=== PATIENT | male | born 1940 | race Caucasian/White ===

== ENCOUNTER 2019-05-23 10:34 | Outpatient (CLI) | payer OTHER, SELFPAY ==
--- NOTE | ~2019-05-23 | XR_ITS ---
XR chest 2V DATE: 05/23/2019 11:08 INDICATION: Emphysema. Shortness of breath. TECHNIQUE: PA and lateral views COMPARISON: 04/24/2019 portable upright AP, lateral chest and right lateral decubitus views FINDINGS: Status post sternotomy and cardiac valve replacement. Normal heart size. Aortic calcificati on and mild unfolding. Bilateral hyperinflation consistent with COPD. Stable patchy bilateral right mid and lower lung and l eft lower lung infiltrate and/or atelectasis. Calcified right pleural plaques and lateral pleural thickening, left greater than right, are again no linsey. Bilateral rotator cuff atrophy. There are osteoarthritic changes at the glenohumeral joints. IMPRESSION: Little interval change since 04/24/2019 Reviewed, dictated and finalized at location B. 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
== END 2019-05-23 10:35 | disposition home or self-care (01) ==
LOC: ANHIMG 10:41
PROVIDERS: PCP Family Medicine Adolescent Medicine; Visit Provider Specialist
DX: J43.8 Other emphysema (principal)
CPT/HCPCS: 71046

== ENCOUNTER 2019-06-30 09:57 | Outpatient (CLI) | payer OTHER, SELFPAY ==
--- NOTE | ~2019-06-30 | CT_ITS ---
EXAMINATION: CT chest wo con DATE: 06/30/2019 10:32 INDICATION: Lung nodule TECHNIQUE: Computed tomography (CT) of the chest was performed without intravenous contrast. The dose -length product (DLP) was 113.32 mGy-cm. Automated exposure control and iterative reconstruction tech CONWEAVERque were employed. COMPARISON: 01/13/2018 FINDINGS: There is moderate emphysema. Again noted are multiple calcified pleural plaques. There is s table left-sided pleural thickening with rounded atelectasis and bandlike atelectasis of the lingula and left lower lobe, respectively. A few scattered stable pulmonary nodules are seen, consistent with old granulomatous disease. The heart size is normal. There are no pathologically enlarged thoracic l ymph nodes. Calcified coronary artery atherosclerosis is noted. There are changes of aortic valve boy abigail. Cholelithiasis is noted. There is mild thoracic spondylosis. IMPRESSION: 1. Stable chronic findings consistent with prior asbestos exposure. Reviewed, dictated and finalized at location B.
== END 2019-06-30 09:58 | disposition home or self-care (01) ==
LOC: ANHIMG 09:59
PROVIDERS: PCP Family Medicine Adolescent Medicine; Visit Provider Nurse Practitioner Family
DX: R91.1 Solitary pulmonary nodule (principal)
CPT/HCPCS: 71250

== ENCOUNTER 2021-01-23 16:16 | Emergency (ER) | payer OTHER, SELFPAY ==
[2021-01-23 16:28] VITALS: BP 113/68; PULSE 64; RESP 18; TEMP 36.8; O2SAT 18; O2SAT 99
[2021-01-23] MEDS: SILVER NITRATE (*SP) STICK 3 EACH TOPICAL (17:00)
--- NOTE | 2021-01-23 17:13 | ED.GENADULT ---
HPI - General Adult General Chief complaint: Wound/Laceration Stated complaint: Facial Bleeding Source: patient and family () Mode of arrival: ambulatory Limitations: no limitations History of Present Illness HPI narrative: 80 y/o male. PMHx Dementia, COPD, HTN, HLD, AFib on oral Xarelto regimen. Presents to [facility] today with his . CC is bleeding wound to his face. Patient tells me that he had a mole on his right cheek that he had accidentally scratched when itching his face, and the area has since been bleeding without clotting. He did attempt holding pressure at home, however this did not further control the bleeding. Incident had occurred approximately 1/2 hour MEDICAL SOCIOLOGIST. He is concerned because he is on a blood thinner regimen for his cardiac arrhythmia. No facial injury or trauma has been relayed. No dizziness, dyspnea, hematochezia, or additional bleeding sources. Related Data Home Medications Medication Instructions Recorded Confirmed atorvastatin 10 mg PO DAILY 04/20/19 01/23/21 donepezil 10 mg PO HS 04/20/19 01/23/21 prednisone 10 mg tablet 10 mg PO DAILY 06/09/19 01/23/21 ipratropium bromide 0.02 % 2.5 ml INHALATION Q6H PRN 02/06/20 01/23/21 solution for inhalation memantine 10 mg tablet 10 mg PO QPM 02/06/20 01/23/21 lisinopril 10 mg tablet 15 mg PO DAILY tablet 10/15/20 01/23/21 nifedipine 60 mg tablet,extended 60 mg PO DAILY 10/15/20 01/23/21 release omeprazole 10 mg capsule,delayed 10 mg PO DAILY 10/15/20 01/23/21 release oxygen-air delivery systems [PV 01/23/21 01/23/21 Classic Oxygen Concentrator] Allergies Allergy/AdvReac Type Severity Reaction Status Date / Time No Known Allergies Allergy Verified 01/23/21 16:39 Review of Systems Review of Systems: CONSTITUTIONAL: Denies fever, chills, sweats. EYES: Denies visual changes, redness, discharge. ENT: Denies rhinorrhea, congestion, sore throat, otalgia. CARDIOVASCULAR: Denies chest pain, palpitations, edema. RESPIRATORY: Denies dyspnea, wheezing, cough GASTROINTESTINAL: Denies abdominal pain, nausea, vomiting, diarrhea. GENITOURINARY: Denies dysuria, hematuria, abnormal discharge SKIN: Denies rash or itching. Bleeding wound, uncontrolled, left cheek. MUSCULOSKELETAL: Denies acute back pain, joint pain, or myalgia. NEUROLOGIC: Denies numbness, or focal weakness. PSYCHIATRIC: Denies anxiety or depression. All systems reviewed & are unremarkable except as noted in HPI and below PMFSH Past Medical History Medical History COPD (chronic obstructive pulmonary disease) Hypertension Lung nodule Tobacco abuse Quit 2004. 49 pack years 1ppd. Surgical History Surgical History History of aortic valve replacement Status post aortic valve replacement Family History Family History Father Family history of cardiovascular disease Mother Family history of cardiovascular disease Sibling Malignant neoplasm of prostate Other Alzheimer disease Social History Social History Smoking status: Former smoker Smoking end date: 04/05/02 Alcohol intake: never Substance use: never Spiritual care concerns: No Agree to blood products: Yes Exam Narrative: GENERAL: This is a well-nourished, well-developed adult, in no apparent distress. HEAD: normocephalic, atraumatic. EYES: PERRL. CARDIOVASCULAR: Irregularly regular, normal rate. RESPIRATORY: LS diminished throughout. No wheezes, rales, or rhonchi. No acute respiratory distress. Chronic O2 at 2 Liters via NC w/end stage Copd. GASTROINTESTINAL: Abdomen soft, non-tender, nondistended. SKIN: With a small < 1 cm skin tag to left lower cheek. Area is actively bleeding, scant amount. No fluctuance or deep tissue disrupt
--- NOTE | 2021-01-23 17:32 | PC.NURSE ---
1628-- error corrected in the vital signs of the pulse ox, which we were unable to correct in the discharged status, so the correct is 98% on 2L per NC of pts home oxygen.
== END 2021-01-23 17:15 | disposition home or self-care (01) ==
PROVIDERS: Emergency Provider Nurse Practitioner Adult Health; PCP Family Medicine Adolescent Medicine
DX: L91.8 Other hypertrophic disorders of the skin (principal); J44.9 Chronic obstructive pulmonary disease, unspecified; I10 Essential (primary) hypertension; Z95.2 Presence of prosthetic heart valve; Z87.891 Personal history of nicotine dependence; Z79.01 Long term (current) use of anticoagulants
CPT/HCPCS: 99212; G0463

== ENCOUNTER 2021-01-24 04:54 | Emergency (ER) | payer OTHER, SELFPAY ==
[2021-01-24 05:00] VITALS: BP 193/84; PULSE 68; RESP 16; TEMP 36.5; O2SAT 100
[2021-01-24 05:15] VITALS: BP 180/107
--- NOTE | 2021-01-24 05:20 | ED.WOUNDLAC ---
HPI - Wound/Laceration General Chief Complaint: Wound/Laceration Stated Complaint: bleeding exterior lip since 0200 today Time Seen by Provider: 01/24/21 05:14 Source: patient Mode of arrival: ambulatory Limitations: no limitations History of Present Illness HPI narrative: Patient is an 80-year-old male complaining of accidentally scratching a mole on his cheek and now it's bleeding, states that he is on a blood thinner, Xarelto. Patient states that his blood pressure is elevated because he has not taken his morning blood pressure medications yet. Patient has no other complaints. Related Data Home Medications Medication Instructions Recorded Confirmed atorvastatin 10 mg PO DAILY 04/20/19 01/23/21 donepezil 10 mg PO HS 04/20/19 01/23/21 prednisone 10 mg tablet 10 mg PO DAILY 06/09/19 01/23/21 ipratropium bromide 0.02 % 2.5 ml INHALATION Q6H PRN 02/06/20 01/23/21 solution for inhalation memantine 10 mg tablet 10 mg PO QPM 02/06/20 01/23/21 lisinopril 10 mg tablet 15 mg PO DAILY tablet 10/15/20 01/23/21 nifedipine 60 mg tablet,extended 60 mg PO DAILY 10/15/20 01/23/21 release omeprazole 10 mg capsule,delayed 10 mg PO DAILY 10/15/20 01/23/21 release oxygen-air delivery systems [PV 01/23/21 01/23/21 Classic Oxygen Concentrator] Allergies Allergy/AdvReac Type Severity Reaction Status Date / Time No Known Allergies Allergy Verified 01/24/21 05:11 Review of Systems Review of Systems: All systems reviewed & are unremarkable except as noted in HPI and below Constitutional: Constitutional: Reports as per HPI [facility] Past Medical History Medical History COPD (chronic obstructive pulmonary disease) Hypertension Lung nodule Tobacco abuse Quit 2004. 49 pack years 1ppd. Surgical History Surgical History History of aortic valve replacement Status post aortic valve replacement Family History Family History Father Family history of cardiovascular disease Mother Family history of cardiovascular disease Sibling Malignant neoplasm of prostate Other Alzheimer disease Social History Social History Smoking status: Former smoker Smoking end date: 04/05/02 Alcohol intake: never Substance use: never Spiritual care concerns: No Agree to blood products: Yes Exam Const: General: healthy appearing, no acute distress and alert Orientation/consciousness: patient oriented x3 HENMT: Other: Mild active bleed right cheek Resp: Effort & Inspection: normal respiratory effort Skin: General skin exam: normal color Extrem: General: normal to inspection Psych: Mental Status: mental status grossly normal Course Vital Signs Vital signs: Vital Signs Temperature 36.5 C 01/24/21 05:00 Pulse Rate 68 01/24/21 05:00 Respiratory Rate 16 01/24/21 05:00 Blood Pressure 193/84 H 01/24/21 05:00 Pulse Oximetry 100 01/24/21 05:00 Temperature 36.5 C 01/24/21 05:00 Pulse Rate 68 01/24/21 05:00 Respiratory Rate 16 01/24/21 05:00 Blood Pressure 180/107 H 01/24/21 05:15 Pulse Oximetry 100 01/24/21 05:00 MDM - Wound/Laceration MDM Narrative Medical decision making narrative: Procedure: Bleeding stopped using silver nitrate applied to the area that was bleeding Discharge Plan Discharge Clinical Impression: Bleeding from wound Patient Disposition: Home, Self-Care Condition: Improved Instructions: Acute Wounds (ED) Prescriptions: No Action (DME) PV Classic Oxygen Concentrator Device MISCELLANEOUS RF: 0 prednisone 10 mg tablet 10 mg PO DAILY RF: 0 memantine 10 mg tablet 10 mg PO QPM RF: 0 ipratropium bromide 0.02 % solution 2.5 ml inhalation Q6H PRN (Reason: Shortness Of Breath) RF: 0
--- NOTE | 2021-01-24 05:25 | PC.NURSE ---
EDP at bedside
[2021-01-24 05:41] VITALS: BP 186/75; PULSE 63; RESP 15; O2SAT 97
[2021-01-24 05:51] VITALS: BP 155/72; PULSE 69; RESP 18; O2SAT 96
== END 2021-01-24 05:51 | disposition home or self-care (01) ==
LOC: ANHED 05:24
PROVIDERS: Emergency Provider Emergency Medicine; PCP Family Medicine Adolescent Medicine
DX: D22.39 Melanocytic nevi of other parts of face (principal); J44.9 Chronic obstructive pulmonary disease, unspecified; I10 Essential (primary) hypertension; Z95.2 Presence of prosthetic heart valve; Z87.891 Personal history of nicotine dependence; Z79.01 Long term (current) use of anticoagulants
CPT/HCPCS: 12011; 99282

== ENCOUNTER 2022-04-14 11:06 | Outpatient (CLI) | payer OTHER, SELFPAY ==
--- NOTE | ~2022-04-14 | XR_ITS ---
EXAMINATION: XR chest 2V DATE: 04/14/2022 12:17 INDICATION: Shortness of breath TECHNIQUE: PA and lateral views of the chest are obtained. COMPARISON: 05/23/2019 FINDINGS: There are chronic peripheral airspace opacities of the lung bases. No acute airspace opacit ies are identified. No pneumothorax is identified. Chronic pleural thickening is noted. There are chr onic calcified pleural plaques. Changes of cardiac valve replacement are noted. IMPRESSION: 1. Chronic findings of asbestos exposure without acute cardiopulmonary abnormality. Reviewed, dictated and finalized at location L. OPERATOR IMPRESSION: 1. Chronic findings of asbestos exposure without acute cardiopulmonary abnormal ity.
== END 2022-04-14 11:07 | disposition home or self-care (01) ==
PROVIDERS: PCP Family Medicine Adolescent Medicine; Visit Provider Internal Medicine Critical Care Medicine
DX: R09.89 Other specified symptoms and signs involving the circulatory and respiratory systems (principal)
CPT/HCPCS: 71046

== ENCOUNTER 2022-10-10 17:15 | Inpatient (IN) | payer OTHER, SELFPAY ==
[2022-10-10] VITALS (28 sets, daily range): BP systolic 141–180; BP diastolic 68–100; PULSE 68–133; RESP 16–31; TEMP 36.4–36.6; O2SAT 97–100
--- NOTE | ~2022-10-10 | XR_ITS ---
EXAMINATION: XR barium swallow modified DATE: 10/18/2022 12:33 INDICATION: Follow-up of abnormal modified barium swallow. Aspiration. TECHNIQUE: The patient was given barium-containing material of multiple consistencies to swallow by lenard dupree speech pathologist while I performed fluoroscopy. Dose-area product was 0.922 Gy-cm2. 1.6 minutes fluoroscopy time FINDINGS: Oral Stage: Reduced lingual movement Pharyngeal Phase: Reduced laryngeal elevation, reduced laryngeal adduction, reduced pharyngeal squee ze Vallecular and piriform sinus and pharyngeal wall residue Laryngeal penetration Cervical/Esophageal Stage: Within functional limits IMPRESSION: Modified esophagram findings as above. Please refer to the speech [facility] Reviewed, dictated and finalized at Location A. Reviewed, dictated and finalized at location A. IMPRESSION: Modified esophagram findings as above. Please refer to the speech t herapy report for specific recommendations.
--- NOTE | ~2022-10-10 | XR_ITS ---
EXAMINATION: XR chest 1V portable DATE: 10/12/2022 14:18 INDICATION: Aspiration pneumonia. TECHNIQUE: A single frontal view of the chest was obtained. COMPARISON: Chest single view 10/10/2022, chest CT 06/30/2019, chest 2 views 05/23/2019 FINDINGS: There are peripheral airspace opacities in the mid and lower lung zones. There are small pl eural effusions versus pleural thickening. No pneumothorax. The heart size is normal. There are dolan es of aortic valve replacement. IMPRESSION: 1. Stable peripheral airspace opacities in mid and lower lung zones, consistent with chronic lung dis ease. 2. Stable small pleural effusions versus pleural thickening. Reviewed, dictated and finalized at location E. IMPRESSION: 1. Stable peripheral airspace opacities in mid and lower lung zones, consistent with chronic lung disease. 2. Stable small pleural effusions versus pleural thickening.
--- NOTE | ~2022-10-10 | CT_ITS ---
EXAMINATION: CT brain wo con DATE: 10/17/2022 14:54 INDICATION: Transient ischemic attack. Dementia. TECHNIQUE: Computed tomography (CT) of the head was performed without intravenous contrast. The mA wa s adjusted according to patient size. Iterative reconstruction technique was employed. The dose-lengt h product was 605.33 mGy-cm. COMPARISON: Head CT 11/14/2015 FINDINGS: There is an old infarct in left temporal lobe. There are old infarcts in the bilateral thal ami and basal ganglia. There are scattered areas of low attenuation in the cerebral white matter. The re are old infarcts in the cerebellum bilaterally. There is no intracranial hemorrhage, acute infarct ion, or abnormal intracranial mass lesion. The ventricles are normal in size. There is mild mucosal t hickening in the ethmoid sinuses. The orbits are normal. There are bilateral otomastoid effusions. IMPRESSION: 1. Old infarcts involving the cerebellum, left temporal lobe, and bilateral thalami and basal ganglia . 2. Extensive nonspecific cerebral white matter disease, which likely represents chronic small vessel ischemic disease. 3. Bilateral otomastoid effusions. Reviewed, dictated and finalized at location E. IMPRESSION: 1. Old infarcts involving the cerebellum, left temporal lobe, and bilateral bambi lami and basal ganglia. 2. Extensive nonspecific cerebral white matter disease, which likely represents chronic small vessel ischemic disease. 3. Bilateral otomastoid effusions.
--- NOTE | ~2022-10-10 | XR_ITS ---
EXAMINATION: XR chest 1V portable Exam Date/Time: 10/10/2022 17:55 CDT HISTORY: sob Comparison: 04/14/2022. RESULT: Lines, tubes, and devices: Intact sternotomy wires. Abandoned epicardial pacing wires. Lungs and pleura: Patchy areas of subsegmental airspace disease most prominent in the right mid late ral and left lower lateral lung. Indistinct vessels. Moderate diffuse reticular opacities. Mild left and trace right costophrenic angle blunting. Calcified pleural plaques, as can be seen with asbestos related pleural disease. Cardiomediastinal silhouette: Stable. Other: No acute osseous or upper abdominal finding. IMPRESSION: Mild-moderate edema with small left and trace right pleural effusions. Scattered, patchy areas of aleksander eolar edema/atelectasis, infection is not excluded. Reviewed, dictated and finalized at location K. IMPRESSION: Mild-moderate edema with small left and trace right pleural effusions. Scattere d, patchy areas of alveolar edema/atelectasis, infection is not excluded.
--- NOTE | ~2022-10-10 | XR_ITS ---
MODIFIED ESOPHAGRAM HISTORY: Suspected aspiration TECHNIQUE: Modified barium esophagram was performed on 10/14/2022. I administered fluoroscopy and perf ormed the exam with speech pathologist. Patient was seated for lateral fluoroscopic imaging for malini stion of thin liquids, pudding, solids and quantified amounts, followed by thin liquids in uncontroll ed amounts. This was recorded on tape. A single fluoroscopic spot image was also recorded. The DAP fo r this procedure was 3.28 Gycm2. The amount of fluoroscopy time used during this procedure was 5.0 mi nutes. FINDINGS: Oral stage: Adequate function. Pharyngeal stage: Reduced laryngeal elevation and adduction. Reduced tongue base retraction and phary ngeal squeeze. There is a large amount of vallecular residue with mild/moderate amount of residue in the piriform sinus and along the pharyngeal wall. There is laryngeal penetration with silent aspirati on with all consistencies with ineffectual cough clearance. Cervical/esophageal stage: Adequate function. IMPRESSION: Significant pharyngeal dysphagia with recurrent laryngeal penetration and silent aspirati on with all consistencies. Please correlate with speech pathologist findings and specific feeding re commendations. Reviewed, dictated and finalized at location A. IMPRESSION: Significant pharyngeal dysphagia with recurrent laryngeal penetrati on and silent aspiration with all consistencies. Please correlate with speech pathologist findings and specific feeding recommendations.
--- NOTE | 2022-10-10 17:17 | ECG_ITS ---
Measurements Intervals [place] Rate: 130 P: PA: 324 QRS: 62 QRSD: 81 T: 266 QT: 277 QTc: 408 Interpretive Statements ATRIAL FIBRILLATION WITH RAPID VENTRICULAR RESPONSE VENTRICULAR PREMATURE COMPLEX DELAYED PRECORDIAL R/S TRANSITION ST-T WAVE ABNORMALITY IN INFERIOR LEADS- CONSIDER ISCHEMIA BASELINE ARTIFACT- II, III, AVF, V5-V6 ABNORMAL ECG COMPARED TO ECG 04/24/2019 07:38:58 HEART RATE HAS INCREASED ST-T WAVE ABNORMALITY NOW PRESENT Electronically Signed On 10-11-2022 7:24:03 CDT by Jose Hyanes D.O.
--- NOTE | 2022-10-10 17:23 | ED.SOB ---
HPI - SOB/Dyspnea General Chief Complaint: Shortness of Breath/Dyspnea Stated Complaint: DYSPNEA Time Seen by Provider: 10/10/22 17:20 Source: patient Limitations: no limitations History of Present Illness HPI Narrative: 81 years old white female came from home by ambulance with shortness of breath that started sometime today. He denies any fever, chills, nausea, vomiting, chest pain. Patient reports some coughing lately. Patient normally on 2 L of oxygen, currently on 4 L with oxygenation at 98%. MD elicited complaint: shortness of breath and cough Pertinent past history: COPD Onset (ago): hour(s) Timing: constant Severity: moderate Known history of: COPD Associated symptoms: denies other symptoms Related Data Home Medications Medication Instructions Recorded Confirmed ipratropium bromide 0.02 % 2.5 ml inhalation Q6H PRN 02/06/20 10/10/22 solution for inhalation Shortness Of Breath cholecalciferol (vitamin D3) 50 2,000 unit PO DAILY 06/11/21 10/10/22 mcg (2,000 unit) chewable tablet omeprazole 20 mg capsule,delayed 20 mg PO DAILY 01/23/22 10/10/22 release metoprolol succinate 50 mg 50 mg PO DAILY 09/29/22 10/10/22 tablet,extended release 24 hr memantine 10 mg tablet 10 mg PO BID 10/10/22 10/10/22 multivit with minerals-iron 18 1 tablet PO DAILY 10/10/22 10/10/22 mg-folic ac 400 mcg-vit K 25 mcg tablet (Adults Multivitamin) triamcinolone acetonide 0.1 % 1 applic topical DAILY 10/12/22 10/12/22 topical cream Allergies Allergy/AdvReac Type Severity Reaction Status Date / Time No Known Allergies Allergy Verified 09/22/22 08:37 Review of Systems Review of Systems: All systems reviewed & are unremarkable except as noted in HPI and below PMFSH Past Medical History Medical History Abdominal aortic aneurysm, without rupture Chronic respiratory failure with hypoxia Chronic home O2 Chronic venous insufficiency of lower extremity Dementia Diastolic heart failure Grade 2 diastolic heart failure known echocardiogram 2015 with indeterminate diastolic function noted on echocardiogram 2019 Essential hypertension Gastro-esophageal reflux disease without esophagitis History of prostate cancer 2004 Hyperlipidemia Kidney stones Lung nodule Panlobular emphysema Paroxysmal atrial fibrillation Presbycusis of both ears Pulmonary hypertension due to lung diseases and hypoxia Severe with last echo 2019 Severe aortic stenosis by prior echocardiogram 2016 Stenosis of right carotid artery Tobacco abuse Quit 2005. 49 pack years 1ppd. Vasomotor rhinitis Surgical History Surgical History History of aortic valve replacement with tissue graft (~2015) Due to severely stenosed bicuspid aortic valve with a Magna tissue valve replacement History of colonoscopy with polypectomy History of radical prostatectomy (~2004) With adjunctive radiation therapy History of right inguinal hernia repair (~2005) History of tonsillectomy and adenoidectomy Family History Family History Father Acute myocardial infarction Heart disease Mother Acute myocardial infarction Heart disease Sibling Malignant neoplasm of prostate Alzheimer's dementia Heart disease Son Type 1 diabetes Other Alzheimer disease Social History Social History Social History: Code status: DNR/DNI Surrogate decision maker: Smoking packs per day: 1 Smoking cigarettes per day: 20.0 Years smoked: 46 Smoking pack-years: 46.00 Smoking status: Former smoker Tobacco type: cigarettes Smoking end date: 04/05/02 Alcohol intake: never Substance use: never Substance use type: does not use Lack of Transportation: No Lack of Food: Never True Current Housing: I Have Housing Conc
[2022-10-10 17:41] LABS: Hematocrit 37.8 % (42.0-52.0); Hemoglobin 10.8 g/dL (14.0-18.0); Mean Corpuscular HGB Conc 28.6 g/dl (32-36); Mean Corpuscular Hemoglobin 24.9 pg (26-34); Mean Corpuscular Volume 87.1 fl (80-100); Mean Platelet Volume 10.1 fl (7.4-10.4); Platelet Count Result 219 k/mm3 (150-375); Red Blood Count 4.34 M/mm3 (4.6-6.20); Red Cell Distribution Width 14.3 % (11.5-14.5); White Blood Count 10.4 K/mm3 (4.5-10.0)
[2022-10-10] MEDS: methylPREDNISolone SOD SUCC 125 MG VIAL IV PUSH (17:47)
[2022-10-10] MEDS: dilTIAZem HCl INJ 25 MG/5 ML VIAL 10 MG IV PUSH (17:47)
[2022-10-10] MEDS: dilTIAZem 100 MG/100 ML 100 MG/100 ML BAG IV CONT (17:47)
[2022-10-10] MEDS: IPRATROPIUM BR 0.02% INH SOLN 0.5 MG/2.5 ML VIAL INHALATION ×2 (17:49→20:37)
[2022-10-10] MEDS: ALBUTEROL SULFATE NEB 2.5 MG/3 ML INH INHALATION ×2 (17:49→20:38)
[2022-10-10 17:52] LABS: INR 1.6; Prothrombin Time 19.7 Seconds (11.1-14.7)
[2022-10-10 17:53] LABS: Partial Thromboplastin Time 34.4 SECONDS (22.3-36.8)
[2022-10-10 17:54] LABS: Alanine Aminotransferase 18 U/L (6-50); Albumin Level 4.3 g/dL (3.5-5.1); Alkaline Phosphatase 86 U/L (38-126); Anion Gap 8 mmol/L (8-16); Aspartate Amino Transferase 22 U/L (17-59); Bilirubin,Total 0.7 mg/dL (0.2-1.3); Blood Urea Nitrogen 16 mg/dL (9-20); Calcium 9.4 mg/dL (8.4-10.2); Carbon Dioxide 30 mmol/L (22-30); Chloride 108 mmol/L (98-107); Estimated Glomerular Filt Rate > 60; Glucose 161 mg/dL (65-110); Magnesium 2.1 mg/dL (1.6-2.3); Potassium 3.4 mmol/L (3.4-5.0); Sodium 146 mmol/L (137-145)
[2022-10-10 18:04] LABS: Band Neutrophils Percent 1 % (0-6); Lymphocytes Absolute Manual 0.83 K/mm3 (1.1-4.5); Monocytes Absolute Manual 0.83 K/mm3 (0.1-0.90); Monocytes Percent Manual 8 % (3-9); Neutrophils Absolute Manual 8.73 K/mm3 (1.3-6.7); Neutrophils Percent Manual 83 % (46-73); Total Cells Counted 100
[2022-10-10 18:05] LABS: Hypochromasia 1+ (NORMAL); NT Pro B Type Natriuretic Pept 6310 pg/mL (19.9-100); Platelet Estimate Adequate (Adequate); Schistocytes None Seen (NORMAL); Troponin I 0.023 ng/mL (0.000-0.034)
[2022-10-10 18:06] LABS: Alveolar/Arterial O2 Gradient 31.4 mmHg; Fractional Inspired Oxygen 36 %; HCO3 ABG 26.8 mEq/l (22.0-26.0); Oxygen Content ABG 16.3 %vol (16.0-22.0); Oxygen Saturation ABG 99.1 % (95.0-100.0); Oxyhemoglobin 97.2 % THb (90.0-100.0); PCO2 ABG 47.9 mmHg (35.0-45.0); PO2 ABG 169.7 mmHg (80.0-100.0); PO2 FiO2 Ratio Arterial Blood 4.71 %; Total Hemoglobin 11.7 g/dL (12.0-18.0); pH ABG 7.366 (7.350-7.450)
[2022-10-10 18:07] LABS: Device NASAL CANNULA; Site Drawn LEFT BRACHIAL
--- NOTE | 2022-10-10 18:11 | ECG_ITS ---
Measurements Intervals [place] Rate: 96 P: [place]: 0 QRS: 61 QRSD: 87 T: -70 QT: 357 QTc: 453 Interpretive Statements ATRIAL FIBRILLATION BORDERLINE ST-T WAVE ABNORMALITY- INF/LAT LEADS BASELINE ARTIFACT- I, II, III, AVR, AVL, AVF ABNORMAL ECG COMPARED TO ECG 10/10/2022 17:19:14 HEART RATE HAS DECREASED Electronically Signed On 10-11-2022 7:26:11 CDT by Jose Haynes D.O.
[2022-10-10] MEDS: FUROSEMIDE INJ 40 MG/4 ML VIAL 60 MG IV PUSH (19:01)
[2022-10-10] MEDS: NITROGLYCERIN OINTMENT 1 INCH DOSE TRANSDERM (19:01)
--- NOTE | 2022-10-10 20:00 | ADMGEN ---
This patient, Ryan Dos Santos, was admitted to IMU Room 214-01. Patient/family oriented to hospital policies and general routines including ID bracelet, bed and alarms, visiting hours, pain management, procedures, bathroom and other care routines, personal items, smoking policy, room service/diet, and visiting hours. Information on how to activate the Rapid Response Team has been discussed. Patient/Family are encouraged to report perceived risks to care and to ask questions if they do not understand what they are told or what they should do.
--- NOTE | 2022-10-10 20:11 | PM.IMHP ---
H&P: HPI History of Present Illness Date/Time: 10/10/22 20:11 [facility] Past Medical History Medical History History of prostate cancer 2005 Lung nodule Tobacco abuse Quit 2005. 49 pack years 1ppd. Surgical History Surgical History History of aortic valve replacement 2016 History of inguinal hernia repair 2006 Right History of radical prostatectomy 2005 Family History Family History Father Acute myocardial infarction Heart disease Mother Acute myocardial infarction Heart disease Sibling Malignant neoplasm of prostate Alzheimer's dementia Heart disease Other Alzheimer disease Social History Social History (Updated 09/22/22 @ 08:44 by Sarah Fox [facility]) Smoking status: Former smoker Smoking end date: 04/05/02 Alcohol intake: never Substance use: never Substance use type: does not use Lack of Transportation: No Lack of Food: Never True Current Housing: I Have Housing Concerned About Future Housing: No Difficulty Paying Gas/Electric Bills: No Difficulty Paying for Meds: No Currently Unemployed: Decline to Answer Education: High School Diploma/GED Difficulty w/ Childcare or Family Care: No Living arrangements: with family Occupation/Education: retired Gender identity (if verbalized by the patient): Male Sexual Orientation (if Verbalized by the Patient): Straight or Heterosexual Spiritual care concerns: No Agree to blood products: Yes Meds Home Medications and Allergies Home Medications Medication Instructions Recorded Confirmed Type rivaroxaban 20 mg tablet (Xarelto) 20 mg PO DAILY@1700 #30 tabs 04/24/19 08/10/22 Rx ipratropium bromide 0.02 % 2.5 ml inhalation Q6H PRN 02/06/20 08/10/22 History solution for inhalation Shortness Of Breath albuterol sulfate 90 mcg/actuation 1 inh inhalation Q4-6H PRN 04/01/20 08/10/22 Rx aerosol inhaler shortness of breath or wheezing #8.5 grams cholecalciferol (vitamin D3) 50 2,000 unit PO DAILY 06/11/21 08/10/22 History mcg (2,000 unit) chewable tablet omeprazole 20 mg capsule,delayed 20 mg PO DAILY 01/23/22 08/10/22 History release donepezil 10 mg tablet 10 mg PO HS #90 tabs 03/06/22 08/10/22 Rx methscopolamine 2.5 mg tablet 2.5 mg PO TID #90 tabs 05/31/22 08/10/22 Rx memantine 10 mg tablet See Rx Instructions .Route 07/19/22 08/10/22 Rx .COMPLEX #180 tabs atorvastatin 10 mg tablet 10 mg PO DAILY #90 tabs 08/03/22 08/10/22 Rx budesonide-formoterol HFA 160 2 puff inhalation Q12H #10.2 grams 08/10/22 08/10/22 Rx mcg-4.5 mcg/actuation aerosol inhaler metoprolol succinate 50 mg 50 mg PO DAILY 09/29/22 History tablet,extended release 24 hr Allergies Allergy/AdvReac Type Severity Reaction Status Date / Time No Known Allergies Allergy Verified 09/22/22 08:37 Vital Signs Vital Signs - 24 hr 10/10/22 17:12 10/10/22 17:21 10/10/22 17:47 Pulse Rate 68 122 H Respiratory Rate Blood Pressure Pulse Oximetry 98 98 Oxygen Delivery Nasal Cannula Nasal Cannula Oxygen Flow Rate 4 4 10/10/22 18:05 10/10/22 18:00 10/10/22 18:16 Pulse Rate 77 83 85 Respiratory Rate 27 H 28 H 24 H Blood Pressure 141/100 H Pulse Oximetry 99 Oxygen Delivery Oxygen Flow Rate 10/10/22 17:47 10/10/22 17:50 10/10/22 18:00 Pulse Rate 103 H 105 H 79 Respiratory Rate 25 H 31 H 27 H Blood Pressure 180/100 H Pulse Oximetry 100 100 97 Oxygen Delivery Oxygen Flow Rate 10/10/22 18:02 10/10/22 18:15 10/10/22 18:16 Pulse Rate 88 87 85 Respiratory Rate 24 H 28 H 24 H Blood Pressure 141/100 H 166/78 H Pulse Oximetry 98 100 100 Oxygen Delivery Oxygen Flow Rate 10/10/22 18:30 10/10/22 18:31 10/10/22 18:45 Pulse Rate 101 H 102 H 108 H Respiratory Rate 27 H 24 H 27 H Blood Pres
[2022-10-10] MEDS: FUROSEMIDE INJ 40 MG/4 ML VIAL 20 MG IV PUSH (20:42)
--- NOTE | 2022-10-10 21:05 | PM.IMHP ---
H&P: HPI History of Present Illness Date/Time: 10/10/22 21:05 Chief Complaint: Shortness of breath Narrative: 81-year-old male with a past medical history of severe pulmonary hypertension due to COPD/emphysema, chronic hypoxic respiratory failure, diastolic congestive heart failure, paroxysmal atrial fibrillation and essential hypertension who presented to the ER from home via EMS due to shortness of breath. The patient is chronically on 2 L nasal cannula at home when EMS arrived at the patient's home he was satting in the upper 80s on 2 L. He was increased to 4 L nasal cannula brought to the ER. In the field he was noted to be in atrial fibrillation with rapid ventricular response. In the ER he received a dose of IV Cardizem input placed on a Cardizem drip. He also received 60 mg of IV Lasix. He has chronic hypoxic respiratory failure but does not usually have significant CO2 retention. ABG was performed which demonstrated mild hypercapnia and his PO2 was elevated to 160 on 4 L nasal cannula. He received nebulizer treatment and steroids in the ER as well. The patient evidently does have some chronic cough. The patient states that he cannot really tell me what his symptoms have been that I will need to ask his . Patient's had already left for home at the time of my evaluation. On exam the patient does have some bilateral lower extremity swelling. He denies any chest pain. He is chronically short of breath. He does not know if he was more short of breath per and is coming to the hospital. He does not think he has been having any fevers. He has had great urine output since admission to the hospital and receiving Lasix. He has a pure wick in place and has already produced over 800 mL and urine output. The patient believes that he got his morning medications prior to coming to the ER. He really does not recall specifically why he came to the ER. Review of Systems Review of Systems: ROS unobtainable: Yes unobtainable due to medical condition (Dementia) [facility] Past Medical History Medical History (Updated 10/10/22 @ 21:23 by Daphnie eTe, ) Abdominal aortic aneurysm, without rupture Chronic respiratory failure with hypoxia Chronic home O2 Chronic venous insufficiency of lower extremity Dementia Diastolic heart failure Grade 2 diastolic heart failure known echocardiogram 2015 with indeterminate diastolic function noted on echocardiogram 2019 Essential hypertension Gastro-esophageal reflux disease without esophagitis History of prostate cancer 2005 Hyperlipidemia Kidney stones Lung nodule Panlobular emphysema Paroxysmal atrial fibrillation Presbycusis of both ears Pulmonary hypertension due to lung diseases and hypoxia Severe with last echo 2019 Severe aortic stenosis by prior echocardiogram 2015 Stenosis of right carotid artery Tobacco abuse Quit 2004. 49 pack years 1ppd. Vasomotor rhinitis Surgical History Surgical History (Updated 10/10/22 @ 21:22 by Daphnie Tee DO) History of aortic valve replacement with tissue graft (~2015) Due to severely stenosed bicuspid aortic valve with a Magna tissue valve replacement History of colonoscopy with polypectomy History of radical prostatectomy (~2004) With adjunctive radiation therapy History of right inguinal hernia repair (~2005) History of tonsillectomy and adenoidectomy Family History Family History (Updated 10/10/22 @ 21:17 by Daphnie Tee DO) Father Acute myocardial infarction Heart disease Mother Acute myocardial infarction Heart disease Sibling Malignant neoplasm of prostate Alzheimer's dementia Heart disease Son Type 1 diabetes Other Alzheimer disease Social History Social History (Updated 10/10/22 @ 23:30 by Daphnie Tee DO) Social History: Code status: DNR/DNI Surrogate decision maker: Smoking packs per day: 1 Smoking cigarettes per day: 20.0 Years smoked: 46
[2022-10-10] MEDS: MEMANTINE 10 MG TABLET PO (21:47)
[2022-10-10] MEDS: DONEPEZIL HCL 10 MG TABLET PO (21:47)
[2022-10-10] MEDS: RIVAROXABAN 20 MG TABLET PO (21:47)
[2022-10-10 22:28] LABS: Troponin I 0.024 ng/mL (0.000-0.034)
[2022-10-10] MEDS: METOPROLOL TARTRATE 50 MG TAB PO (22:36)
[2022-10-11] VITALS (29 sets, daily range): BP systolic 119–152; BP diastolic 52–98; PULSE 80–133; RESP 17–28; TEMP 36.4–37.2; O2SAT 92–98
[2022-10-11 01:40] LABS: Troponin I 0.027 ng/mL (0.000-0.034)
[2022-10-11] MEDS: IPRATROPIUM BR 0.02% INH SOLN 0.5 MG/2.5 ML VIAL INHALATION ×4 (02:22→20:43)
[2022-10-11] MEDS: ALBUTEROL SULFATE NEB 2.5 MG/3 ML INH 5 MG INHALATION ×4 (02:23→20:44)
[2022-10-11] MEDS: dilTIAZem 100 MG/100 ML 100 MG/100 ML BAG 10 MG IV CONT ×2 (04:14→14:14)
[2022-10-11 05:09] LABS: Hemoglobin 11.4 g/dL (14.0-18.0); Mean Corpuscular HGB Conc 28.5 g/dl (32-36); Mean Corpuscular Volume 87.7 fl (80-100); Mean Platelet Volume 10.8 fl (7.4-10.4); Platelet Count Result 221 k/mm3 (150-375); Red Blood Count 4.56 M/mm3 (4.6-6.20); Red Cell Distribution Width 14.2 % (11.5-14.5); White Blood Count 8.4 K/mm3 (4.5-10.0)
[2022-10-11 05:26] LABS: Anion Gap 15 mmol/L (8-16); Blood Urea Nitrogen 21 mg/dL (9-20); Calcium 9.7 mg/dL (8.4-10.2); Carbon Dioxide 29 mmol/L (22-30); Chloride 101 mmol/L (98-107); Estimated CRCL calculation 40 ml/min; Estimated Glomerular Filt Rate > 60; Glucose 214 mg/dL (65-110); Potassium 3.2 mmol/L (3.4-5.0); Sodium 145 mmol/L (137-145)
[2022-10-11] MEDS: FLUTICASONE/SALMETEROL 115-21 MCG INHALER 1 PUFF 2 PUFF INHALATION ×2 (07:38→20:44)
--- NOTE | 2022-10-11 08:21 | PM.IMPN ---
Progress Note: A&P Assessment and Plan (1) Persistent atrial fibrillation with RVR: Code(s): I48.19 - Other persistent atrial fibrillation Status: Acute (2) Acute exacerbation of congestive heart failure: Qualifiers: Heart failure type: unspecified Qualified Code(s): I50.9 - Heart failure, unspecified Code(s): I50.9 - Heart failure, unspecified Status: Acute Assessment and Plan: Combined diastolic and right-sided heart failure with a component high output out failure due to AFib (3) Acute on chronic respiratory failure with hypoxia and hypercapnia: Code(s): J96.21 - Acute and chronic respiratory failure with hypoxia; J96.22 - Acute and chronic respiratory failure with hypercapnia Status: Acute (4) Unspecified dementia, unspecified severity, without behavioral disturbance, psychotic disturbance, mood disturbance, and anxiety: Code(s): F03.90 - Unspecified dementia, unspecified severity, without behavioral disturbance, psychotic disturbance, mood disturbance, and anxiety Status: Acute (5) Atherosclerotic heart disease of [place] coronary artery without angina pectoris: Code(s): I25.10 - Atherosclerotic heart disease of [place] coronary artery without angina pectoris Status: Acute (6) Chronic diastolic (congestive) heart failure: Code(s): I50.32 - Chronic diastolic (congestive) heart failure Status: Acute Plan Acute on chronic headaches heart failure History of diastolic dysfunction Continue Lasix 20 mg b.i.d. IV push Fluid restriction Follow-up echocardiogram Consult squirrel worker for evaluation Acute on chronic respiratory failure Likely secondary to CHF Patient also has history of COPD Start O2 therapy to keep pulse ox above 94 Continue bronchodilators nebulizer scheduled and p.r.n. AFib RVR Continue metoprolol 50 mg daily p.o. Rivaroxaban 20 mg daily p.o. Rate is now controlled Consult squirrel worker for optimizing medications Follow-up TSH Dementia Confused, possible close to baseline Continue home medication for dementia Subjective Date/time seen: 10/11/22 08:21 Interval history: I saw exam is patient today. Patient is alert, but is not oriented x3, denies chest pain shortness of breath, but he has some cough Exam Narrative: GENERAL: Pleasant, in no acute distress. Well-nourished. - EYES: EOMI. Anicteric. - HENT: Moist mucous membranes. - LUNGS: Some crackles bilateral base,, no wheezing, rhonchi, or rales. - CARDIOVASCULAR: Regular rate and rhythm. No murmur. No JVD. - ABDOMEN: Soft, non-tender and non-distended. No palpable masses. - EXTREMITIES: No edema. Peripheral pulses 2+. Non-tender. - NEUROLOGIC: No focal neurological deficits. CN II-XII grossly intact. Has general weakness - PSYCHIATRIC: Awake, Alert and oriented x 3. Appropriate mood and affect. - SKIN: No rashes or lesions. Warm. - LYMPH: No cervical lymphadenopathy. Objective Data Vital Signs Vital Signs: Vital Signs - 24 hr 10/10/22 17:12 10/10/22 17:21 10/10/22 17:47 Temperature Pulse Rate 68 122 H Respiratory Rate Blood Pressure Pulse Oximetry 98 98 Oxygen Delivery Nasal Cannula Nasal Cannula Oxygen Flow Rate 4 4 Fraction of Inspired Oxygen 10/10/22 18:05 10/10/22 18:00 10/10/22 18:16 Temperature Pulse Rate 77 83 85 Respiratory Rate 27 H 28 H 24 H Blood Pressure 141/100 H Pulse Oximetry 99 Oxygen Delivery Oxygen Flow Rate Fraction of Inspired Oxygen 10/10/22 17:47 10/10/22 17:50 10/10/22 18:00 Temperature Pulse Rate 103 H 105 H 79 Respiratory Rate 25 H 31 H 27 H Blood Pressure 180/100 H Pulse Oximetry 100 100 97 Oxygen Delivery Oxygen Flow Rate Fraction of Inspired Oxygen 10/10/22 18:02 10/10/22 18:15 10/10/22 18:16 Temperature Pulse Rate 88 87 85 Respiratory Rate 24 H 28 H 24 H Blood Pressure 141/100 H 166/78 H Pulse Oximetry 98 100 1
[2022-10-11] MEDS: MEMANTINE 10 MG TABLET PO ×2 (08:33→17:09)
[2022-10-11] MEDS: PANTOPRAZOLE 40 MG TABLET PO (08:33)
[2022-10-11] MEDS: METOPROLOL SUCCINATE EXT REL 50 MG TABCR PO (08:33)
[2022-10-11] MEDS: FUROSEMIDE INJ 40 MG/4 ML VIAL 20 MG IV PUSH ×2 (08:34→20:56)
[2022-10-11] MEDS: CHOLECALCIFEROL 1,000 UNITS TABLET 2000 UNITS PO (08:34)
[2022-10-11] MEDS: ATORVASTATIN 10 MG TABLET PO (08:35)
[2022-10-11 11:41] LABS: Glucose Point of Care 269 mg/dl (65-105)
[2022-10-11] MEDS: POTASSIUM CHLORIDE 20 MEQ ER TABLET 40 MEQ PO (12:06)
[2022-10-11] MEDS: INSULIN ASPART (*BKC) 100 UNITS/ML SUB-Q (12:06)
[2022-10-11 14:17] LABS: Free T4 Free Thyroxine Reflex 1.15 ng/dL (0.78-2.19)
[2022-10-11 16:10] LABS: Total Triiodothyronine (T3) 0.91 NG/ML (0.97-1.69)
[2022-10-11 16:58] LABS: Glucose Point of Care 133 mg/dl (65-105)
[2022-10-11] MEDS: RIVAROXABAN 20 MG TABLET PO (17:09)
[2022-10-11 19:50] LABS: Glucose Point of Care 168 mg/dl (65-105)
[2022-10-11] MEDS: DONEPEZIL HCL 10 MG TABLET PO (20:56)
[2022-10-12] VITALS (24 sets, daily range): BP systolic 113–143; BP diastolic 48–76; PULSE 74–112; RESP 16–20; TEMP 35.7–36.6; O2SAT 90–99
[2022-10-12] MEDS: dilTIAZem 100 MG/100 ML 100 MG/100 ML BAG 10 MG IV CONT ×3 (00:47→21:38)
[2022-10-12] MEDS: HALOPERIDOL LACTATE 5 MG/ML VIAL 2.5 MG IM (01:11)
[2022-10-12] MEDS: IPRATROPIUM BR 0.02% INH SOLN 0.5 MG/2.5 ML VIAL INHALATION ×3 (08:00→21:08)
[2022-10-12] MEDS: ALBUTEROL SULFATE NEB 2.5 MG/3 ML INH 5 MG INHALATION ×3 (08:00→21:08)
[2022-10-12] MEDS: FLUTICASONE/SALMETEROL 115-21 MCG INHALER 1 PUFF 2 PUFF INHALATION ×2 (08:00→21:08)
[2022-10-12 08:05] LABS: Glucose Point of Care 133 mg/dl (65-105)
--- NOTE | 2022-10-12 08:25 | PM.IMPN ---
Progress Note: A&P Assessment and Plan (1) Persistent atrial fibrillation with RVR: Code(s): I48.19 - Other persistent atrial fibrillation Status: Acute (2) Acute exacerbation of congestive heart failure: Qualifiers: Heart failure type: unspecified Qualified Code(s): I50.9 - Heart failure, unspecified Code(s): I50.9 - Heart failure, unspecified Status: Acute Assessment and Plan: Combined diastolic and right-sided heart failure with a component high output out failure due to AFib (3) Acute on chronic respiratory failure with hypoxia and hypercapnia: Code(s): J96.21 - Acute and chronic respiratory failure with hypoxia; J96.22 - Acute and chronic respiratory failure with hypercapnia Status: Acute (4) Unspecified dementia, unspecified severity, without behavioral disturbance, psychotic disturbance, mood disturbance, and anxiety: Code(s): F03.90 - Unspecified dementia, unspecified severity, without behavioral disturbance, psychotic disturbance, mood disturbance, and anxiety Status: Acute (5) Atherosclerotic heart disease of [place] coronary artery without angina pectoris: Code(s): I25.10 - Atherosclerotic heart disease of [place] coronary artery without angina pectoris Status: Acute (6) Chronic diastolic (congestive) heart failure: Code(s): I50.32 - Chronic diastolic (congestive) heart failure Status: Acute Plan Acute on chronic headaches heart failure History of diastolic dysfunction Continue Lasix 20 mg b.i.d. IV push Fluid restriction Follow-up echocardiogram Consult senior property accountant for evaluation Acute on chronic respiratory failure Likely secondary to CHF Patient also has history of COPD Start O2 therapy to keep pulse ox above 94 Continue bronchodilators nebulizer scheduled and p.r.n. Aspiration pneumonia Patient has leukocytosis, early x-rays showed bilateral patchy infiltrate Possible early stage aspirin treat pneumonia Will start Unasyn IV Repeat chest x-ray and request speech therapy evaluation Aspiration precaution AFib RVR Continue metoprolol 50 mg daily p.o. Rivaroxaban 20 mg daily p.o. Rate is now controlled Consult senior property accountant for optimizing medications Follow-up TSH Dementia Confused, possible close to baseline Continue home medication for dementia General weakness, Consult PT OT for evaluation Subjective Date/time seen: 10/12/22 08:25 Interval history: I saw exam is patient today. Patient is alert, but is not oriented x3, denies chest pain shortness of breath, but he has some cough Exam Narrative: GENERAL: Pleasant, in no acute distress. Well-nourished. - EYES: EOMI. Anicteric. - HENT: Moist mucous membranes. - LUNGS: Some crackles bilateral base,, no wheezing, rhonchi, or rales. - CARDIOVASCULAR: Regular rate and rhythm. No murmur. No JVD. - ABDOMEN: Soft, non-tender and non-distended. No palpable masses. - EXTREMITIES: No edema. Peripheral pulses 2+. Non-tender. - NEUROLOGIC: No focal neurological deficits. CN II-XII grossly intact. Has general weakness - PSYCHIATRIC: Awake, Alert and oriented x 3. Appropriate mood and affect. - SKIN: No rashes or lesions. Warm. - LYMPH: No cervical lymphadenopathy. Objective Data Vital Signs Vital Signs: Vital Signs - 24 hr 10/11/22 08:30 10/11/22 08:33 10/11/22 10:00 Temperature Pulse Rate 101 H 101 H 88 Respiratory Rate Blood Pressure Pulse Oximetry Oxygen Delivery 10/11/22 12:00 10/11/22 12:00 10/11/22 13:39 Temperature 98.2 F Pulse Rate 88 93 89 Respiratory Rate 19 20 Blood Pressure 129/52 L Pulse Oximetry 92 Oxygen Delivery 10/11/22 13:50 10/11/22 13:43 10/11/22 14:14 Temperature 97.5 F L Pulse Rate 84 87 95 Respiratory Rate 20 28 H Blood Pressure 152/64 H Pulse Oximetry 92 Oxygen Delivery 10/11/22 14:14 10/11/22 14:00 10/11/22 16:00 Temperature 98.0 F Pulse Ra
--- NOTE | 2022-10-12 08:32 | ECHO_ITS ---
Patient Info Name: Ryan Dos Santos Age: 81 years : 1940 Gender: Male Ht: 63 in Wt: 112 lbs BSA: 1.50 m2 HR: 91 bpm BP: 132 / 58 mmHg Heart Rhythm: Sinus Rhythm Technical Quality: Fair Exam Date: 10/12/2022 4:00 PM Exam Location: [facility] Patient Status: Inpatient Admit Date: 10/10/2022 Staff Ordering Physician: Leah Wiggins MD Oil Operator: Candelaria Nye RDCS Attending Provider: Carmelo Fried MD Exam Type: CA echo doppler color flow Study Info Indications - dizziness Complete two-dimensional, color flow and Doppler transthoracic echocardiogram is performed. Summary 1. Complete two-dimensional, color flow and Doppler transthoracic echocardiogram is performed. 2. Normal left ventricular size and thickness with hyperdynamic systolic function. Ejection fraction is greater than 70% visually. Diastolic dysfunction is present. 3. Left atrial chamber dimension is moderately enlarged. 4. There is mild aortic valve calcification, with moderate aortic valve stenosis with a peak velocity of 253 cm/s, mean gradient of 13 mmHg, and aortic valve area of 1.1 cm2. 5. Aortic root calcification. 6. No pulmonary hypertension, estimated pulmonary arterial systolic pressure is 22 mmHg. 7. Atrial fibrillation. 8. Somewhat technically difficult study. Left Ventricle Left ventricular chamber dimension is normal. Left ventricular systolic function is hyperdynamic, estimated at >70%. There is no increased left ventricular wall thickness. Left ventricular septal wall motion is normal. The left ventricular diastolic function is abnormal. Right Ventricle Right ventricular chamber dimension is normal. Right ventricular systolic function is normal. Left Atria Left atrial chamber dimension is moderately enlarged. Right Atria Right atrial chamber dimension is normal. Aortic Valve The aortic valve is not well visualized. There is no aortic valve sclerosis. There is mild aortic valve calcification, with moderate aortic valve stenosis with a peak velocity of 253 cm/s, mean gradient of 13 mmHg, and aortic valve area of 1.1 cm2. There is no aortic valve regurgitation. There is mild aortic valve calcification. Pulmonic Valve The pulmonic valve is normal. There is no pulmonic valve stenosis. There is no pulmonic regurgitation. Mitral Valve The mitral valve has normal leaflets. There is no mitral valve stenosis. There is trace mitral valve regurgitation. Tricuspid Valve The tricuspid valve leaflets are normal. There is no significant tricuspid valve stenosis. There is trace tricuspid valve regurgitation. No pulmonary hypertension, estimated pulmonary arterial systolic pressure is 22 mmHg. Pericardium/Pleural The pericardium appears normal. There is no pericardial effusion. Inferior Vena Cava Normal inferior vena cava with >50% collapse upon inspiration consistent with Empty right atrial pressure, 10 mmHg. Aorta The aortic root size at the sinus of Valsalva is normal. The prox ascending aorta size is normal. There is mild aortic atherosclerosis. Left Ventricular Outflow Tract Name Value Normal LVOT 2D LVOT Diameter 2.0 cm LVOT Doppler LVOT Peak Gradient 3 mmHg
[2022-10-12 09:19] LABS: Hematocrit 32.7 % (42.0-52.0); Hemoglobin 9.6 g/dL (14.0-18.0); Mean Corpuscular HGB Conc 29.4 g/dl (32-36); Mean Corpuscular Hemoglobin 25.6 pg (26-34); Mean Corpuscular Volume 87.2 fl (80-100); Platelet Count Result 232 k/mm3 (150-375); Red Blood Count 3.75 M/mm3 (4.6-6.20); Red Cell Distribution Width 14.8 % (11.5-14.5); White Blood Count 12.1 K/mm3 (4.5-10.0)
[2022-10-12 09:26] LABS: Anion Gap 5 mmol/L (8-16); Blood Urea Nitrogen 31 mg/dL (9-20); Calcium 9.2 mg/dL (8.4-10.2); Carbon Dioxide 31 mmol/L (22-30); Chloride 106 mmol/L (98-107); Estimated CRCL calculation 33 ml/min; Estimated Glomerular Filt Rate > 60; Glucose 142 mg/dL (65-110); Potassium 3.4 mmol/L (3.4-5.0); Sodium 142 mmol/L (137-145)
[2022-10-12] MEDS: FUROSEMIDE INJ 40 MG/4 ML VIAL 20 MG IV PUSH ×2 (10:10→21:03)
[2022-10-12] MEDS: METOPROLOL SUCCINATE EXT REL 50 MG TABCR PO (10:11)
[2022-10-12] MEDS: ATORVASTATIN 10 MG TABLET PO (10:11)
[2022-10-12] MEDS: CHOLECALCIFEROL 1,000 UNITS TABLET 2000 UNITS PO (10:11)
[2022-10-12] MEDS: PANTOPRAZOLE 40 MG TABLET PO (10:11)
[2022-10-12] MEDS: MEMANTINE 10 MG TABLET PO ×2 (10:12→17:05)
[2022-10-12 11:55] LABS: Glucose Point of Care 220 mg/dl (65-105)
[2022-10-12] MEDS: INSULIN ASPART (*BKC) 100 UNITS/ML SUB-Q (12:40)
[2022-10-12] MEDS: AMPICILLIN SULB 1.5 GM/NS 50ML 1.5 GM/50 ML VIAL IVPB ×2 (15:06→18:22)
[2022-10-12] MEDS: TRIAMCINOLONE ACET 0.1% CREAM 15 GM TUBE 1 APPLIC TOPICAL (15:11)
[2022-10-12 16:41] LABS: Glucose Point of Care 144 mg/dl (65-105)
[2022-10-12] MEDS: RIVAROXABAN 20 MG TABLET PO (17:05)
[2022-10-12 20:32] LABS: Glucose Point of Care 128 mg/dl (65-105)
[2022-10-12] MEDS: DONEPEZIL HCL 10 MG TABLET PO (21:03)
[2022-10-13] VITALS (28 sets, daily range): BP systolic 119–142; BP diastolic 48–67; PULSE 70–115; RESP 12–24; TEMP 36.4–36.7; O2SAT 93–100
[2022-10-13] MEDS: AMPICILLIN SULB 1.5 GM/NS 50ML 1.5 GM/50 ML VIAL IVPB ×5 (00:37→23:27)
[2022-10-13 05:02] LABS: Basophils Percent Auto 0.2 % (0.2-1.2); Eosinophils Percent Auto 0.1 % (0-4.4); Hematocrit 32.5 % (42.0-52.0); Hemoglobin 9.4 g/dL (14.0-18.0); Immature Granulocyte Absolute 0.07 K/mm3 (0.00-0.031); Immature Granulocyte Percent A 0.7 % (0-0.5); Lymphocytes Absolute Auto 0.62 K/mm3 (0.9-3.2); Lymphocytes Percent Auto 6.4 % (18.3-44.2); Mean Corpuscular HGB Conc 28.9 g/dl (32-36); Mean Corpuscular Hemoglobin 25.2 pg (26-34); Mean Corpuscular Volume 87.1 fl (80-100); Mean Platelet Volume 10.6 fl (7.4-10.4); Monocytes Absolute Auto 0.9 K/mm3 (0.1-0.6); Monocytes Percent Auto 8.8 % (2.6-8.5); Neutrophils Absolute Auto 8.1 K/mm3 (1.3-6.7); Neutrophils Percent Auto 83.8 % (45.5-73.1); Platelet Count Result 200 k/mm3 (150-375); Red Blood Count 3.73 M/mm3 (4.6-6.20); White Blood Count 9.7 K/mm3 (4.5-10.0)
[2022-10-13 05:16] LABS: Anion Gap 2 mmol/L (8-16); Blood Urea Nitrogen 35 mg/dL (9-20); Calcium 9.1 mg/dL (8.4-10.2); Carbon Dioxide 39 mmol/L (22-30); Chloride 103 mmol/L (98-107); Estimated CRCL calculation 31 ml/min; Estimated Glomerular Filt Rate 58; Glucose 119 mg/dL (65-110); Potassium 3.4 mmol/L (3.4-5.0); Sodium 144 mmol/L (137-145)
[2022-10-13] MEDS: dilTIAZem 100 MG/100 ML 100 MG/100 ML BAG 10 MG IV CONT (07:14)
[2022-10-13] MEDS: IPRATROPIUM BR 0.02% INH SOLN 0.5 MG/2.5 ML VIAL INHALATION ×3 (07:39→20:42)
[2022-10-13] MEDS: ALBUTEROL SULFATE NEB 2.5 MG/3 ML INH 5 MG INHALATION ×3 (07:39→20:42)
[2022-10-13 08:05] LABS: Glucose Point of Care 126 mg/dl (65-105)
[2022-10-13] MEDS: FLUTICASONE/SALMETEROL 115-21 MCG INHALER 1 PUFF 2 PUFF INHALATION ×2 (08:06→20:48)
--- NOTE | 2022-10-13 09:34 | PCSTNOTE ---
Please refer to the Bedside Swallow Evaluation in the EMR. Please note, silent aspiration cannot be ruled out at bedside. Please order Modified Barium Swallow study.
[2022-10-13] MEDS: MEMANTINE 10 MG TABLET PO ×2 (09:35→17:31)
[2022-10-13] MEDS: CHOLECALCIFEROL 1,000 UNITS TABLET 2000 UNITS PO (09:35)
[2022-10-13] MEDS: TRIAMCINOLONE ACET 0.1% CREAM 15 GM TUBE 1 APPLIC TOPICAL ×2 (09:36→20:18)
[2022-10-13] MEDS: METOPROLOL SUCCINATE EXT REL 50 MG TABCR PO (09:36)
[2022-10-13] MEDS: PANTOPRAZOLE 40 MG TABLET PO (09:36)
[2022-10-13] MEDS: FUROSEMIDE INJ 40 MG/4 ML VIAL 20 MG IV PUSH (09:37)
[2022-10-13] MEDS: ATORVASTATIN 10 MG TABLET PO (09:37)
[2022-10-13 11:24] LABS: Glucose Point of Care 218 mg/dl (65-105)
[2022-10-13] MEDS: INSULIN ASPART (*BKC) 100 UNITS/ML SUB-Q (11:45)
--- NOTE | 2022-10-13 13:07 | PCPTNOTE ---
On 10/13/22, the student, DEBBIE Coronado, provided care and completed [facility] documentation on this patient. I have reviewed the student's documentation and agree with the findings.
--- NOTE | 2022-10-13 14:21 | PM.CNCAR ---
Assessment and Plan Assessment and plan (1) Persistent atrial fibrillation with RVR: Code(s): I48.19 - Other persistent atrial fibrillation Status: Acute Assessment and Plan: Has been rate controlled now. Continue home Metoprolol dose, will wean off the Diltiazem drip. Increase Metoprolol dose as needed for additional rate control while weaning off the Diltiazem drip. Continue Xarelto for anticoagulation. (2) Acute exacerbation of congestive heart failure: Qualifiers: Heart failure type: unspecified Qualified Code(s): I50.9 - Heart failure, unspecified Code(s): I50.9 - Heart failure, unspecified Status: Acute Assessment and Plan: Echo this admission with preserved LVEF. Repeat CXR 10/12 with improvement compared to admission CXR. Back on home oxygen requirements. Will stop IV Lasix and switch to PO Lasix. History of Present Illness History of Present Illness Consult date/time: 10/13/22 14:21 Requesting physician: Leah Wiggins MD Consult reason: atrial fibrillation and congestive heart failure Reason For Visit: Afib with RVR/CHF/COPD Exacerbation Narrative: We are consulted for atrial fibrillation with RVR. This is an 81 year old male who follows with Dr. Reyes in the clinic. He has a history of bicuspid aortic valve s/p aortic valve replacement, atrial fibrillation, significant COPD with chronic hypoxic respiratory failure who was admitted on 10/10/2022 for shortness of breath and increasing oxygen requirements. Patient found to be satting in the upper 80s on his chronic 2 liters of oxygen. In the field, he was noted to be in atrial fibrillation with RVR. In the ER, he received an IV dose of Cardizem and placed on Cardizem drip. Patient remains on Cardizem drip at this time.He was noted to have some bilateral lower extremity swelling on presentation. CXR with pulmonary edema, small pleural effusions. He was started on IV Lasix 20mg BID. Patient denies any chest pain. Has been coughing. Reports his shortness of breath is not quite back to baseline. Repeat CXR 10/12 with chronic lung findings. Review of Systems Review of Systems: All systems reviewed & are unremarkable except as noted in HPI and below (HPI) PMFSH Past Medical History Medical History Abdominal aortic aneurysm, without rupture Chronic respiratory failure with hypoxia Chronic home O2 Chronic venous insufficiency of lower extremity Dementia Diastolic heart failure Grade 2 diastolic heart failure known echocardiogram 2015 with indeterminate diastolic function noted on echocardiogram 2019 Essential hypertension Gastro-esophageal reflux disease without esophagitis History of prostate cancer 2004 Hyperlipidemia Kidney stones Lung nodule Panlobular emphysema Paroxysmal atrial fibrillation Presbycusis of both ears Pulmonary hypertension due to lung diseases and hypoxia Severe with last echo 2019 Severe aortic stenosis by prior echocardiogram 2015 Stenosis of right carotid artery Tobacco abuse Quit 2004. 49 pack years 1ppd. Vasomotor rhinitis Surgical History Surgical History History of aortic valve replacement with tissue graft (~2015) Due to severely stenosed bicuspid aortic valve with a Magna tissue valve replacement History of colonoscopy with polypectomy History of radical prostatectomy (~2004) With adjunctive radiation therapy History of right inguinal hernia repair (~2005) History of tonsillectomy and adenoidectomy Family History Family History Father Acute myocardial infarction Heart disease Mother Acute myocardial infarction Heart disease Sibling Malignant neoplasm of prostate Alzheimer's dementia Heart disease Son Type 1 diabetes Other Alzheimer disease Social History Social History (Reviewed 10/13/22 @
--- NOTE | 2022-10-13 14:29 | PM.IMPN ---
Progress Note: A&P Assessment and Plan (1) Persistent atrial fibrillation with RVR: Code(s): I48.19 - Other persistent atrial fibrillation Status: Acute (2) Acute exacerbation of congestive heart failure: Qualifiers: Heart failure type: unspecified Qualified Code(s): I50.9 - Heart failure, unspecified Code(s): I50.9 - Heart failure, unspecified Status: Acute Assessment and Plan: Combined diastolic and right-sided heart failure with a component high output out failure due to AFib (3) Acute on chronic respiratory failure with hypoxia and hypercapnia: Code(s): J96.21 - Acute and chronic respiratory failure with hypoxia; J96.22 - Acute and chronic respiratory failure with hypercapnia Status: Acute (4) Unspecified dementia, unspecified severity, without behavioral disturbance, psychotic disturbance, mood disturbance, and anxiety: Code(s): F03.90 - Unspecified dementia, unspecified severity, without behavioral disturbance, psychotic disturbance, mood disturbance, and anxiety Status: Acute (5) Atherosclerotic heart disease of [place] coronary artery without angina pectoris: Code(s): I25.10 - Atherosclerotic heart disease of [place] coronary artery without angina pectoris Status: Acute (6) Chronic diastolic (congestive) heart failure: Code(s): I50.32 - Chronic diastolic (congestive) heart failure Status: Acute Plan Acute on chronic headaches heart failure History of diastolic dysfunction pt was on iv lasix transition to oral lasix Follow-up echocardiogram Acute on chronic respiratory failure Likely secondary to CHF Patient also has history of COPD Start O2 therapy to keep pulse ox above 94 Continue bronchodilators nebulizer scheduled and p.r.n. Aspiration pneumonia Patient has leukocytosis, early x-rays showed bilateral patchy infiltrate Possible early stage aspirin treat pneumonia Will start Unasyn IV and NS Repeat chest x-ray and request speech therapy evaluation Aspiration precaution AFib RVR Continue metoprolol 50 mg daily p.o. Rivaroxaban 20 mg daily p.o. Dementia Confused, possible close to baseline Continue home medication for dementia General weakness, Consult PT OT for evaluation Subjective Date/time seen: 10/13/22 14:29 Interval history: Pt admitted for af, chf excerbation pt has history of dementia Pt seen by cardiology ok to transition to oral lasix today AF improving pt on oral medications Hopeful dc in 1-2 days time Pt had swallow study today recommended mildly thicked liquids and mbs ordered for AM Review of Systems Review of Systems: mild sob no specific complaints Exam Narrative: GENERAL: Pleasant, in no acute distress. Well-nourished. - EYES: EOMI. Anicteric. - HENT: Moist mucous membranes. - LUNGS: Some crackles bilateral base,, no wheezing, rhonchi, or rales. - CARDIOVASCULAR: Regular rate and rhythm. No murmur. No JVD. - ABDOMEN: Soft, non-tender and non-distended. No palpable masses. - EXTREMITIES: No edema. Peripheral pulses 2+. Non-tender. - NEUROLOGIC: No focal neurological deficits. CN II-XII grossly intact. Has general weakness - PSYCHIATRIC: Awake, Alert and oriented x 3. Appropriate mood and affect. - SKIN: No rashes or lesions. Warm. - LYMPH: No cervical lymphadenopathy. Objective Data Vital Signs Vital Signs: Vital Signs - 24 hr 10/12/22 16:00 10/12/22 16:00 10/12/22 16:54 Temperature 35.7 C L Pulse Rate 94 79 Respiratory Rate 20 Blood Pressure 113/48 L Pulse Oximetry 96 99 Oxygen Delivery Nasal Cannula Oxygen Flow Rate 2 Fraction of Inspired Oxygen 10/12/22 18:00 10/12/22 20:00 10/12/22 21:09 Temperature 36.4 C Pulse Rate 77 90 83 Respiratory Rate 18 18 Blood Pressure 133/63 Pulse Oximetry 94 Oxygen Delivery Oxygen Flow Rate Fraction of Inspired Oxygen 10/12/22 21:22 10/12/22 21:23 10/12/22 21:
[2022-10-13 16:27] LABS: Glucose Point of Care 111 mg/dl (65-105)
[2022-10-13] MEDS: dilTIAZem 100 MG/100 ML 100 MG/100 ML BAG IV CONT (17:30)
[2022-10-13] MEDS: RIVAROXABAN 20 MG TABLET PO (17:31)
[2022-10-13 20:04] LABS: Glucose Point of Care 120 mg/dl (65-105)
[2022-10-13] MEDS: DONEPEZIL HCL 10 MG TABLET PO (20:18)
[2022-10-14] VITALS (24 sets, daily range): BP systolic 127–150; BP diastolic 59–75; PULSE 64–127; RESP 16–20; TEMP 36.4–36.9; O2SAT 86–100; BMI 20.2
[2022-10-14] MEDS: ALBUTEROL SULFATE NEB 2.5 MG/3 ML INH 5 MG INHALATION ×4 (03:14→20:00)
[2022-10-14] MEDS: IPRATROPIUM BR 0.02% INH SOLN 0.5 MG/2.5 ML VIAL INHALATION ×4 (03:14→20:00)
[2022-10-14] MEDS: AMPICILLIN SULB 1.5 GM/NS 50ML 1.5 GM/50 ML VIAL IVPB ×3 (06:00→18:05)
[2022-10-14 08:09] LABS: Glucose Point of Care 116 mg/dl (65-105)
[2022-10-14] MEDS: FLUTICASONE/SALMETEROL 115-21 MCG INHALER 1 PUFF 2 PUFF INHALATION ×2 (09:00→20:00)
[2022-10-14] MEDS: METOPROLOL SUCCINATE EXT REL 50 MG TABCR PO (09:30)
[2022-10-14] MEDS: FUROSEMIDE 20 MG TABLET PO (09:30)
[2022-10-14] MEDS: CHOLECALCIFEROL 1,000 UNITS TABLET 2000 UNITS PO (09:30)
[2022-10-14] MEDS: ATORVASTATIN 10 MG TABLET PO (09:31)
[2022-10-14] MEDS: MEMANTINE 10 MG TABLET PO ×2 (09:31→22:12)
[2022-10-14] MEDS: TRIAMCINOLONE ACET 0.1% CREAM 15 GM TUBE 1 APPLIC TOPICAL ×2 (09:31→22:13)
[2022-10-14] MEDS: PANTOPRAZOLE 40 MG TABLET PO (09:31)
[2022-10-14 12:09] LABS: Glucose Point of Care 164 mg/dl (65-105)
--- NOTE | 2022-10-14 12:17 | PM.PNCARD ---
Progress Note: A&P Assessment and Plan (1) Persistent atrial fibrillation with RVR: Code(s): I48.19 - Other persistent atrial fibrillation Status: Acute Assessment and Plan: Rate controlled for the most part, has occasional RVR into the 120s with activity. Will stop Diltiazem drip, increase Metoprolol to 75mg QD. Will continue to uptitrate beta lacey as needed for rate control as tolerated by hemodynamics. Continue Xarelto for anticoagulation. (2) Acute exacerbation of congestive heart failure: Qualifiers: Heart failure type: unspecified Qualified Code(s): I50.9 - Heart failure, unspecified Code(s): I50.9 - Heart failure, unspecified Status: Acute Assessment and Plan: Echo this admission with preserved LVEF. Repeat CXR 10/12 with improvement compared to admission CXR. Back on home oxygen requirements. Stopped IV Lasix and switched to PO Lasix. Subjective Date/time seen: 10/14/22 12:17 Interval history: Reason for visit: Congestive heart failure, atrial fibrillation HPI: We are consulted for atrial fibrillation with RVR. This is an 81 year old male who follows with Dr. Reyes in the clinic. He has a history of bicuspid aortic valve s/p aortic valve replacement, atrial fibrillation, significant COPD with chronic hypoxic respiratory failure who was admitted on 10/10/2022 for shortness of breath and increasing oxygen requirements. Patient found to be satting in the upper 80s on his chronic 2 liters of oxygen. In the field, he was noted to be in atrial fibrillation with RVR. In the ER, he received an IV dose of Cardizem and placed on Cardizem drip. Patient remains on Cardizem drip at this time.He was noted to have some bilateral lower extremity swelling on presentation. CXR with pulmonary edema, small pleural effusions. He was started on IV Lasix 20mg BID. Patient denies any chest pain. Has been coughing. Reports his shortness of breath is not quite back to baseline. Repeat CXR 10/12 with chronic lung findings. Date of service 10/14: Feeling okay. Working with physical therapy this morning. Remains on Dilt drip at 5. HR overall for the most part rate controlled, occasional RVR with activity. Review of Systems Review of Systems: All systems reviewed & are unremarkable except as noted in HPI and below (HPI) Exam Const: General: no acute distress Other: Elderly gentleman. Eyes: General: appearance normal, both eyes and all related structures Sclera: sclerae normal Resp: Effort & Inspection: normal respiratory effort Auscultation: diminished lung sounds Other: On supplemental oxygen via nasal cannula. Cardio: Rhythm: abnormal rhythm irregularly irregular Skin: General skin exam: normal color Neuro: Speech: normal speech Psych: Mental Status: mental status grossly normal Affect: normal affect Objective Data Vital Signs Vital Signs: Vital Signs - 24 hr 10/13/22 13:16 10/13/22 13:45 10/13/22 14:00 Temperature Pulse Rate 86 89 94 Respiratory Rate 18 18 Blood Pressure Pulse Oximetry Oxygen Delivery Oxygen Flow Rate Fraction of Inspired Oxygen 10/13/22 14:27 10/13/22 14:00 10/13/22 15:31 Temperature Pulse Rate 98 87 Respiratory Rate Blood Pressure Pulse Oximetry 93 Oxygen Delivery Nasal Cannula Oxygen Flow Rate 1 Fraction of Inspired Oxygen 24 10/13/22 16:00 10/13/22 16:00 10/13/22 17:30 Temperature 36.7 C Pulse Rate 93 94 90 Respiratory Rate 12 Blood Pressure 129/50 L Pulse Oximetry 99 Oxygen Delivery Oxygen Flow Rate Fraction of Inspired Oxygen 10/13/22 17:30 10/13/22 16:00 10/13/22 18:00 Temperature Pulse Rate 90 97 83 Respiratory Rate Blood Pressure Pulse Oximetry Oxygen Delivery Oxygen Flow Rate Fraction of Inspired Oxygen 10/13/22 16:00 10/13/22 20:00 10/13/22 20:46 Temperature 36.4 C Pulse Rate 86 86 Respiratory Rate 20 18 Blood Pr
[2022-10-14] MEDS: METOPROLOL SUCCINATE EXT REL 25 MG TABCR PO (12:33)
--- NOTE | 2022-10-14 13:28 | PCSTNOTE ---
Please refer to the Modified Barium Swallow Evaluation in the EMR. Non-oral feedings are recommended. Contact Speech Therapy to discuss how to continue.
--- NOTE | 2022-10-14 13:47 | PM.IMPN ---
Progress Note: A&P Assessment and Plan (1) Persistent atrial fibrillation with RVR: Code(s): I48.19 - Other persistent atrial fibrillation Status: Acute (2) Acute exacerbation of congestive heart failure: Qualifiers: Heart failure type: unspecified Qualified Code(s): I50.9 - Heart failure, unspecified Code(s): I50.9 - Heart failure, unspecified Status: Acute Assessment and Plan: Combined diastolic and right-sided heart failure with a component high output out failure due to AFib (3) Acute on chronic respiratory failure with hypoxia and hypercapnia: Code(s): J96.21 - Acute and chronic respiratory failure with hypoxia; J96.22 - Acute and chronic respiratory failure with hypercapnia Status: Acute (4) Unspecified dementia, unspecified severity, without behavioral disturbance, psychotic disturbance, mood disturbance, and anxiety: Code(s): F03.90 - Unspecified dementia, unspecified severity, without behavioral disturbance, psychotic disturbance, mood disturbance, and anxiety Status: Acute (5) Atherosclerotic heart disease of [place] coronary artery without angina pectoris: Code(s): I25.10 - Atherosclerotic heart disease of [place] coronary artery without angina pectoris Status: Acute (6) Chronic diastolic (congestive) heart failure: Code(s): I50.32 - Chronic diastolic (congestive) heart failure Status: Acute Plan Acute on chronic headaches heart failure History of diastolic dysfunction pt was on iv lasix transition to oral lasix pt seen by cardiology sp echo Acute on chronic respiratory failure Likely secondary to CHF Patient also has history of COPD Start O2 therapy to keep pulse ox above 94 Continue bronchodilators nebulizer scheduled and p.r.n. Aspiration pneumonia Patient has leukocytosis, early x-rays showed bilateral patchy infiltrate Possible early stage aspirin treat pneumonia Will start Unasyn IV and NS pt failed mbs Aspiration precaution AFib RVR pt now on oral medications Continue metoprolol 50 mg daily p.o. Rivaroxaban 20 mg daily p.o. Dementia Confused, possible close to baseline Continue home medication for dementia General weakness, Consult PT OT for evaluation Subjective Date/time seen: 10/14/22 13:47 Interval history: Pt admitted for af, chf excerbation pt has history of dementia Pt seen by cardiology ok to transition to oral lasix today AF improving pt on oral medications weaned off the drip Hopeful dc in 1-2 days time Pt had swallow study today recommended mildly thicked liquids pt failed his modified barium swallow trace to mild aspiration on all constituencies Review of Systems Review of Systems: mild sob ongoing dysphagia Exam Narrative: GENERAL: Pleasant, in no acute distress. Well-nourished. - EYES: EOMI. Anicteric. - HENT: Moist mucous membranes. - LUNGS: Some crackles bilateral base,, no wheezing, rhonchi, or rales. - CARDIOVASCULAR: Regular rate and rhythm. No murmur. No JVD. - ABDOMEN: Soft, non-tender and non-distended. No palpable masses. - EXTREMITIES: No edema. Peripheral pulses 2+. Non-tender. - NEUROLOGIC: No focal neurological deficits. CN II-XII grossly intact. Has general weakness - PSYCHIATRIC: Awake, Alert and oriented x 3. Appropriate mood and affect. - SKIN: No rashes or lesions. Warm. - LYMPH: No cervical lymphadenopathy. Objective Data Vital Signs Vital Signs: Vital Signs - 24 hr 10/13/22 14:00 10/13/22 14:27 10/13/22 14:00 Temperature Pulse Rate 94 98 87 Respiratory Rate Blood Pressure Pulse Oximetry Oxygen Delivery Oxygen Flow Rate Fraction of Inspired Oxygen 10/13/22 15:31 10/13/22 16:00 10/13/22 16:00 Temperature 36.7 C Pulse Rate 93 94 Respiratory Rate 12 Blood Pressure 129/50 L Pulse Oximetry 93 99 Oxygen Delivery Nasal Cannula Oxygen Flow Rate 1 Fraction of Inspired Oxygen 24
--- NOTE | 2022-10-14 14:17 | PCDIET ---
*TUBE FEEDING RECOMMENDATIONS IF NEEDED: Jevity 1.5 @ 55 ml/h. Flush 150 ml water q 4 hours. Start at 30 ml/h and advance by 10 ml q 4 hours. Provides 1815 kcal, 77 g protein, 96654 ml free water (~100% EER).
--- NOTE | 2022-10-14 16:18 | PCSTNOTE ---
Therapist spoke with and patient concerning results and recommendations following Modified Barium Swallow. voiced understanding.
--- NOTE | 2022-10-14 16:23 | PC.NURSE ---
This patient, Ryan Dos Santos, was transferred to [ [id number]] on 10/14/22 at 1623. Personal belongings sent with patient. Report given to [MICHAEL Mott @ [phone] ]. Appropriate documentation sent with patient.
[2022-10-14 18:30] LABS: Glucose Point of Care 104 mg/dl (65-105)
[2022-10-14] MEDS: RIVAROXABAN 20 MG TABLET PO (22:12)
[2022-10-14 22:13] LABS: Glucose Point of Care 111 mg/dl (65-105)
[2022-10-14] MEDS: DONEPEZIL HCL 10 MG TABLET PO (22:13)
[2022-10-15] VITALS (19 sets, daily range): BP systolic 143–153; BP diastolic 79–94; PULSE 63–145; RESP 17–20; TEMP 36.7–36.9; O2SAT 97–100
[2022-10-15] MEDS: AMPICILLIN SULB 1.5 GM/NS 50ML 1.5 GM/50 ML VIAL IVPB ×5 (00:48→23:47)
[2022-10-15 00:58] LABS: Glucose Point of Care 97 mg/dl (65-105)
[2022-10-15 01:27] LABS: Glucose Point of Care 103 mg/dl (65-105)
[2022-10-15 05:41] LABS: Hematocrit 31.6 % (42.0-52.0); Mean Corpuscular HGB Conc 28.5 g/dl (32-36); Mean Corpuscular Hemoglobin 24.8 pg (26-34); Mean Corpuscular Volume 87.1 fl (80-100); Mean Platelet Volume 11.3 fl (7.4-10.4); Platelet Count Result 216 k/mm3 (150-375); Red Blood Count 3.63 M/mm3 (4.6-6.20); Red Cell Distribution Width 14.6 % (11.5-14.5); White Blood Count 5.7 K/mm3 (4.5-10.0)
[2022-10-15 05:44] LABS: Glucose Point of Care 92 mg/dl (65-105)
[2022-10-15 05:56] LABS: Blood Urea Nitrogen 20 mg/dL (9-20); Calcium 8.9 mg/dL (8.4-10.2); Carbon Dioxide > 40 mmol/L (22-30); Chloride 101 mmol/L (98-107); Estimated CRCL calculation 46 ml/min; Estimated Glomerular Filt Rate > 60; Glucose 93 mg/dL (65-110); Potassium 3.3 mmol/L (3.4-5.0); Sodium 139 mmol/L (137-145)
[2022-10-15] MEDS: FLUTICASONE/SALMETEROL 115-21 MCG INHALER 1 PUFF 2 PUFF INHALATION ×2 (07:49→20:16)
[2022-10-15] MEDS: ALBUTEROL SULFATE NEB 2.5 MG/3 ML INH 5 MG INHALATION ×3 (07:49→20:16)
[2022-10-15] MEDS: IPRATROPIUM BR 0.02% INH SOLN 0.5 MG/2.5 ML VIAL INHALATION ×3 (07:49→20:15)
[2022-10-15] MEDS: METOPROLOL SUCCINATE EXT REL 25 MG TABCR 75 MG PO (08:15)
[2022-10-15] MEDS: TRIAMCINOLONE ACET 0.1% CREAM 15 GM TUBE 1 APPLIC TOPICAL ×2 (08:15→21:23)
[2022-10-15] MEDS: PANTOPRAZOLE 40 MG TABLET PO (08:16)
[2022-10-15] MEDS: CHOLECALCIFEROL 1,000 UNITS TABLET 2000 UNITS PO (08:16)
[2022-10-15] MEDS: FUROSEMIDE 20 MG TABLET PO (08:17)
[2022-10-15] MEDS: ATORVASTATIN 10 MG TABLET PO (08:17)
[2022-10-15] MEDS: MEMANTINE 10 MG TABLET PO ×2 (08:17→16:49)
--- NOTE | 2022-10-15 10:27 | PM.IMPN ---
Progress Note: A&P Assessment and Plan (1) Persistent atrial fibrillation with RVR: Code(s): I48.19 - Other persistent atrial fibrillation Status: Acute (2) Acute exacerbation of congestive heart failure: Qualifiers: Heart failure type: unspecified Qualified Code(s): I50.9 - Heart failure, unspecified Code(s): I50.9 - Heart failure, unspecified Status: Acute Assessment and Plan: Combined diastolic and right-sided heart failure with a component high output out failure due to AFib (3) Acute on chronic respiratory failure with hypoxia and hypercapnia: Code(s): J96.21 - Acute and chronic respiratory failure with hypoxia; J96.22 - Acute and chronic respiratory failure with hypercapnia Status: Acute (4) Unspecified dementia, unspecified severity, without behavioral disturbance, psychotic disturbance, mood disturbance, and anxiety: Code(s): F03.90 - Unspecified dementia, unspecified severity, without behavioral disturbance, psychotic disturbance, mood disturbance, and anxiety Status: Acute (5) Atherosclerotic heart disease of [place] coronary artery without angina pectoris: Code(s): I25.10 - Atherosclerotic heart disease of [place] coronary artery without angina pectoris Status: Acute (6) Chronic diastolic (congestive) heart failure: Code(s): I50.32 - Chronic diastolic (congestive) heart failure Status: Acute Plan Acute on chronic heart failure History of diastolic dysfunction on oral lasix pt seen by cardiology sp echo Discontinue IV fluids Acute on chronic respiratory failure Likely secondary to CHF Patient also has history of COPD Continue bronchodilators nebulizer scheduled and p.r.n. Aspiration pneumonia Patient has leukocytosis, early x-rays showed bilateral patchy infiltrate Continue unasyn IV and NS pt failed mbs. Had a goals of care discussion with the patient including the option for a PEG tube Aspiration precaution AFib RVR pt now on oral medications Continue metoprolol 50 mg daily p.o. Rivaroxaban 20 mg daily p.o. Dementia Continue home medication for dementia General weakness, Consult PT OT for evaluation Subjective Date/time seen: 10/15/22 10:27 Interval history: Denies any acute events Review of Systems Review of Systems: All systems reviewed & are unremarkable except as noted in HPI and below Exam Narrative: GENERAL: Pleasant, in no acute distress. Well-nourished. - EYES: EOMI. Anicteric. - HENT: Moist mucous membranes. - LUNGS: Some crackles bilateral base,, no wheezing, rhonchi, or rales. - CARDIOVASCULAR: Regular rate and rhythm. No murmur. No JVD. - ABDOMEN: Soft, non-tender and non-distended. No palpable masses. - EXTREMITIES: No edema. Peripheral pulses 2+. Non-tender. - NEUROLOGIC: No focal neurological deficits. CN II-XII grossly intact. Has general weakness - PSYCHIATRIC: Awake, Alert and oriented x 3. Appropriate mood and affect. - SKIN: No rashes or lesions. Warm. - LYMPH: No cervical lymphadenopathy. Objective Data Vital Signs Vital Signs: Vital Signs - 24 hr 10/14/22 12:33 10/14/22 12:00 10/14/22 13:24 Temperature Pulse Rate 101 H 99 106 H Respiratory Rate 20 Blood Pressure Pulse Oximetry Oxygen Delivery Oxygen Flow Rate 10/14/22 13:46 10/14/22 15:49 10/14/22 16:00 Temperature 98.4 F Pulse Rate 98 127 H 115 H Respiratory Rate 20 20 Blood Pressure 132/75 Pulse Oximetry 98 Oxygen Delivery Oxygen Flow Rate 10/14/22 16:41 10/14/22 20:01 10/14/22 20:01 Temperature 98 F Pulse Rate 117 H 101 H Respiratory Rate 16 20 Blood Pressure 127/74 Pulse Oximetry 99 86 L Oxygen Delivery Room Air Oxygen Flow Rate 10/14/22 20:22 10/14/22 20:11 10/14/22 21:08 Temperature 97.9 F Pulse Rate 96 64 Respiratory Rate 20 17 Blood Pressure 150/65 H Pulse Oximetry 93 99 Oxygen Delivery Nasal Cannula Oxyg
[2022-10-15 12:28] LABS: Glucose Point of Care 89 mg/dl (65-105)
--- NOTE | 2022-10-15 12:59 | PM.PNCARD ---
Progress Note: A&P Assessment and Plan (1) Persistent atrial fibrillation with RVR: Code(s): I48.19 - Other persistent atrial fibrillation Status: Acute Assessment and Plan: Rate controlled for the most part, has occasional RVR into the 120s with activity. Diltiazem drip stopped, increased Metoprolol dose. Will continue to uptitrate beta lacey as needed for rate control as tolerated by hemodynamics. Continue Xarelto for anticoagulation. Will increase Metoprolol dose to 100mg QD for additional rate control (was on 50mg QD at home). (2) Acute exacerbation of congestive heart failure: Qualifiers: Heart failure type: unspecified Qualified Code(s): I50.9 - Heart failure, unspecified Code(s): I50.9 - Heart failure, unspecified Status: Acute Assessment and Plan: Echo this admission with preserved LVEF. Repeat CXR 10/12 with improvement compared to admission CXR. Back on home oxygen requirements. Stopped IV Lasix and switched to PO Lasix. Continue with PO Lasix. Subjective Date/time seen: 10/15/22 12:59 Interval history: Reason for visit: Congestive heart failure, atrial fibrillation HPI: We are consulted for atrial fibrillation with RVR. This is an 81 year old male who follows with Dr. Reyes in the clinic. He has a history of bicuspid aortic valve s/p aortic valve replacement, atrial fibrillation, significant COPD with chronic hypoxic respiratory failure who was admitted on 10/10/2022 for shortness of breath and increasing oxygen requirements. Patient found to be satting in the upper 80s on his chronic 2 liters of oxygen. In the field, he was noted to be in atrial fibrillation with RVR. In the ER, he received an IV dose of Cardizem and placed on Cardizem drip. Patient remains on Cardizem drip at this time.He was noted to have some bilateral lower extremity swelling on presentation. CXR with pulmonary edema, small pleural effusions. He was started on IV Lasix 20mg BID. Patient denies any chest pain. Has been coughing. Reports his shortness of breath is not quite back to baseline. Repeat CXR 10/12 with chronic lung findings. Date of service 10/14: Feeling okay. Working with physical therapy this morning. Remains on Dilt drip at 5. HR overall for the most part rate controlled, occasional RVR with activity. Date of service 10/15: Intermittent RVR, asymptomatic. Feeling okay otherwise. Review of Systems Review of Systems: 8 point ROS obtained. Negative, unless stated in HPI. Exam Const: General: no acute distress Other: Elderly gentleman. Eyes: General: appearance normal, both eyes and all related structures Sclera: sclerae normal Resp: Effort & Inspection: normal respiratory effort Auscultation: diminished lung sounds Other: On supplemental oxygen via nasal cannula. Cardio: Rhythm: abnormal rhythm irregularly irregular Skin: General skin exam: normal color Neuro: Speech: normal speech Psych: Mental Status: mental status grossly normal Affect: normal affect Objective Data Vital Signs Vital Signs: Vital Signs - 24 hr 10/14/22 13:24 10/14/22 13:46 10/14/22 15:49 Temperature 36.9 C Pulse Rate 106 H 98 127 H Respiratory Rate 20 20 20 Blood Pressure 132/75 Pulse Oximetry 98 Oxygen Delivery Oxygen Flow Rate 10/14/22 16:00 10/14/22 16:41 10/14/22 20:01 Temperature 36.6 C Pulse Rate 115 H 117 H 101 H Respiratory Rate 16 20 Blood Pressure 127/74 Pulse Oximetry 99 Oxygen Delivery Oxygen Flow Rate 10/14/22 20:01 10/14/22 20:22 10/14/22 20:11 Temperature Pulse Rate 96 Respiratory Rate 20 Blood Pressure Pulse Oximetry 86 L 93 Oxygen Delivery Room Air Nasal Cannula Oxygen Flow Rate 1 10/14/22 21:08 10/15/22 05:32 10/14/22 22:03 Temperature 36.6 C 36.7 C Pulse Rate 64 63 116 H Respiratory Rate 17 17 Blood Pressure 150/65 H 153/82 H Pulse Oximetry 99 100 Oxygen Delivery Oxygen Flow Rate
[2022-10-15] MEDS: METOPROLOL SUCCINATE EXT REL 25 MG TABCR PO (15:30)
[2022-10-15] MEDS: RIVAROXABAN 20 MG TABLET PO (16:49)
[2022-10-15 17:56] LABS: Glucose Point of Care 79 mg/dl (65-105)
[2022-10-15 19:50] LABS: Glucose Point of Care 73 mg/dl (65-105)
[2022-10-15] MEDS: DONEPEZIL HCL 10 MG TABLET PO (21:23)
[2022-10-15] MEDS: DEXTROSE 50% 25 GM/50 ML SYRINGE IV PUSH (23:53)
[2022-10-15 23:54] LABS: Glucose Point of Care 62 mg/dl (65-105)
[2022-10-16] VITALS (19 sets, daily range): BP systolic 141–171; BP diastolic 64–82; PULSE 74–128; RESP 12–20; TEMP 36.4–36.7; O2SAT 98–100
[2022-10-16 00:20] LABS: Glucose Point of Care 153 mg/dl (65-105)
[2022-10-16 00:47] LABS: Glucose Point of Care 126 mg/dl (65-105)
[2022-10-16] MEDS: AMPICILLIN SULB 1.5 GM/NS 50ML 1.5 GM/50 ML VIAL IVPB ×3 (05:35→17:51)
[2022-10-16 05:53] LABS: Glucose Point of Care 74 mg/dl (65-105)
[2022-10-16] MEDS: ALBUTEROL SULFATE NEB 2.5 MG/3 ML INH 5 MG INHALATION ×3 (07:56→20:19)
[2022-10-16] MEDS: FLUTICASONE/SALMETEROL 115-21 MCG INHALER 1 PUFF 2 PUFF INHALATION ×2 (07:57→20:19)
[2022-10-16] MEDS: IPRATROPIUM BR 0.02% INH SOLN 0.5 MG/2.5 ML VIAL INHALATION ×3 (07:57→20:19)
[2022-10-16 08:08] LABS: Glucose Point of Care 60 mg/dl (65-105)
[2022-10-16] MEDS: DEXTROSE 50% 25 GM/50 ML SYRINGE IV PUSH (08:17)
[2022-10-16] MEDS: FUROSEMIDE 20 MG TABLET PO (08:22)
[2022-10-16] MEDS: CHOLECALCIFEROL 1,000 UNITS TABLET 2000 UNITS PO (08:22)
[2022-10-16] MEDS: ATORVASTATIN 10 MG TABLET PO (08:22)
[2022-10-16] MEDS: MEMANTINE 10 MG TABLET PO ×2 (08:22→17:52)
[2022-10-16] MEDS: METOPROLOL SUCCINATE EXT REL 100 MG TABCR PO (08:23)
[2022-10-16] MEDS: PANTOPRAZOLE 40 MG TABLET PO (08:24)
[2022-10-16 08:40] LABS: Glucose Point of Care 159 mg/dl (65-105)
--- NOTE | 2022-10-16 10:12 | PM.IMPN ---
Progress Note: A&P Assessment and Plan (1) Persistent atrial fibrillation with RVR: Code(s): I48.19 - Other persistent atrial fibrillation Status: Acute (2) Acute exacerbation of congestive heart failure: Qualifiers: Heart failure type: unspecified Qualified Code(s): I50.9 - Heart failure, unspecified Code(s): I50.9 - Heart failure, unspecified Status: Acute Assessment and Plan: Combined diastolic and right-sided heart failure with a component high output out failure due to AFib (3) Acute on chronic respiratory failure with hypoxia and hypercapnia: Code(s): J96.21 - Acute and chronic respiratory failure with hypoxia; J96.22 - Acute and chronic respiratory failure with hypercapnia Status: Acute (4) Unspecified dementia, unspecified severity, without behavioral disturbance, psychotic disturbance, mood disturbance, and anxiety: Code(s): F03.90 - Unspecified dementia, unspecified severity, without behavioral disturbance, psychotic disturbance, mood disturbance, and anxiety Status: Acute (5) Atherosclerotic heart disease of [place] coronary artery without angina pectoris: Code(s): I25.10 - Atherosclerotic heart disease of [place] coronary artery without angina pectoris Status: Acute (6) Chronic diastolic (congestive) heart failure: Code(s): I50.32 - Chronic diastolic (congestive) heart failure Status: Acute Plan Acute on chronic heart failure History of diastolic dysfunction on oral lasix pt seen by cardiology sp echo Discontinue IV fluids Acute on chronic respiratory failure Likely secondary to CHF Patient also has history of COPD Continue bronchodilators nebulizer scheduled and p.r.n. Aspiration pneumonia Continue unasyn IV and NS pt failed mbs. Had a goals of care discussion with the patient including the option for a PEG tube Patient does not want a PEG tube. Will have a repeat swallow eval today. If he fails that he would opt for hospice Aspiration precaution AFib RVR pt now on oral medications Continue metoprolol 50 mg daily p.o. Rivaroxaban 20 mg daily p.o. Dementia Continue home medication for dementia General weakness, Consult PT OT for evaluation Subjective Date/time seen: 10/16/22 10:12 Interval history: Patient states he is doing okay. Feels weak Review of Systems Review of Systems: 8 point ROS obtained. Negative, unless stated in HPI. Exam Narrative: GENERAL: Pleasant, in no acute distress. Well-nourished. - EYES: EOMI. Anicteric. - HENT: Moist mucous membranes. - LUNGS: Some crackles bilateral base,, no wheezing, rhonchi, or rales. - CARDIOVASCULAR: Regular rate and rhythm. No murmur. No JVD. - ABDOMEN: Soft, non-tender and non-distended. No palpable masses. - EXTREMITIES: No edema. Peripheral pulses 2+. Non-tender. - NEUROLOGIC: No focal neurological deficits. CN II-XII grossly intact. Has general weakness - PSYCHIATRIC: Awake, Alert and oriented x 3. Appropriate mood and affect. - SKIN: No rashes or lesions. Warm. - LYMPH: No cervical lymphadenopathy. Objective Data Vital Signs Vital Signs: Vital Signs - 24 hr 10/15/22 12:04 10/15/22 13:16 10/15/22 13:36 Temperature Pulse Rate 128 H 106 H 104 H Respiratory Rate 20 20 Blood Pressure Pulse Oximetry Oxygen Delivery Oxygen Flow Rate 10/15/22 15:30 10/15/22 15:33 10/15/22 16:00 Temperature 98.5 F Pulse Rate 82 82 145 H Respiratory Rate 18 Blood Pressure 143/94 H Pulse Oximetry 99 Oxygen Delivery Oxygen Flow Rate 10/15/22 20:16 10/15/22 20:19 10/15/22 20:26 Temperature Pulse Rate 115 H 115 H 107 H Respiratory Rate 20 20 Blood Pressure Pulse Oximetry 98 Oxygen Delivery Nasal Cannula Oxygen Flow Rate 1 10/15/22 20:48 10/15/22 20:00 10/15/22 20:00 Temperature 98.3 F Pulse Rate 94 103 H Respiratory Rate 17 Blood Pressure 151/79 H Pulse Oxim
--- NOTE | 2022-10-16 10:56 | PCNFU ---
Nutrition Follow-Up Complete: Inadequate energy intake related to NPO, dysphagia as evidenced by modified barium swallow test results. Goal: Meet estimated protein energy needs - Not meeting goal Pt current nutrition is NPO except ice chips. Nutrition recommendation: If needed, Jevity 1.5 @ goal rate 55 ml/h, start at 30 ml/h and advance 10 ml q 4 hours. Flush 150 ml q 4 hours. Total 1815 kcal, 77 g protein, 1819 ml free water. Last recorded weight is 52.1 kg. Bowel Motility: Last BM 10/14/22 Labs Reviewed: Hgb 9.0, Hct 31.6, K+ 3.3, Glu 62,159 Meds Noted: Aricept, Lasix, protonix Skin: Maceration to coccyx Additional Notes: Pt failed MBSS and made NPO on 10/14/22, Making today NPO DAY 3. No fluids running. Having some hypoglycemia. Pt is refusing a PEG feeding tube. He has a repeat MBSS today. Tube feeding recommendations above if needed. Or possible transition to hospice if pt is not able to swallow safely. Monitor plan of care; weights, labs, tolerance. Follow up in 3 days
--- NOTE | 2022-10-16 10:59 | PCSTNOTE ---
The patient treatment was not able to be completed on 10/16 at 10:30 am due to being with another caregiver. Will plan to continue treatment per plan of care today, if possible, or tomorrow.
--- NOTE | 2022-10-16 11:45 | PM.PNCARD ---
Progress Note: A&P Assessment and Plan (1) Persistent atrial fibrillation with RVR: Code(s): I48.19 - Other persistent atrial fibrillation Status: Acute Plan Will observe the patient's telemetry on the current dosage of metoprolol. If he continues persistent rapid response I will consider titrating and some oral diltiazem as well but for today I will make no adjustments. Patient states that he is being sent for a swallowing study later this afternoon. Adolfo Reyes MD [facility] Subjective Date/time seen: Date of service:10/16/22 11:45 Interval history: Reason for visit: Congestive heart failure, atrial fibrillation HPI: We are consulted for atrial fibrillation with RVR. This is an 81 year old male who follows with Dr. Reyes in the clinic. He has a history of bicuspid aortic valve s/p aortic valve replacement, atrial fibrillation, significant COPD with chronic hypoxic respiratory failure who was admitted on 10/10/2022 for shortness of breath and increasing oxygen requirements. Patient found to be satting in the upper 80s on his chronic 2 liters of oxygen. In the field, he was noted to be in atrial fibrillation with RVR. In the ER, he received an IV dose of Cardizem and placed on Cardizem drip. Patient remains on Cardizem drip at this time.He was noted to have some bilateral lower extremity swelling on presentation. CXR with pulmonary edema, small pleural effusions. He was started on IV Lasix 20mg BID. Patient denies any chest pain. Has been coughing. Reports his shortness of breath is not quite back to baseline. Repeat CXR 10/12 with chronic lung findings. Date of service 10/14: Feeling okay. Working with physical therapy this morning. Remains on Dilt drip at 5. HR overall for the most part rate controlled, occasional RVR with activity. Date of service 10/15: Intermittent RVR, asymptomatic. Feeling okay otherwise. Date of service 10/16/2022: Atrial fibrillation heart rate generally between 100-120. Patient asymptomatic of his arrhythmia does not describe any palpitations or symptoms related to the RVR. Metoprolol as mentioned previously has been increased the last couple of days now at 100 mg daily. Exam Const: General: comfortable and no acute distress Other: Elderly gentleman. HENMT: Mouth: Yes moist mucous membranes Eyes: General: appearance normal, both eyes and all related structures Sclera: sclerae normal Resp: Effort & Inspection: normal respiratory effort Auscultation: diminished lung sounds Other: On supplemental oxygen via nasal cannula. Cardio: Rhythm: abnormal rhythm irregularly irregular Skin: General skin exam: normal color Neuro: Speech: normal speech Psych: Mental Status: mental status grossly normal Affect: normal affect Objective Data Vital Signs Vital Signs: Vital Signs - 24 hr 10/15/22 12:04 10/15/22 13:16 10/15/22 13:36 Temperature Pulse Rate 128 H 106 H 104 H Respiratory Rate 20 20 Blood Pressure Pulse Oximetry Oxygen Delivery Oxygen Flow Rate 10/15/22 15:30 10/15/22 15:33 10/15/22 16:00 Temperature 36.9 C Pulse Rate 82 82 145 H Respiratory Rate 18 Blood Pressure 143/94 H Pulse Oximetry 99 Oxygen Delivery Oxygen Flow Rate 10/15/22 20:16 10/15/22 20:19 10/15/22 20:26 Temperature Pulse Rate 115 H 115 H 107 H Respiratory Rate 20 20 Blood Pressure Pulse Oximetry 98 Oxygen Delivery Nasal Cannula Oxygen Flow Rate 1 10/15/22 20:48 10/15/22 20:00 10/15/22 20:00 Temperature 36.8 C Pulse Rate 94 103 H Respiratory Rate 17 Blood Pressure 151/79 H Pulse Oximetry 100 100 Oxygen Delivery Nasal Cannula Oxygen Flow Rate 1 10/16/22 00:00 10/16/22 04:00 10/16/22 05:28 Temperature 36.7 C Pulse Rate 117 H 112 H 99 Respiratory Rate 17 Blood Pressure 156/82 H Pulse Oximetry 100 Oxygen Delivery Oxygen Flow Rate 10/16/22 07:55 10/16/22 08:06 10/16/22 08:06
[2022-10-16] MEDS: TRIAMCINOLONE ACET 0.1% CREAM 15 GM TUBE 1 APPLIC TOPICAL ×2 (12:23→21:56)
[2022-10-16 12:31] LABS: Glucose Point of Care 80 mg/dl (65-105)
[2022-10-16] MEDS: DEXTROSE 5%/0.9% SOD CHL 1,000 ML 50 ML IV CONT (14:53)
[2022-10-16] MEDS: RIVAROXABAN 20 MG TABLET PO (17:52)
[2022-10-16 18:29] LABS: Glucose Point of Care 88 mg/dl (65-105)
[2022-10-16] MEDS: DONEPEZIL HCL 10 MG TABLET PO (21:55)
[2022-10-17] VITALS (17 sets, daily range): BP systolic 120–176; BP diastolic 70–78; PULSE 92–121; RESP 16–20; TEMP 36.5–36.6; O2SAT 99–100
[2022-10-17] MEDS: AMPICILLIN SULB 1.5 GM/NS 50ML 1.5 GM/50 ML VIAL IVPB ×5 (00:43→23:42)
[2022-10-17 00:53] LABS: Glucose Point of Care 94 mg/dl (65-105)
[2022-10-17 06:29] LABS: Glucose Point of Care 113 mg/dl (65-105)
[2022-10-17] MEDS: IPRATROPIUM BR 0.02% INH SOLN 0.5 MG/2.5 ML VIAL INHALATION ×3 (08:16→20:13)
[2022-10-17] MEDS: ALBUTEROL SULFATE NEB 2.5 MG/3 ML INH 5 MG INHALATION ×3 (08:16→20:22)
[2022-10-17] MEDS: FLUTICASONE/SALMETEROL 115-21 MCG INHALER 1 PUFF 2 PUFF INHALATION ×2 (08:17→20:13)
[2022-10-17] MEDS: ATORVASTATIN 10 MG TABLET PO (09:43)
[2022-10-17] MEDS: CHOLECALCIFEROL 1,000 UNITS TABLET 2000 UNITS PO (09:43)
--- NOTE | 2022-10-17 09:43 | PM.IMPN ---
Progress Note: A&P Assessment and Plan (1) Persistent atrial fibrillation with RVR: Code(s): I48.19 - Other persistent atrial fibrillation Status: Acute Assessment and Plan: Rate control not yet adequate (2) Acute exacerbation of congestive heart failure: Qualifiers: Heart failure type: unspecified Qualified Code(s): I50.9 - Heart failure, unspecified Code(s): I50.9 - Heart failure, unspecified Status: Acute Assessment and Plan: Combined diastolic and right-sided heart failure with a component high output out failure due to AFib Continue to monitor fluid balance Continue to titrate metoprolol and consider adding diltiazem for rate control Consider metoprolol tartrate due to inability to swallow whole tablets (3) Acute on chronic respiratory failure with hypoxia and hypercapnia: Code(s): J96.21 - Acute and chronic respiratory failure with hypoxia; J96.22 - Acute and chronic respiratory failure with hypercapnia Status: Acute Assessment and Plan: Likely due to congestive heart failure and silent aspiration Continue oxygen (4) Aspiration into lower respiratory tract: Qualifiers: Encounter type: sequela Qualified Code(s): T17.800S - Unspecified foreign body in other parts of respiratory tract causing asphyxiation, sequela Code(s): T17.800A - Unspecified foreign body in other parts of respiratory tract causing asphyxiation, initial encounter Status: Acute Assessment and Plan: CT scans of chest dating back to 2019 show signs consistent with aspiration Suspect related to his dementia (5) Unspecified dementia, unspecified severity, without behavioral disturbance, psychotic disturbance, mood disturbance, and anxiety: Code(s): F03.90 - Unspecified dementia, unspecified severity, without behavioral disturbance, psychotic disturbance, mood disturbance, and anxiety Status: Acute Assessment and Plan: Progression of dementia is not consistent with Alzheimer dementia 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 ordered 10/17/2022 (6) Atherosclerotic heart disease of [place] coronary artery without angina pectoris: Code(s): I25.10 - Atherosclerotic heart disease of [place] coronary artery without angina pectoris Status: Acute (7) Chronic diastolic (congestive) heart failure: Code(s): I50.32 - Chronic diastolic (congestive) heart failure Status: Acute Assessment and Plan: Currently asymptomatic (8) History of aortic valve replacement: Code(s): Z95.2 - Presence of prosthetic heart valve Status: Acute (9) Chronic respiratory failure with hypoxia: Code(s): J96.11 - Chronic respiratory failure with hypoxia Status: Acute (10) Pure hypercholesterolemia, unspecified: Code(s): E78.00 - Pure hypercholesterolemia, unspecified Status: Acute (11) Occlusion and stenosis of right carotid artery: Code(s): I65.21 - Occlusion and stenosis of right carotid artery Status: Acute Assessment and Plan: Per chart Subjective Date/time seen: 10/17/22 09:43 Interval history: 81-year-old gentleman with history of dementia TIA atrial fibrillation coronary artery disease and congestive heart failure is able to walk with walker and is continent and able to speak, yet he is having aspiration issues with silent aspiration on MBS. He is having difficulty swallowing p.o. meds. He is oriented to person only and has no hallucinations or behaviors. Review of Systems Review of Systems: Denies pain shortness a breath or bleeding but because of memory issues history is unreliable ROS unobtainable: Yes unobtainable due to medical condition Exam Narrative: HEENT: sclerae nonicteric, pharyngeal mucosa pink and intact NECK: No JVD CHEST: Bilateral lower lobe crackles. Normal effort. HEART: NL S1/S2, irregular, no murmur ABDOMEN: B
[2022-10-17] MEDS: METOPROLOL SUCCINATE EXT REL 100 MG TABCR PO (09:44)
[2022-10-17] MEDS: FUROSEMIDE 20 MG TABLET PO (09:44)
[2022-10-17] MEDS: PANTOPRAZOLE 40 MG TABLET PO (09:44)
[2022-10-17] MEDS: MEMANTINE 10 MG TABLET PO ×2 (09:44→17:47)
--- NOTE | 2022-10-17 10:39 | PM.PNCARD ---
Progress Note: A&P Assessment and Plan (1) Persistent atrial fibrillation with RVR: Code(s): I48.19 - Other persistent atrial fibrillation Status: Acute Plan 81-year-old man with: Chronic atrial fibrillation attempting rate control and anticoagulation. Has difficulty taking PO long-acting metoprolol. Patient has swallowing difficulty and suspected of having difficulty with chronic aspiration episodes. Will substitute this with short-acting metoprolol tartrate q.6 which can be crushed it more easily and applesauce etc. hopefully heart rate will improve with this. Long-term prognosis is very limited in this situation Adolfo Reyes MD [facility] Subjective Date/time seen: Date of service: 10/17/22 10:39 Interval history: 81-year-old man with chronic atrial fibrillation being managed with rate control and anticoagulation. Exam Const: General: comfortable and no acute distress Other: Elderly gentleman. HENMT: Mouth: Yes moist mucous membranes Eyes: General: appearance normal, both eyes and all related structures Sclera: sclerae normal Resp: Effort & Inspection: normal respiratory effort Auscultation: diminished lung sounds Other: On supplemental oxygen via nasal cannula. Cardio: Rhythm: abnormal rhythm irregularly irregular Skin: General skin exam: normal color Neuro: Speech: normal speech Psych: Mental Status: mental status grossly normal Affect: normal affect Objective Data Vital Signs Vital Signs: Vital Signs - 24 hr 10/16/22 13:35 10/16/22 13:46 10/16/22 13:45 Temperature 36.4 C Pulse Rate 111 H 110 H 83 Respiratory Rate 20 20 20 Blood Pressure 156/70 H Pulse Oximetry 100 Oxygen Delivery Oxygen Flow Rate 10/16/22 12:00 10/16/22 16:00 10/16/22 19:35 Temperature 36.6 C Pulse Rate 110 H 126 H 89 Respiratory Rate 12 Blood Pressure 171/72 H Pulse Oximetry 100 Oxygen Delivery Oxygen Flow Rate 10/16/22 20:20 10/16/22 20:22 10/16/22 20:28 Temperature Pulse Rate 74 74 83 Respiratory Rate 20 20 Blood Pressure Pulse Oximetry 98 Oxygen Delivery Nasal Cannula Oxygen Flow Rate 1 10/16/22 21:12 10/16/22 20:00 10/16/22 20:00 Temperature Pulse Rate 91 91 Respiratory Rate 18 Blood Pressure 141/64 H Pulse Oximetry 98 Oxygen Delivery Nasal Cannula Oxygen Flow Rate 1 10/17/22 00:00 10/17/22 04:02 10/17/22 04:00 Temperature 36.5 C Pulse Rate 105 H 96 92 Respiratory Rate 16 Blood Pressure 176/78 H Pulse Oximetry 100 Oxygen Delivery Oxygen Flow Rate 10/17/22 08:18 10/17/22 08:21 10/17/22 08:32 Temperature Pulse Rate 98 98 104 H Respiratory Rate 20 20 20 Blood Pressure Pulse Oximetry 99 Oxygen Delivery Nasal Cannula Oxygen Flow Rate 1 10/17/22 09:44 10/17/22 09:40 Temperature Pulse Rate 120 H Respiratory Rate Blood Pressure Pulse Oximetry 99 Oxygen Delivery Nasal Cannula Oxygen Flow Rate 1 Intake/Output Intake/Output: Intake & Output 10/14/22 10/15/22 10/16/22 10/17/22 23:59 23:59 23:59 23:59 Intake Total 390 200 350 50 Output Total 100 250 Balance 290 200 100 50 Meds/Results Medications: Active Medications Generic Name Dose Route Start Last Admin Trade Name Freq PRN Reason Stop Dose Admin Albuterol 5 mg 10/11/22 02:00 10/17/22 08:16 Albuterol Sulfate Neb 2.5 Mg/3 Ml Inh INHALATION 5 mg Q6HRT SILVIA Administration Atorvastatin Calcium 10 mg 10/11/22 09:00 10/17/22 09:43 Atorvastatin 10 Mg Tablet PO 10 mg DAILY SILVIA Administration Dextrose 12.5 gm 10/11/22 10:13 10/16/22 08:17 Dextrose 50% 25 Gm/50 Ml Syringe IV PUSH 12.5 gm PRN PRN Administration Hypoglycemia Protocol Donepezil HCl 10 mg 10/10/22 21:00 10/16/22 21:55 Donepezil Hcl 10 Mg Tablet PO 10 mg HS SILVIA Administration Furosemide 20 mg 10/14/22 09:00 10/17/22 09:44 Furosemide 20 Mg Tablet PO 20 mg D
[2022-10-17] MEDS: TRIAMCINOLONE ACET 0.1% CREAM 15 GM TUBE 1 APPLIC TOPICAL ×2 (11:42→20:27)
[2022-10-17 12:07] LABS: Glucose Point of Care 130 mg/dl (65-105)
--- NOTE | 2022-10-17 13:42 | PCSTNOTE ---
Bedside swallowing evaluation. Patient sitting up in chair at bedside, spouse present. Cursory oral peripheral examination WFL. Trials of thin liquids, moderately thickened liquids, and pureed in uncontrolled amounts were presented. Patient demonstrated coughing after swallowing and wet gurgly vocal quality. Based on these results, another modified barium swallow study is recommended to determine whether patient continues to aspirate on all consistencies and to determine recommendations. NPO is recommended at this time. Thank you for the referral of this patient.
[2022-10-17 17:20] LABS: Glucose Point of Care 98 mg/dl (65-105)
[2022-10-17] MEDS: RIVAROXABAN 20 MG TABLET PO (17:47)
[2022-10-17] MEDS: DEXTROSE 5%/0.9% SOD CHL 1,000 ML 50 ML IV CONT (20:25)
[2022-10-17] MEDS: DONEPEZIL HCL 10 MG TABLET PO (20:26)
[2022-10-17 23:55] LABS: Glucose Point of Care 114 mg/dl (65-105)
[2022-10-18] VITALS (19 sets, daily range): BP systolic 129–157; BP diastolic 76–91; PULSE 4–119; RESP 15–18; TEMP 36.2–36.4; O2SAT 99–100
[2022-10-18] MEDS: ALBUTEROL SULFATE NEB 2.5 MG/3 ML INH 5 MG INHALATION ×4 (01:49→20:26)
[2022-10-18] MEDS: IPRATROPIUM BR 0.02% INH SOLN 0.5 MG/2.5 ML VIAL INHALATION ×4 (01:49→20:26)
[2022-10-18] MEDS: AMPICILLIN SULB 1.5 GM/NS 50ML 1.5 GM/50 ML VIAL IVPB ×2 (05:51→13:14)
[2022-10-18] MEDS: METOPROLOL TARTRATE 25 MG TABLET PO ×3 (05:52→17:20)
[2022-10-18 06:32] LABS: Glucose Point of Care 98 mg/dl (65-105)
[2022-10-18] MEDS: FLUTICASONE/SALMETEROL 115-21 MCG INHALER 1 PUFF 2 PUFF INHALATION ×2 (06:59→20:27)
[2022-10-18 08:05] LABS: Hematocrit 32.5 % (42.0-52.0); Hemoglobin 9.2 g/dL (14.0-18.0); Mean Corpuscular HGB Conc 28.3 g/dl (32-36); Mean Corpuscular Hemoglobin 25.3 pg (26-34); Mean Corpuscular Volume 89.5 fl (80-100); Platelet Count Result 223 k/mm3 (150-375); Red Blood Count 3.63 M/mm3 (4.6-6.20); White Blood Count 4.9 K/mm3 (4.5-10.0)
[2022-10-18 08:20] LABS: Blood Urea Nitrogen 14 mg/dL (9-20); Calcium 8.6 mg/dL (8.4-10.2); Carbon Dioxide > 40 mmol/L (22-30); Chloride 104 mmol/L (98-107); Estimated CRCL calculation 44 ml/min; Estimated Glomerular Filt Rate > 60; Glucose 105 mg/dL (65-110); Potassium 3.3 mmol/L (3.4-5.0); Sodium 147 mmol/L (137-145)
[2022-10-18] MEDS: CHOLECALCIFEROL 1,000 UNITS TABLET 2000 UNITS PO (09:34)
[2022-10-18] MEDS: ATORVASTATIN 10 MG TABLET PO (09:34)
[2022-10-18] MEDS: FUROSEMIDE 20 MG TABLET PO (09:35)
[2022-10-18] MEDS: PANTOPRAZOLE 40 MG TABLET PO (09:35)
[2022-10-18] MEDS: MEMANTINE 10 MG TABLET PO ×2 (09:35→17:20)
--- NOTE | 2022-10-18 12:21 | P.PNIM_ITS ---
Progress Note: A&P Assessment and Plan (1) Persistent atrial fibrillation with RVR: Code(s): I48.19 - Other persistent atrial fibrillation Status: Acute Assessment and Plan: * Rate control not yet adequate * 10/18/22 Switched to crush PO metoprolol tartrate (2) Acute exacerbation of congestive heart failure: Qualifiers: Heart failure type: unspecified Qualified Code(s): I50.9 - Heart failure, unspecified Code(s): I50.9 - Heart failure, unspecified Status: Acute Assessment and Plan: * Combined diastolic and right-sided heart failure with a component high output out failure due to AFib * Continue to monitor fluid balance * Continue to titrate metoprolol and consider adding diltiazem for rate control (3) Acute on chronic respiratory failure with hypoxia and hypercapnia: Code(s): J96.21 - Acute and chronic respiratory failure with hypoxia; J96.22 - Acute and chronic respiratory failure with hypercapnia Status: Acute Assessment and Plan: * Likely due to congestive heart failure and silent aspiration * Continue oxygen (4) Aspiration into lower respiratory tract: Qualifiers: Encounter type: sequela Qualified Code(s): T17.800S - Unspecified foreign body in other parts of respiratory tract causing asphyxiation, sequela Code(s): T17.800A - Unspecified foreign body in other parts of respiratory tract causing asphyxiation, initial encounter Status: Acute Assessment and Plan: * CT scans of chest dating back to 2019 show signs consistent with aspiration * Suspect related to his dementia * MBS 10/18/2022 with laryngeal penetration but no aspiration with residue and need for f/u swallow, swallowing precautions, recommended minced and moist, mildly thickened liquids * 10/18/2022 Stop Unasyn at day 7 (5) Unspecified dementia, unspecified severity, without behavioral disturbance, psychotic disturbance, mood disturbance, and anxiety: Code(s): F03.90 - Unspecified dementia, unspecified severity, without behavioral disturbance, psychotic disturbance, mood disturbance, and anxiety Status: Acute Assessment and Plan: * Progression of dementia is not consistent with Alzheimer dementia * 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 * CT Brain 10/17/2022 showed multiple infarcts (6) Atherosclerotic heart disease of [place] coronary artery without angina pectoris: Code(s): I25.10 - Atherosclerotic heart disease of [place] coronary artery without angina pectoris Status: Acute Assessment and Plan: * Continue current regimen (7) Chronic diastolic (congestive) heart failure: Code(s): I50.32 - Chronic diastolic (congestive) heart failure Status: Acute Assessment and Plan: * Currently asymptomatic * 10/18/2022 furosemide held due to metabolic alkalosis (8) History of aortic valve replacement: Code(s): Z95.2 - Presence of prosthetic heart valve Status: Acute Assessment and Plan: * Clinically stable (9) Chronic respiratory failure with hypoxia: Code(s): J96.11 - Chronic respiratory failure with hypoxia Status: Acute Assessment and Plan: * Continue oxygen (10) Pure hypercholesterolemia, unspecified: Code(s): E78.00 - Pure hypercholesterolemia, unspecified Status: Acute Assessment and Plan: * Continue statin (11) Occlusion and stenosis of right carotid artery: Code(s): I65.21 - Occlusion and stenosis of right carotid artery Status: Acute Assessment and Plan: * Per chart
--- NOTE | 2022-10-18 12:21 | PM.IMPN ---
Progress Note: A&P Assessment and Plan (1) Persistent atrial fibrillation with RVR: Code(s): I48.19 - Other persistent atrial fibrillation Status: Acute Assessment and Plan: Rate control not yet adequate 10/18/22 Switched to crush PO metoprolol tartrate (2) Acute exacerbation of congestive heart failure: Qualifiers: Heart failure type: unspecified Qualified Code(s): I50.9 - Heart failure, unspecified Code(s): I50.9 - Heart failure, unspecified Status: Acute Assessment and Plan: Combined diastolic and right-sided heart failure with a component high output out failure due to AFib Continue to monitor fluid balance Continue to titrate metoprolol and consider adding diltiazem for rate control (3) Acute on chronic respiratory failure with hypoxia and hypercapnia: Code(s): J96.21 - Acute and chronic respiratory failure with hypoxia; J96.22 - Acute and chronic respiratory failure with hypercapnia Status: Acute Assessment and Plan: Likely due to congestive heart failure and silent aspiration Continue oxygen (4) Aspiration into lower respiratory tract: Qualifiers: Encounter type: sequela Qualified Code(s): T17.800S - Unspecified foreign body in other parts of respiratory tract causing asphyxiation, sequela Code(s): T17.800A - Unspecified foreign body in other parts of respiratory tract causing asphyxiation, initial encounter Status: Acute Assessment and Plan: CT scans of chest dating back to 2019 show signs consistent with aspiration Suspect related to his dementia MBS 10/18/2022 with laryngeal penetration but no aspiration with residue and need for f/u swallow, swallowing precautions, recommended minced and moist, mildly thickened liquids 10/18/2022 Stop Unasyn at day 7 (5) Unspecified dementia, unspecified severity, without behavioral disturbance, psychotic disturbance, mood disturbance, and anxiety: Code(s): F03.90 - Unspecified dementia, unspecified severity, without behavioral disturbance, psychotic disturbance, mood disturbance, and anxiety Status: Acute Assessment and Plan: Progression of dementia is not consistent with Alzheimer dementia 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 10/17/2022 showed multiple infarcts (6) Atherosclerotic heart disease of [place] coronary artery without angina pectoris: Code(s): I25.10 - Atherosclerotic heart disease of [place] coronary artery without angina pectoris Status: Acute Assessment and Plan: Continue current regimen (7) Chronic diastolic (congestive) heart failure: Code(s): I50.32 - Chronic diastolic (congestive) heart failure Status: Acute Assessment and Plan: Currently asymptomatic 10/18/2022 furosemide held due to metabolic alkalosis (8) History of aortic valve replacement: Code(s): Z95.2 - Presence of prosthetic heart valve Status: Acute Assessment and Plan: Clinically stable (9) Chronic respiratory failure with hypoxia: Code(s): J96.11 - Chronic respiratory failure with hypoxia Status: Acute Assessment and Plan: Continue oxygen (10) Pure hypercholesterolemia, unspecified: Code(s): E78.00 - Pure hypercholesterolemia, unspecified Status: Acute Assessment and Plan: Continue statin (11) Occlusion and stenosis of right carotid artery: Code(s): I65.21 - Occlusion and stenosis of right carotid artery Status: Acute Assessment and Plan: Per chart Subjective Date/time seen: 10/18/22 12:21 Interval history: 81-year-old gentleman with history of dementia TIA atrial fibrillation coronary artery disease and congestive heart failure is able to walk with walker and is continent and able to speak, yet he is having aspiration issues with silent aspiration on MBS. He is having difficulty swallowing p.o. meds. He is oriented to
[2022-10-18 12:48] LABS: Glucose Point of Care 81 mg/dl (65-105)
[2022-10-18] MEDS: TRIAMCINOLONE ACET 0.1% CREAM 15 GM TUBE 1 APPLIC TOPICAL ×2 (13:13→20:01)
--- NOTE | 2022-10-18 13:32 | PC.NURSE ---
Spoke to pharmacist Latrell regarding order of KCl and the patient requiring mildly thickened liquids. Clarifying if ok for powder to be mixed with thickening agent. OK per pharmacist for medication to be mixed with thickening agent.
--- NOTE | 2022-10-18 13:58 | PCSTNOTE ---
Modified barium swallow study completed. Patient was given trials of thin liquid in 3ml amount by spoon, thin liquid in uncontrolled amount by cup, mildly and moderately thickened liquids in uncontrolled amounts by cup, and pureed consistency in 3 ml amounts by spoon. Pentration was observed to vocal folds without entering the airway with all consistencies. Compensatory strategies trialed included cough, clear throat, and multiple swallows. These were mildly successful in reducing residue. Recommendations: minced moist diet, mildly thickened liquids. Swallowing precaution recommendations placed in chart and discussed with and nurse. Thank you for the referral of this patient.
[2022-10-18] MEDS: POTASSIUM CHLORIDE 20 MEQ PACKET (FOR LIQUID) 40 MEQ PO (14:35)
[2022-10-18 17:09] LABS: Glucose Point of Care 91 mg/dl (65-105)
[2022-10-18] MEDS: RIVAROXABAN 20 MG TABLET PO (17:20)
[2022-10-18] MEDS: DEXTROSE 5%/0.9% SOD CHL 1,000 ML 50 ML IV CONT (20:00)
[2022-10-18] MEDS: DONEPEZIL HCL 10 MG TABLET PO (20:01)
[2022-10-19] VITALS (11 sets, daily range): BP systolic 124; BP diastolic 71; PULSE 80–105; RESP 16–18; TEMP 35.8; O2SAT 96–100
[2022-10-19] MEDS: METOPROLOL TARTRATE 25 MG TABLET PO ×3 (00:53→12:55)
[2022-10-19 00:59] LABS: Glucose Point of Care 143 mg/dl (65-105)
[2022-10-19] MEDS: IPRATROPIUM BR 0.02% INH SOLN 0.5 MG/2.5 ML VIAL INHALATION ×3 (02:56→13:45)
[2022-10-19] MEDS: ALBUTEROL SULFATE NEB 2.5 MG/3 ML INH 5 MG INHALATION ×3 (02:57→13:45)
[2022-10-19 06:03] LABS: Blood Urea Nitrogen 12 mg/dL (9-20); Calcium 8.4 mg/dL (8.4-10.2); Carbon Dioxide > 40 mmol/L (22-30); Chloride 103 mmol/L (98-107); Estimated CRCL calculation 45 ml/min; Estimated Glomerular Filt Rate > 60; Glucose 96 mg/dL (65-110); Potassium 3.2 mmol/L (3.4-5.0); Sodium 143 mmol/L (137-145)
[2022-10-19 06:09] LABS: Glucose Point of Care 92 mg/dl (65-105)
[2022-10-19] MEDS: FLUTICASONE/SALMETEROL 115-21 MCG INHALER 1 PUFF 2 PUFF INHALATION (08:21)
[2022-10-19 08:39] LABS: Glucose Point of Care 94 mg/dl (65-105)
[2022-10-19] MEDS: MEMANTINE 10 MG TABLET PO (09:10)
[2022-10-19] MEDS: CHOLECALCIFEROL 1,000 UNITS TABLET 2000 UNITS PO (09:10)
[2022-10-19] MEDS: ATORVASTATIN 10 MG TABLET PO (09:10)
[2022-10-19] MEDS: TRIAMCINOLONE ACET 0.1% CREAM 15 GM TUBE 1 APPLIC TOPICAL (09:11)
[2022-10-19] MEDS: PANTOPRAZOLE 40 MG TABLET PO (09:11)
--- NOTE | 2022-10-19 09:38 | PM.PNCARD ---
Progress Note: A&P Assessment and Plan (1) Persistent atrial fibrillation with RVR: Code(s): I48.19 - Other persistent atrial fibrillation Status: Acute Assessment and Plan: Continue short-acting metoprolol. Review of telemetry shows heart rate is generally controlled. Continue Xarelto for anticoagulation. (2) Hypokalemia: Code(s): E87.6 - Hypokalemia Status: Acute Assessment and Plan: Will replace with potassium 40 mEq p.o. x1 (3) Aortic stenosis: Onset Date: 10/2022 Code(s): I35.0 - Nonrheumatic aortic (valve) stenosis Status: Acute Assessment and Plan: Moderate (4) Chronic diastolic (congestive) heart failure: Code(s): I50.32 - Chronic diastolic (congestive) heart failure Status: Acute Assessment and Plan: Will DC IV fluids. Continue other regimen including the Toprol and diuretics Subjective Date/time seen: 10/19/22 09:38 Interval history: 81-year-old man with chronic atrial fibrillation being managed with rate control and anticoagulation. Date of service 10/19/2022: Is okay. No chest pain or shortness of breath Review of Systems Review of Systems: All systems reviewed & are unremarkable except as noted in HPI and below Constitutional: Constitutional: Denies body ache(s) Eyes: Eyes: Denies blurry vision ENT: Reports Normal hearing present Cardiovascular: Cardiovascular: Denies chest pain Respiratory: Respiratory: Denies chest congestion Gastrointestinal: Gastrointestinal: Denies abdominal pain Genitourinary: Genitourinary: Denies hematuria Musculoskeletal: Musculoskeletal: Denies back pain Integumentary/Breasts: Skin/Breast: Denies skin pain Neurologic: Denies Abnormal speech present Psychiatric: Psychiatric: Denies anxiety Endocrine: Endocrine: Denies change in body appearance Hematologic/Lymphatic: Hematologic/Lymphatic: Denies easy bleeding Allergic/Immunologic: Allergic/Immunologic: Denies GI upset with certain foods Exam Narrative: Appears stated age Const: General: comfortable and no acute distress Other: Elderly gentleman. HENMT: Mouth: Yes moist mucous membranes Eyes: General: appearance normal, both eyes and all related structures Sclera: sclerae normal Neck: Neck: supple Resp: Effort & Inspection: normal respiratory effort Auscultation: crackles Other: On supplemental oxygen via nasal cannula. Cardio: Rate: regular rate Rhythm: abnormal rhythm irregularly irregular GI: Inspection: non-distended Skin: General skin exam: normal color Neuro: Speech: normal speech Extrem: General: normal to inspection Psych: Mental Status: mental status grossly normal Affect: normal affect Objective Data Vital Signs Vital Signs: Vital Signs - 24 hr 10/18/22 12:00 10/18/22 13:13 10/18/22 13:00 Temperature Pulse Rate 95 119 H 84 Respiratory Rate 18 Blood Pressure Pulse Oximetry Oxygen Delivery Oxygen Flow Rate Fraction of Inspired Oxygen 10/18/22 13:10 10/18/22 16:00 10/18/22 16:00 Temperature 36.4 C Pulse Rate 85 100 119 H Respiratory Rate 18 15 Blood Pressure 130/76 Pulse Oximetry 100 Oxygen Delivery Oxygen Flow Rate Fraction of Inspired Oxygen 10/18/22 17:20 10/18/22 19:53 10/18/22 20:29 Temperature 36.2 C L Pulse Rate 113 H 82 82 Respiratory Rate 18 18 Blood Pressure 129/80 Pulse Oximetry 100 Oxygen Delivery Oxygen Flow Rate Fraction of Inspired Oxygen 10/18/22 20:42 10/18/22 20:00 10/18/22 20:00 Temperature Pulse Rate 84 108 H 84 Respiratory Rate 18 18 Blood Pressure Pulse Oximetry 100 Oxygen Delivery Nasal Cannula Oxygen Flow Rate 2 Fraction of Inspired Oxygen 24 10/19/22 00:00 10/19/22 00:00 10/19/22 02:57 Temperature 35.8 C L Pulse Rate 82 105 H 82 Respiratory Rate 18 18 Blood Pressure 124/71 Pulse Oximetry 100 Oxygen Delivery O
[2022-10-19] MEDS: POTASSIUM CHLORIDE 20 MEQ PACKET (FOR LIQUID) 40 MEQ PO (10:15)
--- NOTE | 2022-10-19 11:11 | PM.DS ---
DS: Admitting Diagnosis Discharge Date 10/19/2022 Admitting Diagnosis Hypoxia Congestive heart failure exacerbation DS: Discharge Diagnosis Discharge Diagnosis (1) Aspiration into lower respiratory tract: Qualifiers: Encounter type: sequela Qualified Code(s): T17.800S - Unspecified foreign body in other parts of respiratory tract causing asphyxiation, sequela Code(s): T17.800A - Unspecified foreign body in other parts of respiratory tract causing asphyxiation, initial encounter Status: Acute (2) CHF (congestive heart failure): Qualifiers: Heart failure chronicity: acute on chronic Heart failure type: unspecified Qualified Code(s): I50.9 - Heart failure, unspecified Code(s): I50.9 - Heart failure, unspecified Status: Acute DS: Summary Hospital Course Hospital Course: 81-year-old male with a past medical history of 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 The patient is chronically on 2 L nasal cannula at home when EMS arrived at the patient's home he was satting in the upper 80s on 2 L.? He was increased to 4 L nasal cannula brought to the ER.? In the field he was noted to be in atrial fibrillation with rapid ventricular response.? In the ER he received a dose of IV Cardizem input placed on a Cardizem drip.? He also received 60 mg of IV Lasix.? He has chronic hypoxic respiratory failure but does not usually have significant CO2 retention.? ABG was performed which demonstrated mild hypercapnia and his PO2 was elevated to 160 on 4 L nasal cannula.? He received nebulizer treatment and steroids in the ER as well.? Head CT was negative for any acute findings. Cardiology was consulted for AFib with RVR and CHF exacerbation. Patient was continued on low-dose Lasix IV which was then changed to p.o.. Metoprolol XL was changed to short-acting metoprolol per Cardiology. Echo was obtained: ? 1. Complete two-dimensional, color flow and Doppler transthoracic echocardiogram is performed. ? 2. Normal left ventricular size and thickness with hyperdynamic systolic function.? Ejection fraction is greater than 70% visually.? Diastolic dysfunction is present. ? 3. Left atrial chamber dimension is moderately enlarged. ? 4. There is mild aortic valve calcification, with moderate aortic valve stenosis with a peak velocity of 253 cm/s, mean gradient of 13 mmHg, and aortic valve area of 1.1 cm2. ? 5. Aortic root calcification. ? 6. No pulmonary hypertension, estimated pulmonary arterial systolic pressure is 22 mmHg. ? 7. Atrial fibrillation. ? 8. Somewhat technically difficult study. Due to patient's ongoing hypoxia chest x-ray was obtained which showed possible aspiration pneumonia. Speech evaluation was obtained and speech therapist recommended patient remain as NPO because there was concern for aspiration. Later on patient had another speech evaluation at which point his swallowing had improved and he was put on thickened liquid diets. At this time the patient is back to his baseline and is being discharged home with home health Time Spent with Patient Time attestation: Total time spent providing and/or coordinating discharge services: DS: Data Data Completed and Pending Labs on day of discharge: Labs from last 24 hours 10/19/22 10/19/22 10/19/22 08:37 06:06 04:56 Sodium 143 Potassium 3.2 L Chloride 103 Carbon Dioxide > 40 H Anion Gap BUN 12 Creatinine 0.80 Estim Creat Clear Calc 45 Estimated GFR > 60 Glucose 96 POC Capillary Glucose 94 92 Calcium 8.4 10/19/22 10/18/22 10/18/22 00:56 17:05 12:45 Sodium Potassium Chloride Carbon Dioxide Anion Gap BUN Creatinine Estim Creat Clear Calc Estimated GFR Glucose POC
[2022-10-19 11:57] LABS: Glucose Point of Care 99 mg/dl (65-105)
== END 2022-10-19 15:15 | disposition home health service (06) | DRG 291 ==
LOC: ANHED 18:15 → ANHIMU 19:35 → ANH2MED 10-14 16:29
PROVIDERS: Family Medicine; Hospitalist; Internal Medicine; Admitting Provider Family Medicine; Emergency Provider Emergency Medicine; PCP Family Medicine Adolescent Medicine; Visit Provider Hospitalist
DX: I11.0 Hypertensive heart disease with heart failure (principal); I50.33 Acute on chronic diastolic (congestive) heart failure; J96.21 Acute and chronic respiratory failure with hypoxia; J96.22 Acute and chronic respiratory failure with hypercapnia; J69.0 Pneumonitis due to inhalation of food and vomit; I48.0 Paroxysmal atrial fibrillation; I50.813 Acute on chronic right heart failure; J43.1 Panlobular emphysema; E78.5 Hyperlipidemia, unspecified; F03.90 Unspecified dementia, unspecified severity, without behavioral disturbance, psychotic disturbance, mood disturbance, and anxiety; I27.20 Pulmonary hypertension, unspecified; I25.10 Atherosclerotic heart disease of native coronary artery without angina pectoris; I65.21 Occlusion and stenosis of right carotid artery; K21.9 Gastro-esophageal reflux disease without esophagitis; Z86.73 Personal history of transient ischemic attack (TIA), and cerebral infarction without residual deficits; Z95.4 Presence of other heart-valve replacement; Z66 Do not resuscitate; Z85.46 Personal history of malignant neoplasm of prostate; Z87.891 Personal history of nicotine dependence; Z99.81 Dependence on supplemental oxygen; Z79.01 Long term (current) use of anticoagulants
CPT/HCPCS: 36415; 36600; 70450; 71045; 80048; 80053; 82805; 82948; 83735; 83880; 84439; 84443; 84480; 84484; 85025; 85027; 85610; 85730; 87040; 92526; 92610; 92611; 93005; 93306; 94640; 96365; 96375; 97110; 97116; 97161; 97165; 97530; 97535; 99285; A9270; J0295; J1630; J1815; J1940; J2930; J7042

== ENCOUNTER 2024-03-21 13:49 | Inpatient (IN) | payer OTHER, SELFPAY ==
[2024-03-21] VITALS (14 sets, daily range): BP systolic 121–164; BP diastolic 56–104; PULSE 88–136; RESP 17–27; TEMP 36.2–36.6; O2SAT 91–100; BMI 23.1
--- NOTE | ~2024-03-21 | CT_ITS ---
EXAMINATION:CT diagnostic chest w con DATE: 03/21/2024 19:14 INDICATION: Aspiration pneumonia. Hypoxia. TECHNIQUE: Computed tomography (CT) of the chest was performed with 75 mL Omnipaque 350 intravenous c ontrast. Automated exposure control and iterative reconstruction technique were employed. The dose-le ngth product (DLP) was 252.50 mGy-cm. COMPARISON: Chest CT 06/30/2019 FINDINGS: There is moderate emphysema. There is chronic pleural thickening bilaterally with calcified pleural plaques on the right. There are peripheral airspace and interstitial opacities in the lungs with a lower lung predominance. There are patchy airspace and groundglass opacities in right upper lo be and right lower lobe, consistent with pneumonia. No pleural effusion. There is left atrial enlarge ment of the heart. There are coronary artery calcifications. There are changes of aortic valve replac ement. There is ectasia of ascending aorta measuring 4.1 cm. There are cysts in the liver measuring u p to 2.0 cm. There is a 13 mm hyperenhancing mass in the liver. There are gallstones in the gallbladd er. Gallbladder distention may secondary to fasting. There is severe cervical spondylosis and mild th oracic spondylosis. Thoracic kyphosis is noted. IMPRESSION: 1. Pneumonia in right upper lobe and right lower lobe. 2. Moderate emphysema. Chronic lung disease. 3. 13 mm hyperenhancing liver mass. In the absence of known malignancy or chronic liver disease, this finding is likely a hemangioma or focal nodular hyperplasia. Reviewed, dictated and finalized at location A. TER CUTTER IMPRESSION: 1. Pneumonia in right upper lobe and right lower lobe. 2. Moderate emphysema. Chronic lung disease. 3. 13 mm hyperenhancing liver mass. In the absence of known malignancy or chron ic liver disease, this finding is likely a hemangioma or focal nodular hyperpla saran.
--- NOTE | ~2024-03-21 | MR_ITS ---
EXAMINATION: MR abdomen wo/w con DATE: 03/23/2024 09:02 INDICATION: Liver mass TECHNIQUE: Magnetic resonance imaging (MRI) of the abdomen was performed without and with 11 mL Multi alberto intravenous contrast. Sequences included coronal T2-weighted SS-FSE, coronal and axial FS 2D-F IESTA, axial STIR FSE, axial T2-weighted SS-FSE, axial T2-weighted FS SS-FSE, axial diffusion-weighte d SE, axial dual-echo T1-weighted FSPGR, and axial and coronal T1-weighted LAVA. Postcontrast axial T 1-weighted LAVA images were obtained in a time course. Postcontrast coronal T1-weighted LAVA images w ere obtained. COMPARISON: Chest CT dated 03/21/2024 FINDINGS: Small right and tiny left posterior layering pleural effusions. Mild reticular pattern in the depende nt lungs which could represent atelectasis, mild pulmonary edema or pneumonia. Heart size is normal. No pericardial effusion. Median sternotomy wires and aortic valve repair. Mild bilateral gynecomastia . T1 hyperintense, T2 hypointense nonenhancing tumefactive sludge at the neck of the otherwise normal g allbladder. There are multiple T2 hyperintense nonenhancing cysts scattered throughout the liver the largest and likely septated cyst with lobular margins measuring 2.2 cm maximal diameter in the left h epatic lobe. There is a 5 mm T2 hyperintense but enhancing hemangioma with enhancement which persists through 10 minutes of imaging in segment 6 of the liver. There 3 small subcapsular regions of arteri al enhancement which are located along the right vince hepatis, the left upper abdomen is corresponds the lesion identified on prior CT and along the anterior margin of segment 2 of the liver with enhan cement utilizing to the surrounding liver on the more delayed images without evident washout without correlate on the remaining sequences which would be most consistent with transient hepatic intensity difference. Pancreas and bilateral adrenal glands are normal. There bilateral T2 hyperintense nonenha ncing renal cysts the largest measuring 1.2 cm at the upper and lower poles of the left kidney. There is a 2.4 cm well-defined T2 hyperintense splenic mass with somewhat heterogeneous enhancement on the earliest arterial phase which becomes homogeneous and hyperenhancing relative to the surrounding spl een persisting through 10 minutes of imaging consistent with a hemangioma. Visualized portions of bow els are unremarkable. No pathologically enlarged abdominal lymphadenopathy. Atherosclerotic calcifica tion along the normal caliber abdominal aorta. There is at least moderate moderate 50-70% stenosis at the right common iliac artery. Mild lumbar dextrocurvature with moderate spondylosis. Bone marrow si gnal is normal throughout. IMPRESSION: 1. 3 small subcapsular regions of early arterial phase enhancement in the left hepatic lobe, one of w hich correlates with the lesion of concern on prior CT. These equilibrate to the surrounding liver on the more delayed postcontrast imaging and without correlate on the remaining sequences which remains most consistent with transient hepatic intensity difference. 2. Solitary 2.4 cm progressively enhancing splenic mass most consistent with a hemangioma. 3. 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 4. Small right and tiny left pleural effusions with associated bibasilar atelectasis, mild pulmonary edema or pneumonia. Reviewed, dictated and finalized at location A. R GIFTS OFFICER IMPRESSION: 1. 3 small subcapsular regions of early arterial phase enhancement in the left hepatic lobe, one of which correlates with the lesion of concern on prior CT. T hese equilibrate to the surrounding liver on the more delayed postcontrast imag ing and without correlate on the remaining sequences which remains most consist ent with transient hepatic intensity difference. 2. Solitary 2.4 cm progressively enhancing splenic mass most consistent with a hemangioma. 3. 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 4. Small right and tiny left pleural effusions with associated bibasilar atelec tasis, mild pulmonary edema or pneumonia.
--- NOTE | ~2024-03-21 | XR_ITS ---
MODIFIED ESOPHAGRAM HISTORY: Aspiration pneumonia TECHNIQUE: Modified barium esophagram was performed on 03/23/2024. I administered fluoroscopy and per formed the exam with speech pathologist. Patient was seated for lateral fluoroscopic imaging for ing estion of thin liquids, pudding, solids and quantified amounts, followed by thin liquids in uncontrol led amounts. This was recorded on tape. A single fluoroscopic spot image was also recorded. The DAP f or this procedure was 3.123 Gycm2. The amount of fluoroscopy time used during this procedure was 3.8 minutes. FINDINGS: Oral stage: Adequate function. Pharyngeal stage: There is significant vallecular residue and mild piriform sinus residue. There is a lso some pooling of contrast within a right pharyngeal pouch. There is laryngeal penetration and aspi ration.. Cervical/esophageal stage: Adequate function. IMPRESSION: Pharyngeal dysphagia with laryngeal penetration and aspiration. Please correlate with sp eech pathologist findings and specific feeding recommendations. Reviewed, dictated and finalized at location A. ET ORGANIZER IMPRESSION: Pharyngeal dysphagia with laryngeal penetration and aspiration. Pl ease correlate with speech pathologist findings and specific feeding recommenda tions.
--- NOTE | 2024-03-21 16:09 | ED_ITS ---
HPI - General Adult General Chief complaint: Nausea/Vomiting/Diarrhea Stated complaint: vomiting Time Seen by Provider: 03/21/24 15:41 History of Present Illness HPI narrative: 83-year-old male presents emergency department for evaluation after having a coughing spell. Patient does have a history of aspiration pneumonia. states she heard the patient coughing went to go check on him he was be red, did have emesis and was bringing up a lot of phlegm with the cough pain. Patient is intermittently on 2 L of oxygen at home. Up on initial evaluation patient was on 2 L and saturating 100%. Patient was removed off oxygen and was still saturating had 98%. Patient denies any shortness of breath at rest. Patient's ambulation status is that he will normally walk no more than 15-20 feet a few times a day. Related Data Home Medications ?Medication ?Instructions ?Recorded ?Confirmed ?Last Taken ?Type omeprazole 20 mg capsule,delayed 20 mg PO DAILY 01/23/22 03/21/24 10/10/22 History release metoprolol succinate 50 mg 50 mg PO DAILY 03/15/24 03/21/24 Unknown History tablet,extended release 24 hr Allergies Allergy/AdvReac Type Severity Reaction Status Date / Time No Known Allergies Allergy Verified 03/15/24 10:58 Review of Systems 2 Review of Systems: All systems reviewed & are unremarkable except as noted in HPI and below [facility] Past Medical History Medical History (Updated 03/22/24 @ 15:02 by Alhaji Link MD) Paroxysmal atrial fibrillation Presbycusis of both ears Kidney stones Hyperlipidemia Stenosis of right carotid artery Essential hypertension Chronic venous insufficiency of lower extremity Dementia Severe aortic stenosis by prior echocardiogram 2015 Diastolic heart failure Grade 2 diastolic heart failure known echocardiogram 2015 with indeterminate diastolic function noted on echocardiogram 2019 Vasomotor rhinitis Chronic respiratory failure with hypoxia Chronic home O2 Abdominal aortic aneurysm, without rupture Pulmonary hypertension due to lung diseases and hypoxia Severe with last echo 2019 Gastro-esophageal reflux disease without esophagitis History of prostate cancer 2005 Panlobular emphysema Lung nodule Tobacco abuse Quit 2004. 49 pack years 1ppd. Surgical History Surgical History History of colonoscopy with polypectomy History of tonsillectomy and adenoidectomy History of right inguinal hernia repair (~2005) History of aortic valve replacement with tissue graft (~2015) Due to severely stenosed bicuspid aortic valve with a Magna tissue valve replacement History of radical prostatectomy (~2004) With adjunctive radiation therapy Family History Family History Father Acute myocardial infarction Heart disease Mother Acute myocardial infarction Heart disease Sibling Malignant neoplasm of prostate Alzheimer's dementia Heart disease Son Type 1 diabetes Other Alzheimer disease Social History Social History Social History: Code status: DNR/DNI Surrogate decision maker: Smoking packs per day: 1 Smoking cigarettes per day: 20.0 Years smoked: 46 Smoking pack-years: 46.00 Smoking status: Former smoker Alcohol intake: never Substance use: never Substance use type: does not use Lack of Transportation: No Lack of Food: Never True Current Housing: I Have Housing Concerned About Future Housing: No Difficulty Paying Gas/Electric Bills: No Difficulty Paying for Meds: No Currently Unemployed: No Education: Trade/Vocational Certificate Difficulty w/ Childcare or Family Care: No Living arrangements: with family Additional living arrangements comments: He lives with his and his son lives in the basement and is separate living quarters. 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 Gender identity (if verbalized by the patient): Male Sexual Orientation (if Verbalized by the Patient): Straight or Heterosexual Spiritual care concerns: No Agree to blood products: Yes Exam 2 Narrative: APPEARANCE: Frail-appearing HEAD: normocephalic, atraumatic. EYES: PERRLA/EOMI, conjunctivae clear. NOSE: Normal no drainage EARS:TMS clear with good light reflex. THROAT: Pharynx clear, no exudate. NECK: Supple. No adenopathy, no masses. RESPIRATORY: Airway patent, respirations nonlabored. Clear to auscultation bilaterally, no rales, rhonchi, wheezing. CARDIOVASCULAR: Regular rate and rhythm without murmurs rubs or gallops. ABDOMINAL: Soft, nontender, nondistended, normal bowel sounds MUSCULOSKELETAL: Moves all extremities. Strength/ROM intact, No edema, No calf tenderness. NEURO: Alert. Cranial nerves II through XII intact. Good gait. Good coordination SKIN: Warm, dry. Normal Color Course Vital Signs Vital signs: Vital Signs Temperature 97.8 F 03/21/24 14:02 Pulse Rate 89 03/21/24 14:02 Respiratory Rate 20 03/21/24 14:02 Blood Pressure 150/63 H 03/21/24 14:02 Pulse Oximetry 97 03/21/24 14:02 Oxygen Delivery Nasal Cannula 03/21/24 14:02 Oxygen Flow Rate 2 03/21/24 14:02 Temperature 98.4 F 03/22/24 14:39 Pulse Rate 97 03/22/24 14:39 Respiratory Rate 17 03/22/24 14:39 Blood Pressure 122/64 03/22/24 14:39 Pulse Oximetry 96 03/22/24 14:39 Oxygen Delivery Nasal Cannula 03/22/24 10:15 Oxygen Flow Rate 1 03/22/24 10:15 Medical Decision Making MDM Narrative Medical decision making narrative: 83-year-old male present to the emergency department for evaluation for increased cough and congestion. Patient is afebrile with no leukocytosis and hemoglobin of 12.6. Patient has no acute abnormalities on his CMP patient was negative for influenza RSV and for COVID. At time of sign-out CT chest is pending. Differential Diagnosis Differential Diagnosis: Pneumonia, aspiration pneumonia, influenza, RSV, COVID Vital Signs Vital Signs: Vital Signs Temperature 97.8 F 03/21/24 14:02 Pulse Rate 89 03/21/24 14:02 Respiratory Rate 20 03/21/24 14:02 Blood Pressure 150/63 H 03/21/24 14:02 Pulse Oximetry 97 03/21/24 14:02 Oxygen Delivery Nasal Cannula 03/21/24 14:02 Oxygen Flow Rate 2 03/21/24 14:02 Temperature 98.4 F 03/22/24 14:39 Pulse Rate 97 03/22/24 14:39 Respiratory Rate 17 03/22/24 14:39 Blood Pressure 122/64 03/22/24 14:39 Pulse Oximetry 96 03/22/24 14:39 Oxygen Delivery Nasal Cannula 03/22/24 10:15 Oxygen Flow Rate 1 03/22/24 10:15 Lab Data 03/21/24 16:12 03/21/24 16:12 Labs: Lab Results 03/21/24 03/21/24 Range/Units 15:43 16:12 WBC 8.1 (4.5-10.0) K/mm3 RBC 4.71 (4.6-6.20) M/mm3 Hgb 12.6 L D (14.0-18.0) g/dL Hct 41.4 L (42.0-52.0) % MCV 87.9 (80-100) fl MCH 26.8 (26-34) pg MCHC 30.4 L (32-36) g/dl RDW 14.5 (11.5-14.5) % Plt Count 204 (150-375) k/mm3 MPV 10.4 (7.4-10.4) fl Immature Gran % (Auto) 0.1 (0-0.5) % Neut % (Auto) 75.0 H (45.5-73.1) % Lymph % (Auto) 15.1 L (18.3-44.2) % [place] % (Auto) 7.9 (2.6-8.5) % Eos % (Auto) 1.5 (0-4.4) % Baso % (Auto) 0.4 (0.2-1.2) % Lymph # (Auto) 1.22 (0.9-3.2) K/mm3 [place] # (Auto) 0.6 (0.1-0.6) K/mm3 Eos # (Auto) 0.1 (0-0.3) K/mm3 Baso # (Auto) 0.0 (0.0-0.1) K/mm3 Abs Immat Gran (auto) 0.01 (0.00-0.031) K/mm3 Absolute Neuts (auto) 6.1 (1.3-6.7) K/mm3 Absolute Nucleated RBC 0.000 (0.0-0.012) K/mm3 Nucleated RBC % 0.0 (0.0-0.2) % PT 15.5 H (11.1-14.7) Seconds INR 1.2 APTT 28.5 (22.3-36.8) Seconds Sodium 143 (137-145) mmol/L Potassium 4.3 (3.4-5.0) mmol/L Chloride 108 H (98-107) mmol/L Carbon Dioxide 30 (22-30) mmol/L Anion Gap 5 (4-12) mmol/L BUN 25 H D (9-20) mg/dL Creatinine 1.00 (0.7-1.3) mg/dL Estim Creat Clear Calc Not Reportable Estimated GFR > 60 (59 - ) Glucose 100 (65-110) mg/dL Calcium 9.8 (8.4-10.2) mg/dL Total Bilirubin 0.7 (0.2-1.3) mg/dL AST 24 (17-59) U/L ALT 16 (6-50) U/L Alkaline Phosphatase 84 (38-126) U/L Total Protein 8.0 (6.3-8.2) g/dL Albumin 4.4 (3.5-5.1) g/dL Urine Color Yellow (Yellow) Urine Appearance Clear (Clear) Urine pH 5.5 (5.0-9.0) Ur Specific [place] 1.037 H (1.001-1.035) Urine Protein 1+ H (Negative) mg/dL Urine Glucose (UA) Negative (Negative) mg/dL Urine Ketones Negative (Negative) mg/dL Ur Blood (Man) Negative (Negative) Urine Nitrate Negative (Negative) Urine Bilirubin Negative (Negative) Urine Urobilinogen 1.0 (<2.0) mg/dL Add Ur Microanalysis Reviewed Leukocyte Esterase Rfl Negative (Negative) FORTUNATO/UL Urine RBC 0-2 (0-2) /hpf Urine WBC 6-10 H (0-3) /hpf Ur Squamous Epith Cells None seen (Few) /hpf Urine Bacteria 1+ H /hpf Urine Casts 3-5 Influenza A (RT-PCR) Negative (Negative) Influenza B (RT-PCR) Negative (Negative) RSV (RT-PCR) Negative (Negative) SARS-CoV-2 RNA (RT-PCR) Negative (Negative) Discharge Plan Discharge Clinical Impression: Aspiration pneumonia Qualifiers: Aspiration pneumonia type: due to vomit Laterality: right Lung location: u nspecified part of lung Qualified Code(s): J69.0 - Pneumonitis due to inhalation of food and vomit Patient Disposition: Still a Patient Condition: Stable Time of Disposition: 20:02
[2024-03-21 16:19] LABS: Basophils Percent Auto 0.4 % (0.2-1.2); Eosinophils Absolute Auto 0.1 K/mm3 (0-0.3); Eosinophils Percent Auto 1.5 % (0-4.4); Hematocrit 41.4 % (42.0-52.0); Hemoglobin 12.6 g/dL (14.0-18.0); Immature Granulocyte Absolute 0.01 K/mm3 (0.00-0.031); Immature Granulocyte Percent A 0.1 % (0-0.5); Lymphocytes Absolute Auto 1.22 K/mm3 (0.9-3.2); Lymphocytes Percent Auto 15.1 % (18.3-44.2); Mean Corpuscular HGB Conc 30.4 g/dl (32-36); Mean Corpuscular Hemoglobin 26.8 pg (26-34); Mean Corpuscular Volume 87.9 fl (80-100); Mean Platelet Volume 10.4 fl (7.4-10.4); Monocytes Absolute Auto 0.6 K/mm3 (0.1-0.6); Monocytes Percent Auto 7.9 % (2.6-8.5); Neutrophils Absolute Auto 6.1 K/mm3 (1.3-6.7); Platelet Count Result 204 k/mm3 (150-375); Red Blood Count 4.71 M/mm3 (4.6-6.20); Red Cell Distribution Width 14.5 % (11.5-14.5); White Blood Count 8.1 K/mm3 (4.5-10.0)
[2024-03-21 16:31] LABS: INR 1.2; Partial Thromboplastin Time 28.5 Seconds (22.3-36.8); Prothrombin Time 15.5 Seconds (11.1-14.7)
[2024-03-21 16:40] LABS: Alanine Aminotransferase 16 U/L (6-50); Albumin Level 4.4 g/dL (3.5-5.1); Alkaline Phosphatase 84 U/L (38-126); Anion Gap 5 mmol/L (4-12); Aspartate Amino Transferase 24 U/L (17-59); Bilirubin,Total 0.7 mg/dL (0.2-1.3); Blood Urea Nitrogen 25 mg/dL (9-20); Calcium 9.8 mg/dL (8.4-10.2); Carbon Dioxide 30 mmol/L (22-30); Chloride 108 mmol/L (98-107); Estimated Glomerular Filt Rate > 60; Glucose 100 mg/dL (65-110); Potassium 4.3 mmol/L (3.4-5.0); Sodium 143 mmol/L (137-145)
[2024-03-21 17:19] LABS: Influenza A QL RT-PCR Negative (Negative); Influenza B QL RT-PCR Negative (Negative); RSV RNA, RT-PCR Negative (Negative); SARS-CoV-2 RNA PCR Negative (Negative)
--- NOTE | 2024-03-21 20:10 | PM.IMHP ---
H&P: HPI History of Present Illness Date/Time: 03/21/24 20:10 Chief Complaint: Increased work of breathing after vomiting Narrative: 83-year-old male with past medical history of paroxysmal atrial fibrillation, diastolic heart failure, severe pulmonary hypertension, COPD, supplemental oxygen use with exertion and dementia who presented to the ER after developing increased work of breathing following an episode of vomiting. The patient does not know why he is in the ER. He has irritable and unhappy with care. He states that he does not know why he is even here being tortured. He was noted to be coughing at the time of my evaluation. When I asked him how was his breathing he denied any difficulty with shortness of breath or breathing. He stated to the nurses that he had already been here for 2 days. He then told me that he had been here for 2 hours after being transferred from another hospital. He was only alert oriented x1 to 2 with his baseline orientation reported being oriented x2 at baseline. He denied having had an episode of vomiting earlier in the day but EMS reported the patient had 1 episode of vomiting prior to eating lunch. He denies any abdominal pain and does not have any abdominal distension. Is satting 91% on 2 L nasal cannula in the ER. He usually only wears oxygen with activity. He was afebrile on presentation to the ER and has a normal white count. Review of Systems Review of Systems: Review of systems limited due to patient's history of dementia. [facility] Past Medical History Medical History Presbycusis of both ears Kidney stones Hyperlipidemia Stenosis of right carotid artery Essential hypertension Chronic venous insufficiency of lower extremity Dementia Severe aortic stenosis by prior echocardiogram 2016 Diastolic heart failure Grade 2 diastolic heart failure known echocardiogram 2015 with indeterminate diastolic function noted on echocardiogram 2019 Vasomotor rhinitis Chronic respiratory failure with hypoxia Chronic home O2 Abdominal aortic aneurysm, without rupture Pulmonary hypertension due to lung diseases and hypoxia Severe with last echo 2019 Gastro-esophageal reflux disease without esophagitis Paroxysmal atrial fibrillation History of prostate cancer 2005 Panlobular emphysema Lung nodule Tobacco abuse Quit 2004. 49 pack years 1ppd. Surgical History Surgical History History of colonoscopy with polypectomy History of tonsillectomy and adenoidectomy History of right inguinal hernia repair (~2005) History of aortic valve replacement with tissue graft (~2015) Due to severely stenosed bicuspid aortic valve with a Magna tissue valve replacement History of radical prostatectomy (~2004) With adjunctive radiation therapy Family History Family History Father Acute myocardial infarction Heart disease Mother Acute myocardial infarction Heart disease Sibling Malignant neoplasm of prostate Alzheimer's dementia Heart disease Son Type 1 diabetes Other Alzheimer disease Social History Social History Social History: Code status: DNR/DNI Surrogate decision maker: Smoking packs per day: 1 Smoking cigarettes per day: 20.0 Years smoked: 46 Smoking pack-years: 46.00 Smoking status: Former smoker Alcohol intake: never Substance use: never Substance use type: does not use Lack of Transportation: No Lack of Food: Never True Current Housing: I Have Housing Concerned About Future Housing: No Difficulty Paying Gas/Electric Bills: No Difficulty Paying for Meds: No Currently Unemployed: No Education: Trade/Vocational Certificate Difficulty w/ Childcare or Family Care: No Living arrangements: with family Additional living arrangements comments: He lives with his and his son lives in the basement and is separate living quarters. 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 Gender identity (if verbalized by the patient): Male Sexual Orientation (if Verbalized by the Patient): Straight or Heterosexual Spiritual care concerns: No Agree to blood products: Yes Meds Home Medications and Allergies Home Medications ?Medication ?Instructions ?Recorded ?Confirmed ?Type rivaroxaban 20 mg tablet (Xarelto) 20 mg PO DAILY@1700 #30 tabs 04/24/19 03/21/24 Rx omeprazole 20 mg capsule,delayed 20 mg PO DAILY 01/23/22 03/21/24 History release budesonide-formoterol HFA 160 2 puff inhalation Q12H #10.2 grams 08/10/22 03/21/24 Rx mcg-4.5 mcg/actuation aerosol inhaler furosemide 20 mg tablet 20 mg PO DAILY 30 days #30 tabs 10/19/22 03/21/24 Rx albuterol sulfate 90 mcg/actuation 1 inh inhalation Q4-6H PRN 02/01/23 03/21/24 Rx aerosol inhaler shortness of breath or wheezing #8.5 grams donepezil 10 mg tablet 10 mg PO HS #90 tabs 09/10/23 03/21/24 Rx atorvastatin 10 mg tablet See Rx Instructions .Route 09/15/23 03/21/24 Rx .COMPLEX #90 tabs methscopolamine 2.5 mg tablet See Rx Instructions .Route 11/14/23 03/21/24 Rx .COMPLEX #270 tabs memantine 10 mg tablet See Rx Instructions .Route 02/10/24 03/21/24 Rx .COMPLEX #180 tabs metoprolol succinate 50 mg 50 mg PO DAILY 03/15/24 03/21/24 History tablet,extended release 24 hr Allergies Allergy/AdvReac Type Severity Reaction Status Date / Time No Known Allergies Allergy Verified 03/15/24 10:58 Vital Signs Vital Signs - 24 hr 03/21/24 14:02 03/21/24 15:51 03/21/24 16:32 Temperature 97.8 F 97.8 F 97.9 F Pulse Rate 89 97 96 Respiratory Rate 20 22 H 22 H Blood Pressure 150/63 H 159/82 H 156/76 H Pulse Oximetry 97 100 98 Oxygen Delivery Nasal Cannula Oxygen Flow Rate 2 03/21/24 17:01 03/21/24 17:31 03/21/24 18:01 Temperature 97.8 F 97.7 F Pulse Rate 95 103 H 94 Respiratory Rate 22 H 20 18 Blood Pressure 121/56 L 145/87 H 125/71 Pulse Oximetry 100 99 100 Oxygen Delivery Oxygen Flow Rate Exam Narrative: Weight 57.5 kg BMI 23.2 Const: Other: Elderly, thin body habitus, debilitated, sitting in bed with head of bed at 60? HENMT: Other: Head is normocephalic atraumatic, mucous membranes are tacky, no oral pharyngeal erythema, drooling from the right side of the mouth, dentures in place Eyes: Other: Pupils are equal and reactive, no scleral icterus, no conjunctival pallor, dirty eyeglasses in place Neck: Other: No obvious lymphadenopathy, loss of cervical lordosis Resp: Other: Coarse breath sounds bilaterally right greater than left, intermittent nonproductive cough, no accessory muscle use Cardio: Other: Irregularly irregular, 2+ bilateral radial pulses, pedal pulses not obtained as patient was uncooperative with removing of his shoes GI: Other: Firm, nontender, nondistended, positive bowel sounds Skin: Other: No pallor, non jaundice, no petechiae to exposed areas of skin, age-related skin lesions noted to extremities, scattered scabs to lower extremities right alegre greater than left Neuro: Other: Patient is alert oriented to self and seems to be aware that he is in the hospital is having confusion as to whether this is the only hospital he has been in today, he has drooling from the right side of his mouth that he reports has been ongoing for about 4 years, extraocular movements appear to be grossly intact, he is moving all extremities equally but is not the most cooperative with exam Extrem: Other: No clubbing, cyanosis or edema Psych: Other: Irritable, uncooperative, confused H&P: Results Labs Labs: Laboratory Tests 03/21/24 16:12 03/21/24 16:12 03/21/24 16:12 WBC 8.1 RBC 4.71 Hgb 12.6 L D Hct 41.4 L MCV 87.9 MCH 26.8 MCHC 30.4 L RDW 14.5 Plt Count 204 MPV 10.4 Immature Gran % (Auto) 0.1 Neut % (Auto) 75.0 H Lymph % (Auto) 15.1 L [place] % (Auto) 7.9 Eos % (Auto) 1.5 Baso % (Auto) 0.4 Lymph # (Auto) 1.22 [place] # (Auto) 0.6 Eos # (Auto) 0.1 Baso # (Auto) 0.0 Abs Immat Gran (auto) 0.01 Absolute Neuts (auto) 6.1 Absolute Nucleated RBC 0.000 Nucleated RBC % 0.0 PT 15.5 H INR 1.2 APTT 28.5 Sodium 143 Potassium 4.3 Chloride 108 H Carbon Dioxide 30 Anion Gap 5 BUN 25 H D Creatinine 1.00 Estim Creat Clear Calc Not Reportable Estimated GFR > 60 Glucose 100 Calcium 9.8 Total Bilirubin 0.7 AST 24 ALT 16 Alkaline Phosphatase 84 Total Protein 8.0 Albumin 4.4 Influenza A (RT-PCR) Negative Influenza B (RT-PCR) Negative RSV (RT-PCR) Negative SARS-CoV-2 RNA (RT-PCR) Negative Impressions Chest CT 03/21/24 19:16 IMPRESSION: 1. Pneumonia in right upper lobe and right lower lobe. 2. Moderate emphysema. Chronic lung disease. 3. 13 mm hyperenhancing liver mass. In the absence of known malignancy or chronic liver disease, this finding is likely a hemangioma or focal nodular hyperplasia. Assessment and Plan Assessment and plan (1) Aspiration pneumonia: Qualifiers: Aspiration pneumonia type: due to vomit Laterality: right Lung location: unspecified part of lung Qualified Code(s): J69.0 - Pneumonitis due to inhalation of food and vomit Code(s): J69.0 - Pneumonitis due to inhalation of food and vomit Status: Acute (2) Chronic respiratory failure with hypoxia: Code(s): J96.11 - Chronic respiratory failure with hypoxia Status: Acute Plan Patient has right upper and lower lobe pneumonia with history of swallowing dysfunction and emesis concerning for aspiration pneumonitis. The patient does not have any leukocytosis fever or criteria for SIRS. Patient has been placed on antibiotic coverage with Unasyn. Will check MRSA PCR. If PCR positive will add vancomycin. Blood cultures have been ordered from the ER. Will request speech therapy evaluation due to suspected aspiration and history of chronic swallowing dysfunction. Patient has chronic hypoxic respiratory failure and is on his home oxygen but he increased work of breathing noted. Again likely due to aspiration pneumonitis with possible underlying pneumonia. Will place patient on scheduled nebulizer treatments given his history of COPD/emphysema. Will wean oxygen as tolerated. Will monitor fluid status closely given the patient's history of diastolic dysfunction and severe pulmonary hypertension. Currently at this time patient appears euvolemic or possibly mildly hypovolemic. Will hold home Lasix and monitor I&O's closely. Will repeat CBC and electrolyte panel with a.m. labs. Will continue home dementia medications. Will continue home beta-lacey and Xarelto. Patient has been admitted as observation status. Quality VTE Prophylaxis VTE prophylaxis: pharmacologic ordered (Continue home Xarelto.) Hospitalist [facility] Advance Care Plan I have confirmed that the patient's Advanced Care Plan is present, code status is documented, or surrogate decision maker is listed in patient medical record.: Yes Medication Reconciliation I have utilized all available resources to obtain, update and review the patients current medications (includes all prescriptions, OTC, herbals, cannabis, and nutritional supplements).: Yes
[2024-03-21] MEDS: AMPICILLIN SULB 3 GM/NS 100 ML 3 GM/100 ML VIAL IVPB (21:40)
[2024-03-21 22:00] LABS: Add Urine Microscopic? YES; Appearance Urine Clear (Clear); Bacteria Urine 1+ /hpf; Bilirubin Urine Negative (Negative); Blood Urine Negative (Negative); Color Urine Yellow (Yellow); Glucose Urine UA Negative (Negative); Ketones Urine Negative (Negative); Leukocyte Esterase Ur Negative LEU/UL (Negative); Need Manual Microscopic Reviewed; Nitrate Urine Negative (Negative); Protein Urine 1+ mg/dL (Negative); RBC Urine 0-2 /hpf (0-2); Specific Grav Ur 1.037 (1.001-1.035); Squamous Epithelial Cell Urine None Seen /hpf (Few); pH Urine 5.5 (5.0-9.0)
[2024-03-21 22:51] LABS: MRSA (PCR) NOT DETECTED (NOT DETECTE)
--- NOTE | 2024-03-21 23:14 | ADMGEN ---
This patient, Ryan Dos Santos, was admitted to 3 [facility] Surg Room 315-02. Patient/family oriented to hospital policies and general routines including ID bracelet, bed and alarms, visiting hours, pain management, procedures, bathroom and other care routines, personal items, smoking policy, room service/diet, and visiting hours. Information on how to activate the Rapid Response Team has been discussed. Patient/Family are encouraged to report perceived risks to care and to ask questions if they do not understand what they are told or what they should do.
[2024-03-22] VITALS (16 sets, daily range): BP systolic 114–166; BP diastolic 59–69; PULSE 82–102; RESP 13–20; TEMP 36.2–36.9; O2SAT 94–100
[2024-03-22] MEDS: IPRATROPIUM 0.5 MG/ALBUTEROL SULFATE 2.5 MG AMPUL.NEB 3 ML INHALATION ×4 (02:15→21:34)
[2024-03-22] MEDS: AMPICILLIN SULB 3 GM/NS 100 ML 3 GM/100 ML VIAL IVPB ×3 (07:32→18:23)
[2024-03-22] MEDS: FLUTICASONE/SALMETEROL 115-21 MCG INHALER 1 PUFF 2 PUFF INHALATION ×2 (07:38→21:34)
[2024-03-22] MEDS: METOPROLOL SUCCINATE EXT REL 50 MG TABCR PO (09:35)
[2024-03-22] MEDS: MEMANTINE 10 MG TABLET BY MOUTH ×2 (09:35→20:21)
[2024-03-22] MEDS: DOXYCYCLINE HYCLATE 100 MG TABLET PO ×2 (09:35→20:21)
[2024-03-22] MEDS: PANTOPRAZOLE 40 MG TABLET PO (09:35)
--- NOTE | 2024-03-22 11:20 | PCSTNOTE ---
Please refer to the Bedside Swallow Evaluation in the EMR. Please note, silent aspiration cannot be ruled out at bedside.
--- NOTE | 2024-03-22 14:56 | P.PNIM_ITS ---
Progress Note: A&P Assessment and Plan (1) Aspiration pneumonia: Qualifiers: Aspiration pneumonia type: due to vomit Laterality: right Lung location: unspecified part of lung Qualified Code(s): J69.0 - Pneumonitis due to inhalation of food and vomit Code(s): J69.0 - Pneumonitis due to inhalation of food and vomit Status: Acute (2) Chronic respiratory failure with hypoxia: Code(s): J96.11 - Chronic respiratory failure with hypoxia Status: Acute (3) Chronic diastolic (congestive) heart failure: Code(s): I50.32 - Chronic diastolic (congestive) heart failure Status: Acute (4) Dementia: Code(s): F03.90 - Unspecified dementia, unspecified severity, without behavioral disturbance, psychotic disturbance, mood disturbance, and anxiety Status: Acute (5) Liver mass: Code(s): R16.0 - Hepatomegaly, not elsewhere classified Status: Acute (6) Paroxysmal atrial fibrillation: Code(s): I48.0 - Paroxysmal atrial fibrillation Status: Acute Plan Patient presents with increasing breathing. Was having episodes of nausea and vomiting earlier in the day S PO2 was 91% on 2 L. He normally wears oxygen only with activity. Patient was afebrile. Was 97% on 2 L in ED. COVID, influenza and RSV PCR were negative. UA showed 6-10 white cells and 1+ bacteria that prompted urine culture. MRSA nasal swab was negative. CT of the chest showed right upper lobe and right lower lobe hernia with moderate emphysema chronic lung disease. He did have a 1.3 cm hyperenhancing liver mass. Patient was started on Unasyn. Speech therapy evaluated the patient felt patient could proceed with regular diet per bedside swallow evaluation. Urine culture pen jj. Blood cultures are no growth to date. Assuming care. Will proceed with modified barium swallow to ensure patient able to swallow safely. Will add doxycycline since azithromycin does have some interactions to cover for atypicals. Will check MRI of the liver to further evaluate liver mass. Check alpha fetoprotein. Start PT OT. Wean oxygen as tolerated. DVT prophylaxis -Xarelto Code status -DNR Subjective Date/time seen: 03/22/24 14:56 Interval history: 83yo male with dementia, COPD, dCHF and chronic resp failure here for increased work of breathing. Assuming care. Chart reviewed. Patient is alert but confused and unable to provide hx. Review of Systems Review of Systems: ROS unobtainable: Yes unobtainable due to medical condition Exam Narrative: AF 98.4 122/64 97 17 96% 1L Gen - NARD Chest -distant, clear breath sounds. Few scattered expiratory rhonchi. CV -irregularly irregular. Abd -soft. Nontender. Nondistended. Positive bowel sounds Ext - No pedal edema Neuro -alert but confused Psych - Nml mood and affect Skin - Warm and dry Objective Data Vital Signs Vital Signs: Vital Signs - 24 hr 03/21/24 15:51 03/21/24 16:32 03/21/24 17:01 Temperature 97.8 F 97.9 F 97.8 F Pulse Rate 97 96 95 Respiratory Rate 22 H 22 H 22 H Blood Pressure 159/82 H 156/76 H 121/56 L Pulse Oximetry 100 98 100 Oxygen Delivery Oxygen Flow Rate 03/21/24 17:31 03/21/24 18:01 03/21/24 18:31 Temperature 97.7 F Pulse Rate 103 H 94 91 Respiratory Rate 20 18 20 Blood Pressure 145/87 H 125/71 130/66 Pulse Oximetry 99 100 100 Oxygen Delivery Oxygen Flow Rate 03/21/24 21:15 03/21/24 21:31 03/21/24 21:45 Temperature Pulse Rate 136 H 110 H 124 H Respiratory Rate 25 H 27 H 23 H Blood Pressure 164/85 H 158/82 H Pulse Oximetry 97 100 Oxygen Delivery Oxygen Flow Rate 03/21/24 22:00 03/21/24 22:01 03/21/24 22:28 Temperature 97.2 F L Pulse Rate 117 H 103 H 88 Respiratory Rate 22 H 22 H 17 Blood Pressure 150/73 H 160/104 H Pulse Oximetry 100 100 91 Oxygen Delivery Oxygen Flow Rate 03/21/24 23:55 03/22/24 02:16 03/22/24 02:21 Temperature Pulse Rate 89 Respiratory Rate 20 Blood Pressure Pulse Oximetry 94 96 Oxygen Delivery Nasal Cannula Nasal Cannula Oxygen Flow Rate 2 2 03/22/24 02:24 03/22/24 05:38 03/22/24 07:38 Temperature 97.1 F L Pulse Rate 90 98 82 Respiratory Rate 20 13 18 Blood Pressure 166/59 H Pulse Oximetry 95 100 Oxygen Delivery Nasal Cannula Oxygen Flow Rate 2 03/22/24 07:38 03/22/24 09:35 03/22/24 10:00 Temperature Pulse Rate 82 96 Respiratory Rate 18 Blood Pressure Pulse Oximetry 97 Oxygen Delivery Nasal Cannula Oxygen Flow Rate 2 03/22/24 10:11 03/22/24 10:15 03/22/24 14:17 Temperature Pulse Rate 102 H Respiratory Rate 18 Blood Pressure Pulse Oximetry 96 96 Oxygen Delivery Nasal Cannula Nasal Cannula Oxygen Flow Rate 1.5 1 03/22/24 14:22 03/22/24 14:39 Temperature 98.4 F Pulse Rate 98 97 Respiratory Rate 18 17 Blood Pressure 122/64 Pulse Oximetry 96 Oxygen Delivery Oxygen Flow Rate Intake/Output Intake/Output: Intake & Output 03/19/24 03/20/24 03/21/24 03/22/24 23:59 23:59 23:59 23:59 Intake Total 100 640 Output Total 300 Balance 100 340 Meds/Results Medications: Active Medications Generic Name Dose Route Start Last Admin Trade Name Freq PRN Reason Stop Dose Admin Acetaminophen 650 mg 03/21/24 20:04 Acetaminophen 325 Mg Tablet PO Q4H PRN Mild Pain (1-3) or Fever Albuterol/Ipratropium 3 ml 03/22/24 02:00 03/22/24 14:15 Ipratropium 0.5 Mg/Albuterol Sulfate 2.5 Mg Ampul.Neb 3 Ml INHALATION 3 ml Q6HRT SILVIA Administration Atorvastatin Calcium 10 mg 03/21/24 23:05 03/22/24 00:00 Atorvastatin 10 Mg Tablet BY MOUTH Not Given HS SILVIA Donepezil HCl 10 mg 03/22/24 21:00 Donepezil Hcl 10 Mg Tablet PO HS SILVIA Doxycycline Hyclate 100 mg 03/22/24 09:00 03/22/24 09:35 Doxycycline Hyclate 100 Mg Tablet PO 03/26/24 21:01 100 mg Q12HR SILVIA Administration Ampicillin Sodium/Sulbactam Sodium 3 gm in 100 mls @ 200 mls/hr 03/22/24 06:00 03/22/24 13:40 Unasyn 3 Gm/Ns 100 Ml IVPB Infused Q6HR SILVIA Infusion Memantine 10 mg 03/21/24 23:05 03/22/24 09:35 Memantine 10 Mg Tablet BY MOUTH 10 mg Q12HR SILVIA Administration Metoprolol Succinate 50 mg 03/22/24 09:00 03/22/24 09:35 Metoprolol Succinate Ext Rel 50 Mg Tabcr PO 50 mg DAILY SILVIA Administration Miscellaneous Information 0 each 03/21/24 00:01 Methscopolamine 2.5mg Tablets Nonform Can Pt Bring From Home? XX 04/20/24 00:00 CLARIFY SILVIA Non-Formulary Medication 2.5 mg 03/21/24 23:15 Methscopolamine PO 04/20/24 23:14 TID SILVIA Pantoprazole Sodium 40 mg 03/22/24 09:00 03/22/24 09:35 Pantoprazole 40 Mg Tablet PO 40 mg QAM SILVIA Administration Rivaroxaban 20 mg 03/22/24 17:00 Rivaroxaban 20 Mg Tablet PO DAILY@1700 SILVIA Fluticasone/Salmeterol 2 puff 03/22/24 08:00 03/22/24 07:38 Fluticasone/Salmeterol 115-21 Mcg Inhaler 1 Puff INHALATION 2 puff Q12HRT SILVIA Administration Radiology Results: ITS Impressions Chest CT 03/21/24 19:16 IMPRESSION: 1. Pneumonia in right upper lobe and right lower lobe. 2. Moderate emphysema. Chronic lung disease. 3. 13 mm hyperenhancing liver mass. In the absence of known malignancy or chronic liver disease, this finding is likely a hemangioma or focal nodular hyperplasia. Labs Labs: Laboratory Results - last 24 hr 03/21/24 03/21/24 03/21/24 15:43 16:12 21:16 WBC 8.1 RBC 4.71 Hgb 12.6 L D Hct 41.4 L MCV 87.9 MCH 26.8 MCHC 30.4 L RDW 14.5 Plt Count 204 MPV 10.4 Immature Gran % (Auto) 0.1 Neut % (Auto) 75.0 H Lymph % (Auto) 15.1 L [place] % (Auto) 7.9 Eos % (Auto) 1.5 Baso % (Auto) 0.4 Lymph # (Auto) 1.22 [place] # (Auto) 0.6 Eos # (Auto) 0.1 Baso # (Auto) 0.0 Abs Immat Gran (auto) 0.01 Absolute Neuts (auto) 6.1 Absolute Nucleated RBC 0.000 Nucleated RBC % 0.0 PT 15.5 H INR 1.2 APTT 28.5 Sodium 143 Potassium 4.3 Chloride 108 H Carbon Dioxide 30 Anion Gap 5 BUN 25 H D Creatinine 1.00 Estim Creat Clear Calc Not Reportable Estimated GFR > 60 Glucose 100 Calcium 9.8 Total Bilirubin 0.7 AST 24 ALT 16 Alkaline Phosphatase 84 Total Protein 8.0 Albumin 4.4 Urine Color Yellow Urine Appearance Clear Urine pH 5.5 Ur Specific [place] 1.037 H Urine Protein 1+ H Urine Glucose (UA) Negative Urine Ketones Negative Ur Blood (Man) Negative Urine Nitrate Negative Urine Bilirubin Negative Urine Urobilinogen 1.0 Add Ur Microanalysis Reviewed Leukocyte Esterase Rfl Negative Urine RBC 0-2 Urine WBC 6-10 H Ur Squamous Epith Cells None seen Urine Bacteria 1+ H Urine Casts 3-5 Nasal MRSA (PCR) Not detected Influenza A (RT-PCR) Negative Influenza B (RT-PCR) Negative RSV (RT-PCR) Negative SARS-CoV-2 RNA (RT-PCR) Negative
[2024-03-22] MEDS: RIVAROXABAN 20 MG TABLET PO (18:25)
[2024-03-22] MEDS: ATORVASTATIN 10 MG TABLET BY MOUTH (20:21)
[2024-03-22] MEDS: DONEPEZIL HCL 10 MG TABLET PO (20:21)
[2024-03-23] VITALS (13 sets, daily range): BP systolic 121–148; BP diastolic 65–82; PULSE 82–102; RESP 12–18; TEMP 36.2–36.4; O2SAT 91–100
[2024-03-23] MEDS: IPRATROPIUM 0.5 MG/ALBUTEROL SULFATE 2.5 MG AMPUL.NEB 3 ML INHALATION ×4 (03:21→21:37)
[2024-03-23] MEDS: AMPICILLIN SULB 3 GM/NS 100 ML 3 GM/100 ML VIAL IVPB ×3 (06:18→11:54)
[2024-03-23 07:18] LABS: Basophils Percent Auto 0.4 % (0.2-1.2); Eosinophils Absolute Auto 0.1 K/mm3 (0-0.3); Eosinophils Percent Auto 1.1 % (0-4.4); Hematocrit 32.7 % (42.0-52.0); Hemoglobin 9.8 g/dL (14.0-18.0); Immature Granulocyte Absolute 0.03 K/mm3 (0.00-0.031); Immature Granulocyte Percent A 0.4 % (0-0.5); Lymphocytes Absolute Auto 0.78 K/mm3 (0.9-3.2); Lymphocytes Percent Auto 10.7 % (18.3-44.2); Mean Corpuscular Hemoglobin 26.6 pg (26-34); Mean Corpuscular Volume 88.6 fl (80-100); Mean Platelet Volume 10.9 fl (7.4-10.4); Monocytes Absolute Auto 0.7 K/mm3 (0.1-0.6); Monocytes Percent Auto 10.1 % (2.6-8.5); Neutrophils Absolute Auto 5.6 K/mm3 (1.3-6.7); Neutrophils Percent Auto 77.3 % (45.5-73.1); Platelet Count Result 171 k/mm3 (150-375); Red Blood Count 3.69 M/mm3 (4.6-6.20); Red Cell Distribution Width 14.6 % (11.5-14.5); White Blood Count 7.3 K/mm3 (4.5-10.0)
[2024-03-23 07:23] LABS: Anion Gap 4 mmol/L (4-12); Blood Urea Nitrogen 19 mg/dL (9-20); Carbon Dioxide 27 mmol/L (22-30); Chloride 109 mmol/L (98-107); Estimated CRCL calculation 34 ml/min; Estimated Glomerular Filt Rate > 60; Glucose 113 mg/dL (65-110); Magnesium 2.2 mg/dL (1.6-2.3); Potassium 3.3 mmol/L (3.4-5.0); Sodium 140 mmol/L (137-145)
[2024-03-23] MEDS: FLUTICASONE/SALMETEROL 115-21 MCG INHALER 1 PUFF 2 PUFF INHALATION ×2 (07:44→21:37)
[2024-03-23] MEDS: VANCOMYCIN 1,500 MG/NS 500 ML 1,500 MG/500 ML BAG 125 MG IVPB (09:30)
[2024-03-23] MEDS: DOXYCYCLINE HYCLATE 100 MG TABLET PO ×2 (09:30→20:45)
[2024-03-23] MEDS: MEMANTINE 10 MG TABLET BY MOUTH ×2 (09:30→20:45)
[2024-03-23] MEDS: PANTOPRAZOLE 40 MG TABLET PO (09:30)
[2024-03-23] MEDS: METOPROLOL SUCCINATE EXT REL 50 MG TABCR PO (09:30)
--- NOTE | 2024-03-23 16:05 | P.PNIM_ITS ---
Progress Note: A&P Assessment and Plan (1) Aspiration pneumonia: Qualifiers: Aspiration pneumonia type: due to vomit Laterality: right Lung location: unspecified part of lung Qualified Code(s): J69.0 - Pneumonitis due to inhalation of food and vomit Code(s): J69.0 - Pneumonitis due to inhalation of food and vomit Status: Acute Assessment and Plan: Patient presented with increasing breathing with episodes of nausea and vomiting. He was hypoxic. He normally wears oxygen only with activity. Patient was afebrile. He has a hx of aspiration PNA. COVID, influenza and RSV PCR were negative. MRSA nasal swab was negative. UA showed 6-10 white cells and 1+ bacteria that prompted urine culture. UCx was negative CT of the chest showed right upper lobe and right lower lobe PNA with moderate emphysema and chronic lung disease. Patient was started on Unasyn. Speech therapy performed a bedside evaluation and felt patient did well but MBS showed he needed Level 6 soft and bite sized with Level 2 thick liquids. Diet changed Wean O2 as tolerated. Continue abx but change to Augmentin. (2) Bacteremia: Code(s): R78.81 - Bacteremia Status: Acute Assessment and Plan: BCx growing gram positive cocci in clusters in aerobic bottle only. Second set negative to date Possible either from the PNA or contaminant. Repeat BCx. Follow up on ID and sensitivities Add Vancomycin (3) Anemia: Code(s): D64.9 - Anemia, unspecified Status: Acute Assessment and Plan: Hgb 12.6 on admission but dropped to 9.8 today. No evidence of acute blood loss. He is on Xarelto and PPI. Check iron studies, follow and transfuse as needed (4) Chronic respiratory failure with hypoxia: Code(s): J96.11 - Chronic respiratory failure with hypoxia Status: Acute Assessment and Plan: Patient normally wears oxygen only with activity. Wean O2 as toelrated (5) Liver mass: Code(s): R16.0 - Hepatomegaly, not elsewhere classified Status: Acute Assessment and Plan: CT also showed a 1.3 cm hyperenhancing liver mass. AFP level ordered. MRI Abd ordered and is pending. (6) Chronic diastolic (congestive) heart failure: Code(s): I50.32 - Chronic diastolic (congestive) heart failure Status: Acute Assessment and Plan: Patient with chronic diastolic CHF. Last Echo listed October 2022 showing EF 70%, diastolic dysfunction. Patient not clinically fluid overload. Follow (7) Dementia: Code(s): F03.90 - Unspecified dementia, unspecified severity, without behavioral disturbance, psychotic disturbance, mood disturbance, and anxiety Status: Acute Assessment and Plan: Stable Continue Aricept and Namenda (8) Paroxysmal atrial fibrillation: Code(s): I48.0 - Paroxysmal atrial fibrillation Status: Acute Assessment and Plan: Heart rate controlled. Continue Toprol. Continue Xarelto Plan DVT prophylaxis -Xarelto Code status -DNR Subjective Date/time seen: 03/23/24 16:05 Interval history: 83yo male with dementia, COPD, dCHF and chronic resp failure here for increased work of breathing. Patient is alert but confused and unable to provide hx. Family in the room and they were updated. All questions answered. Review of Systems Review of Systems: ROS unobtainable: Yes unobtainable due to medical condition Exam Narrative: AF 97.3 131/70 98 18 99% 2L Gen - NARD sitting up in a chair Chest - distant BS, nml RR CV - irregularly irregular. Abd -soft. Nontender. Nondistended. Positive bowel sounds Ext - No pedal edema Neuro -alert but confused Psych - Nml mood and affect Skin - Warm and dry Objective Data Vital Signs Vital Signs: Vital Signs - 24 hr 03/22/24 21:15 03/22/24 21:34 03/22/24 21:42 Temperature 98.3 F Pulse Rate 86 101 H Respiratory Rate 20 20 Blood Pressure 114/69 Pulse Oximetry 94 94 Oxygen Delivery Room Air Oxygen Flow Rate Fraction of Inspired Oxygen 03/22/24 21:45 03/23/24 03:23 03/23/24 03:30 Temperature Pulse Rate 102 H 98 98 Respiratory Rate 20 18 18 Blood Pressure Pulse Oximetry Oxygen Delivery Oxygen Flow Rate Fraction of Inspired Oxygen 03/23/24 06:00 03/23/24 07:42 03/23/24 07:42 Temperature 97.5 F L Pulse Rate 95 102 H Respiratory Rate 18 18 Blood Pressure 121/65 Pulse Oximetry 94 91 Oxygen Delivery Room Air Oxygen Flow Rate Fraction of Inspired Oxygen 03/23/24 07:57 03/23/24 08:00 03/23/24 10:35 Temperature Pulse Rate 99 Respiratory Rate 18 Blood Pressure Pulse Oximetry 91 Oxygen Delivery Nasal Cannula Nasal Cannula Oxygen Flow Rate 1 1 Fraction of Inspired Oxygen 03/23/24 13:07 03/23/24 13:20 03/23/24 13:52 Temperature Pulse Rate 98 96 Respiratory Rate 18 18 Blood Pressure Pulse Oximetry Oxygen Delivery Nasal Cannula Oxygen Flow Rate 2 Fraction of Inspired Oxygen 03/23/24 14:00 Temperature 97.3 F L Pulse Rate 98 Respiratory Rate 18 Blood Pressure 131/70 Pulse Oximetry 99 Oxygen Delivery Oxygen Flow Rate Fraction of Inspired Oxygen Intake/Output Intake/Output: Intake & Output 03/20/24 03/21/24 03/22/24 03/23/24 23:59 23:59 23:59 23:59 Intake Total 100 980 912.1 Output Total 300 300 Balance 100 680 612.1 Meds/Results Medications: Active Medications Generic Name Dose Route Start Last Admin Trade Name Freq PRN Reason Stop Dose Admin Acetaminophen 650 mg 03/21/24 20:04 Acetaminophen 325 Mg Tablet PO Q4H PRN Mild Pain (1-3) or Fever Albuterol/Ipratropium 3 ml 03/22/24 02:00 03/23/24 13:07 Ipratropium 0.5 Mg/Albuterol Sulfate 2.5 Mg Ampul.Neb 3 Ml INHALATION 3 ml Q6HRT SILVIA Administration Atorvastatin Calcium 10 mg 03/21/24 23:05 03/22/24 20:21 Atorvastatin 10 Mg Tablet BY MOUTH 10 mg HS SILVIA Administration Donepezil HCl 10 mg 03/22/24 21:00 03/22/24 20:21 Donepezil Hcl 10 Mg Tablet PO 10 mg HS SILVIA Administration Doxycycline Hyclate 100 mg 03/22/24 09:00 03/23/24 09:30 Doxycycline Hyclate 100 Mg Tablet PO 03/26/24 21:01 100 mg Q12HR SILVIA Administration Ampicillin Sodium/Sulbactam Sodium 3 gm in 100 mls @ 200 mls/hr 03/22/24 06:00 03/23/24 12:24 Unasyn 3 Gm/Ns 100 Ml IVPB Infused Q6HR SILVIA Infusion Vancomycin HCl 1,250 mg in 250 mls @ 166.667 mls/hr 03/24/24 20:00 Vancomycin 1,250 Mg/Ns 250 Ml IVPB Q36H SILVIA Memantine 10 mg 03/21/24 23:05 03/23/24 09:30 Memantine 10 Mg Tablet BY MOUTH 10 mg Q12HR SILVIA Administration Metoprolol Succinate 50 mg 03/22/24 09:00 03/23/24 09:30 Metoprolol Succinate Ext Rel 50 Mg Tabcr PO 50 mg DAILY SILVIA Administration Pantoprazole Sodium 40 mg 03/22/24 09:00 03/23/24 09:30 Pantoprazole 40 Mg Tablet PO 40 mg QAM SILVIA Administration Rivaroxaban 20 mg 03/22/24 17:00 03/22/24 18:25 Rivaroxaban 20 Mg Tablet PO 20 mg DAILY@1700 SILVIA Administration Fluticasone/Salmeterol 2 puff 03/22/24 08:00 03/23/24 07:44 Fluticasone/Salmeterol 115-21 Mcg Inhaler 1 Puff INHALATION 2 puff Q12HRT SILVIA Administration Radiology Results: ITS Impressions Chest CT 03/21/24 19:16 IMPRESSION: 1. Pneumonia in right upper lobe and right lower lobe. 2. Moderate emphysema. Chronic lung disease. 3. 13 mm hyperenhancing liver mass. In the absence of known malignancy or chronic liver disease, this finding is likely a hemangioma or focal nodular hyperplasia. Modified Barium Swallow 03/23/24 10:28 IMPRESSION: Pharyngeal dysphagia with laryngeal penetration and aspiration. Please correlate with speech pathologist findings and specific feeding recommendations. Labs Labs: Laboratory Results - last 24 hr 03/23/24 06:56 WBC 7.3 RBC 3.69 L Hgb 9.8 L Hct 32.7 L MCV 88.6 MCH 26.6 MCHC 30.0 L RDW 14.6 H Plt Count 171 MPV 10.9 H Immature Gran % (Auto) 0.4 Neut % (Auto) 77.3 H Lymph % (Auto) 10.7 L [place] % (Auto) 10.1 H Eos % (Auto) 1.1 Baso % (Auto) 0.4 Lymph # (Auto) 0.78 L [place] # (Auto) 0.7 H Eos # (Auto) 0.1 Baso # (Auto) 0.0 Abs Immat Gran (auto) 0.03 Absolute Neuts (auto) 5.6 Absolute Nucleated RBC 0.000 Nucleated RBC % 0.0 Sodium 140 Potassium 3.3 L Chloride 109 H Carbon Dioxide 27 Anion Gap 4 BUN 19 Creatinine 1.10 Estim Creat Clear Calc 34 Estimated GFR > 60 Glucose 113 H Calcium 9.0 Magnesium 2.2
[2024-03-23] MEDS: RIVAROXABAN 20 MG TABLET PO (17:46)
[2024-03-23] MEDS: POTASSIUM CHLORIDE 20 MEQ PACKET (FOR LIQUID) PO (17:46)
[2024-03-23 18:34] LABS: Hematocrit 32.5 % (42.0-52.0); Hemoglobin 9.8 g/dL (14.0-18.0)
[2024-03-23 18:53] LABS: Iron 26 ug/dL (49-181)
[2024-03-23 19:02] LABS: Percent Iron Saturation 8 % (20-50)
[2024-03-23 19:50] LABS: Folic Acid 12.2 ng/mL (2.76->20)
[2024-03-23] MEDS: DONEPEZIL HCL 10 MG TABLET PO (20:45)
[2024-03-23] MEDS: AMOXICILLIN/CLAVULANATE K 875-125 MG TAB 1 TABLET PO (20:45)
[2024-03-23] MEDS: ATORVASTATIN 10 MG TABLET BY MOUTH (20:45)
[2024-03-24] VITALS (17 sets, daily range): BP systolic 119–140; BP diastolic 51–86; PULSE 90–121; RESP 12–20; TEMP 36.3–36.5; O2SAT 87–100
[2024-03-24 06:07] LABS: MRSA (PCR) NOT DETECTED (NOT DETECTE)
[2024-03-24 07:34] LABS: Basophils Percent Auto 0.5 % (0.2-1.2); Eosinophils Absolute Auto 0.1 K/mm3 (0-0.3); Eosinophils Percent Auto 0.7 % (0-4.4); Immature Granulocyte Absolute 0.02 K/mm3 (0.00-0.031); Immature Granulocyte Percent A 0.3 % (0-0.5); Lymphocytes Absolute Auto 0.57 K/mm3 (0.9-3.2); Lymphocytes Percent Auto 7.4 % (18.3-44.2); Mean Corpuscular HGB Conc 29.4 g/dl (32-36); Mean Corpuscular Hemoglobin 26.2 pg (26-34); Mean Platelet Volume 11.1 fl (7.4-10.4); Monocytes Absolute Auto 0.7 K/mm3 (0.1-0.6); Monocytes Percent Auto 9.2 % (2.6-8.5); Neutrophils Absolute Auto 6.3 K/mm3 (1.3-6.7); Neutrophils Percent Auto 81.9 % (45.5-73.1); Platelet Count Result 172 k/mm3 (150-375); Red Blood Count 3.82 M/mm3 (4.6-6.20); White Blood Count 7.7 K/mm3 (4.5-10.0)
[2024-03-24] MEDS: IPRATROPIUM 0.5 MG/ALBUTEROL SULFATE 2.5 MG AMPUL.NEB 3 ML INHALATION ×3 (07:38→21:19)
[2024-03-24] MEDS: FLUTICASONE/SALMETEROL 115-21 MCG INHALER 1 PUFF 2 PUFF INHALATION ×2 (07:41→21:19)
[2024-03-24 07:44] LABS: Albumin Level 3.4 g/dL (3.5-5.1); Anion Gap 0 mmol/L (4-12); Blood Urea Nitrogen 15 mg/dL (9-20); Calcium 9.1 mg/dL (8.4-10.2); Carbon Dioxide 31 mmol/L (22-30); Chloride 107 mmol/L (98-107); Estimated CRCL calculation 38 ml/min; Estimated Glomerular Filt Rate > 60; Glucose 111 mg/dL (65-110); Magnesium 2.2 mg/dL (1.6-2.3); Phosphorus 3.2 mg/dL (2.5-4.5); Potassium 4.4 mmol/L (3.4-5.0); Sodium 138 mmol/L (137-145)
[2024-03-24 08:27] LABS: Anisocytosis 1+; Hypochromasia 1+; Ovalocytes 1+; Platelet Estimate Adequate (Adequate); Schistocytes None Seen
[2024-03-24 08:37] LABS: Glucose Point of Care 121 mg/dl (65-105)
[2024-03-24] MEDS: MEMANTINE 10 MG TABLET BY MOUTH ×2 (09:24→20:12)
[2024-03-24] MEDS: AMOXICILLIN/CLAVULANATE K 875-125 MG TAB 1 TABLET PO ×2 (09:24→20:12)
[2024-03-24] MEDS: PANTOPRAZOLE 40 MG TABLET PO (09:24)
[2024-03-24] MEDS: DOXYCYCLINE HYCLATE 100 MG TABLET PO ×2 (09:25→20:12)
[2024-03-24] MEDS: METOPROLOL SUCCINATE EXT REL 50 MG TABCR PO (09:26)
--- NOTE | 2024-03-24 11:57 | P.PNIM_ITS ---
Progress Note: A&P Assessment and Plan (1) Aspiration pneumonia: Qualifiers: Aspiration pneumonia type: due to vomit Laterality: right Lung location: unspecified part of lung Qualified Code(s): J69.0 - Pneumonitis due to inhalation of food and vomit Code(s): J69.0 - Pneumonitis due to inhalation of food and vomit Status: Acute Assessment and Plan: Patient presented with increasing breathing with episodes of nausea and vomiting. He was hypoxic. He normally wears oxygen only with activity. Patient was afebrile. He has a hx of aspiration PNA. COVID, influenza and RSV PCR were negative. MRSA nasal swab was negative. UA showed 6-10 white cells and 1+ bacteria that prompted urine culture. UCx was negative CT of the chest showed right upper lobe and right lower lobe PNA with moderate emphysema and chronic lung disease. Patient was started on Unasyn. Speech therapy performed a bedside evaluation and felt patient did well but MBS showed he needed Level 6 soft and bite sized with Level 2 thick liquids. Diet changed Wean O2 as tolerated. Continue Augmentin. (2) Bacteremia: Code(s): R78.81 - Bacteremia Status: Acute Assessment and Plan: BCx growing Staph Epi in aerobic bottle only. Second set negative to date. Probably contaminant. Repeat BCx NGTD. Follow up on sensitivities and repeat BCx Continue Vancomycin. Plan to stop Vanco if other BCx remain negative after 48 hours. (3) Anemia: Code(s): D64.9 - Anemia, unspecified Status: Acute Assessment and Plan: Hgb 12.6 on admission but dropped to 9.8 today. No evidence of acute blood loss. He is on Xarelto and PPI. Studies consistent with iron deficiency. Hgb low but stable in the 9-10 range. Add iron. (4) Chronic respiratory failure with hypoxia: Code(s): J96.11 - Chronic respiratory failure with hypoxia Status: Acute Assessment and Plan: Patient normally wears oxygen only with activity. Wean O2 as toelrated Home O2 evaluation (5) Liver mass: Code(s): R16.0 - Hepatomegaly, not elsewhere classified Status: Acute Assessment and Plan: CT also showed a 1.3 cm hyperenhancing liver mass. AFP level ordered. MRI Abd showing this is more likely transient hepatic intensity difference. (6) Chronic diastolic (congestive) heart failure: Code(s): I50.32 - Chronic diastolic (congestive) heart failure Status: Acute Assessment and Plan: Patient with chronic diastolic CHF. Last Echo listed October 2022 showing EF 70%, diastolic dysfunction. Patient not clinically fluid overload. Follow (7) Dementia: Code(s): F03.90 - Unspecified dementia, unspecified severity, without behavioral disturbance, psychotic disturbance, mood disturbance, and anxiety Status: Acute Assessment and Plan: Stable Continue Aricept and Namenda (8) Paroxysmal atrial fibrillation: Code(s): I48.0 - Paroxysmal atrial fibrillation Status: Acute Assessment and Plan: Heart rate controlled. Continue Toprol. Continue Xarelto Plan DVT prophylaxis -Xarelto Code status -DNR Subjective Date/time seen: 03/24/24 11:57 Interval history: 83yo male with dementia, COPD, dCHF and chronic resp failure here for increased work of breathing. No problems ovneright. No CP or SOB Exam Narrative: AF 97.3 140/86 100 16 94% 2L Gen - NARD sitting up in a chair Chest - few basilar rhonchi o/w distant BS, nml RR CV - irregularly irregular. Abd -soft. Nontender. Nondistended. Positive bowel sounds Ext - No pedal edema Neuro -alert but confused Psych - Nml mood and affect Skin - Warm and dry Objective Data Vital Signs Vital Signs: Vital Signs - 24 hr 03/23/24 13:07 03/23/24 13:20 03/23/24 13:52 Temperature Pulse Rate 98 96 Respiratory Rate 18 18 Blood Pressure Pulse Oximetry Oxygen Delivery Nasal Cannula Oxygen Flow Rate 2 03/23/24 14:00 03/23/24 20:34 03/23/24 21:38 Temperature 97.3 F L 97.1 F L Pulse Rate 98 82 92 Respiratory Rate 18 12 18 Blood Pressure 131/70 148/82 H Pulse Oximetry 99 100 Oxygen Delivery Oxygen Flow Rate 03/23/24 21:42 03/23/24 21:49 03/24/24 05:03 Temperature 97.3 F L Pulse Rate 92 95 121 H Respiratory Rate 18 12 Blood Pressure 140/86 Pulse Oximetry 98 100 Oxygen Delivery Nasal Cannula Oxygen Flow Rate 1 03/24/24 07:38 03/24/24 07:50 03/24/24 09:26 Temperature Pulse Rate 96 104 H 100 Respiratory Rate 18 18 Blood Pressure Pulse Oximetry Oxygen Delivery Oxygen Flow Rate 03/24/24 09:30 03/24/24 11:03 Temperature Pulse Rate Respiratory Rate Blood Pressure Pulse Oximetry 97 94 Oxygen Delivery Nasal Cannula Nasal Cannula Oxygen Flow Rate 1 2 Intake/Output Intake/Output: Intake & Output 03/21/24 03/22/24 03/23/24 03/24/24 23:59 23:59 23:59 23:59 Intake Total 100 980 912.1 50 Output Total 300 300 Balance 100 680 612.1 50 Meds/Results Medications: Active Medications Generic Name Dose Route Start Last Admin Trade Name Freq PRN Reason Stop Dose Admin Acetaminophen 650 mg 03/21/24 20:04 Acetaminophen 325 Mg Tablet PO Q4H PRN Mild Pain (1-3) or Fever Albuterol/Ipratropium 3 ml 03/22/24 02:00 03/24/24 07:38 Ipratropium 0.5 Mg/Albuterol Sulfate 2.5 Mg Ampul.Neb 3 Ml INHALATION 3 ml Q6HRT SILVIA Administration Amoxicillin/Clavulanate Potassium 1 tablet 03/23/24 21:00 03/24/24 09:24 Amoxicillin/Clavulanate K 875-125 Mg Tab PO 03/28/24 09:01 1 tablet Q12HR SILVAI Administration Atorvastatin Calcium 10 mg 03/21/24 23:05 03/23/24 20:45 Atorvastatin 10 Mg Tablet BY MOUTH 10 mg HS SILVIA Administration Donepezil HCl 10 mg 03/22/24 21:00 03/23/24 20:45 Donepezil Hcl 10 Mg Tablet PO 10 mg HS SILVIA Administration Doxycycline Hyclate 100 mg 03/22/24 09:00 03/24/24 09:25 Doxycycline Hyclate 100 Mg Tablet PO 03/26/24 21:01 100 mg Q12HR SILVIA Administration Vancomycin HCl 1,250 mg in 250 mls @ 166.667 mls/hr 03/24/24 20:00 Vancomycin 1,250 Mg/Ns 250 Ml IVPB Q36H SILVIA Memantine 10 mg 03/21/24 23:05 03/24/24 09:24 Memantine 10 Mg Tablet BY MOUTH 10 mg Q12HR SILVIA Administration Metoprolol Succinate 50 mg 03/22/24 09:00 03/24/24 09:26 Metoprolol Succinate Ext Rel 50 Mg Tabcr PO 50 mg DAILY SILVIA Administration Pantoprazole Sodium 40 mg 03/22/24 09:00 03/24/24 09:24 Pantoprazole 40 Mg Tablet PO 40 mg QAM SILVIA Administration Rivaroxaban 20 mg 03/22/24 17:00 03/23/24 17:46 Rivaroxaban 20 Mg Tablet PO 20 mg DAILY@1700 SILVIA Administration Fluticasone/Salmeterol 2 puff 03/22/24 08:00 03/24/24 07:41 Fluticasone/Salmeterol 115-21 Mcg Inhaler 1 Puff INHALATION 2 puff Q12HRT SILVIA Administration Radiology Results: ITS Impressions Chest CT 03/21/24 19:16 IMPRESSION: 1. Pneumonia in right upper lobe and right lower lobe. 2. Moderate emphysema. Chronic lung disease. 3. 13 mm hyperenhancing liver mass. In the absence of known malignancy or chronic liver disease, this finding is likely a hemangioma or focal nodular hyperplasia. Abdomen MRI 03/23/24 09:21 IMPRESSION: 1. 3 small subcapsular regions of early arterial phase enhancement in the left hepatic lobe, one of which correlates with the lesion of concern on prior CT. These equilibrate to the surrounding liver on the more delayed postcontrast imaging and without correlate on the remaining sequences which remains most consistent with transient hepatic intensity difference. 2. Solitary 2.4 cm progressively enhancing splenic mass most consistent with a hemangioma. 3. 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 4. Small right and tiny left pleural effusions with associated bibasilar atelectasis, mild pulmonary edema or pneumonia. Modified Barium Swallow 03/23/24 10:28 IMPRESSION: Pharyngeal dysphagia with laryngeal penetration and aspiration. Please correlate with speech pathologist findings and specific feeding re commendations. Labs Labs: Laboratory Results - last 24 hr 03/23/24 03/24/24 03/24/24 18:29 04:44 06:40 WBC 7.7 RBC 3.82 L Hgb 9.8 L 10.0 L Hct 32.5 L 34.0 L MCV 89.0 MCH 26.2 MCHC 29.4 L RDW 15.0 H Plt Count 172 MPV 11.1 H Immature Gran % (Auto) 0.3 Neut % (Auto) 81.9 H Lymph % (Auto) 7.4 L [place] % (Auto) 9.2 H Eos % (Auto) 0.7 Baso % (Auto) 0.5 Lymph # (Auto) 0.57 L [place] # (Auto) 0.7 H Eos # (Auto) 0.1 Baso # (Auto) 0.0 Abs Immat Gran (auto) 0.02 Absolute Neuts (auto) 6.3 Absolute Nucleated RBC 0.000 Nucleated RBC % 0.0 Platelet Estimate Adequate Hypochromasia 1+ Anisocytosis 1+ Ovalocytes 1+ Schistocytes None seen Sodium 138 Potassium 4.4 Chloride 107 Carbon Dioxide 31 H Anion Gap 0 L BUN 15 Creatinine 1.00 Estim Creat Clear Calc 38 Estimated GFR > 60 Glucose 111 H POC Capillary Glucose Calcium 9.1 Phosphorus 3.2 Magnesium 2.2 Iron 26 L TIBC 316 % Saturation 8 L Ferritin 22.00 Albumin 3.4 L Vitamin B12 334.0 Folate 12.2 TSH (Reflex) 2.290 Nasal MRSA (PCR) Not detected 03/24/24 08:17 WBC RBC Hgb Hct MCV MCH MCHC RDW Plt Count MPV Immature Gran % (Auto) Neut % (Auto) Lymph % (Auto) [place] % (Auto) Eos % (Auto) Baso % (Auto) Lymph # (Auto) [place] # (Auto) Eos # (Auto) Baso # (Auto) Abs Immat Gran (auto) Absolute Neuts (auto) Absolute Nucleated RBC Nucleated RBC % Platelet Estimate Hypochromasia Anisocytosis Ovalocytes Schistocytes Sodium Potassium Chloride Carbon Dioxide Anion Gap BUN Creatinine Estim Creat Clear Calc Estimated GFR Glucose POC Capillary Glucose 121 H Calcium Phosphorus Magnesium Iron TIBC % Saturation Ferritin Albumin Vitamin B12 Folate TSH (Reflex) Nasal MRSA (PCR)
[2024-03-24 12:14] LABS: Glucose Point of Care 117 mg/dl (65-105)
[2024-03-24] MEDS: IRON SUCROSE COMPLEX 100 MG in SODIUM CHLORIDE 0.9% IV 50 ML 220 MG IVPB (13:01)
--- NOTE | 2024-03-24 14:07 | HOMEO2EVAL ---
Evaluation was performed at [facility] Home Oxygen Evaluation RC: Home Oxygen (O2) Evaluation Start: 03/24/24 12:27 Freq: ONCE Status: Active Protocol: RPE Activity Type Activity Date Activity User E-sign Co-sign Detail Recorded Client Recorded Date Recorded By Document 03/24/24 13:25 TULIO [email or web address] 03/24/24 14:07 TULIO Document 03/24/24 13:30 TULIO [email or web address] 03/24/24 14:07 TULIO Document 03/24/24 13:35 TULIO [email or web address] 03/24/24 14:07 TULIO Document 03/24/24 13:40 TULIO [email or web address] 03/24/24 14:07 TULIO Document 03/24/24 13:45 TULIO [email or web address] 03/24/24 14:07 TULIO 03/24/24 03/24/24 03/24/24 13:25 13:30 13:35 Home O2 Evaluation [Oxygen] -Test Phase Resting Exercise Exercise -Oxygen Delivery Room Air Room Air Nasal Cannula -Oxygen Flow Rate (L/min) 1 [Pulse Oximetry] -Pulse Oximetry (90-100 %) 96 87 L 88 L [Pulse Rate] -Pulse Rate (60-100 beats/min) 98 108 H 110 H [Evaluation] -Activity Tolerance [Charges] -Evaluation Charges O2 Evaluation by Pulmonary 03/24/24 03/24/24 13:40 13:45 Home O2 Evaluation [Oxygen] -Test Phase Exercise Resting -Oxygen Delivery Nasal Cannula Room Air -Oxygen Flow Rate (L/min) 2 [Pulse Oximetry] -Pulse Oximetry (90-100 %) 91 96 [Pulse Rate] -Pulse Rate (60-100 beats/min) 112 H 95 [Evaluation] -Activity Tolerance Poor [Charges] -Evaluation Charges
--- NOTE | 2024-03-24 14:08 | PCRCNOTE ---
HOME OXYGEN EVAL COMPLETE, NO CHANGES FROM CURRENT HOME SETTINGS. 2L WITH ACTIVITY
[2024-03-24] MEDS: RIVAROXABAN 20 MG TABLET PO (17:41)
[2024-03-24] MEDS: VANCOMYCIN 1,250 MG/NS 250 ML 1,250 MG/250 ML BAG 166.67 MG IVPB (20:11)
[2024-03-24] MEDS: ATORVASTATIN 10 MG TABLET BY MOUTH (20:12)
[2024-03-24] MEDS: DONEPEZIL HCL 10 MG TABLET PO (20:13)
[2024-03-25] VITALS (11 sets, daily range): BP systolic 127–135; BP diastolic 60–78; PULSE 75–109; RESP 18–24; TEMP 36.4; O2SAT 85–98
[2024-03-25] MEDS: IPRATROPIUM 0.5 MG/ALBUTEROL SULFATE 2.5 MG AMPUL.NEB 3 ML INHALATION ×3 (01:10→14:04)
[2024-03-25 07:14] LABS: Estimated CRCL calculation 38 ml/min; Estimated Glomerular Filt Rate > 60
[2024-03-25] MEDS: FLUTICASONE/SALMETEROL 115-21 MCG INHALER 1 PUFF 2 PUFF INHALATION (07:52)
[2024-03-25] MEDS: PANTOPRAZOLE 40 MG TABLET PO (09:33)
[2024-03-25] MEDS: MEMANTINE 10 MG TABLET BY MOUTH (09:33)
[2024-03-25] MEDS: AMOXICILLIN/CLAVULANATE K 875-125 MG TAB 1 TABLET PO (09:33)
[2024-03-25] MEDS: FERROUS SULFATE 325 MG TABLET DR PO (09:33)
[2024-03-25] MEDS: DOXYCYCLINE HYCLATE 100 MG TABLET PO (09:34)
[2024-03-25] MEDS: METOPROLOL SUCCINATE EXT REL 50 MG TABCR PO (09:34)
[2024-03-25] MEDS: IRON SUCROSE COMPLEX 100 MG in SODIUM CHLORIDE 0.9% IV 50 ML 220 MG IVPB (11:39)
--- NOTE | 2024-03-25 13:05 | P.DS_ITS ---
DS: Admitting Diagnosis Discharge Date 03/25/24 Admitting Diagnosis Shortness of breath DS: Discharge Diagnosis Discharge Diagnosis (1) Aspiration pneumonia: Qualifiers: Aspiration pneumonia type: due to vomit Laterality: right Lung location: unspecified part of lung Qualified Code(s): J69.0 - Pneumonitis due to inhalation of food and vomit Code(s): J69.0 - Pneumonitis due to inhalation of food and vomit Status: Acute (2) Bacteremia: Code(s): R78.81 - Bacteremia Status: Acute (3) Anemia: Code(s): D64.9 - Anemia, unspecified Status: Acute (4) Chronic respiratory failure with hypoxia: Code(s): J96.11 - Chronic respiratory failure with hypoxia Status: Acute (5) Liver mass: Code(s): R16.0 - Hepatomegaly, not elsewhere classified Status: Acute (6) Paroxysmal atrial fibrillation: Code(s): I48.0 - Paroxysmal atrial fibrillation Status: Acute (7) Dementia: Code(s): F03.90 - Unspecified dementia, unspecified severity, without behavioral disturbance, psychotic disturbance, mood disturbance, and anxiety Status: Acute (8) Chronic diastolic (congestive) heart failure: Code(s): I50.32 - Chronic diastolic (congestive) heart failure Status: Acute DS: Summary Hospital Course Reason for hospitalization: 83yo male with dementia, COPD, dCHF and chronic resp failure here for increased work of breathing. Please see H&P for detials. Hospital Course: The following issues were addressed: (1) Aspiration pneumonia: Patient presented with increasing breathing with episodes of nausea and vomiting. He was hypoxic. He normally wears oxygen only with activity. Patient was afebrile. He has a hx of aspiration PNA. COVID, influenza and RSV PCR were negative. MRSA nasal swab was negative. UA showed 6-10 white cells and 1+ bacteria that prompted urine culture but UCx was negative. CT of the chest showed right upper lobe and right lower lobe PNA with moderate emphysema and chronic lung disease. Patient was started on Unasyn. Speech therapy performed a bedside evaluation and felt patient did well but MBS showed he needed Level 6 soft and bite sized with Level 2 thick liquids. Diet was changed. Changed to Augmentin. Home O2 evaluation showed that he was back to his baseline with only requiring oxygen with activity. (2) Bacteremia: BCx collected on admission and was growing Staph Epi in aerobic bottle only. Second set negative to date. [place] to be a contaminant. Repeat BCx NGTD. He was started on Vancomycin when culture initially turned positive but this was stopped after bacteria was identified and other cultures remained negative. (3) Anemia: Hgb 12.6 on admission but dropped to 9.8. No evidence of acute blood loss. He is on Xarelto and PPI. Studies consistent with iron deficiency. Hgb low but stable in the 9-10 range. Iron added. (4) Chronic respiratory failure with hypoxia: Patient normally wears oxygen only with activity. Oxygen weaned down and Home O2 evaluation showing that he is back to baseline oxygen requirement. (5) Liver mass: CT also showed a 1.3 cm hyperenhancing liver mass. AFP level ordered. MRI Abd showing this is more likely transient hepatic intensity difference. (6) Chronic diastolic (congestive) heart failure: Patient with chronic diastolic CHF. Last Echo listed October 2022 showing EF 70%, diastolic dysfunction. Patient not clinically fluid overload. (7) Dementia: Mood stable. We continued Aricept and Namenda (8) Paroxysmal atrial fibrillation: Heart rate remained reasonably well controlled. We continued Toprol and Xarelto He worked with therapy and was up walking with walker up to 40 feet. He overall did well and was able to be discharged home on 03/25/24. Status at Discharge Cognitive/behavioral status at discharge: stable Time Spent with Patient Time attestation: Total time spent providing and/or coordinating discharge services: 35 minutes Time spent: Greater than 30 minutes Exam Narrative: AF 97.5 135/78 104 24 90% Gen - NARD sitting up in a chair Chest - distant BS. nml RR CV - irregularly irregular. Abd -soft. Nontender. Nondistended. Positive bowel sounds Ext - No pedal edema Neuro -alert but confused Psych - Nml mood and affect Skin - Warm and dry DS: Data Data Completed and Pending Labs on day of discharge: Labs from last 24 hours 03/25/24 06:35 Creatinine 1.00 Estim Creat Clear Calc 38 Estimated GFR > 60 Preliminary micro results at discharge 03/23/24 07:35 Blood Culture - Preliminary Blood 03/23/24 07:37 Blood Culture - Preliminary Blood 03/21/24 21:16 Blood Culture - Preliminary Blood Discharge Plan Discharge Attending physician on discharge: Alhaji Link Discharging Clinician: Alhaji Link Anticipated Discharge Date/Time: 03/25/24 13:17 Patient Disposition: Home, Self-Care Activity: as tolerated Diet: heart healthy and other - see discharge instructions Discharge Instructions: Per Care Coordination: [facility] ([phone]) has been arranged for physical and occupational therapy. They will call you regarding first visit likely 03/27 or 03/28). DIET Soft and bite sized Level 6 diet Mildly thickened, Level 2 liquids. Please complete your antibiotic course even if you are starting to feel well. Walk with walker Take precautions to avoid falls. Rise slowly from a lying or sitting position. Pause before standing or walking. Continue to use oxygen with activity as previously prescribed. Contact your doctor or call 911 and come to the Emergency Room if you have fevers, shortness of breath or other worrisome symptoms. Avoid NSAIDs (ibuprofen, naproxen, Aleve). Tylenol is safe to take. Follow-up with your primary care provider in 1-2 weeks. Please call for appointment. Thank you for using [facility] for your health care needs. Patient Instructions: Antibiotic Form, Rivaroxaban (By mouth), Pain Management (DC) Patient Language: Zambian Stand Alone Forms: General Discharge Information Follow-up/Referrals: John Tafoya MD [Primary Care Provider] - Discharge Medications: New amoxicillin-pot clavulanate 875-125 mg tablet 1 tablet PO Q12H Qty: 6 0RF doxycycline hyclate 100 mg Tablet 100 mg PO Q12HR Qty: 3 0RF ferrous sulfate 325 mg (65 mg iron) Tablet,Delayed Release (Dr/Ec) 325 mg PO DAILY Qty: 30 0RF Continued omeprazole 20 mg capsule,delayed release(DR/EC) 20 mg PO DAILY metoprolol succinate 50 mg tablet extended release 24 hr 50 mg PO DAILY budesonide-formoterol 160-4.5 mcg/actuation HFA aerosol inhaler 2 puff inhalation Q12H Qty: 10.2 5RF Xarelto 20 mg Tablet 20 mg PO DAILY@1700 Qty: 30 3RF furosemide 20 mg Tablet 20 mg PO DAILY 30 Days Qty: 30 0RF albuterol sulfate 90 mcg/actuation HFA aerosol inhaler 1 inh inhalation Q4-6H PRN (Reason: shortness of breath or wheezing) Qty: 8.5 5RF donepezil 10 mg tablet 10 mg PO HS Qty: 90 2RF atorvastatin 10 mg tablet See Rx Instructions .ROUTE .COMPLEX Qty: 90 1RF Dose Instruction: TAKE 1 TABLET BY MOUTH EVERY DAY Rx Instructions: TAKE 1 TABLET BY MOUTH EVERY DAY memantine 10 mg tablet See Rx Instructions .ROUTE .COMPLEX Qty: 180 2RF Dose Instruction: TAKE 1 TABLET BY MOUTH TWICE A DAY Rx Instructions: TAKE 1 TABLET BY MOUTH TWICE A DAY Discontinued methscopolamine 2.5 mg tablet See Rx Instructions .ROUTE .COMPLEX Qty: 270 1RF Dose Instruction: TAKE 1 TABLET BY MOUTH THREE TIMES A DAY Rx Instructions: TAKE 1 TABLET BY MOUTH THREE TIMES A DAY Date of admission: 03/23/24 16:09 Primary Care Provider: John Tafoya Admitting Provider: Daphnie Tee Attending physician on admission: Daphnie Tee Condition: Stable Hospitalist MIPS Heart Failure (Exclusion) Patient has history of Heart Transplant or Left Ventricular Assistive Device?: No IF YES, STOP HERE Heart Failure (Qualifier) Patient has current or prior documentation of LVEF less than or equal to 40%, or mod/servere depressed LVSF?: No IF NO, STOP HERE
--- NOTE | 2024-03-25 15:48 | PC.NURSE ---
Patient discharge instructions given, covered information on diet and swallowing precautions, informed patient and family of diet of thickened liquids and soft and bite sized, verbalized understanding. Patient able to ambulate with assitance of walker. Voids on own, no further questions at this time.
[2024-03-28 08:19] LABS: Methylmalonic Acid 195 nmol/L (85-423)
== END 2024-03-25 15:55 | disposition home health service (06) | DRG 178 ==
LOC: ANHED 20:03 → ANH3MEDSUR 21:20
PROVIDERS: Emergency Medicine; Admitting Provider Internal Medicine; Emergency Provider Emergency Medicine; PCP Family Medicine Adolescent Medicine; Visit Provider Internal Medicine
DX: J69.0 Pneumonitis due to inhalation of food and vomit (principal); I50.32 Chronic diastolic (congestive) heart failure; J96.11 Chronic respiratory failure with hypoxia; I11.0 Hypertensive heart disease with heart failure; I48.0 Paroxysmal atrial fibrillation; I65.21 Occlusion and stenosis of right carotid artery; I35.0 Nonrheumatic aortic (valve) stenosis; I27.20 Pulmonary hypertension, unspecified; I87.2 Venous insufficiency (chronic) (peripheral); I71.40 Abdominal aortic aneurysm, without rupture, unspecified; J43.1 Panlobular emphysema; D50.9 Iron deficiency anemia, unspecified; E78.5 Hyperlipidemia, unspecified; K21.9 Gastro-esophageal reflux disease without esophagitis; R16.0 Hepatomegaly, not elsewhere classified; F03.90 Unspecified dementia, unspecified severity, without behavioral disturbance, psychotic disturbance, mood disturbance, and anxiety; Z20.822 Contact with and (suspected) exposure to COVID-19; Z99.81 Dependence on supplemental oxygen; Z85.46 Personal history of malignant neoplasm of prostate; Z86.0101 Personal history of adenomatous and serrated colon polyps; Z95.4 Presence of other heart-valve replacement; Z87.891 Personal history of nicotine dependence; Z79.01 Long term (current) use of anticoagulants
CPT/HCPCS: 36415; 71260; 74183; 80048; 80053; 80069; 81001; 82105; 82565; 82607; 82728; 82746; 82948; 83540; 83550; 83735; 83921; 84443; 85014; 85018; 85025; 85610; 85730; 87040; 87086; 87181; 87637; 87641; 92610; 92611; 94618; 94640; 96366; 96374; 96375; 97110; 97161; 97165; 97530; 99285; A9270; A9577; G0378; J0295; J1756; J3370; Q9967

== ENCOUNTER 2024-03-28 04:56 | Observation (INO) | payer OTHER, SELFPAY ==
[2024-03-28] VITALS (9 sets, daily range): BP systolic 110–154; BP diastolic 52–75; PULSE 120–159; RESP 20–36; TEMP 36.2–36.3; O2SAT 94–100
--- NOTE | ~2024-03-28 | XR_ITS ---
EXAMINATION: XR chest 1V portable DATE: 03/28/2024 05:28 INDICATION: Shortness of breath. TECHNIQUE: A single frontal view of the chest was obtained. COMPARISON: Chest CT 03/21/2024, chest single view 10/12/2022 FINDINGS: There are lucencies in the lungs, consistent with emphysema. There are small pleural effusi ons. There are peripheral airspace opacities in the mid and lower lung zones. No pneumothorax. The he art size is normal. There are changes of aortic valve replacement. IMPRESSION: 1. Peripheral airspace opacities in the mid and lower lung zones, likely rounded atelectasis without or with superimposed pneumonia. 2. Small pleural effusions. 3. Emphysema. 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 Peripheral airspace opacities in the mid and lower lung zones, likely rounde d atelectasis without or with superimposed pneumonia. 2. Small pleural effusions. 3. Emphysema.
--- NOTE | 2024-03-28 05:04 | ECG_ITS ---
Test Date: 2024-03-28 05:51:12 Measurements Intervals [place] Rate: 142 P: 0 [place]: 0 QRS: 46 QRSD: 88 T: -32 QT: 279 QTc: 429 Interpretive Statements ATRIAL FIBRILLATION WITH RAPID VENTRICULAR RESPONSE NONSPECIFIC ST & T-WAVE ABNORMALITY No previous ECG available for comparison Electronically Signed On 03-28-2024 14:52:30 [employer] by Louis Nolan M.D.
[2024-03-28] MEDS: methylPREDNISolone SOD SUCC 125 MG VIAL IV PUSH (05:09)
[2024-03-28] MEDS: IPRATROPIUM BR 0.02% INH SOLN 0.5 MG/2.5 ML VIAL 2 MG INHALATION (05:20)
[2024-03-28] MEDS: ALBUTEROL SULFATE NEB 2.5 MG/3 ML INH 10 MG INHALATION (05:20)
--- NOTE | 2024-03-28 05:38 | ED.GENADULT ---
HPI - General Adult General Chief complaint: Shortness of Breath/Dyspnea Stated complaint: SOB since yesterday Time Seen by Provider: 03/28/24 05:00 History of Present Illness HPI narrative: Patient is an 83-year-old male who presents emergency department this evening complaining of increased work of breathing and shortness of breath. EMS was called and upon their arrival did notice that the patient was working hard to breathe with respiratory rate in the high 20s. Patient was satting 90-91% on his 4 L home nasal cannula which he wears all the time. Patient was discharged from our facility 3 days ago for pneumonia and COPD exacerbation. EMS did administer a DuoNeb breathing treatment which patient states that he did help slightly with his symptoms. No additional symptoms or concerns at this time. Related Data Home Medications ?Medication ?Instructions ?Recorded ?Confirmed ?Last Taken ?Type omeprazole 20 mg capsule,delayed 20 mg PO DAILY 01/23/22 03/21/24 10/10/22 History release metoprolol succinate 50 mg 50 mg PO DAILY 03/15/24 03/21/24 Unknown History tablet,extended release 24 hr Allergies Allergy/AdvReac Type Severity Reaction Status Date / Time No Known Allergies Allergy Verified 03/15/24 10:58 Review of Systems Review of Systems: All systems are reviewed and are negative unless stated otherwise in the HPI. [facility] Past Medical History Medical History Paroxysmal atrial fibrillation Presbycusis of both ears Kidney stones Hyperlipidemia Stenosis of right carotid artery Essential hypertension Chronic venous insufficiency of lower extremity Dementia Severe aortic stenosis by prior echocardiogram 2015 Diastolic heart failure Grade 2 diastolic heart failure known echocardiogram 2015 with indeterminate diastolic function noted on echocardiogram 2019 Vasomotor rhinitis Chronic respiratory failure with hypoxia Chronic home O2 Abdominal aortic aneurysm, without rupture Pulmonary hypertension due to lung diseases and hypoxia Severe with last echo 2019 Gastro-esophageal reflux disease without esophagitis History of prostate cancer 2005 Panlobular emphysema Lung nodule Tobacco abuse Quit 2004. 49 pack years 1ppd. Surgical History Surgical History History of colonoscopy with polypectomy History of tonsillectomy and adenoidectomy History of right inguinal hernia repair (~2005) History of aortic valve replacement with tissue graft (~2015) Due to severely stenosed bicuspid aortic valve with a Magna tissue valve replacement History of radical prostatectomy (~2004) With adjunctive radiation therapy Family History Family History Father Acute myocardial infarction Heart disease Mother Acute myocardial infarction Heart disease Sibling Malignant neoplasm of prostate Alzheimer's dementia Heart disease Son Type 1 diabetes Other Alzheimer disease Social History Social History Social History: Code status: DNR/DNI Surrogate decision maker: Smoking packs per day: 1 Smoking cigarettes per day: 20.0 Years smoked: 46 Smoking pack-years: 46.00 Smoking status: Former smoker Alcohol intake: never Substance use: never Substance use type: does not use Lack of Transportation: No Lack of Food: Never True Current Housing: I Have Housing Concerned About Future Housing: No Difficulty Paying Gas/Electric Bills: No Difficulty Paying for Meds: No Currently Unemployed: No Education: Trade/Vocational Certificate Difficulty w/ Childcare or Family Care: No Living arrangements: with family Additional living arrangements comments: He lives with his and his son lives in the basement and is separate living quarters. 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 Gender identity (if verbalized by the patient): Male Sexual Orientation (if Verbalized by the Patient): Straight or Heterosexual Spiritual care concerns: No Agree to blood products: Yes Exam Narrative: General: Alert, awake, afebrile, in moderate respiratory distress. HEENT: PERRL, no rhinorrhea, no post nasal drip, oropharynx clear. Neck: Trachea midline, no JVD, no lymphadenopathy. Cardiovascular: Tachycardic with an irregular rhythm, no murmurs, rubs or gallops, no peripheral edema. Respiratory: Diffuse bilateral inspiratory and expiratory wheezing with decreased air movement, tachypnea, moderate respiratory distress. Abdomen: Soft, nontender, nondistended, no rebound, no guarding, no peritoneal signs. Musculoskeletal: No joint swelling or deformity, normal muscle tone. Skin: No rashes or petechia, no signs of infection. Psychiatric: Alert and oriented, normal behavior and judgment for situation. Neurological: Alert and oriented to person, place, and time. Follows all commands. No focal deficits, speech is clear and fluent. Course Vital Signs Vital signs: Vital Signs Temperature 97.3 F L 03/28/24 05:04 Pulse Rate 135 H 03/28/24 05:04 Respiratory Rate 30 H 03/28/24 05:04 Blood Pressure 154/63 H 03/28/24 05:04 Pulse Oximetry 100 03/28/24 05:04 Oxygen Delivery Room Air 03/28/24 05:04 Temperature 97.3 F L 03/28/24 05:04 Pulse Rate 129 H 03/28/24 05:21 Respiratory Rate 32 H 03/28/24 05:21 Blood Pressure 154/63 H 03/28/24 05:04 Pulse Oximetry 100 03/28/24 05:04 Oxygen Delivery Room Air 03/28/24 05:04 Medical Decision Making MDM Narrative Medical decision making narrative: The patient was evaluated by myself in the emergency department. History is obtained from patient who is an independent historian along with EMS report and physical exam was performed. External medical records were reviewed at this time. IV was established and pertinent tests were ordered. Patient was administered 1 L IV fluid bolus, an hour long DuoNeb breathing treatment and 125 mg IV Solu-Medrol. EKG was obtained which revealed AFib with RVR rate of 142 beats per minute. No ST changes, T wave inversions or evidence of acute ischemia. EKG was independently interpreted by me and is currently pending official cardiology read. At this time patient was started on IV Cardizem 20 mg IV bolus and drip for his AFib with RVR. Laboratory results obtained revealing no acute process. Viral swabs negative for COVID/influenza/RSV. Imaging studies obtained included CXR which was independently interpreted by me revealin. Peripheral airspace opacities in the mid and lower lung zones, likely rounded atelectasis without or with superimposed pneumonia. 2. Small pleural effusions. 3. Emphysema. At this time patient was started on broad-spectrum antibiotics due to concern for sepsis secondary source infection with vancomycin, cefepime and azithromycin. Blood cultures obtained prior to antibiotic administration. Differential diagnosis considerations include COPD exacerbation, pneumonia, AFib with RVR, dehydration, electrolyte derangements. Comorbidities impacting this visit include history of COPD exacerbation and atrial fibrillation with RVR. Per chart review, patient does appear to be anticoagulated on Xarelto. I have evaluated and discussed social determinants of health with the patient that could potentially impact subsequent diagnosis and treatment plans. On repeat assessment of the patient, reevaluation revealed that the patient is doing well and is in no acute distress. Patient symptoms have improved since he arrived to our emergency department. Repeat vital signs were all reviewed and noted to be stable. Differential diagnosis and treatment plan were discussed with the patient at bedside. Patient agrees with discussion and after shared medical decision making agrees with admission. All questions were answered to the patient's satisfaction. Case was discussed with on-call hospitalist Dr. King at 0620 and she accepted admission. Patient was admitted in stable condition. Critical care time of 47 minutes, exclusive of separately performed procedures, necessary for treating or preventing eminent or life-threatening deterioration of patient's condition of atrial fibrillation with RVR requiring IV Cardizem drip, focused on patient care provided personally by me and time spent during initial evaluation, physical examination, ordering and performing treatments and interventions, ordering and reviewing laboratory studies, ordering and reviewing radiographic studies, re-evaluation of the patient's condition, evaluation of the patient's response to treatment, and discussion of patient case with multiple consultants. Vital Signs Vital Signs: Vital Signs Temperature 97.3 F L 03/28/24 05:04 Pulse Rate 135 H 03/28/24 05:04 Respiratory Rate 30 H 03/28/24 05:04 Blood Pressure 154/63 H 03/28/24 05:04 Pulse Oximetry 100 03/28/24 05:04 Oxygen Delivery Room Air 03/28/24 05:04 Temperature 97.3 F L 03/28/24 05:04 Pulse Rate 129 H 03/28/24 05:21 Respiratory Rate 32 H 03/28/24 05:21 Blood Pressure 154/63 H 03/28/24 05:04 Pulse Oximetry 100 03/28/24 05:04 Oxygen Delivery Room Air 03/28/24 05:04 Lab Data 03/28/24 05:32 03/28/24 05:32 Labs: Lab Results 03/28/24 Range/Units 05:32 WBC 8.6 (4.5-10.0) K/mm3 RBC 3.48 L (4.6-6.20) M/mm3 Hgb 9.2 L (14.0-18.0) g/dL Hct 31.8 L (42.0-52.0) % MCV 91.4 (80-100) fl MCH 26.4 (26-34) pg MCHC 28.9 L (32-36) g/dl RDW 14.7 H (11.5-14.5) % Plt Count 244 (150-375) k/mm3 MPV 10.9 H (7.4-10.4) fl Immature Gran % (Auto) 0.5 (0-0.5) % Neut % (Auto) 78.2 H (45.5-73.1) % Lymph % (Auto) 10.9 L (18.3-44.2) % [place] % (Auto) 9.9 H (2.6-8.5) % Eos % (Auto) 0.2 (0-4.4) % Baso % (Auto) 0.3 (0.2-1.2) % Lymph # (Auto) 0.94 (0.9-3.2) K/mm3 [place] # (Auto) 0.9 H (0.1-0.6) K/mm3 Eos # (Auto) 0.0 (0-0.3) K/mm3 Baso # (Auto) 0.0 (0.0-0.1) K/mm3 Abs Immat Gran (auto) 0.04 H (0.00-0.031) K/mm3 Absolute Neuts (auto) 6.7 (1.3-6.7) K/mm3 Absolute Nucleated RBC 0.000 (0.0-0.012) K/mm3 Nucleated RBC % 0.0 (0.0-0.2) % Platelet Estimate Adequate (Adequate) Hypochromasia 1+ Anisocytosis 1+ Schistocytes None seen Sodium 142 (137-145) mmol/L Potassium 3.8 (3.4-5.0) mmol/L Chloride 112 H (98-107) mmol/L Carbon Dioxide 26 (22-30) mmol/L Anion Gap 4 (4-12) mmol/L BUN 20 (9-20) mg/dL Creatinine 0.90 (0.7-1.3) mg/dL Estim Creat Clear Calc Not Reportable Estimated GFR > 60 (59 - ) Glucose 117 H (65-110) mg/dL Lactic Acid 1.0 (0.7-2.0) mmol/L Calcium 8.6 (8.4-10.2) mg/dL Magnesium 2.1 (1.6-2.3) mg/dL Total Bilirubin 0.6 (0.2-1.3) mg/dL AST 21 (17-59) U/L ALT 14 (6-50) U/L Alkaline Phosphatase 63 (38-126) U/L Total Protein 6.0 L (6.3-8.2) g/dL Albumin 3.3 L (3.5-5.1) g/dL Influenza A (RT-PCR) Negative (Negative) Influenza B (RT-PCR) Negative (Negative) RSV (RT-PCR) Negative (Negative) SARS-CoV-2 RNA (RT-PCR) Negative (Negative) Critical Care Time Critical Care Time Total Critical Care Time: 47 (Please refer to [facility] for attestation.) Discharge Plan Discharge Clinical Impression: Acute exacerbation of chronic obstructive pulmonary disease, Bilateral pneumonia, Atrial fibrillation with RVR Patient Disposition: Still a Patient Condition: Stable Patient Language: [place] Citizen Prescriptions: No Action omeprazole 20 mg capsule,delayed release(DR/EC) 20 mg PO DAILY metoprolol succinate 50 mg tablet extended release 24 hr 50 mg PO DAILY budesonide-formoterol 160-4.5 mcg/actuation HFA aerosol inhaler 2 puff inhalation Q12H Qty: 10.2 5RF Xarelto 20 mg Tablet 20 mg PO DAILY@1700 Qty: 30 3RF furosemide 20 mg Tablet 20 mg PO DAILY 30 Days Qty: 30 0RF ferrous sulfate 325 mg (65 mg iron) Tablet,Delayed Release (Dr/Ec) 325 mg PO DAILY Qty: 30 0RF doxycycline hyclate 100 mg Tablet 100 mg PO Q12HR Qty: 3 0RF amoxicillin-pot clavulanate 875-125 mg tablet 1 tablet PO Q12H Qty: 6 0RF albuterol sulfate 90 mcg/actuation HFA aerosol inhaler 1 inh inhalation Q4-6H PRN (Reason: shortness of breath or wheezing) Qty: 8.5 5RF donepezil 10 mg tablet 10 mg PO HS Qty: 90 2RF memantine 10 mg tablet See Rx Instructions .ROUTE .COMPLEX Qty: 180 2RF Dose Instruction: TAKE 1 TABLET BY MOUTH TWICE A DAY Rx Instructions: TAKE 1 TABLET BY MOUTH TWICE A DAY atorvastatin 10 mg tablet See Rx Instructions .ROUTE .COMPLEX Qty: 90 1RF Dose Instruction: TAKE 1 TABLET BY MOUTH EVERY DAY Rx Instructions: TAKE 1 TABLET BY MOUTH EVERY DAY Follow-up/Referrals: John Tafoya MD [Primary Care Provider] - Time of Disposition: 06:38
[2024-03-28] MEDS: SODIUM CHLORIDE 0.9% IV 1,000 ML 999 ML IV CONT (05:49)
[2024-03-28 05:51] LABS: Magnesium 2.1 mg/dL (1.6-2.3)
[2024-03-28 05:52] LABS: Basophils Percent Auto 0.3 % (0.2-1.2); Eosinophils Percent Auto 0.2 % (0-4.4); Hematocrit 31.8 % (42.0-52.0); Hemoglobin 9.2 g/dL (14.0-18.0); Immature Granulocyte Absolute 0.04 K/mm3 (0.00-0.031); Immature Granulocyte Percent A 0.5 % (0-0.5); Lymphocytes Absolute Auto 0.94 K/mm3 (0.9-3.2); Lymphocytes Percent Auto 10.9 % (18.3-44.2); Mean Corpuscular HGB Conc 28.9 g/dl (32-36); Mean Corpuscular Hemoglobin 26.4 pg (26-34); Mean Corpuscular Volume 91.4 fl (80-100); Mean Platelet Volume 10.9 fl (7.4-10.4); Monocytes Absolute Auto 0.9 K/mm3 (0.1-0.6); Monocytes Percent Auto 9.9 % (2.6-8.5); Neutrophils Absolute Auto 6.7 K/mm3 (1.3-6.7); Neutrophils Percent Auto 78.2 % (45.5-73.1); Platelet Count Result 244 k/mm3 (150-375); Red Blood Count 3.48 M/mm3 (4.6-6.20); Red Cell Distribution Width 14.7 % (11.5-14.5); White Blood Count 8.6 K/mm3 (4.5-10.0)
[2024-03-28 05:53] LABS: Alanine Aminotransferase 14 U/L (6-50); Albumin Level 3.3 g/dL (3.5-5.1); Alkaline Phosphatase 63 U/L (38-126); Anion Gap 4 mmol/L (4-12); Aspartate Amino Transferase 21 U/L (17-59); Bilirubin,Total 0.6 mg/dL (0.2-1.3); Blood Urea Nitrogen 20 mg/dL (9-20); Calcium 8.6 mg/dL (8.4-10.2); Carbon Dioxide 26 mmol/L (22-30); Chloride 112 mmol/L (98-107); Estimated Glomerular Filt Rate > 60; Glucose 117 mg/dL (65-110); Potassium 3.8 mmol/L (3.4-5.0); Sodium 142 mmol/L (137-145)
[2024-03-28 06:18] LABS: Influenza A QL RT-PCR Negative (Negative); Influenza B QL RT-PCR Negative (Negative); RSV RNA, RT-PCR Negative (Negative); SARS-CoV-2 RNA PCR Negative (Negative)
[2024-03-28 06:21] LABS: Anisocytosis 1+; Hypochromasia 1+; Platelet Estimate Adequate (Adequate); Schistocytes None Seen
[2024-03-28] MEDS: dilTIAZem HCl INJ 25 MG/5 ML VIAL 20 MG IV PUSH (07:00)
[2024-03-28] MEDS: dilTIAZem 100 MG/100 ML 100 MG/100 ML BAG IV CONT (07:00)
[2024-03-28] MEDS: [UNRECOGNIZED DRUG - OTHER] 1 EACH XX (07:00)
[2024-03-28] MEDS: CEFEPIME 2 GM/NS 50 ML 2 GM/50 ML BAG IVPB (07:00)
--- NOTE | 2024-03-28 08:11 | PCRCNOTE ---
RN asked RT to assess patient for work of breathing. This RT assessed patient and his O2 sat is 94% on 3L. Breathsounds on the right are diminished rhonchi while breathsounds on the left are diminished with expiratory wheezes. Patient's respirations are currently 32 with accessory muscle use and abdominal breathing. Pt states he does feel short of breath while just laying there. Patient received a 10mg Albuterol neb with 2mg of Atrovent in ED at 0520. Due to the dosing the treatment should have lasted over an hour. RT will suggest possible bipap for patient's work of breathing.
--- NOTE | 2024-03-28 08:17 | PCRCNOTE ---
RT spoke to RN and she stated she spoke to family and the patient has expressed wanting to be a DNR and possible comfort care/hospice. Will not be placing bipap @ this time.
--- NOTE | 2024-03-28 08:43 | PC.NURSE ---
Arrived to the floor via stretcher from the emergency department. Oriented to self only. Respiratory rate 30, oxygen saturations 34% on 3L/NC. Patient is using accessory muscles while breathing and audible wheezing noted. Patient poor historian. This RN called family and spoke to spouse (Leopold) for admission information. States that patient has history of dementia and has been declining . States that he was just in the hospital on Wednesday . When asked about code status, states he doesn't want anything done . For clarification, this RN stated So he wants to be a DNR/DNI, meaning no chest compressions on intubation ? Spouse states Yes This RN further asked based on his decline have you ever considered hospice? Spouse stated Yes, about a year and a half ago we talked about it because he didn't want a feeding tube and had been aspirating . But he showed some improvement, so we waited although I do think it is time now . He has been declining . This RN asked what hospice facility they had spoke with and if they would want the same facility? Spouse said We spoke to Janis and that would be fine . This RN explained that I would call the doctor and care coordination to let them know your wishes. Please keep your phone near by as there will be people calling you. Verbalizes understanding. After the phone call, this RN called hospitalist Rose and reported patient and family wishes including DNR/DNI status and desire for hospice. This RN also called care coordination to update.
--- NOTE | 2024-03-28 10:56 | PC.NURSE ---
Patient pulled IV out and registered nurse cardiac telemetry off. Called provider to make aware. Awaiting care coordination guidance for hospice at this time. Okayed by provider to keep IV out at this time as patient is expected to go on hospice today. Made career representative aware of situation.
--- NOTE | 2024-03-28 13:04 | PM.IMHP ---
H&P: HPI History of Present Illness Date/Time: 03/28/24 13:04 Chief Complaint: shortness of breath /dyspnea Narrative: This is an 83-year-old male with a significant past medical history of Paroxysmal atrial fibrillation hyperlipidemia, chronic venous insufficiency bilateral lower extremity, dementia, aortic stenosis status post TAVR, congestive heart failure, chronic respiratory failure with hypoxia, pulmonary hypertension, GERD, prostate cancer, tobacco abuse. presented to the hospital with increasing shortness of breath. Patient was recently discharged from our facility 3 days ago with pneumonia and COPD exacerbation. EMS was called as patient started having difficulty breathing with respiratory rate in the high 26. He was found to be satting 99 91% on 4 L nasal cannula when EMS arrived. EMS gave a DuoNeb in route to the hospital which slightly improved his symptoms. Workup in the hospital included chest x-ray which shown airspace opacities in the mid and lower lung zones, small pleural effusion, emphysema. Initial labs showed a normal white blood count of 8.6, hemoglobin 9.2, otherwise unremarkable. Respiratory panel was negative. Blood cultures were obtained and are pending. Patient was given be lysed breathing treatments, Solu-Medrol, 1 L of normal saline, started on cefepime and azithromycin, given 20 mg IV push Cardizem and started on a Cardizem infusion while in the ED. I was called by nursing staff this morning stating that the patient took out his IV and took himself off the monitor stated he did not want to continue with treatment at this time. Family and patient would prefer discuss hospice instead. Spoke with as patient is confused in the room. She states that she just wants to make him comfortable however she can not take him home as she is unable to care for him there. She would rather keep uncomfortable with hospice at a facility if this can be arranged. He is currently a DNR DNI. He appears to be in acute respiratory distress with use of accessory muscles to breathe. Heart rate on the monitor showing AFib with RVR. This is reasonable considering patient has dementia of severe aortic stenosis, congestive heart, acute on chronic respiratory failure. I spoke with Case coordination to set up hospice either at a facility or inpatient as I feel he can use still qualify for inpatient. comfort orders placed. Review of Systems Review of Systems: ROS unobtainable: Yes unobtainable due to mental status PMFSH Past Medical History Medical History Paroxysmal atrial fibrillation Presbycusis of both ears Kidney stones Hyperlipidemia Stenosis of right carotid artery Essential hypertension Chronic venous insufficiency of lower extremity Dementia Severe aortic stenosis by prior echocardiogram 2015 Diastolic heart failure Grade 2 diastolic heart failure known echocardiogram 2015 with indeterminate diastolic function noted on echocardiogram 2019 Vasomotor rhinitis Chronic respiratory failure with hypoxia Chronic home O2 Abdominal aortic aneurysm, without rupture Pulmonary hypertension due to lung diseases and hypoxia Severe with last echo 2019 Gastro-esophageal reflux disease without esophagitis History of prostate cancer 2004 Panlobular emphysema Lung nodule Tobacco abuse Quit 2004. 49 pack years 1ppd. Surgical History Surgical History History of colonoscopy with polypectomy History of tonsillectomy and adenoidectomy History of right inguinal hernia repair (~2005) History of aortic valve replacement with tissue graft (~2015) Due to severely stenosed bicuspid aortic valve with a Magna tissue valve replacement History of radical prostatectomy (~2004) With adjunctive radiation therapy Family History Family History Father Acute myocardial infarction Heart disease Mother Acute myocardial infarction Heart disease Sibling Malignant neoplasm of prostate Alzheimer's dementia Heart disease Son Type 1 diabetes Other Alzheimer disease Social History Social History Social History: Code status: DNR/DNI Surrogate decision maker: Smoking packs per day: 1 Smoking cigarettes per day: 20.0 Years smoked: 46 Smoking pack-years: 46.00 Smoking status: Former smoker Alcohol intake: never Substance use: never Substance use type: does not use Lack of Transportation: No Lack of Food: Never True Current Housing: I Have Housing Concerned About Future Housing: No Difficulty Paying Gas/Electric Bills: No Difficulty Paying for Meds: No Currently Unemployed: No Education: Trade/Vocational Certificate Difficulty w/ Childcare or Family Care: No Living arrangements: with family Additional living arrangements comments: He lives with his and his son lives in the basement and is separate living quarters. 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 Gender identity (if verbalized by the patient): Male Sexual Orientation (if Verbalized by the Patient): Straight or Heterosexual Spiritual care concerns: No Agree to blood products: Yes Meds Home Medications and Allergies Home Medications ?Medication ?Instructions ?Recorded ?Confirmed ?Type rivaroxaban 20 mg tablet (Xarelto) 20 mg PO DAILY@1700 #30 tabs 04/24/19 03/28/24 Rx omeprazole 20 mg capsule,delayed 20 mg PO DAILY 01/23/22 03/28/24 History release budesonide-formoterol HFA 160 2 puff inhalation Q12H #10.2 grams 08/10/22 03/28/24 Rx mcg-4.5 mcg/actuation aerosol inhaler furosemide 20 mg tablet 20 mg PO DAILY 30 days #30 tabs 10/19/22 03/28/24 Rx albuterol sulfate 90 mcg/actuation 1 inh inhalation Q4-6H PRN 02/01/23 03/28/24 Rx aerosol inhaler shortness of breath or wheezing #8.5 grams donepezil 10 mg tablet 10 mg PO HS #90 tabs 09/10/23 03/28/24 Rx memantine 10 mg tablet See Rx Instructions .Route 02/10/24 03/28/24 Rx .COMPLEX #180 tabs metoprolol succinate 50 mg 50 mg PO DAILY 03/15/24 03/28/24 History tablet,extended release 24 hr amoxicillin 875 mg-potassium 1 tablet PO Q12H #6 tabs 03/25/24 03/28/24 Rx clavulanate 125 mg tablet atorvastatin 10 mg tablet See Rx Instructions .Route 03/25/24 03/28/24 Rx .COMPLEX #90 tabs doxycycline hyclate 100 mg tablet 100 mg PO Q12HR #3 tabs 03/25/24 03/28/24 Rx ferrous sulfate 325 mg (65 mg 325 mg PO DAILY #30 tabs 03/25/24 03/28/24 Rx iron) tablet,delayed release Allergies Allergy/AdvReac Type Severity Reaction Status Date / Time No Known Allergies Allergy Verified 03/15/24 10:58 Vital Signs Vital Signs - 24 hr 03/28/24 05:04 03/28/24 05:21 03/28/24 07:00 Temperature 97.3 F L Pulse Rate 135 H 129 H 159 H Respiratory Rate 30 H 32 H Blood Pressure 154/63 H 151/75 H Pulse Oximetry 100 Oxygen Delivery Room Air Oxygen Flow Rate Fraction of Inspired Oxygen 03/28/24 07:15 03/28/24 07:18 03/28/24 07:18 Temperature Pulse Rate 135 H 134 H 136 H Respiratory Rate 36 H 33 H Blood Pressure 119/52 L Pulse Oximetry 99 Oxygen Delivery Oxygen Flow Rate Fraction of Inspired Oxygen 03/28/24 07:22 03/28/24 07:24 03/28/24 08:10 Temperature 97.2 F L Pulse Rate 138 H 120 H Respiratory Rate 20 Blood Pressure 110/68 Pulse Oximetry 99 95 Oxygen Delivery Nasal Cannula Oxygen Flow Rate 3 Fraction of Inspired Oxygen 03/28/24 08:11 Temperature Pulse Rate 134 H Respiratory Rate 32 H Blood Pressure Pulse Oximetry 94 Oxygen Delivery Nasal Cannula Oxygen Flow Rate 3 Fraction of Inspired Oxygen 32 Exam Narrative: General: In acute respiratory distress, malnourished Head: atraumatic, no encephalopathy Eyes: PERRLA, sclera clear ENT: moist mucous membranes, nasal passages clear Neck: supple, no JVD, no adenopathy, trachea midline Cardiac: Normal S1 and S2. Irregular rate and rhythm, Atrial fibrillation RVR on monitor. No murmur, gallops or friction rubs, peripheral pulses intact. Respiratory: Lungs coarse throughout with audible wheezing, no other adventitious lung sounds, currently on 3 L nasal cannula, acute respiratory distress with use of accessory muscles. Congested cough, non-productive Gastrointestinal: soft, non-distended, non-tender, normoactive bowel sounds. : voiding without difficulty. Extremities: moves all extremities well, no edema Skin: clean, dry, intact. No wounds or lesions. Neuro: Alert and confused, cranial nerves intact, no neuro deficits. Psych: normal mood, normal affect, interactive H&P: Results Labs Labs: Short CBC 03/28/24 Range/Units 05:32 WBC 8.6 (4.5-10.0) K/mm3 Hgb 9.2 L (14.0-18.0) g/dL Hct 31.8 L (42.0-52.0) % Plt Count 244 (150-375) k/mm3 [facility] 03/28/24 05:32 Sodium 142 Potassium 3.8 Chloride 112 H Carbon Dioxide 26 BUN 20 Creatinine 0.90 Glucose 117 H Calcium 8.6 Liver Function 03/28/24 Range/Units 05:32 Total Bilirubin 0.6 (0.2-1.3) mg/dL AST 21 (17-59) U/L ALT 14 (6-50) U/L Alkaline Phosphatase 63 (38-126) U/L Albumin 3.3 L (3.5-5.1) g/dL
--- NOTE | 2024-03-28 14:49 | HP_ITS ---
This Short Stay Summary was moved to the correct visit on 03/31/2024. The original report was signed by Rose Barraza on 03/28/24 0617. Same Day Admit/Disch: HPI History of Present Illness Chief complaint: Respiratory Failure Narrative: This is an 83-year-old male with a significant past medical history of Paroxysmal atrial fibrillation hyperlipidemia, chronic venous insufficiency bilateral lower extremity, dementia, aortic stenosis status post TAVR, congestive heart failure, chronic respiratory failure with hypoxia, pulmonary hypertension, GERD, prostate cancer, tobacco abuse. presented to the hospital with increasing shortness of breath. Patient was recently discharged from our facility 3 days ago with pneumonia and COPD exacerbation. EMS was called as patient started having difficulty breathing with respiratory rate in the high 26. He was found to be satting 99 91% on 4 L nasal cannula when EMS arrived. EMS gave a DuoNeb in route to the hospital which slightly improved his symptoms. Workup in the hospital included chest x-ray which shown airspace opacities in the mid and lower lung zones, small pleural effusion, emphysema. Initial labs showed a normal white blood count of 8.6, hemoglobin 9.2, otherwise unremarkable. Respiratory panel was negative. Blood cultures were obtained and are pending. Patient was given be lysed breathing treatments, Solu-Medrol, 1 L of normal saline, started on cefepime and azithromycin, given 20 mg IV push Cardizem and started on a Cardizem infusion while in the ED. I was called by nursing staff this morning stating that the patient took out his IV and took himself off the monitor stated he did not want to continue with treatment at this time. Family and patient would prefer discuss hospice instead. Spoke with as patient is confused in the room. She states that she just wants to make him comfortable however she can not take him home as she is unable to care for him there. She would rather keep uncomfortable with hospice at a facility if this can be arranged. He is currently a DNR DNI. He appears to be in acute respiratory distress with use of accessory muscles to breathe. Heart rate on the monitor showing AFib with RVR. This is reasonable considering patient has dementia of severe aortic stenosis, congestive heart, acute on chronic respiratory failure. I spoke with Case coordination to set up hospice either at a facility or inpatient as I feel he can use still qualify for inpatient. comfort orders placed. 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 49 pack years 1ppd. Surgical History Surgical History History of colonoscopy with polypectomy History of tonsillectomy and adenoidectomy History of right inguinal hernia repair (~2005) History of aortic valve replacement with tissue graft (~2015) Due to severely stenosed bicuspid aortic valve with a Magna tissue valve replacementHistory of radical prostatectomy (~2004) With adjunctive radiation therapy Family History Family History Father Acute myocardial infarction Heart diseaseMother Acute myocardial infarction Heart diseaseSibling Malignant neoplasm of prostate Alzheimer's dementia Heart diseaseSon Type 1 diabetesOther Alzheimer disease Social History Social History Social History: Code status: DNR/DNI Surrogate decision maker: Smoking packs per day: 1 Smoking cigarettes per day: 20.0 Years smoked: 46 Smoking pack-years: 46.00 Smoking status: Former smoker Alcohol intake: never Substance use: never Substance use type: does not use Lack of Transportation: No Lack of Food: Never True Current Housing: I Have Housing Concerned About Future Housing: No Difficulty Paying Gas/Electric Bills: No Difficulty Paying for Meds: No Currently Unemployed: No Education: Trade/Vocational Certificate Difficulty w/ Childcare or Family Care: No Living arrangements: with family Additional living arrangements comments: He lives with his and his son lives in the basement and is separate living quarters. 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 Gender identity (if verbalized by the patient): Male Sexual Orientation (if Verbalized by the Patient): Straight or Heterosexual Spiritual care concerns: No Agree to blood products: Yes Same Day Admit/Disch: Med Pre-admit Medications Home Medications ?Medication ?Instructions ?Recorded ?Confirmed ?Type rivaroxaban 20 mg tablet (Xarelto) 20 mg PO DAILY@1700 #30 tabs 04/24/19 03/28/24 Rx omeprazole 20 mg capsule,delayed 20 mg PO DAILY 01/23/22 03/28/24 History release budesonide-formoterol HFA 160 2 puff inhalation Q12H #10.2 grams 08/10/22 03/28/24 Rx mcg-4.5 mcg/actuation aerosol inhaler furosemide 20 mg tablet 20 mg PO DAILY 30 days #30 tabs 10/19/22 03/28/24 Rx albuterol sulfate 90 mcg/actuation 1 inh inhalation Q4-6H PRN 02/01/23 03/28/24 Rx aerosol inhaler shortness of breath or wheezing #8.5 grams donepezil 10 mg tablet 10 mg PO HS #90 tabs 09/10/23 03/28/24 Rx memantine 10 mg tablet See Rx Instructions .Route 02/10/24 03/28/24 Rx .COMPLEX #180 tabs metoprolol succinate 50 mg 50 mg PO DAILY 03/15/24 03/28/24 History tablet,extended release 24 hr amoxicillin 875 mg-potassium 1 tablet PO Q12H #6 tabs 03/25/24 03/28/24 Rx clavulanate 125 mg tablet atorvastatin 10 mg tablet See Rx Instructions .Route 03/25/24 03/28/24 Rx .COMPLEX #90 tabs doxycycline hyclate 100 mg tablet 100 mg PO Q12HR #3 tabs 03/25/24 03/28/24 Rx ferrous sulfate 325 mg (65 mg 325 mg PO DAILY #30 tabs 03/25/24 03/28/24 Rx iron) tablet,delayed release Review of Systems Review of Systems All systems reviewed & are unremarkable except as noted in HPI and below Constitutional Constitutional: Reports as per HPI and Reports no additional constitutional complaints Eyes Eyes: Reports as per HPI and Reports no additional eye complaints ENT Reports system reviewed and no additional complaints, except as documented and Reports as per HPI Cardiovascular Cardiovascular: Reports as per HPI and Reports no additional cardiovascular complaints Respiratory Respiratory: Reports as per HPI and Reports no additional respiratory complaints Gastrointestinal Gastrointestinal: Reports as per HPI and Reports no additional gastrointestinal complaints Genitourinary Genitourinary: Reports no additional male genitourinary complaints and Reports as per HPI Musculoskeletal Musculoskeletal: Reports no additional musculoskeletal complaints and Reports as per HPI Integumentary/Breasts Skin/Breast: Reports system reviewed and no additional complaints, except as docu and Reports as per HPI Neurologic Reports system reviewed and no additional complaints, except as documented and Reports as per HPI Psychiatric Psychiatric: Reports no additional psychiatric complaints and Reports as per HPI Endocrine Endocrine: Reports no additional endocrine complaints and Reports as per HPI Hematologic/Lymphatic Hematologic/Lymphatic: Reports no additional hematologic/lymphatic complaints and Reports as per HPI Allergic/Immunologic Allergic/Immunologic: Reports no additional allergic/immunologic complaints and Reports as per HPI Exam Narrative: General: In acute respiratory distress, malnourished Head: atraumatic, no encephalopathy Eyes: PERRLA, sclera clear ENT: moist mucous membranes, nasal passages clear Neck: supple, no JVD, no adenopathy, trachea midline Cardiac: Normal S1 and S2. Irregular rate and rhythm, Atrial fibrillation RVR on monitor. No murmur, gallops or friction rubs, peripheral pulses intact. Respiratory: Lungs coarse throughout with audible wheezing, no other adventitious lung sounds, currently on 3 L nasal cannula, acute respiratory distress with use of accessory muscles. Congested cough, non-productive Gastrointestinal: soft, non-distended, non-tender, normoactive bowel sounds. : voiding without difficulty. Extremities: moves all extremities well, no edema Skin: clean, dry, intact. No wounds or lesions. Neuro: Alert and confused, cranial nerves intact, no neuro deficits. Psych: normal mood, normal affect, interactive DS: Data Data Completed and Pending Completed studies during hospitalization: Chest x-ray Labs on day of discharge: Blood cultures Procedures/Treatments: None Imaging Radiologist's impression: EXAMINATION: XR chest 1V portable DATE: 03/28/2024 05:28 INDICATION: Shortness of breath. TECHNIQUE: A single frontal view of the chest was obtained. COMPARISON: Chest CT 03/21/2024, chest single view 10/12/2022 FINDINGS: There are lucencies in the lungs, consistent with emphysema. There are small pleural effusions. There are peripheral airspace opacities in the mid and lower lung zones. No pneumothorax. The heart size is normal. There are changes of aortic valve replacement. IMPRESSION: 1. Peripheral airspace opacities in the mid and lower lung zones, likely rounded atelectasis without or with superimposed pneumonia. 2. Small pleural effusions. 3. Emphysema. 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 presented to the hospital with increasing shortness of breath. Patient was recently discharged from our facility 3 days ago with pneumonia and COPD exacerbation. EMS was called as patient started having difficulty breathing with respiratory rate in the high 26. He was found to be satting 99 91% on 4 L nasal cannula when EMS arrived. EMS gave a DuoNeb in route to the hospital which slightly improved his symptoms. Workup in the hospital included chest x-ray which shown airspace opacities in the mid and lower lung zones, small pleural effusion, emphysema. Initial labs showed a normal white blood count of 8.6, hemoglobin 9.2, otherwise unremarkable. Respiratory panel was negative. Blood cultures were obtained and are pending. Patient was given be lysed breathing treatments, Solu-Medrol, 1 L of normal saline, started on cefepime and azithromycin, given 20 mg IV push Cardizem and started on a Cardizem infusion while in the ED. I was called by nursing staff this morning stating that the patient took out his IV and took himself off the monitor stated he did not want to continue with treatment at this time. Family and patient would prefer discuss hospice instead. Spoke with as patient is confused in the room. She states that she just wants to make him comfortable however she can not take him home as she is unable to care for him there. She would rather keep uncomfortable with hospice at a facility if this can be arranged. He is currently a DNR DNI. He appears to be in acute respiratory distress with use of accessory muscles to breathe. Heart rate on the monitor showing AFib with RVR. This is reasonable considering patient has dementia of severe aortic stenosis, congestive heart, acute on chronic respiratory failure. I spoke with Case coordination to set up hospice either at a facility or inpatient as I feel he can use still qualify for inpatient. comfort orders placed. Patient discharged to [facility]. Final diagnosis: Acute respiratory failure with hypoxia, pneumonia Status at Discharge Cognitive/behavioral status at discharge: Alert and confused Functional status at discharge: bed bound Overall status at discharge: patient is not back to baseline Time Spent with Patient Time attestation: Total time spent providing and/or coordinating discharge services: Time spent: Greater than 30 minutes DS: Admitting Diagnosis Discharge Date 03/28/24 Admitting Diagnosis Acute respiratory failure with hypoxia Pneumonia DS: Discharge Diagnosis Discharge Diagnosis Plan Inpatient hospice with [facility]. Discharge Plan Discharge Attending physician on discharge: Tessie Wyatt Discharging Clinician: Rose Barraza Anticipated Discharge Date/Time: 03/28/24 14:49 Patient Disposition: Hospice - Medical Facility Activity: as tolerated Diet: as tolerated and regular Discharge Instructions: Discharged to inpatient hospice with [facility] Patient Language: Prydeinig Stand Alone Forms: General Discharge Information Discharge Medications: Discontinued omeprazole 20 mg capsule,delayed release(DR/EC) 20 mg PO DAILY metoprolol succinate 50 mg tablet extended release 24 hr 50 mg PO DAILY budesonide-formoterol 160-4.5 mcg/actuation HFA aerosol inhaler 2 puff inhalation Q12H Qty: 10.2 5RF Xarelto 20 mg Tablet 20 mg PO DAILY@1700 Qty: 30 3RF furosemide 20 mg Tablet 20 mg PO DAILY 30 Days Qty: 30 0RF ferrous sulfate 325 mg (65 mg iron) Tablet,Delayed Release (Dr/Ec) 325 mg PO DAILY Qty: 30 0RF doxycycline hyclate 100 mg Tablet 100 mg PO Q12HR Qty: 3 0RF amoxicillin-pot clavulanate 875-125 mg tablet 1 tablet PO Q12H Qty: 6 0RF albuterol sulfate 90 mcg/actuation HFA aerosol inhaler 1 inh inhalation Q4-6H PRN (Reason: shortness of breath or wheezing) Qty: 8.5 5RF donepezil 10 mg tablet 10 mg PO HS Qty: 90 2RF memantine 10 mg tablet See Rx Instructions .ROUTE .COMPLEX Qty: 180 2RF Dose Instruction: TAKE 1 TABLET BY MOUTH TWICE A DAY Rx Instructions: TAKE 1 TABLET BY MOUTH TWICE A DAY atorvastatin 10 mg tablet See Rx Instructions .ROUTE .COMPLEX Qty: 90 1RF Dose Instruction: TAKE 1 TABLET BY MOUTH EVERY DAY Rx Instructions: TAKE 1 TABLET BY MOUTH EVERY DAY Date of admission: 03/28/24 14:31 Primary Care Provider: John Tafoya Admitting Provider: Tom Brown Attending physician on admission: Tom Brown Condition: Terminal Hospitalist MIPS Advance Care Plan I have confirmed that the patient's Advanced Care Plan is present, code status is documented, or surrogate decision maker is listed in patient medical record.: Yes Medication Reconciliation I have utilized all available resources to obtain, update and review the patients current medications (includes all prescriptions, OTC, herbals, cannabis, and nutritional supplements).: Yes Heart Failure (Exclusion) Patient has history of Heart Transplant or Left Ventricular Assistive Device?: No IF YES, STOP HERE Heart Failure (Qualifier) Patient has current or prior documentation of LVEF less than or equal to 40%, or mod/servere depressed LVSF?: No IF NO, STOP HERE This report may have been done utilizing a voice recognition system. Attempts have been made to correct errors. However, there may be uncorrected grammatical, spelling, and recognition errors present. Report Initialized date/time: Rose Barraza APRN 03/28/24 / 1449 Electronically signed by: Rose Barraza APRN 03/28/24 4231 [facility]
--- OUTSIDE RECORDS SUMMARY | 2024-04-04 03:27 | XMS_ITS | Clinical Summary ---
Author Organization [facility] [address] Address [address] [place] [address] Care Team Providers Care Woods Boss Name Role Phone John Tafoya MD Primary Care Prov ider Allergies No known active allergies Medications multivitamin tablet tablet take 1 by Oral route once 0 0 3 Active Additional Information Patient not taking.Reported on 09/28/2023 atorvastatin (LIPITOR) 10 mg tablet take 1 tablet by oral route every day 0 0 3 Active albuterol HFA (PROAIR HFA) 90 mcg/actuation inhaler inhale 2 puff by inhalation route every 4 - 6 hours as needed 0 Inhaler 0 6 Active omeprazole (PriLOSEC) 20 mg capsule 1 capsule (20 mg total) daily 6 Active predniSONE (DELTASONE) 10 mg tablet Take 1 tablet (10 mg) by mouth daily Prn with breathing Active donepezil (ARICEPT) 10 mg tablet Take 1 tablet (10 mg total) by mouth daily 0 Active oxygenIndicatio ns:Dyspnea Administer 2 L/min into each nostril as needed Active ipratropium (ATROVENT) 0.02 % nebulizer solution Take 2.5 mL (0.5 mg total) by nebulization 4 (four) times a day Active Symbicort 80-4.5 mcg/actuation inhaler USE 2 PUFFS EVERY 12HOURS RINSE AND SPIT AFTER EACH USE. USE WITH SPACER. 0 Active Lisa Nathan [facility] spacer as directed 0 Active memantine (NAMENDA) 10 mg tablet Take 1 tablet (10 mg total) by mouth 2 (two) times a day 0 Active cholecalciferol (VITAMIN D-3) 2000 unit capsule 1 capsule (2,000 Units total) Active methscopolamine (PAMINE) 2.5 mg tablet Take 1 tablet (2.5 mg total) by mouth 3 (three) times a day 2 Active metoprolol XL (TOPROL-XL) 50 mg extended release tablet Take 1 tablet (50 mg total) by mouth daily 90 tablet 3 4 04/19/19 25 Active Xarelto 20 mg tablet TAKE 1 TABLET BY MOUTH EVERY DAY AT 5PM 90 tablet 1 4 Active furosemide (LASIX) 20 mg tabletIndicatio ns:Chronic diastolic congestive heart failure (CMS/HCC) (HCC) TAKE 1 TABLET BY MOUTH EVERY DAY 90 tablet 2 4 Active Active Problems Problem Noted Date Diagnosed Date Paroxysmal atrial fibrillation (CMS/HCC) 021 Other emphysema 05/23/2019 Presence of prosthetic heart valve 11/05/2016 Aortic valve stenosis 10/30/2015 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/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 Overview (07/09/2016): Congenital stenosis of aortic valve Resolved Problems Problem Noted Date Diagnosed Date Resolved Date Chronic coronary artery disease 10/29/2015 03/03/2022 Medical History Medical History Date Comments Chronic obstructive pulmonary disease (HCC) COPD Family History Medical History Relation Name Comments Heart attack Father 2 Myocardial Infa rction; Heart attack Mother 2 Myocardial Infa rction; Relation Name Status Comments Father 1 Alive Father 2 Mother 1 Alive Mother 2 Social History Tobacco Use Types Packs/Day Years Used Date Smoking Tobacco: Former Smokeless Tobacco: Never Tobacco Cessation:Counseling Given: Not Answered Alcohol Use Standard Drinks/Week Comments Yes 0 (1 standard drink = 0.6 oz pur e alcohol) Sex and Gender Information Value Date Recorded Sex Assigned at Not on file 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 Gender Identity Not on file Sexual Orientation Not on file Obstetrics History Last Filed Vital Signs Vital Sign Reading Time Taken Comments Blood Pressure 106/60 09/28/2023 11:02 AM CDT Pulse 90 09/28/2023 11:02 AM CDT Temperature - - Respiratory Rate 12 11/05/2016 9:40 AM CDT Oxygen Saturation 92% 09/28/2023 11:02 AM CDT Inhaled Oxygen Concentration - - Weight 57.9 kg (127 lb 9.6 oz) 09/28/2023 11:02 AM CDT Height 157.5 cm (5' 2 ) 09/28/2023 11:02 AM CDT Body Mass Index 23.34 09/28/2023 11:02 AM CDT Plan of Treatment Health Maintenance Due Date Last Done Comments Depression Screening 1940 Fall Risk Assessment 1940 Pneumococcal vaccine 65+ (1 of 2 - PCV) 12/11/1945 DTaP/Tdap/Td Vaccine (1 - Tdap) 12/11/1950 Hepatitis B Screening 12/11/1957 Zoster Vaccine (1 of 2) 12/11/1989 Well Visit 65+ 12/11/2004 Influenza Vaccine (#1) 2023 12/20/2015 Insurance [facility] Care Teams Woods Boss Relationship Specialty Start Date End Date John Tafoya MD [address] [place], [place] [phone] PCP - General 01/25/14
--- OUTSIDE RECORDS SUMMARY | 2024-04-04 03:27 | XMS_ITS | Referral Summary ---
Author Organization [facility] [address] Address [address] [place] [address] Care Team Providers Care Transportation Specialist Name Role Phone John Tafoya MD Primary [...] USE WITH SPACER. 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 Care Teams Transportation Specialist Relationship Specialty Start Date End Date John Tafoya MD [address] [place] [address] PCP - General 01/25/14
--- OUTSIDE RECORDS SUMMARY | 2024-04-04 03:27 | XMS_ITS | Encounter Summary ---
Author Organization [facility] Address [address] [place] [address] Care Team Providers Care Plastic Finisher Name Role Phone John Tafoya MD Primary Care Prov ider Reason for Visit * Reason Comments Atrial Fibrillation 6 month follow up. * Consultation (Routine) - Authorized Specialty Diagnoses / Procedures Referred By Contac t Referred To Contact Cardiology Diagnoses Paroxysmal atrial fibrillation (CMS/HCC) (HCC) John Tafoya MD [address] [place] [address] Phone: tel: fax: Lalo Valentine MD [address] [id number] Phone: tel: fax: Referral ID Status Reason Start Date Expiration Date Visits Requested Visits Authorized [id number] Authorized Specialty Services Required 09/22/2023 09/22/2024 12 12 Encounter Details Date Type Department Care Team (Late st Contact Info) Description 09/28/2023 11:00 AM CDT Office Visit [facility] Cardiology [address] [phone] Adolfo Reyes MD [address] [phone] Paroxysmal atrial fibrillation (CMS/HCC) (HCC) Social History Tobacco Use Types Packs/Day Years Used Date Smoking Tobacco: Former Smokeless Tobacco: Never Alcohol Use Standard Drinks/Week Comments Yes 0 (1 standard drink = 0.6 oz pur e alcohol) Sex and Gender Information Value Date Recorded Sex Assigned at Not on file 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 Gender Identity Not on file Sexual Orientation Not on file documented as of this encounter Last Filed Vital Signs Vital Sign Reading Time Taken Comments Blood Pressure 106/60 09/28/2023 11:02 AM CDT Pulse 90 09/28/2023 11:02 AM CDT Temperature - - Respiratory Rate - - Oxygen Saturation 92% 09/28/2023 11:02 AM CDT Inhaled Oxygen Concentration - - Weight 57.9 kg (127 lb 9.6 oz) 09/28/2023 11:02 AM CDT Height 157.5 cm (5' 2 ) 09/28/2023 11:02 AM CDT Body Mass Index 23.34 09/28/2023 11:02 AM CDT documented in this encounter Progress Notes * Adolfo Reyes MD - 09/28/2023 11:00 AM CDT [facility] FOLLOW UP 09/28/2023 Ryan Dos Santos is a 82 y.o. male who presents for follow up of previous aortic valve replacement. This is a patient who had a bicuspid aortic valve who was referred for surgical treatment in November at [facility]. He received a magna pericardial valve and has done very well since then. He does not have coronary artery disease. The patient does have significant COPD which does resultin chronic MCCLURE even after his aortic valve replacement. The patient presented to the hospital at [facility] in April of 2019 with some shortness of breath and was found to be in atrial fibrillation. It looks like he was placed on sotalol, anticoagulated and electrically cardioverted to sinus rhythm. In September of 2022 it was noticed during a routine office visit well he was asymptomatic that he was in atrial fibrillation. A Holter monitor demonstrated persistent atrial fibrillation and no further evidence of sinus rhythm. The decision was made to accept chronic atrial fibrillation and he was transitioned from sotalol to metoprolol for rate control. He was hospitalized in October of 2022 at [facility] with some diastolic heart failure. His metoprolol dosage was advanced to provide better rate control and systemic anticoagulation with Xarelto was continued. I believe he has been taking nifedipinefor hypertension that was stopped as he was experiencing hypotensive at that point. He returns to the office today for scheduled follow-up. He has offering no cardiovascular symptoms or concerns. 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 He is dependent on oxygen and uses a rolling walker to get around. He had some questions about the need to continue on Xareltoand we discussed about stroke prophylaxis for a while REVIEW OF SYSTEMS General ROS: negative for - chills, fatigue, fever, malaise, night sweats, weight gain or weight loss Psychological ROS: negative for - anxiety, depression, memory difficulties or sleep disturbances Ophthalmic ROS: negative for - blurry vision, decreased vision, loss of vision or scotomata ENT ROS: negative for - epistaxis, headaches, hearing change, nasal congestion, nasal discharge, sore throat, vertigo or visual changes Hematological and Lymphatic ROS: negative for - bleeding problems, blood clots, bruising, fatigue or weight loss Endocrine ROS: negative for - hot flashes, palpitations, polydipsia/polyuria or unexpected weight changes Respiratory ROS: negative for - cough, hemoptysis, orthopnea, shortness of breath, tachypnea or wheezing Cardiovascular ROS: negative for - chest pain, dyspnea on exertion, edema, irregular heartbeat, loss of consciousness, murmur, orthopnea, palpitations, paroxysmal nocturnal dyspnea, rapid heart rate or shortness of breath Gastrointestinal ROS: negative for - abdominal pain, appetite loss, blood in stools, constipation, diarrhea, gas/bloating, heartburn, hematemesis, melena or nausea/vomiting Genito-Urinary ROS: negative for - dysuria, or hematuria Musculoskeletal ROS: negative for - joint pain, muscle pain or muscular weakness Dermatological ROS: negative for dry skin, eczema, pruritus and rash HOME MEDICATIONS Current Outpatient Medications: albuterol HFA (PROAIR HFA) 90 mcg/actuation inhaler, inhale 2 puff by inhalation route every 4 - 6 hours as needed, Disp: 0 Inhaler, Rfl: 0 atorvastatin (LIPITOR) 10 mg tablet, take 1 tablet by oral route every day, Disp: 0, Rfl: 0 donepezil (ARICEPT) 10 mg tablet, Take 1 tablet (10 mg total) by mouth daily, Disp: , Rfl: furosemide (LASIX) 20 mg tablet, Take 1 tablet (20 mg total) by mouth daily, Disp: 90 tablet, Rfl: 3 ipratropium (ATROVENT) 0.02 % nebulizer solution, Take 2.5 mL (0.5 mg total) by nebulization 4 (four) times a day, Disp: , Rfl: memantine (NAMENDA) 10 mg tablet, Take 1 tablet (10 mg total) by mouth 2 (two) times a day, Disp: ,Rfl: methscopolamine (PAMINE) 2.5 mg tablet, Take 1 tablet (2.5 mg total) by mouth 3 (three) times a day, Disp: , Rfl: metoprolol XL (TOPROL-XL) 50 mg extended release tablet, Take 1 tablet (50 mg total) by mouth daily, Disp: 90 tablet, Rfl: 3 omeprazole (PriLOSEC) 20 mg capsule, 1 capsule (20 mg total) daily, Disp: , Rfl: Lisa Nathan [facility] spacer, as directed, Disp: , Rfl: oxygen, Administer 2 L/min into each nostril as needed, Disp: , Rfl: Xarelto 20 mg tablet, TAKE 1 TABLET BY MOUTH EVERY DAY AT 5PM, Disp: 90 tablet, Rfl: 1 cholecalciferol (VITAMIN D-3) 2000 unit capsule, 1 capsule (2,000 Units total) (Patient not taking:Reported on 03/25/2023), Disp: , Rfl: multivitamin tablet tablet, take 1 by Oral route once (Patient not taking: Reported on 09/28/2023), Disp: 0, Rfl: 0 predniSONE (DELTASONE) 10 mg tablet, Take 1 tablet (10 mg) by mouth daily Prn with breathing (Patient not taking: Reported on 03/25/2023), Disp: , Rfl: Symbicort 80-4.5 mcg/actuation inhaler, USE 2 PUFFS EVERY 12HOURS RINSE AND SPIT AFTER EACH USE. USE WITH SPACER. (Patient not taking: Reported on 09/28/2023), Disp: , Rfl: LABS AND OTHER DIAGNOSTIC TESTS No results found for: CHOL No results found for: HDL No results found for: LDLCALC No results found for: TRIG No results found for: CHOLHDL Lab Results Component Value Date HGB 10.9 (L) 11/20/2015 HCT 34.7 (L) 11/20/2015 MCV 85.0 11/20/2015 No lab exists for component: LABALBU PHYSICAL EXAM Vitals BP 106/60 (BP Location: Right arm, Patient Position: Sitting) Pulse 90 Ht 157.5 cm (5' 2 ) Wt 57.9 kg (127 lb 9.6 oz) SpO2 92% BMI 23.34 kg/m?? Physical Examination: General appearance - alert, thin chronically ill-appearing elderly man oriented to person, place, and time and acyanotic, in no respiratory distress Mental status - affect appropriate to mood Eyes - extraocular eye movements intact, sclera anicteric, no pallor Ears - external earsappear normal, hearing grossly normal bilaterally Nose - normal and patent, no erythema or discharge Mouth - mucous membranes moist, pharynx appears normal, dental hygiene good and tongue normal Neck - supple, no significant neck masses, carotids upstroke normal bilaterally, no bruits, no JVD Chest - breath sounds are diminished bilaterally but are clear without any rales or wheezing symmetric air entry, no tachypnea, retractions or cyanosis Heart - normal rate, irregular rhythm, normal S1, S2, grade 2/6 systolic crescendo decrescendo murmur audible at the base, no audible aortic regurgitation rubs, clicks or gallops, no JVD Abdomen - soft, nontender, nondistended, no masses or organomegaly bowel sounds normal Neurological - alert, oriented, normal speech, no focal findings or movement disorder noted Musculoskeletal - no joint tenderness, deformity or swelling, no muscular tenderness noted Extremities -moderate right lower extremity edema bandages over the also has which I did not removed for exam. Reduced pulses in the right foot although it is warm no clubbing or cyanosis Skin - normal coloration and turgor, no rashes, no suspicious skin lesions noted ASSESSMENT Ryan was seen today for atrial fibrillation. Diagnoses and all orders for this visit: Paroxysmal atrial fibrillation (CMS/HCC) (HCC) - Ambulatory referral to Cardiology Chronic atrial fibrillation Aortic valve replacement PLAN/RECOMMENDATIONS No change in medication and follow-up at six-month intervals. Adolfo Reyes MD documented in this encounter Plan of Treatment Not on file documented as of this encounter Visit Diagnoses Diagnosis Paroxysmal atrial fibrillation (CMS/HCC) (HCC) Atrial fibrillation documented in this encounter Orders Outpatient Referral Count Last Ordered Date Fir st Ordered Date AMB REFERRAL TO CARDIOLOGY 1 09/28/2023 documented in this encounter Care Teams Plastic Finisher Relationship Specialty Start Date End Date John Tafoya MD [address] [place] [address] PCP - General 01/25/14 documented as of this encounter
--- OUTSIDE RECORDS SUMMARY | 2024-04-04 03:28 | XMS_ITS | Encounter Summary ---
Author Organization [facility] Address [address] [facility] [address] [place] [id number] Care Team Providers Care Disintegrator Feeder Name Role Phone John Tafoya MD Primary Care Prov ider Reason for Referral * Cardiology (Routine) - Closed Specialty Diagnoses / Procedures Referred By Contac t Referred To Contact Diagnoses Paroxysmal atrial fibrillation (CMS/HCC) (HCC) Procedures 24 HR Holter Monitor AK XTRNL ECG & 48 HR RECORDING AK EXTERNAL ECG SCANNING ANALYSIS REPORT Adolfo Reyes MD [address] [address] Phone: tel: fax: [facility] Referral ID Status Reason Start Date Expiration Date Visits Re quested Visits Authorized [id number] Closed 09/15/2022 10/15/2023 1 1 Reason for Visit * Reason Comments Atrial Fibrillation 6 month follow up. * Consultation (Routine) - Closed Specialty Diagnoses / Procedures Referred By Contac t Referred To Contact Cardiology Diagnoses Paroxysmal atrial fibrillation (CMS/HCC) (HCC) John Tafoya MD [address] [place] [id number] Phone: tel: fax: Adolfo Reyes MD [address] [address] Phone: tel: fax: Referral ID Status Reason Start Date Expiration Date V isits Requested Visits Authorized [id number] Closed Specialty Services Required 08/25/2022 08/27/2023 12 12 Encounter Details Date Type Department Care Team (Late st Contact Info) Description 09/15/2022 11:45 AM CDT Office Visit [facility] Cardiology [address] [place] [address] Adolfo Reyes MD [address] [place] [phone] Presence of prosthetic heart valve (Primary Dx); Paroxysmal atrial fibrillation (CMS/HCC) (HCC) Social History Tobacco Use Types Packs/Day Years Used Date Smoking Tobacco: Former Smokeless Tobacco: Never Tobacco Cessation:Counseling Given: Not Answered Alcohol Use Standard Drinks/Week Comments Yes 0 (1 standard drink = 0.6 oz pur e alcohol) Sex and Gender Information Value Date Recorded Sex Assigned at Not on file Legal Sex Male 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 Gender Identity Not on file Sexual Orientation Not on file documented as of this encounter Last Filed Vital Signs Vital Sign Reading Time Taken Comments Blood Pressure 102/60 09/15/2022 11:29 AM CDT Pulse 98 09/15/2022 11:29 AM CDT Temperature - - Respiratory Rate - - Oxygen Saturation 93% 09/15/2022 11:29 AM CDT Inhaled Oxygen Concentration - - Weight 57.6 kg (127 lb) 09/15/2022 11:29 AM CDT Height 157.5 cm (5' 2 ) 09/15/2022 11:29 AM CDT Body Mass Index 23.23 09/15/2022 11:29 AM CDT documented in this encounter Progress Notes * Adolfo Reyes MD - 09/15/2022 11:45 AM CDT [facility] FOLLOW UP 09/15/2022 Ryan Dos Santos is a 81 y.o. male who presents for follow up of previous aortic valve replacement. This is a patient who had a bicuspid aortic valve who was referred for surgical treatment in November at [facility]. He received a magna pericardial valve and has done very well since then. He does not have coronary artery disease. The patient does have significant COPD which does resultin chronic MCCLURE even after his aortic valve replacement. The patient presented to the hospital at [place] in April of 2019 with some shortness of breath and was found to be in atrial fibrillation. It looks like he was placed on sotalol, anticoagulated and electrically cardioverted to sinus rhythm. He presents today for scheduled office follow-up appointment. Looks like he still taking sotalol and Xarelto for his atrial fibrillation. He says he is feeling well and does not have any cardiac symptoms or complaints. His heart rate was rather irregular on physical examination in the office today so a 12 lead electrocardiogram was done. The tracing demonstrates atrial fibrillation with a heart rate of 85. He is totally unaware of the arrhythmia at this point. REVIEW OF SYSTEMS General ROS: negative for [...] nausea/vomiting Genito-Urinary ROS: negative for - dysuria, erectile dysfunction or hematuria Musculoskeletal ROS: negative for - joint pain, muscle pain or muscular weakness Dermatological ROS: negative for dry skin, eczema, pruritus and rash HOME MEDICATIONS Current Outpatient Medications: atorvastatin (LIPITOR) 10 mg tablet, take 1 tablet by oral route every day, Disp: 0, Rfl: 0 cholecalciferol (VITAMIN D-3) 2000 unit capsule, 1 capsule (2,000 Units total), Disp: , Rfl: donepezil (ARICEPT) 10 mg tablet, Take 1 tablet (10 mg total) by mouth daily, Disp: , Rfl: ipratropium (ATROVENT) 0.02 % nebulizer solution, Take 2.5 mL (0.5 mg total) by nebulization 4 (four) times a day, Disp: , Rfl: memantine (NAMENDA) 10 mg tablet, Take 1 tablet (10 mg total) by mouth 2 (two) times a day, Disp: ,Rfl: methscopolamine (PAMINE) 2.5 mg tablet, Take 1 tablet (2.5 mg total) by mouth 3 (three) times a day, Disp: , Rfl: multivitamin tablet tablet, take 1 by Oral route once, Disp: 0, Rfl: 0 NIFEdipine CC 60 mg 24 hr tablet, TAKE 1 TABLET BY MOUTH EVERY DAY (Patient taking differently: Take 30 mg by mouth daily), Disp: 90 tablet, Rfl: 2 omeprazole (PriLOSEC) 20 mg capsule, 1 capsule (20 mg total) daily, Disp: , Rfl: Lisa Nathan [facility] spacer, as directed, Disp: , Rfl: oxygen, Administer 2 L/min into each nostril as needed, Disp: , Rfl: predniSONE (DELTASONE) 10 mg tablet, Take 1 tablet (10 mg) by mouth daily Prn with breathing, Disp:, Rfl: sotaloL (BETAPACE) 80 mg tablet, TAKE 1 TABLET BY MOUTH EVERY 12 HOURS, Disp: 180 tablet, Rfl: 2 Symbicort 80-4.5 mcg/actuation inhaler, USE 2 PUFFS EVERY 12HOURS RINSE AND SPIT AFTER EACH USE. USE WITH SPACER., Disp: , Rfl: Xarelto 20 mg tablet, TAKE 1 TABLET BY MOUTH EVERY DAY AT 5PM, Disp: 90 tablet, Rfl: 1 albuterol HFA (PROAIR HFA) 90 mcg/actuation inhaler, inhale 2 puff by inhalation route every 4 - 6 hours as needed, Disp: 0 Inhaler, Rfl: 0 lisinopriL (PRINIVIL,ZESTRIL) 40 mg tablet, Take 30 mg by mouth daily (Patient not taking: Reportedon 09/15/2022), Disp: , Rfl: LABS AND OTHER DIAGNOSTIC TESTS No results found for: CHOL No results found for: HDL No results found for: LDLCALC No results found for: TRIG No results found for: CHOLHDL Lab Results Component Value Date HGB 10.9 (L) 11/20/2015 HCT 34.7 (L) 11/20/2015 MCV 85.0 11/20/2015 No lab exists for component: LABALBU PHYSICAL EXAM Vitals BP 102/60 (BP Location: Left arm, Patient Position: Sitting) Pulse 98 Ht 157.5 cm (5' 2 ) Wt 57.6 kg (127 lb) SpO2 93% BMI 23.23 kg/m?? Physical Examination: General appearance - alert, well appearing, and in no distress, oriented to person, place, and time and [...] retractions or cyanosis Heart - normal rate, regular rhythm, normal S1, S2, grade 2/6 systolic crescendo decrescendo murmuraudible at the base, no audible aortic regurgitation [...] Diagnoses and all orders for this visit: Presence of prosthetic heart valve Paroxysmal atrial fibrillation (CMS/HCC) (HCC) - Ambulatory referral to Cardiology PLAN/RECOMMENDATIONS Because of recurrence of atrial fib I am going to have him wear a 24 hour Holter monitor to ascertain whether there is any sinus rhythm or whether this is persistent atrial fib I will see him in follow-up after the Holter for discussion regarding medical strategy versus rhythm/rate control. Adolfo Reyes MD documented in this encounter Miscellaneous Notes * Addendum Note - Dariela Church MA - 09/15/2022 11:45 AM CDTAddended by: DARIELA CHURCH on: 09/15/2022 01:15 PM Modules accepted: Orders documented in this encounter Plan of Treatment Not on file documented as of this encounter Procedures Procedure Name Priority Date/Time Associated Diagnosis Comments ECG 12-LEAD Routine 09/15/2022 Paroxysmal atrial fibrillation (CMS/HCC) (HCC) documented in this encounter Results * 24 HR Holter Monitor (09/15/2022 1:58 PM CDT) Anatomical Region Laterality Modality Other Narrative 09/23/2022 3:44 PM CDT AMBULATORY RADAR AIR TRAFFIC CONTROLLER REPORT Patient Name: Ryan Dos Santos Date of : 1940 ?? Requesting Physician: ??Dr. Reyes Date of interpretation: 09/23/22 Type of monitor : ??24 hour Holter monitor Date of the study/Enrollment period: ??09/15/2022 Indication: ??Paroxysmal atrial fibrillation Quality of the study: ??Adequate Interpretation: ??Predominant underlying rhythm is atrial fibrillation, ventricular rate ranges from 59 beats per minute to 104 beats per minute, average ventricular rate 79 beats per minute. ??Occasional PVCs versus aberrantly conducted beats were noted. ??No significant pauses. ??No symptoms were reported. Conclusions: Predominant underlying rhythm is atrial fibrillation with controlled ventricular rate at 79 beats per minute (VR 59 to 104 beats per minute). Occasional PVCs versus aberrantly conducted beats No significant bradyarrhythmias or pauses were noted. No symptoms reported. Voice recognition software was used to complete this document, therefore, television cabinet finisher variances may occur. Lalo Valentine MD, [facility] 09/23/22 Procedure Note Lalo Valentine MD - 09/23/2022 AMBULATORY RADAR AIR TRAFFIC CONTROLLER REPORT Patient Name: Ryan Dos Santos Date of : 1940 Requesting Physician: Dr. Reyes Date of interpretation: 09/23/22 Type of monitor : 24 hour Holter monitor Date of the study/Enrollment period: 09/15/2022 Indication: Paroxysmal atrial fibrillation Quality of the study: Adequate Interpretation: Predominant underlying rhythm is atrial fibrillation,ventricular rate ranges from 59 beats per minute to 104 beats per minute,average ventricular rate 79 beats per minute. Occasional PVCs versusaberrantly conducted beats were noted. No significant pauses. Nosymptoms were reported. Conclusions: Predominant underlying rhythm is atrial fibrillation with controlledventricular rate at 79 beats per minute (VR 59 to 104 beats per minute). Occasional PVCs versus aberrantly conducted beats No significant bradyarrhythmias or pauses were noted. No symptoms reported. Voice recognition software was used to complete this document, therefore,television cabinet finisher variances may occur. Lalo Valentine MD, [facility] 09/23/22 Adolfo Reyes MD [facility] PROC EDURES Final Result * ECG 12 lead (09/15/2022) Adolfo Reyes MD ECG ORDERABLES Final Re sult documented in this encounter Visit Diagnoses Diagnosis Presence of prosthetic heart valve- Primary Paroxysmal atrial fibrillation (CMS/HCC) (HCC) Atrial fibrillation Paroxysmal atrial fibrillation (CMS/HCC) (HCC) Atrial fibrillation documented in this encounter Orders Outpatient Referral Count Last Ordered Date Fir st Ordered Date AMB REFERRAL TO CARDIOLOGY 1 09/15/2022 documented in this encounter Care Teams Disintegrator Feeder Relationship Specialty Start Date End Date John Tafoya MD [address] [place] [address] PCP - General 01/25/14 documented as of this encounter
--- OUTSIDE RECORDS SUMMARY | 2024-04-04 03:28 | XMS_ITS | Encounter Summary ---
Author Organization [facility] Address [address] [facility] [address] [place] [address] Care Team Providers Care Computer Engineering Technician Name Role Phone John Tafoya MD Primary Care Prov ider Reason for Visit * Reason Comments Follow-up 2 MONTH FOLLOW UP. * Consultation (Routine) - Closed Specialty Diagnoses / Procedures Referred By Contac t Referred To Contact Cardiology Diagnoses Paroxysmal atrial fibrillation (CMS/HCC) (HCC) John Tafoya MD [address] [place] [address] Phone: tel: fax: Adolfo Reyes MD [address] [address] Phone: tel: fax: Referral ID Status Reason Start Date Expiration Date V isits Requested Visits Authorized [id number] Closed Specialty Services Required 08/25/2022 08/27/2023 12 12 Encounter Details Date Type Department Care Team (Late st Contact Info) Description 12/22/2022 1:45 PM CDT Office Visit [facility] Cardiology [address] [facility] [address] [phone] Adolfo Reyes MD [address] [address] Paroxysmal atrial fibrillation (CMS/HCC) (HCC) (Primary Dx); Presence of prosthetic heart valve Social History Tobacco Use Types Packs/Day Years Used Date Smoking Tobacco: Former Smokeless Tobacco: Never Alcohol Use Standard Drinks/Week Comments Yes 0 (1 standard drink = 0.6 oz pur e alcohol) Sex and Gender Information Value Date Recorded Sex Assigned at Not on file 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 Gender Identity Not on file Sexual Orientation Not on file documented as of this encounter Last Filed Vital Signs Vital Sign Reading Time Taken Comments Blood Pressure 118/60 12/22/2022 1:44 PM CDT Pulse 87 12/22/2022 1:44 PM CDT Temperature - - Respiratory Rate - - Oxygen Saturation 92% 12/22/2022 1:44 PM CDT Inhaled Oxygen Concentration - - Weight 54 kg (119 lb) 12/22/2022 1:44 PM CDT Height 157.5 cm (5' 2 ) 12/22/2022 1:44 PM CDT Body Mass Index 21.77 12/22/2022 1:44 PM CDT documented in this encounter Ordered Prescriptions Prescription Sig Dispense Quantity Refills Last Filled Start Date End Date metoprolol XL (TOPROL-XL) 100 mg 24 hr tablet Take 1 tablet (100 mg total) by mouth daily 90 tablet 3 12/22/2022 04/20/2023 documented in this encounter Progress Notes * Adolfo Reyes MD - 12/22/2022 1:45 PM CDT [facility] 12/22/2022 Ryan Dos Santos is a 82 y.o. male who presents for follow up of previous aortic valve replacement. This is a patient who had a bicuspid aortic valve who was referred for surgical treatment in November at [facility]. He received a magna pericardial valve and has done very well since then. He does not have coronary artery disease. The patient does have significant COPD which does resultin chronic MCCLURE even after his aortic valve replacement. The patient presented to the hospital at [place] in April of 2019 with some shortness [...] was hospitalized in October of 2022 at [place] with some diastolic heart failure. His metoprolol dosage was advanced to provide better rate control and systemic anticoagulation with Xarelto was continued. I believe he has been taking nifedipinefor hypertension that was stopped as he was problematic we hypotensive at that point. He presents today to the office for scheduled follow-up appointment. Overall he seems to be doing well enough and does not have any specific complaints he does not report any shortness of breath edema orthopnea or PND. He has no awareness of his arrhythmia. His metoprolol dosage is now 100 mg dailyhis heart rate control is reasonable. He has not had any difficulty tolerating anticoagulation withXarelto. REVIEW OF SYSTEMS General ROS: negative for [...] mouth daily, Disp: 90 tablet, Rfl: 3 multivitamin tablet tablet, take 1 by Oral route once, Disp: 0, Rfl: 0 omeprazole (PriLOSEC) 20 mg capsule, 1 capsule (20 mg total) daily, Disp: , Rfl: Lisa Nathan [facility] spacer, as directed, Disp: , Rfl: oxygen, Administer 2 L/min into each nostril as needed, Disp: , Rfl: predniSONE (DELTASONE) 10 mg tablet, Take 1 tablet (10 mg) by mouth daily Prn with breathing, Disp:, Rfl: Symbicort 80-4.5 mcg/actuation inhaler, USE 2 PUFFS EVERY 12HOURS RINSE AND SPIT AFTER EACH USE. USE WITH SPACER., Disp: , Rfl: Xarelto 20 mg tablet, TAKE 1 TABLET BY MOUTH EVERY DAY AT 5PM, Disp: 90 tablet, Rfl: 1 LABS AND OTHER DIAGNOSTIC TESTS No results found for: CHOL No results found for: HDL No results found for: LDLCALC No results found for: TRIG No results found for: CHOLHDL Lab Results Component Value Date HGB 10.9 (L) 11/20/2015 HCT 34.7 (L) 11/20/2015 MCV 85.0 11/20/2015 No lab exists for component: LABALBU PHYSICAL EXAM Vitals BP 118/60 (BP Location: Left arm, Patient Position: Sitting) Pulse 87 Ht 157.5 cm (5' 2 ) Wt 54 kg (119 lb) SpO2 92% BMI 21.77 kg/m?? Physical Examination: General appearance - alert, [...] noted ASSESSMENT Ryan was seen today for follow-up. Diagnoses and all orders for this visit: Paroxysmal atrial fibrillation (CMS/HCC) (HCC) Presence of prosthetic heart valve PLAN/RECOMMENDATIONS Continue rate control and anticoagulation regimen he is hemodynamically stable and asymptomatic of his atrial fib Follow-up 3 months or p.r.n. Adolfo Reyes MD documented in this encounter Plan of Treatment Not on file documented as of this encounter Visit Diagnoses Diagnosis Paroxysmal atrial fibrillation (CMS/HCC) (HCC)- Primary Atrial fibrillation Presence of prosthetic heart valve documented in this encounter Discontinued Medications Medication Sig Discontinue Reason Start Date End Da te metoprolol XL (TOPROL-XL) 50 mg extended release tabletIndications:Persist ent atrial fibrillation (HCC) Take 1 tablet (50 mg total) by mouth daily 11/24/2022 12/22/2022 documented as of this encounter Care Teams Computer Engineering Technician Relationship Specialty Start Date End Date John Tafoya MD [address] [place] [address] PCP - General 01/25/14 documented as of this encounter
--- OUTSIDE RECORDS SUMMARY | 2024-04-04 03:28 | XMS_ITS | Encounter Summary ---
Author Organization [facility] Address [address] [facility] [address] [place] [address] Care Team Providers Care Wildlife And Game Protector Name Role Phone John Tafoya MD Primary Care Prov ider Reason for Visit * Reason Comments Follow-up 6 mo f[facility] scratching mole on face. 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, unspecified whether morongo or transplanted heart (HCC) John Tafoya MD [address] [place] [address] Phone: tel: fax: [facility] Cardiology [address] [address] Phone: tel: fax: Referral ID Status Reason Start Date Expiration Date V isits Requested Visits Authorized [id number] Closed Specialty Services Required 02/21/2021 05/20/2021 3 3 Encounter Details Date Type Department Care Team (Late st Contact Info) Description 03/04/2021 10:00 AM STRESS ANALYST Office Visit [facility] Medical [facility] Cardiology [address] [address] Adolfo Reyes MD [address] [facility] [address] [place] [id number] Chronic coronary artery disease (Primary Dx); 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, unspecified whether morongo or transplanted heart (HCC); Presence of prosthetic heart valve; Paroxysmal atrial fibrillation (CMS/HCC) (HCC) Social History Tobacco Use Types Packs/Day Years Used Date Smoking Tobacco: Former Smokeless Tobacco: Never Alcohol Use Standard Drinks/Week Comments Yes 0 (1 standard drink = 0.6 oz pur e alcohol) Sex and Gender Information Value Date Recorded Sex Assigned at Not on file Legal Sex Male 2:11 AM STRESS ANALYST Gender Identity Not on file Sexual Orientation Not on file documented as of this encounter Last Filed Vital Signs Vital Sign Reading Time Taken Comments Blood Pressure 160/70 03/04/2021 10:01 AM STRESS ANALYST Pulse 67 03/04/2021 10:01 AM STRESS ANALYST Temperature - - Respiratory Rate - - Oxygen Saturation 93% 03/04/2021 10: 01 AM STRESS ANALYST with oxygen Inhaled Oxygen Concentration - - Weight 63.3 kg (139 lb 9.3 oz) 03/04/20 10:01 AM STRESS ANALYST Height 157.5 cm (5' 2 ) 03/04/2021 10:0 1 AM STRESS ANALYST Body Mass Index 25.53 03/04/2021 10:01 AM STRESS ANALYST documented in this encounter Progress Notes * Adolfo Reyes MD - 03/04/2021 10:00 AM CST [facility] FOLLOW [facility] 03/04/2021 Ryan Dos Santos is a 80 y.o. male who presents for follow up of previous aortic valve replacement. This is a patient who had a bicuspid aortic valve who was referred for surgical treatment in November at [facility]. He received a magna pericardial valve and has done very well since then. He does not have coronary artery disease. The patient does have significant COPD which does resultin chronic MCCLURE even after his aortic valve replacement. The patient presented to the hospital at [place] in April of 2019 with some shortness of breath and was found to be in atrial fibrillation. It looks like he was placed on sotalol, anticoagulated and electrically cardioverted to sinus rhythm. He returns to the office today for scheduled follow-up. He does not have any cardiac symptoms to report today. His blood pressure is better after adding nifedipine to his regimen. His wanted me to look at his right leg indicating there was some unilateral right lower extremity edema and some ulcers on the right leg. This is been back gradually developing over the last 6 months to a year. REVIEW OF SYSTEMS General ROS: negative for [...] and rash HOME MEDICATIONS Current Outpatient Medications: ??? albuterol HFA (PROAIR HFA) 90 mcg/actuation inhaler, inhale 2 puff by inhalation route every 4 - 6 hours as needed, Disp: 0 Inhaler, Rfl: 0 ??? atorvastatin (LIPITOR) 10 mg tablet, take 1 tablet by oral route every day, Disp: 0, Rfl: 0 ??? cholecalciferol (VITAMIN D-3) 2000 unit capsule, 2,000 Units, Disp: , Rfl: ??? donepezil (ARICEPT) 10 mg tablet, Take 10 mg by mouth daily, Disp: , Rfl: ??? ipratropium (ATROVENT) 0.02 % nebulizer solution, Take 500 mcg by nebulization 4 (four) times aday, Disp: , Rfl: ??? lisinopriL (PRINIVIL,ZESTRIL) 40 mg tablet, Take 30 mg by mouth daily 0.5 TABLET BY MOUTH DAILY(15 MG TOTAL), Disp: , Rfl: ??? memantine (NAMENDA) 10 mg tablet, Take 10 mg by mouth 2 (two) times a day, Disp: , Rfl: ??? multivitamin tablet tablet, take 1 by Oral route once, Disp: 0, Rfl: 0 ??? NIFEdipine CC 60 mg 24 hr tablet, TAKE 1 TABLET BY MOUTH EVERY DAY, Disp: 90 tablet, Rfl: 2 ??? omeprazole (PriLOSEC) 20 mg capsule, 1 capsule daily., Disp: , Rfl: ??? Lisa Nathan [facility] spacer, as directed, Disp: , Rfl: ??? oxygen, Administer 2 L/min into each nostril as needed, Disp: , Rfl: ??? sotaloL (BETAPACE) 80 mg tablet, TAKE 1 TABLET BY MOUTH EVERY 12 HOURS, Disp: 180 tablet, Rfl: 2 ??? Symbicort 80-4.5 mcg/actuation inhaler, USE 2 PUFFS EVERY 12HOURS RINSE AND SPIT AFTER EACH USE. USE WITH SPACER., Disp: , Rfl: ??? Xarelto 20 mg tablet, TAKE 1 TABLET BY MOUTH EVERY DAY AT 5PM, Disp: 90 tablet, Rfl: 2 ??? predniSONE (DELTASONE) 10 mg tablet, Take 10 mg by mouth daily Prn with breathing (Patient not taking: Reported on 03/04/2021), Disp: , Rfl: LABS AND OTHER DIAGNOSTIC TESTS No results found for: CHOL No results found for: HDL No results found for: LDLCALC No results found for: TRIG No results found for: CHOLHDL Lab Results Component Value Date HGB 10.9 (L) 11/20/2015 HCT 34.7 (L) 11/20/2015 MCV 85.0 11/20/2015 No lab exists for component: LABALBU PHYSICAL EXAM Vitals BP 160/70 (BP Location: Right arm, Patient Position: Sitting) Pulse 67 Ht 157.5 cm (5' 2 ) Wt 63.3 kg (139 lb 9.3 oz) SpO2 93% BMI 25.53 kg/m?? Physical Examination: General appearance - alert, [...] bilaterally, no bruits, no JVD Chest - clear to auscultation, no wheezes, rales or rhonchi, symmetric air entry, no tachypnea, retractions or [...] noted ASSESSMENT Ryan was seen today for follow-up and presence of prosthetic heart valve. 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 Follow-up with me in 6 months or p.r.n. 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 cholecalciferol (VITAMIN D-3) 2000 unit capsule 1 capsule (2,000 Units total) added in this encounter Orders Outpatient Referral Count Last Ordered Date Fir st Ordered Date AMB REFERRAL TO CARDIOLOGY 1 03/04/2021 documented in this encounter Care Teams Wildlife And Game Protector Relationship Specialty Start Date End Date John Tafoya MD [address] [place] [address] PCP - General 01/25/14 documented as of this encounter
--- OUTSIDE RECORDS SUMMARY | 2024-04-04 03:28 | XMS_ITS | Encounter Summary ---
Author Organization [facility] Address [address] [facility] [address] [place] [address] Care Team Providers Care Tapper Shank Name Role Phone John Tafoya MD Primary Care Prov ider Reason for Visit * Cardiology (Routine) - Closed Specialty Diagnoses / Procedures Referred By Contac t Referred To Contact Diagnoses Paroxysmal atrial fibrillation (CMS/HCC) (HCC) Procedures 24 HR Holter Monitor OR XTRNL ECG & 48 HR RECORDING OR EXTERNAL ECG SCANNING ANALYSIS REPORT Adolfo Reyes MD [address] [address] Phone: tel: fax: [facility] Referral ID Status Reason Start Date Expiration Date Visits Re quested Visits Authorized [id number] Closed 09/15/2022 10/15/2023 1 1 Encounter Details Date Type Department Care Team (Latest Contact Info) Description 09/15/2022 10:30 AM CDT Ancillary Procedure [facility] Medical [facility] Cardiology [address] [place] [phone] Paroxysmal atrial fibrillation (CMS/HCC) (HCC) Social History Tobacco Use Types Packs/Day Years Used Date Smoking Tobacco: Former Smokeless Tobacco: Never Alcohol Use Standard Drinks/Week Comments Yes 0 (1 standard drink = 0.6 oz pur e alcohol) Sex and Gender Information Value Date Recorded Sex Assigned at Not on file 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 Gender Identity Not on file Sexual Orientation Not on file documented as of this encounter Plan of Treatment Not on file documented as of this encounter Procedures Procedure Name Priority Date/Time Associated Diagnosis Comments HOLTER MONITOR 24 HR Routine 09/15/2022 1:58 PM CDT Paroxysmal atrial fibrillation (CMS/HCC) (HCC) documented in this encounter Results * 24 HR Holter Monitor (09/15/2022 1:58 PM CDT) Anatomical Region Laterality Modality Other Narrative 09/23/2022 3:44 PM CDT AMBULATORY NURSING CARE ATTENDANT REPORT Patient Name: Ryan Dos Santos Date [...] was used to complete this document, therefore, press pipe inspector variances may occur. Lalo Valentine MD, [facility] 09/23/22 Procedure Note Lalo Valentine MD - 09/23/2022 AMBULATORY NURSING CARE ATTENDANT REPORT Patient Name: Ryan Dos Santos Date [...] software was used to complete this document, therefore,press pipe inspector variances may occur. Lalo Valentine MD, [facility] 09/23/22 Adolfo Reyes MD [facility] CARDIAC SERVICES PROC EDURES Final Result documented in this encounter Visit Diagnoses Diagnosis Paroxysmal atrial fibrillation (CMS/HCC) (HCC) Atrial fibrillation documented in this encounter Care Teams Tapper Shank Relationship Specialty Start Date End Date John Tafoya MD [address] [place] [address] PCP - General 01/25/14 documented as of this encounter
--- OUTSIDE RECORDS SUMMARY | 2024-04-04 03:28 | XMS_ITS | Encounter Summary ---
Author Organization [facility] Address [address] [facility] [address] [place] [address] Care Team Providers Care Art Psychotherapist Name Role Phone John Tafoya MD Primary Care Prov ider Encounter Details Date Type Department Care Team (Late st Contact Info) Description 05/23/2019 Telephone [facility] Cardiology [address] [facility] [address] [facility] [address] [place] [address] Adolfo Reyes MD [address] [facility] [address] [place], [place] [id number] Social History Tobacco Use Types Packs/Day Years Used Date Smoking Tobacco: Former Smokeless Tobacco: Never Alcohol Use Standard Drinks/Week Comments Yes 0 (1 standard drink = 0.6 oz pur e alcohol) Sex and Gender Information Value Date Recorded Sex Assigned at Not on file 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 Reyes reviewed patients CXR from today. Shows COPD; no evidence of CHF. Patient should follow up with cupola patcher helper. Spoke with patients spouse and discussed this. Will have patient call cupola patcher helper. ING MACHINE INSPECTOR documented in this encounter Plan of Treatment Not on file documented as of this encounter Visit Diagnoses Not on filedocumented in this encounter Care Teams Art Psychotherapist Relationship Specialty Start Date End Date John Tafoya MD [address] [place] [address] PCP - General 01/25/14 documented as of this encounter
--- OUTSIDE RECORDS SUMMARY | 2024-04-04 03:28 | XMS_ITS | Encounter Summary ---
Author Organization [facility] Address [address] [facility] [address] [place] [id number] Care Team Providers Care Screw Machine Tender Name Role Phone John Tafoya MD Primary Care Prov ider Reason for Visit * Reason Comments Coronary Artery Disease 6 month fu Encounter Details Date Type Department Care Team (Late st Contact Info) Description 08/28/2021 10:15 AM CDT Office Visit [facility] Cardiology [address] [facility] [address] [place] [phone] Adolfo Reyes MD [address] [facility] [address] [place], [place] [id number] Nonrheumatic aortic valve stenosis (Primary Dx); Paroxysmal atrial fibrillation (CMS/HCC) (HCC); Presence of prosthetic heart valve Social History Tobacco Use Types Packs/Day Years Used Date Smoking Tobacco: Former Smokeless Tobacco: Never Alcohol Use Standard Drinks/Week Comments Yes 0 (1 standard drink = 0.6 oz pur e alcohol) Sex and Gender Information Value Date Recorded Sex Assigned at Not on file 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 Gender Identity Not on file Sexual Orientation Not on file documented as of this encounter Last Filed Vital Signs Vital Sign Reading Time Taken Comments Blood Pressure 146/80 08/28/2021 10:28 AM CDT Pulse 68 08/28/2021 10:28 AM CDT Temperature - - Respiratory Rate - - Oxygen Saturation 94% 08/28/2021 10:28 AM CDT 2 liters O2 Inhaled Oxygen Concentration - - Weight 62.6 kg (138 lb) 08/28/2021 10:28 AM CDT Height 157.5 cm (5' 2 ) 08/28/2021 10:28 AM CDT Body Mass Index 25.24 08/28/2021 10:28 AM CDT documented in this encounter Progress Notes * Adolfo Reyes MD - 08/28/2021 10:15 AM CDT [facility] 08/28/2021 Ryan Dos Santos is a 80 y.o. male who presents for follow up of previous aortic valve replacement. This is a patient who had a bicuspid aortic valve who was referred for surgical treatment in November at [facility]. He received a magna pericardial valve and has done very well since then. He does not have coronary artery disease. The patient does have significant COPD which does resultin chronic MCCLURE even after his aortic valve replacement. The patient presented to the hospital at [place] in April of 2019 with some shortness of breath and was found to be in atrial fibrillation. It looks like he was placed on sotalol, anticoagulated and electrically cardioverted to sinus rhythm. He presents to the office today for a scheduled six-month appointment. He comes to the office with his who brings him in a wheelchair with his home oxygen. He does not perceive any changes in his health since the last time he was here. He did talk to me about some ulcers in his left leg the last time I saw him. That being managed with local wound care. REVIEW OF SYSTEMS General ROS: negative for [...] mg tablet, Take 30 mg by mouth daily, Disp: , Rfl: ??? memantine (NAMENDA) 10 [...] daily., Disp: , Rfl: ??? Lisa Nathan [facility] spacer, as directed, Disp: , Rfl: ??? oxygen, Administer 2 L/min into each nostril as needed, Disp: , Rfl: ??? predniSONE (DELTASONE) 10 mg tablet, Take 10 mg by mouth daily Prn with breathing, Disp: , Rfl: ??? sotaloL (BETAPACE) 80 mg tablet, TAKE 1 TABLET BY MOUTH EVERY 12 HOURS, Disp: 180 tablet, Rfl: 2 ??? Symbicort 80-4.5 mcg/actuation inhaler, USE 2 PUFFS EVERY 12HOURS RINSE AND SPIT AFTER EACH USE. USE WITH SPACER., Disp: , Rfl: ??? Xarelto 20 mg tablet, TAKE 1 TABLET BY MOUTH EVERY DAY AT 5PM, Disp: 90 tablet, Rfl: 0 LABS AND OTHER DIAGNOSTIC TESTS No results found for: CHOL No results found for: HDL No results found for: LDLCALC No results found for: TRIG No results found for: CHOLHDL Lab Results Component Value Date HGB 10.9 (L) 11/20/2015 HCT 34.7 (L) 11/20/2015 MCV 85.0 11/20/2015 No lab exists for component: LABALBU PHYSICAL EXAM Vitals BP 146/80 (BP Location: Right arm, Patient Position: Sitting) Pulse 68 Ht 157.5 cm (5' 2 ) Wt 62.6 kg (138 lb) SpO2 94% BMI 25.24 kg/m?? Physical Examination: General appearance - alert, [...] noted ASSESSMENT Ryan was seen today for coronary artery disease. Diagnoses and all orders for this visit: Nonrheumatic aortic valve stenosis Paroxysmal atrial fibrillation (CMS/HCC) (HCC) Presence of prosthetic heart valve PLAN/RECOMMENDATIONS No need to adjust medical regimen today he is clinically stable Continue to see him at 6 month intervals. 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
--- OUTSIDE RECORDS SUMMARY | 2024-04-04 03:28 | XMS_ITS | Encounter Summary ---
Author Organization [facility] Address [address] [facility] [address] [place] [address] Care Team Providers Care Station Detective Name Role Phone John Tafoya MD Primary Care Prov ider Encounter Details Date Type Department Care Team (Late st Contact Info) Description 11/24/2022 Telephone [facility] Cardiology [address] [facility] 162 [facility] [address] [place] [address] Adolof Reyes MD [address] [facility] [address] [place], [place] [phone] Social History Tobacco Use Types Packs/Day Years Used Date Smoking Tobacco: Former Smokeless Tobacco: Never Alcohol Use Standard Drinks/Week Comments Yes 0 (1 standard drink = 0.6 oz pur e alcohol) Sex and Gender Information Value Date Recorded Sex Assigned at Not on file 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 Reminded of appt with [facility] next month * Telephone Encounter - Kina Chávez NP - 11/24/2022 1:01 PM CDT He also has moderate , so very low BP could be dangerous for him. I recommend he reduce metoprolol succinate to 50 mg once daily. Please remind of upcoming appt with Dr. Reyes next month. Thank you. * Telephone Encounter - Shelly Tellez RN - 11/24/2022 12:39 PM CDT Call placed to pt after receiving note below. Spoke with pts . I asked if he has any lightheadedness or dizziness. Pt states he does not think so but states he has dementia. I asked the wifeif she notices an unsteady gait or him trying to hold on as he walks and she said yes sometimes . He does use a Rolator ( walker with feet) but when he does not use it he has to hold on to the chopra. BP has been as low as 79 systolic, high of 128/79, but she states it runs less than 100 several times a week. HR 69-80. Pt takes Metoprolol succinate 50 mg 2 tabs once daily and furosemide 20 mg daily. I did confirm he is not taking the lisinopril or Nifedipine as stated in last OV. Please advise * Telephone Encounter - Jayashree Reyes - 11/24/2022 11:47 AM CDT Nurse case investigator with [facility] called to report since adjusting metoprolol pts BP in the evenings are in the 80s/50s. Requesting we call pt at [phone] to discuss. documented in this encounter Plan of Treatment Not on file documented as of this encounter Visit Diagnoses Diagnosis Persistent atrial fibrillation (HCC) Atrial fibrillation documented in this encounter Discontinued Medications Medication Sig Discontinue Reason Start Date End Da te metoprolol XL (TOPROL-XL) 50 mg extended release tabletIndications:Persist ent atrial fibrillation (HCC) Take 2 tablets (100 mg total) by mouth daily Reorder 10/27/2022 11/24/2022 documented as of this encounter Care Teams Station Detective Relationship Specialty Start Date End Date John Tafoya MD [address] [place] [address] PCP - General 01/25/14 documented as of this encounter
--- OUTSIDE RECORDS SUMMARY | 2024-04-04 03:28 | XMS_ITS | Encounter Summary ---
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 John Tafoya MD [address] [place] [id number] Phone: tel: fax: [facility] Medical [facility] Cardiology [address] [address] Phone: tel: fax: Referral ID Status Reason Start Date Expiration Date Visits Requested Visits Authorized [id number] Canceled Specialty Services Required 08/17/2019 11/17/2019 3 3 Encounter Details Date Type Department Care Team (Late st Contact Info) Description 08/24/2019 9:00 AM CDT Telemedicine [facility] Cardiology [address] [phone] Adolfo Reyes MD [address] [facility] [address] [place] [id number] Chronic coronary artery disease (Primary Dx); BMI 24.0-24.9, adult; Nonrheumatic aortic valve stenosis; Presence of prosthetic heart valve Social History Tobacco Use Types Packs/Day Years Used Date Smoking Tobacco: Former Smokeless Tobacco: Never Tobacco Cessation:Counseling Given: No Alcohol Use Standard Drinks/Week Comments Yes 0 (1 standard drink = 0.6 oz pur e alcohol) Sex and Gender Information Value Date Recorded Sex Assigned at Not on file 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 [facility] FOLLOW UP 08/24/2019 This was a telemedicine visit with Ryan Dos Santos alone which took place via Telephone. During the visit, I was located [facility] office [facility] and the patient was located his home. The session started at 9:20 a.m. and ended at 9:28 a.m.. The patient has been informed that the visit may not be secure and acknowledged the information. I have explained the option of participating in a telephone or video visit during the [facility]- public health emergency to the patient. After being given an opportunity to ask questions about and discuss this type of visit, the patient verbally consented to proceeding with the telephone/video visit.The patient understands that this service replaces an office visit and they may be billed and/or responsible for any applicable copayments. Adolfo Reyes MD Ryan Dos Santos is a 78 y.o. male who presents for follow up of previous aortic valve replacement. This is a patient who had a bicuspid aortic valve who was referred for surgical treatment in November at [facility]. He received a magna pericardial valve and has done very well since then. He does not have coronary artery disease. The patient does have significant COPD which does resultin chronic MCCLURE even after his aortic valve replacement. The patient presented to the hospital at [place] in April of 2019 with some shortness of breath and was found to be in atrial fibrillation. It looks like he was placed on sotalol, anticoagulated and electrically cardioverted to sinus rhythm. He returns today for scheduled follow-up. Overall he is doing well and does not have any new symptomatology. He still reports chronic MCCLURE some days is were are worse than others regarding this. He ishaving no chest pain palpitations orthopnea PND or edema. We did do a chest x-ray on a couple of months ago when I saw him last which only shows changes of chronic hyperinflation and lung disease. Wediscussed this at some length. REVIEW OF SYSTEMS General ROS: negative for [...] every day, Disp: 0, Rfl: 0 ??? donepezil (ARICEPT) 10 mg tablet, Take 10 mg by mouth daily, Disp: , Rfl: ??? fluticasone-vilanterol (BREO ELLIPTA) 100-25 mcg/dose blister with device, inhale 1 puff by inhalation route every day at the same time each day, Disp: 0, Rfl: 0 ??? ipratropium (ATROVENT) 0.02 % nebulizer solution, Take 500 mcg by nebulization 4 (four) times aday, Disp: , Rfl: ??? lisinopriL (PRINIVIL,ZESTRIL) 10 mg tablet, TAKE 1 TABLET BY MOUTH EVERY DAY, Disp: 90 tablet, Rfl: 2 ??? multivitamin tablet tablet, take 1 by Oral route once, Disp: 0, Rfl: 0 ??? omeprazole (PriLOSEC) 20 mg capsule, 1 capsule daily., Disp: , Rfl: ??? oxygen, Administer 2 L/min into each nostril as needed, Disp: , Rfl: ??? predniSONE (DELTASONE) 10 mg tablet, Take 10 mg by mouth daily Prn with breathing, Disp: , Rfl: ??? sotaloL (BETAPACE) 80 mg tablet, TAKE 1 TABLET BY MOUTH EVERY 12 HOURS, Disp: 180 tablet, Rfl: 2 ??? Xarelto 20 mg tablet, TAKE 1 TABLET BY MOUTH EVERY DAY AT 5PM, Disp: 90 tablet, Rfl: 2 LABS AND OTHER DIAGNOSTIC TESTS No results found for: CHOL No results found for: HDL No results found for: LDLCALC No results found for: TRIG No results found for: CHOLHDL Lab Results Component Value Date HGB 10.9 (L) 11/20/2015 HCT 34.7 (L) 11/20/2015 MCV 85.0 11/20/2015 No lab exists for component: LABALBU PHYSICAL EXAM Vitals BP 148/60 (BP Location: Left arm, Patient Position: Sitting) Pulse 60 Ht 157.5 cm (5' 2 ) Wt 61.2 kg (135 lb) BMI 24.69 kg/m?? ASSESSMENT Ryan was seen today for follow-up. Diagnoses and all orders for this visit: Chronic coronary artery disease BMI 24.0-24.9, adult Nonrheumatic aortic valve stenosis Presence of prosthetic heart valve PLAN/RECOMMENDATIONS His patient's shortness of breath is undoubtedly related to his chronic lung disease. His cardiac status seems to be stable. Six-month follow-up will be scheduled. Adolfo Reyes MD documented in this encounter Plan of Treatment Not on file documented as of this encounter Visit Diagnoses Diagnosis Chronic coronary artery disease- Primary Coronary atherosclerosis of unspecified type of vessel, [place] or graft BMI 24.0-24.9, adult Nonrheumatic aortic valve stenosis Presence of prosthetic heart valve documented in this encounter Historical Medications * This list may reflect changes made after this encounter. ipratropium (ATROVENT) 0.02 % nebulizer solution Take 2.5 mL (0.5 mg total) by nebulization 4 (four) times a day oxygenIndication s:Dyspnea Administer 2 L/min into each nostril as needed added in this encounter Care Teams Production Trainer Relationship Specialty Start Date End Date John Tafoya MD [address] [place] [address] PCP - General 01/25/14 documented as of this encounter
--- OUTSIDE RECORDS SUMMARY | 2024-04-04 03:28 | XMS_ITS | Encounter Summary ---
Author Organization [facility] Address [address] [facility] [address] [place] [address] Care Team Providers Care Wheel Braider Name Role Phone John Tafoya MD Primary Care Prov ider Encounter Details Date Type Department Care Team (Late st Contact Info) Description 05/25/2019 Orders Only [facility] Cardiology [address] [place] [address] Adolfo Reyes MD [address] [place] [address] Other emphysema (CMS/HCC) Social History Tobacco Use Types Packs/Day Years Used Date Smoking Tobacco: Former Smokeless Tobacco: Never Alcohol Use Standard Drinks/Week Comments Yes 0 (1 standard drink = 0.6 oz pur e alcohol) Sex and Gender Information Value Date Recorded Sex Assigned at Not on file 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
--- OUTSIDE RECORDS SUMMARY | 2024-04-04 03:28 | XMS_ITS | Encounter Summary ---
Author Organization [facility] Address [address] [facility] [facility] [address] [place] [address] Care Team Providers Care Metal Sprayer Production Name Role Phone John Tafoya MD Primary Care Prov ider Encounter Details Date Type Department Care Team (Late st Contact Info) Description 10/20/2022 Orders Only [facility] Cardiology [address] [place] [address] Adolfo Reyes MD [address] [place] [address] Social History Tobacco Use Types Packs/Day Years Used Date Smoking Tobacco: Former Smokeless Tobacco: Never Alcohol Use Standard Drinks/Week Comments Yes 0 (1 standard drink = 0.6 oz pur e alcohol) Sex and Gender Information Value Date Recorded Sex Assigned at Not on file 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 Gender Identity Not on file Sexual Orientation Not on file documented as of this encounter Plan of Treatment Not on file documented as of this encounter Procedures Procedure Name Priority Date/Time Associated Diagnosis Comments CARDIOLOGY DOCUMENT SCAN Routine 10/19/2022 1:12 PM CDT CARDIOLOGY DOCUMENT SCAN Routine 10/17/2022 1:08 PM CDT CARDIOLOGY DOCUMENT SCAN Routine 10/16/2022 1:05 PM CDT documented in this encounter Results * Cardiology Document Scan (10/19/2022 1:12 PM CDT) Anatomical Region Laterality Modality Other us Lalo Espinoza MD [facility] JESSICA VELASQUEZ Final Result * Cardiology Document Scan (10/17/2022 1:08 PM CDT) Anatomical Region Laterality Modality Other us Adolfo Reyes MD [facility] PROC EDURES Final Result * Cardiology Document Scan (10/16/2022 1:05 PM CDT) Anatomical Region Laterality Modality Other us Adolfo Reyes MD [facility] PROC EDURES Final Result documented in this encounter Visit Diagnoses Not on filedocumented in this encounter Care Teams Metal Sprayer Production Relationship Specialty Start Date End Date John Tafoya MD [address] [place] [address] PCP - General 01/25/14 documented as of this encounter
--- OUTSIDE RECORDS SUMMARY | 2024-04-04 03:28 | XMS_ITS | Encounter Summary ---
Author Organization [facility] Address [address] [facility] [address] [place] [address] Care Team Providers Care Inspector Materials And Processes Name Role Phone John Tafoya MD Primary Care Prov ider Encounter Details Date Type Department Care Team (Late st Contact Info) Description 03/25/2020 Telephone [facility] Cardiology [address] 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 [facility]ZZO [facility]CHANIC * Telephone Encounter - Cindy Boothe - 03/25/2020 9:59 AM CST Patient/and or Pharmacy calling to request refills on the following medications: sotalol 80 mg tabs Pharmacy:[facility] documented in this encounter Plan of Treatment Not on file documented as of this encounter Visit Diagnoses Not on filedocumented in this encounter Discontinued Medications Medication Sig Discontinue Reason Start Date End Da te sotaloL (BETAPACE) 80 mg tablet TAKE 1 TABLET BY MOUTH EVERY 12 HOURS Reorder 07/18/2019 03/25/2020 documented as of this encounter Care Teams Inspector Materials And Processes Relationship Specialty Start Date End Date Jonh Tafoya MD [address] [place] [address] PCP - General 01/25/14 documented as of this encounter
--- OUTSIDE RECORDS SUMMARY | 2024-04-04 03:28 | XMS_ITS | Encounter Summary ---
Author Organization [facility] Address [address] [facility] [address] [facility] [address] [place] [address] Care Team Providers Care Lpn Or Medical Assistant Name Role Phone John Tafoya MD Primary Care Prov ider Reason for Visit * Reason Comments Follow-up For monitor * Consultation (Routine) - Closed Specialty Diagnoses / Procedures Referred By Contac t Referred To Contact Cardiology Diagnoses Paroxysmal atrial fibrillation (CMS/HCC) (HCC) John Tafoya MD [address] [place] [address] Phone: tel: fax: Adolfo Reyes MD [address] [address] Phone: tel: fax: Referral ID Status Reason Start Date Expiration Date V isits Requested Visits Authorized [id number] Closed Specialty Services Required 08/25/2022 08/27/2023 12 12 Encounter Details Date Type Department Care Team (Late st Contact Info) Description 09/29/2022 9:00 AM CDT Office Visit [facility] Cardiology [address] 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 Gender Identity Not on file Sexual Orientation Not on file documented as of this encounter Last Filed Vital Signs Vital Sign Reading Time Taken Comments Blood Pressure 100/50 09/29/2022 9:17 AM CDT Pulse 93 09/29/2022 9:17 AM CDT Temperature - - Respiratory Rate - - Oxygen Saturation 93% 09/29/2022 9:17 AM CDT Inhaled Oxygen Concentration - - Weight 54.4 kg (120 lb) 09/29/2022 9:17 AM CDT Height 157.5 cm (5' 2 ) 09/29/2022 9:17 AM CDT Body Mass Index 21.95 09/29/2022 9:17 AM CDT documented in this encounter Patient Instructions * Patient Instructions* Kina Chávez NP - 09/29/2022 9:00 AM CDT Stop sotalol and start new medication called metoprolol 50 mg once daily. This was sent to the pharmacy. Stop nifedipine so the blood pressure does not go too low. We can restart it later if blood pressure goes high again. documented in this encounter Ordered Prescriptions Prescription Sig Dispense Quantity Refills Last Filled Start Date End Date metoprolol XL (TOPROL-XL) 50 mg extended release tabletIndications: Persistent atrial fibrillation (HCC) Take 1 tablet (50 mg total) by mouth daily 90 tablet 3 09/29/2022 10/27/2022 documented in this encounter Progress Notes * Kina Chávez NP - 09/29/2022 9:00 AM CDT Images from the original note were not included. [facility] Cardiology [address] [place] [address] Date of Visit: 09/29/2022 Patient ID: Ryan Dos Santos 1940 Chief Complaint Patient presents with Follow-up For monitor Ryan Dos Santos is a 81 y.o. male who is an established patient of Dr. Reyes with a history of atrial fibrillation and aortic valve replacement returning the office for follow-up after wearing a monitor. History of Present Illness: Ryan Dos Santos is a 81 y.o. male who presents for follow up of previous aortic valve replacement. This is a patient who had a bicuspid aortic valve who was referred for surgical treatment in November at [facility]. He received a magna pericardial valve and has done very well since then. He does not have coronary artery disease. The patient does have significant COPD which does resultin chronic MCCLURE even after his aortic valve replacement. The patient presented to the hospital at [place] in April of 2019 with some shortness of breath and was found to be in atrial fibrillation. It looks like he was placed on sotalol, anticoagulated and electrically cardioverted to sinus rhythm. 09/15/[address] Reyes: He presents today for scheduled office follow-up [...] unaware of the arrhythmia at this point. 09/29/2022 office visit with TONG SETTER: He returns to the office today accompanied by his . His mobilecardiac monitor showed persistent atrial fibrillation with controlled ventricular response. He is asymptomatic with his AFib. Records that I personally reviewed on the day of this visit include: (the interpretation is outlined in the HPI above) 09/15/[address] Reyes and mobile surveillance monitor report. I have also reviewed: allergies, current medications, past family history, past medical history, past social history, past surgical history and problem list. Medical History: Past Medical History: Diagnosis Date Chronic obstructive pulmonary disease (HCC) COPD History reviewed. No pertinent surgical history. Social History Tobacco Use Smoking Status Former Smokeless Tobacco Never Social History Tobacco Use Smoking status: Former Smokeless tobacco: Never Substance and Sexual Activity Drug use: No Sexual activity: None Alcohol Use: Not on file Family History Problem Relation Age of Onset Heart attack Father Myocardial Infarction; Heart attack Mother Myocardial Infarction; Review of Systems Constitutional: Negative for malaise/fatigue, weight gain and weight loss. Cardiovascular: Negative for chest pain, claudication, dyspnea on exertion, leg swelling, near-syncope, orthopnea, palpitations, paroxysmal nocturnal dyspnea and syncope. Respiratory: Negative for cough, shortness of breath and sleep disturbances due to breathing. Hematologic/Lymphatic: Negative for bleeding problem. Does not bruise/bleed easily. Neurological: Negative for dizziness and light-headedness. Vital Signs: BP 100/50 (BP Location: Right arm, Patient Position: Sitting) Pulse 93 Ht 157.5 cm (5' 2 ) Wt54.4 kg (120 lb) SpO2 93% BMI 21.95 kg/m?? Physical Exam Constitutional: General: He is not in acute distress. Appearance: He is well-developed. Comments: Frail appearing elderly man HENT: Head: Normocephalic and atraumatic. Eyes: General: No scleral icterus. Conjunctiva/sclera: Conjunctivae normal. Neck: Vascular: No JVD. Trachea: No tracheal deviation. Cardiovascular: Rate and Rhythm: Normal rate. Rhythm irregular. Heart sounds: Normal heart sounds. No murmur heard. Comments: Rate approx 88 bpm Pulmonary: Effort: Pulmonary effort is normal. No respiratory distress. Breath sounds: Decreased breath sounds present. Comments: Wearing supplemental oxygen via nasal cannula Skin: General: Skin is warm and dry. Neurological: Mental Status: He is alert and oriented to person, place, and time. Psychiatric: Mood and Affect: Mood normal. Behavior: Behavior normal. No Known Allergies Current Outpatient Medications: albuterol HFA (PROAIR HFA) [...] total) daily, Disp: , Rfl: Lisa Nathan [facility] spacer, as directed, Disp: , Rfl: [...] AT 5PM, Disp: 90 tablet, Rfl: 1 metoprolol XL (TOPROL-XL) 50 mg extended release tablet, Take 1 tablet (50 mg total) by mouth daily, Disp: 90 tablet, Rfl: 3 Lab Results Component Value Date POTASSIUM 3.9 11/20/2015 BUNSER 27 (H) 11/20/2015 CREATININE 2.26 (H) 11/20/2015 Lab Results Component Value Date HGB 10.9 (L) 11/20/2015 HCT 34.7 (L) 11/20/2015 MCV 85.0 11/20/2015 No results found for this or any previous visit (from the past 4 hour(s)). No results found for: POCCHOL, POCHDL, POCTRIG, POCLDL, POCNONHDL, POCCHLPL Assessment: Diagnoses and all orders for this visit: Persistent atrial fibrillation (HCC) (Primary) - metoprolol XL (TOPROL-XL) 50 mg extended release tablet; Take 1 tablet (50 mg total) by mouth daily Essential hypertension Plan/Recommendations: He is in persistent atrial fibrillation despite sotalol. His atrial fibrillation is asymptomatic. Discontinue sotalol and changed to metoprolol succinate 50 mg daily. Because blood pressure is low I directed him to discontinue nifedipine (PCP had already reduced dose from 60 mg daily to 30 mg daily and had already taken him off lisinopril). If blood pressure risesagain we can restart low-dose nifedipine or lisinopril. Return to the office for follow-up with me or Dr. Reyes in 2-3 weeks to reassess rate control and reassess blood pressure. These medication instructions were reviewed with the patient and his . The patient's verbalized understanding because she manages the patient's medication due to the patient's memory loss. 09/29/2022 STEPHAN Shoemaker- Nurse Practitioner with [facility] This note is dictated and transcribed using [employer] Direct Software. Magnaflux Operator variancesmay occur. Despite proofreading, typographical errors may occur. documented in this encounter Plan of Treatment Not on file documented as of this encounter Visit Diagnoses Diagnosis Persistent atrial fibrillation (HCC)- Primary Atrial fibrillation Essential hypertension Unspecified essential hypertension documented in this encounter Discontinued Medications Medication Sig Discontinue Reason Start Date End Da te lisinopriL (PRINIVIL,ZESTRIL) 40 mg tablet Take 30 mg by mouth daily Discontinued by another clinician 09/29/2022 sotaloL (BETAPACE) 80 mg tablet TAKE 1 TABLET BY MOUTH EVERY 12 HOURS Alternate therapy 09/21/2022 09/29/2022 NIFEdipine CC 60 mg 24 hr tablet TAKE 1 TABLET BY MOUTH EVERY DAY Side effects 12/23/2021 09/29/2022 documented as of this encounter Care Teams Lpn Or Medical Assistant Relationship Specialty Start Date End Date John Tafoya MD [address] [place] [address] PCP - General 01/25/14 documented as of this encounter
--- OUTSIDE RECORDS SUMMARY | 2024-04-04 03:28 | XMS_ITS | Encounter Summary ---
Author Organization [facility] Address [address] [facility] [address] [place] [address] Care Team Providers Care Analytics Architect Name Role Phone John Tafoya MD Primary Care Prov ider Reason for Visit * Reason Comments Follow-up 6 month follow up. 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 Gender Identity Not on file Sexual Orientation Not on file documented as of this encounter Last Filed Vital Signs Vital Sign Reading Time Taken Comments Blood Pressure 164/70 03/03/2022 2:48 PM RECONDITIONER Pulse 66 03/03/2022 2:48 PM RECONDITIONER Temperature - - Respiratory Rate - - Oxygen Saturation 90% 03/03/2022 2:48 PM RECONDITIONER Inhaled Oxygen Concentration - - Weight 59 kg (130 lb) 03/03/2022 2:48 PM RECONDITIONER Height 157.5 cm (5' 2 ) 03/03/2022 2:48 PM RECONDITIONER Body Mass Index 23.78 03/03/2022 2:48 PM RECONDITIONER documented in this encounter Progress Notes * Adolfo Reyes MD - 03/03/2022 3:00 PM CST [facility] FOLLOW UP 03/03/2022 Ryan Dos Santos is a 81 y.o. male who presents for follow up of previous aortic valve replacement. This is a patient who had a bicuspid aortic valve who was referred for surgical treatment in November at [facility]. He received a magna pericardial valve and has done very well since then. He does not have coronary artery disease. The patient does have significant COPD which does resultin chronic MCCLURE even after his aortic valve replacement. The patient presented to the hospital at [place] in April of 2019 with some shortness of breath and was found to be in atrial fibrillation. It looks like he was placed on sotalol, anticoagulated and electrically cardioverted to sinus rhythm. He returns to the office today for a scheduled six-month appointment. His aortic valve prosthesis as described above is about 6 years old. He continues to have no cardiac symptoms and has not had a recognized recurrence of atrial fibrillation. His lung disease continues to require chronic oxygen sup plementation. He sees pulmonology for follow-up of this as well. REVIEW OF SYSTEMS General ROS: negative for [...] 0 cholecalciferol (VITAMIN D-3) 2000 unit capsule, 2,000 Units, Disp: , Rfl: donepezil (ARICEPT) 10 mg tablet, Take 10 mg by mouth daily, Disp: , Rfl: ipratropium (ATROVENT) 0.02 % nebulizer solution, Take 500 mcg by nebulization 4 (four) times a day, Disp: , Rfl: lisinopriL (PRINIVIL,ZESTRIL) 40 mg tablet, Take 30 mg by mouth daily, Disp: , Rfl: memantine (NAMENDA) 10 mg tablet, Take 10 mg by mouth 2 (two) times a day, Disp: , Rfl: multivitamin tablet tablet, take 1 by Oral route once, Disp: 0, Rfl: 0 NIFEdipine CC 60 mg 24 hr tablet, TAKE 1 TABLET BY MOUTH EVERY DAY, Disp: 90 tablet, Rfl: 2 omeprazole (PriLOSEC) 20 mg capsule, 1 capsule daily., Disp: , Rfl: Lisa Nathan [facility] spacer, as directed, Disp: , Rfl: oxygen, Administer 2 L/min into each nostril as needed, Disp: , Rfl: predniSONE (DELTASONE) 10 mg tablet, Take 10 mg by mouth daily Prn with breathing, Disp: , Rfl: sotaloL (BETAPACE) 80 mg tablet, TAKE [...] lab exists for component: LABALBU PHYSICAL EXAM There were no vitals taken for this visit. Physical Examination: General appearance - alert, well [...] rashes, no suspicious skin lesions noted ASSESSMENT Diagnoses and all orders for this visit: Paroxysmal atrial fibrillation (CMS/HCC) (HCC) Chronic coronary artery disease Presence of prosthetic heart valve PLAN/RECOMMENDATIONS No need to adjust medical regimen today he is clinically stable Continue follow-up at 6 month intervals or p.r.n. Adolfo Reyes MD NDITIONER documented in this encounter Plan of Treatment Not on file documented as of this encounter Visit Diagnoses Diagnosis Paroxysmal atrial fibrillation (CMS/HCC) (HCC)- Primary Atrial fibrillation Presence of prosthetic heart valve documented in this encounter Historical Medications * This list may reflect changes made after this encounter. methscopolamine (PAMINE) 2.5 mg tablet Take 1 tablet (2.5 mg total) by mouth 3 (three) times a day 01/26/2022 added in this encounter Care Teams Analytics Architect Relationship Specialty Start Date End Date John Tafoya MD [address] [place] [address] PCP - General 01/25/14 documented as of this encounter
--- OUTSIDE RECORDS SUMMARY | 2024-04-04 03:28 | XMS_ITS | Encounter Summary ---
Author Organization [facility] Address [address] [facility] [address] [place] [address] Care Team Providers Care Station Master Name Role Phone John Tafoya MD Primary Care Prov ider Encounter Details Date Type Department Care Team (Late st Contact Info) Description 10/12/2022 Orders Only [facility] Cardiology [address] [place] [phone] Briana Freeman MD [address] [place] [address] Social History Tobacco Use Types Packs/Day Years Used Date Smoking Tobacco: Former Smokeless Tobacco: Never Alcohol Use Standard Drinks/Week Comments Yes 0 (1 standard drink = 0.6 oz pur e alcohol) Sex and Gender Information Value Date Recorded Sex Assigned at Not on file 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
--- OUTSIDE RECORDS SUMMARY | 2024-04-04 03:28 | XMS_ITS | Encounter Summary ---
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 John Tafoya MD [address] [place] [address] Phone: tel: fax: [facility] Medical [facility] Cardiology [address] [place] [address] Phone: tel: fax: Referral ID Status Reason Start Date Expiration Date V isits Requested Visits Authorized [id number] Closed Specialty Services Required 02/06/2020 05/08/2020 3 3 Encounter Details Date Type Department Care Team (Late st Contact Info) Description 02/15/2020 8:30 AM SECURITY OPERATIONS CENTER ANALYST Office Visit [facility] Cardiology [address] [phone] Adolfo Reyes MD [address] [facility] [address] [place] [address] Chronic coronary artery disease (Primary Dx); 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; Nonrheumatic aortic valve stenosis; Presence of prosthetic heart valve Social History Tobacco Use Types Packs/Day Years Used Date Smoking Tobacco: Former Smokeless Tobacco: Never Alcohol Use Standard Drinks/Week Comments Yes 0 (1 standard drink = 0.6 oz pur e alcohol) Sex and Gender Information Value Date Recorded Sex Assigned at Not on file Legal Sex 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 Gender Identity Not on file Sexual Orientation Not on file documented as of this encounter Last Filed Vital Signs Vital Sign Reading Time Taken Comments Blood Pressure 164/74 02/15/2020 8:41 AM SECURITY OPERATIONS CENTER ANALYST Pulse 67 02/15/2020 8:41 AM SECURITY OPERATIONS CENTER ANALYST Temperature - - Respiratory Rate - - Oxygen Saturation 95% 02/15/2020 8:41 AM SECURITY OPERATIONS CENTER ANALYST Inhaled Oxygen Concentration - - Weight 62.6 kg (138 lb) 02/15/2020 8:41 AM SECURITY OPERATIONS CENTER ANALYST Height 157.5 cm (5' 2 ) 02/15/2020 8:41 AM SECURITY OPERATIONS CENTER ANALYST Body Mass Index 25.24 02/15/2020 8:41 AM SECURITY OPERATIONS CENTER ANALYST documented in this encounter Ordered Prescriptions Prescription Sig Dispense Quantity Refills Last Filled Start Date End Date lisinopriL (PRINIVIL,ZESTRIL) 20 mg tablet Take 1 tablet (20 mg total) by mouth daily 30 tablet 11 02/15/2020 08/22/2020 documented in this encounter Progress Notes * Adolfo Reyes MD - 02/15/2020 8:30 AM CST [facility] 02/15/2020 Ryan Dos Santos is a 79 y.o. male who presents for follow up of previous aortic valve replacement. This is a patient who had a bicuspid aortic valve who was referred for surgical treatment in November at [facility]. He received a magna pericardial valve and has done very well since then. He does not have coronary artery disease. The patient does have significant COPD which does resultin chronic MCCLURE even after his aortic valve replacement. The patient presented to the hospital at [place] in April of 2019 with some shortness of breath and was found to be in atrial fibrillation. It looks like he was placed on sotalol, anticoagulated and electrically cardioverted to sinus rhythm. He returns today for scheduled follow-up. He does not have any cardiac symptoms per se. He does have more difficulty lately with elevated blood pressure and his daughter wanted to tell me about that.They are getting sometimes readings at home and as high as in the 180s. Later in the day it is typically down in the 150 region. His systolic blood pressure yesterday in the PCP office was in the [address] range. He was told to have me deal with it today since he was seeing me the next day in the office. I have recommended advancing his lisinopril dosage after looking at his medication list. REVIEW OF SYSTEMS General ROS: negative for [...] DAY, Disp: 90 tablet, Rfl: 2 ??? memantine (NAMENDA) 10 mg tablet, Take 10 mg by mouth 2 (two) times a day, Disp: , Rfl: ??? multivitamin tablet tablet, take 1 by Oral route once, Disp: 0, Rfl: 0 ??? omeprazole (PriLOSEC) 20 mg capsule, 1 capsule daily., Disp: , Rfl: ??? Lisa Nathan [facility] spacer, as directed, Disp: , Rfl: ??? [...] for component: LABALBU PHYSICAL EXAM Vitals BP 164/74 (BP Location: Right arm, Patient Position: Sitting) Pulse 67 Ht 157.5 cm (5' 2 ) Wt 62.6 kg (138 lb) SpO2 95% BMI 25.24 kg/m?? Physical Examination: General appearance [...] or swelling, no muscular tenderness noted Extremities - peripheral pulses normal, no pedal edema, no clubbing or cyanosis Skin - normal coloration and turgor, no rashes, no suspicious skin lesions noted ASSESSMENT Ryan was seen today for coronary artery disease. 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 memantine (NAMENDA) 10 mg tablet Take 1 tablet (10 mg total) by mouth 2 (two) times a day 02/09/2020 Lisa Nathan [facility] spacer as directed 02/08/2020 Symbicort 80-4.5 mcg/actuation inhaler USE 2 PUFFS EVERY 12HOURS RINSE AND SPIT AFTER EACH USE. USE WITH SPACER. 02/08/2020 added in this encounter Orders Outpatient Referral Count Last Ordered Date Fir st Ordered Date AMB REFERRAL TO CARDIOLOGY 1 02/15/2020 documented in this encounter Care Teams Finish Sander Relationship Specialty Start Date End Date John Tafoya MD [address] [place] [address] PCP - General 01/25/14 documented as of this encounter
--- OUTSIDE RECORDS SUMMARY | 2024-04-04 03:28 | XMS_ITS | Encounter Summary ---
Author Organization [facility] Address [address] [facility] [address] [place] [address] Care Team Providers Care Cushion Spring Assembler Name Role Phone John Tafoya MD Primary Care Prov ider Reason for Visit * Reason Comments Follow-up 6 mo follow up CAD, NRAVS * Consultation (Routine) - Closed Specialty Diagnoses / Procedures Referred By Contac t Referred To Contact Cardiology Diagnoses Coronary atherosclerosis of [place] coronary artery John Tafoya MD [address] [place] [address] Phone: tel: fax: [facility] Cardiology [address] [place] [phone] Phone: tel: fax: Referral ID Status Reason Start Date Expiration Date V isits Requested Visits Authorized [id number] Closed Specialty Services Required 08/16/2020 11/15/2020 3 3 Encounter Details Date Type Department Care Team (Latest Contact Info) Description 08/22/2020 9:30 AM CDT Office Visit [facility] Cardiology [address] [place] [phone] Adolfo Reyes MD [address] [address] Presence of prosthetic heart valve (Primary Dx); Coronary atherosclerosis of [place] coronary artery; Chronic coronary artery disease Social History Tobacco Use Types Packs/Day Years Used Date Smoking Tobacco: Former Smokeless Tobacco: Never Alcohol Use Standard Drinks/Week Comments Yes 0 (1 standard drink = 0.6 oz pur e alcohol) Sex and Gender Information Value Date Recorded Sex Assigned at Not on file 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 Gender Identity Not on file Sexual Orientation Not on file documented as of this encounter Last Filed Vital Signs Vital Sign Reading Time Taken Comments Blood Pressure 178/72 08/22/2020 9:22 AM CDT Pulse 65 08/22/2020 9:22 AM CDT Temperature - - Respiratory Rate - - Oxygen Saturation 97% 08/22/2020 9:22 AM CDT Inhaled Oxygen Concentration - - Weight 63 kg (139 lb) 08/22/2020 9:22 AM CDT Height 157.5 cm (5' 2 ) 08/22/2020 9:22 AM CDT Body Mass Index 25.42 08/22/2020 9:22 AM CDT documented in this encounter Ordered Prescriptions Prescription Sig Dispense Quantity Refills Last Filled Start Date End Date NIFEdipine (NIFEdipine XL) 60 mg 24 hr tablet Take 1 tablet (60 mg total) by mouth daily 30 tablet 08/22/2020 02/17/2021 documented in this encounter Progress Notes * Adolfo Reyes MD - 08/22/2020 9:30 AM CDT [facility] 08/22/2020 Ryan Dos Santos is a 79 y.o. male who presents for follow up of previous aortic valve replacement. This is a patient who had a bicuspid aortic valve who was referred for surgical treatment in November at [facility]. He received a magna pericardial valve and has done very well since then. He does not have coronary artery disease. The patient does have significant COPD which does resultin chronic MCCLURE even after his aortic valve replacement. The patient presented to the hospital at [place] in April of 2019 with some shortness of breath and was found to be in atrial fibrillation. It looks like he was placed on sotalol, anticoagulated and electrically cardioverted to sinus rhythm. He presents today for scheduled follow-up. The patient is doing well and does not describe any cardiac symptoms. Despite advancing his lisinopril to a high dose his blood pressure is still on favorably elevated he keeps a detailed log of his pressure and it generally runs with systolic pressures inthe 160-170 range. REVIEW OF SYSTEMS General ROS: negative for [...] ??? lisinopriL (PRINIVIL,ZESTRIL) 40 mg tablet, Take 40 mg by mouth daily, Disp: , Rfl: ??? memantine (NAMENDA) 10 mg tablet, Take 10 mg by mouth 2 (two) times a day, Disp: , Rfl: ??? multivitamin tablet tablet, take 1 by Oral route once, Disp: 0, Rfl: 0 ??? omeprazole (PriLOSEC) 20 mg capsule, 1 capsule daily., Disp: , Rfl: ??? Lisa Nathan [facility] spacer, as directed, Disp: , Rfl: ??? oxygen, Administer 2 L/min into each nostril as needed, Disp: , Rfl: ??? predniSONE (DELTASONE) 10 mg tablet, Take 10 mg by mouth daily Prn with breathing, Disp: , Rfl: ??? sotaloL (BETAPACE) 80 mg tablet, Take 1 tablet (80 mg total) by mouth every 12 (twelve) hours, Disp: 180 tablet, Rfl: 2 ??? Symbicort [...] for component: LABALBU PHYSICAL EXAM Vitals BP (!) 178/72 (BP Location: Left arm, Patient Position: Sitting) Pulse 65 Ht 157.5 cm (5' 2 ) Wt 63 kg (139 lb) SpO2 97% BMI 25.42 kg/m?? Physical Examination: General appearance - alert, [...] this visit: Presence of prosthetic heart valve Coronary atherosclerosis of [place] coronary artery - Ambulatory referral to Cardiology Chronic coronary artery disease PLAN/RECOMMENDATIONS Add Nifedepine to his hypertension regimen. Follow-up regarding his aortic valve disease 6 month intervals or p.r.n. Adolfo Reyes MD documented in this encounter Plan of Treatment Not on file documented as of this encounter Visit Diagnoses Diagnosis Presence of prosthetic heart valve- Primary Coronary atherosclerosis of [place] coronary artery Chronic coronary artery disease Coronary atherosclerosis of unspecified type of vessel, [place] or graft documented in this encounter Discontinued Medications Medication Sig Discontinue Reason Start Date End Da te lisinopriL (PRINIVIL,ZESTRIL) 20 mg tablet Take 1 tablet (20 mg total) by mouth daily Dose adjustment 02/15/2020 08/22/2020 documented as of this encounter Historical Medications * This list may reflect changes made after this encounter. lisinopriL (PRINIVIL,ZESTRIL ) 40 mg tablet Take 30 mg by mouth daily 09/29/2022 added in this encounter Orders Outpatient Referral Count Last Ordered Date Fir st Ordered Date AMB REFERRAL TO CARDIOLOGY 1 08/22/2020 documented in this encounter Care Teams Cushion Spring Assembler Relationship Specialty Start Date End Date John Tafoya MD [address] [place] [address] PCP - General 01/25/14 documented as of this encounter
--- OUTSIDE RECORDS SUMMARY | 2024-04-04 03:28 | XMS_ITS | Encounter Summary ---
Author Organization [facility] Healthcare Address [address] [place] [address] Care Team Providers Care Replanter Name Role Phone John Tafoya MD Primary Care Prov ider Encounter Details Date Type Department Care Team (Late st Contact Info) Description 03/30/2023 Telephone [facility] Cardiology [address] [place] [address] Adolfo Reyes MD [address] [place], [place] [id number] Social History Tobacco Use Types Packs/Day Years Used Date Smoking Tobacco: Former Smokeless Tobacco: Never Alcohol Use Standard Drinks/Week Comments Yes 0 (1 standard drink = 0.6 oz pur e alcohol) Sex and Gender Information Value Date Recorded Sex Assigned at Not on file 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 Gender Identity Not on file Sexual Orientation Not on file documented as of this encounter Ordered Prescriptions Prescription Sig Dispense Quantity Refills Last Filled Start Date End Date metoprolol XL (TOPROL-XL) 50 mg extended release tablet Take 1 tablet (50 mg total) by mouth daily 90 tablet 3 04/20/2023 04/19/2024 documented in this encounter Miscellaneous Notes * Telephone Encounter - Shelly Tellez RN - 04/20/2023 8:57 AM CST Metoprolol 50 mg daily sent in as requested HROOM FOOD SERVICE SUPERVISOR * Telephone Encounter - Cesar Barnett MA - 03/30/2023 4:[address] Reyes can you clarify the dose of Ryan's Metoprolol? At the visit in December is showed he was on the 50 mg metoprolol and in the note for his last visit you state it was increased to 100 mg and that is what is current on his med list. Before I call pt back I just want confirmation that he should still be on the 100 mg metoprolol. Thank you HROOM FOOD SERVICE SUPERVISOR * Telephone Encounter - Jayashree Galaviz - 03/30/2023 3:44 PM CST Pt spouse states at last office visit [facility] stated pt should be taking Metoprolol 50 mg daily. Requesting Metoprolol 50 mg daily be sent to [facility]. Contact: HROOM FOOD SERVICE SUPERVISOR documented in this encounter Plan of Treatment Not on file documented as of this encounter Visit Diagnoses Not on filedocumented in this encounter Discontinued Medications Medication Sig Discontinue Reason Start Date End Da te metoprolol XL (TOPROL-XL) 100 mg 24 hr tablet Take 1 tablet (100 mg total) by mouth daily Reorder 12/22/2022 04/20/2023 documented as of this encounter Care Teams Replanter Relationship Specialty Start Date End Date John Tafoya MD [address] [place] [address] PCP - General 01/25/14 documented as of this encounter
--- OUTSIDE RECORDS SUMMARY | 2024-04-04 03:28 | XMS_ITS | Encounter Summary ---
Author Organization [facility] Address [address] [facility] [address] [place] [address] Care Team Providers Care Feed Mixer Name Role Phone John Tafoya MD Primary Care Prov ider Encounter Details Date Type Department Care Team (Late st Contact Info) Description 10/14/2022 Orders Only [facility] Cardiology [address] [place] [address] Flori Bentley MD [address] [place] [address] Social History Tobacco Use Types Packs/Day Years Used Date Smoking Tobacco: Former Smokeless Tobacco: Never Alcohol Use Standard Drinks/Week Comments Yes 0 (1 standard drink = 0.6 oz pur e alcohol) Sex and Gender Information Value Date Recorded Sex Assigned at Not on file 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 Gender Identity Not on file Sexual Orientation Not on file documented as of this encounter Plan of Treatment Not on file documented as of this encounter Procedures Procedure Name Priority Date/Time Associated Diagnosis Comments CARDIOLOGY DOCUMENT SCAN Routine 023 12:52 PM CDT documented in this encounter Results * Cardiology Document Scan (10/13/2022 12:52 PM CDT) Anatomical Region Laterality Modality Other Flori Bentley MD CV CARDIAC SERVICES PRO CEDURES Final Result documented in this encounter Visit Diagnoses Not on filedocumented in this encounter Care Teams Feed Mixer Relationship Specialty Start Date End Date John Tafoya MD [address] [place] [address] PCP - General 01/25/14 documented as of this encounter
--- OUTSIDE RECORDS SUMMARY | 2024-04-04 03:28 | XMS_ITS | Encounter Summary ---
Author Organization [facility] Healthcare Address [address] [place] [address] Care Team Providers Care Facility Maintenance Technician Name Role Phone John Tafoya MD Primary Care Prov ider Reason for Visit * Reason Comments Follow-up * Consultation (Routine) - Closed Specialty Diagnoses / Procedures Referred By Contac t Referred To Contact Cardiology Diagnoses Paroxysmal atrial fibrillation (CMS/HCC) (HCC) John Tafoya MD [address] [place] [address] Phone: tel: fax: Adolfo Reyes MD [address] [address] Phone: tel: fax: Referral ID Status Reason Start Date Expiration Date V isits Requested Visits Authorized [id number] Closed Specialty Services Required 08/25/2022 08/27/2023 12 12 Encounter Details Date Type Department Care Team (Late st Contact Info) Description 03/25/2023 1:00 PM TON CYLINDER INSPECTOR Office Visit [facility] Cardiology [address] [id number] Adolfo Reyes MD [address] [address] [address] Paroxysmal atrial fibrillation (CMS/HCC) (HCC) [...] on file Legal Sex Male 2:11 AM TON CYLINDER INSPECTOR Gender Identity Not on file Sexual Orientation Not on file documented as of this encounter Last Filed Vital Signs Vital Sign Reading Time Taken Comments Blood Pressure 112/64 03/25/2023 12:48 PM TON CYLINDER INSPECTOR Pulse 84 03/25/2023 12:48 PM TON CYLINDER INSPECTOR Temperature - - Respiratory Rate - - Oxygen Saturation 100% 03/25/2023 12:48 PM TON CYLINDER INSPECTOR Inhaled Oxygen Concentration - - Weight 56.7 kg (125 lb) 03/25/2023 12:48 PM TON CYLINDER INSPECTOR Height 157.5 cm (5' 2 ) 03/25/2023 12:48 PM TON CYLINDER INSPECTOR Body Mass Index 22.86 03/25/2023 12:48 PM TON CYLINDER INSPECTOR documented in this encounter Progress Notes * Adolfo Reyes MD - 03/25/2023 1:00 PM CST [facility] FOLLOW UP 03/25/2023 Ryan Dos Santos is a 82 y.o. male who presents for follow up of previous aortic valve replacement. This is a patient who had a bicuspid aortic valve who was referred for surgical treatment in November at [facility]. He received a magna pericardial valve and has done very well since then. He does not have coronary artery disease. The patient does have significant COPD which does resultin chronic MCCLURE even after his aortic valve replacement. The patient presented to the hospital at [facility] in April of 2019 with some shortness [...] was hospitalized in October of 2022 at [facility] with some diastolic heart failure. His metoprolol dosage was advanced to provide better rate control and systemic anticoagulation with Xarelto was continued. I believe he has been taking nifedipinefor hypertension that was stopped as he was problematic we hypotensive at that point. He presents today for scheduled office follow-up appointment. He seems to be stable he does not have any cardiovascular complaints that are new he still has rate controlled atrial fibrillation with acombination of metoprolol and he is tolerating systemic anticoagulation with Xarelto. He does have significant underlying/oxygen-dependent COPD as well. He follows with pulmonology for that REVIEW OF SYSTEMS General ROS: negative for [...] day, Disp: , Rfl: metoprolol XL (TOPROL-XL) 100 mg 24 hr tablet, Take 1 tablet (100 mg total) by mouth daily, Disp: 90 tablet, Rfl: 3 multivitamin tablet tablet, take 1 by Oral route once, Disp: 0, Rfl: 0 omeprazole (PriLOSEC) 20 mg capsule, 1 capsule (20 mg total) daily, Disp: , Rfl: Lisa Nathan [facility] spacer, as directed, Disp: , Rfl: oxygen, Administer 2 L/min into each nostril as needed, Disp: , Rfl: Symbicort 80-4.5 mcg/actuation inhaler, USE 2 PUFFS EVERY 12HOURS RINSE AND SPIT AFTER EACH USE. USE WITH SPACER., Disp: , Rfl: Xarelto 20 mg tablet, TAKE 1 TABLET BY MOUTH EVERY DAY AT 5PM, Disp: 90 tablet, Rfl: 1 cholecalciferol (VITAMIN D-3) 2000 unit capsule, 1 capsule (2,000 Units total) (Patient not taking:Reported on 03/25/2023), Disp: , Rfl: predniSONE (DELTASONE) 10 mg tablet, Take 1 tablet (10 mg) by mouth daily Prn with breathing (Patient not taking: Reported on 03/25/2023), Disp: , Rfl: LABS AND OTHER DIAGNOSTIC TESTS No results found for: CHOL No results found for: HDL No results found for: LDLCALC No results found for: TRIG No results found for: CHOLHDL Lab Results Component Value Date HGB 10.9 (L) 11/20/2015 HCT 34.7 (L) 11/20/2015 MCV 85.0 11/20/2015 No lab exists for component: LABALBU PHYSICAL EXAM Vitals BP 112/64 (BP Location: Left arm, Patient Position: Sitting) Pulse 84 Ht 157.5 cm (5' 2 ) Wt 56.7 kg (125 lb) SpO2 100% BMI 22.86 kg/m?? Physical Examination: General appearance - alert, [...] 3 months or p.r.n. Adolfo Reyes MD CYLINDER INSPECTOR documented in this encounter Plan of Treatment Not on file documented as of this encounter Visit Diagnoses Diagnosis Paroxysmal atrial fibrillation (CMS/HCC) (HCC)- Primary Atrial fibrillation Presence of prosthetic heart valve documented in this encounter Care Teams Facility Maintenance Technician Relationship Specialty Start Date End Date John Tafoya MD [address] [place] [address] PCP - General 01/25/14 documented as of this encounter
--- OUTSIDE RECORDS SUMMARY | 2024-04-04 03:28 | XMS_ITS | Encounter Summary ---
Author Organization [facility] Address [address] [place] [address] Care Team Providers Care Tray Service Worker Name Role Phone John Tafoya MD Primary Care Prov ider Encounter Details Date Type Department Care Team (Late st Contact Info) Description 10/16/2022 Orders Only [facility] Cardiology [address] [place] [address] Flori Bentley MD [address] [place] [id number] Social History Tobacco Use Types Packs/Day Years Used Date Smoking Tobacco: Former Smokeless Tobacco: Never Alcohol Use Standard Drinks/Week Comments Yes 0 (1 standard drink = 0.6 oz pur e alcohol) Sex and Gender Information Value Date Recorded Sex Assigned at Not on file 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 Gender Identity Not on file Sexual Orientation Not on file documented as of this encounter Plan of Treatment Not on file documented as of this encounter Procedures Procedure Name Priority Date/Time Associated Diagnosis Comments CARDIOLOGY DOCUMENT SCAN Routine 023 10:20 AM CDT CARDIOLOGY DOCUMENT SCAN Routine 023 10:15 AM CDT documented in this encounter Results * Cardiology Document Scan (10/15/2022 10:20 AM CDT) Anatomical Region Laterality Modality Other Flori Bentley MD [facility] CARDIAC SERVICES PRO CEDURES Final Result * Cardiology Document Scan (10/14/2022 10:15 AM CDT) Anatomical Region Laterality Modality Other [facility] Vin Bentley MD CV CARDIAC SERVICES PRO CEDURES Final Result documented in this encounter Visit Diagnoses Not on filedocumented in this encounter Care Teams Tray Service Worker Relationship Specialty Start Date End Date John Tafoya MD [address] [place] [address] PCP - General 01/25/14 documented as of this encounter
--- OUTSIDE RECORDS SUMMARY | 2024-04-04 03:28 | XMS_ITS | Encounter Summary ---
Author Organization [facility] Address [address] [place] [address] Care Team Providers Care Twister Hand Name Role Phone John Tafoya MD Primary Care Prov ider Reason for Visit * Reason Comments Follow-up 2-3 week follow up. * Consultation (Routine) - Closed Specialty Diagnoses / Procedures Referred By Contac t Referred To Contact Cardiology Diagnoses Paroxysmal atrial fibrillation (CMS/HCC) (HCC) John Tafoya MD [address] [place] [address] Phone: tel: fax: Adolfo Reyes MD [address] [facility] [address] [address] Phone: tel: fax: Referral ID Status Reason Start Date Expiration Date V isits Requested Visits Authorized [id number] Closed Specialty Services Required 08/25/2022 08/27/2023 12 12 Encounter Details Date Type Department Care Team (Late st Contact Info) Description 10/27/2022 3:30 PM CDT Office Visit [facility] Cardiology [address] [address] Kina Chávez NP [address] [address] Chronic diastolic congestive heart failure (CMS/HCC) (HCC) (Primary Dx); Persistent atrial fibrillation (HCC); Essential hypertension; Hospital discharge follow-up Social History Tobacco Use Types Packs/Day Years Used Date Smoking Tobacco: Former Smokeless Tobacco: Never Tobacco Cessation:Counseling Given: Not Answered Alcohol Use Standard Drinks/Week Comments Yes 0 (1 standard drink = 0.6 oz pur e alcohol) Sex and Gender Information Value Date Recorded Sex Assigned at Not on file 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 Gender Identity Not on file Sexual Orientation Not on file documented as of this encounter Last Filed Vital Signs Vital Sign Reading Time Taken Comments Blood Pressure 120/64 10/27/2022 3:37 PM CDT Pulse 101 10/27/2022 3:37 PM CDT Temperature - - Respiratory Rate - - Oxygen Saturation 99% 10/27/2022 3:37 PM CDT Inhaled Oxygen Concentration - - Weight 52.2 kg (115 lb) 10/27/2022 3:37 PM CDT Height 157.5 cm (5' 2 ) 10/27/2022 3:37 PM CDT Body Mass Index 21.03 10/27/2022 3:37 PM CDT documented in this encounter Patient Instructions * Patient Instructions* Kina Chávez NP - 10/27/2022 3:30 PM CDT Stop using the metoprolol tartrate. Resume using metoprolol succinate 50 mg tablets. Take 2 tablets daily for total dose of 100 mg daily. Both tablets can be taken at the same time. The tablets can be cut in half but cannot be crushed. documented in this encounter Ordered Prescriptions Prescription Sig Dispense Quantity Refills Last Filled Start Date End Date metoprolol XL (TOPROL-XL) 50 mg extended release tabletIndications: Persistent atrial fibrillation (HCC) Take 2 tablets (100 mg total) by mouth daily 180 tablet 3 10/27/2022 3 furosemide (LASIX) 20 mg tabletIndications: Chronic diastolic congestive heart failure (CMS/HCC) (HCC) Take 1 tablet (20 mg total) by mouth daily 90 tablet 3 10/27/2022 4 documented in this encounter Progress Notes * Kina Chávez NP - 10/27/2022 3:30 PM CDT Images from the original note were not included. [facility] Cardiology [address] [place] [address] Date of Visit: 10/27/2022 Patient ID: Ryan Dos Santos [id number] Chief Complaint Patient presents with Follow-up 2-3 week follow up. Ryan Dos Santos is a 81 y.o. male who is an established patient of Dr. Reyes with a history of atrial fibrillation and aortic valve replacement returning the office for hospital follow up visit after he was treated for Afib with RVR and COPD exacerbation. History of Present Illness: Ryan Dos Santos is a 81 y.o. male who presents for follow up of previous aortic valve replacement. This is a patient who had a bicuspid aortic valve who was referred for surgical treatment in November at [facility]. He received a magna pericardial valve and has done very well since then. He does not have coronary artery disease. The patient does have significant COPD which does resultin chronic MCCLURE even after his aortic valve replacement. The patient presented to the hospital at [facility] in April of 2019 with some shortness [...] at this point. 09/29/2022 office visit with MANAGER RAIL: He returns to the office today accompanied by his . His mobilecardiac monitor showed persistent atrial fibrillation with controlled ventricular response. He is asymptomatic with his AFib. 10/27/2022 hospital follow up visit with MANAGER RAIL: he was hospitalized 10/10/22-10/19/22 for CHF exacerbation, COPD exacerbation and AFib with RVR. A new echocardiogram showed normal LV size and hyperdynamic LV systolic function with EF > 70%, diastolic dysfunction present, moderate with peak [id number] cm/s, mean gradient 13 mmHg, PER 1.1 cm2. Chest x-ray also indicated possible aspiration pneumonia and he was evaluated by speech therapy. He was on a diltiazem drip while his metoprolol succinate was up titrated. Because there was a concern of him swallowing pills he was discharged with a prescription for metoprolol tartrate so it could be crushed. Records that I personally reviewed on the day of this visit include: (the interpretation is outlined in the HPI above) 09/29/2022 office note from myself, October 2022 [facility] records including cardiology consult notes and progress notes, discharge summary. I have also reviewed: allergies, current medications, [...] for dizziness and light-headedness. Vital Signs: BP 120/64 (BP Location: Left arm, Patient Position: Sitting) Pulse 101 Ht 157.5 cm (5' 2 ) Wt52.2 kg (115 lb) SpO2 99% BMI 21.03 kg/m?? Physical Exam Constitutional: General: He is not in acute distress. Appearance: He is well-developed. Comments: Frail appearing elderly man HENT: Head: Normocephalic and atraumatic. Eyes: General: No scleral icterus. Conjunctiva/sclera: Conjunctivae normal. Neck: Vascular: No JVD. Trachea: No tracheal deviation. Cardiovascular: Rate and Rhythm: Normal rate. Rhythm irregular. Heart sounds: Normal heart sounds. No murmur heard. Comments: Rate approx 100 bpm Pulmonary: Effort: Pulmonary effort is normal. No respiratory distress. Breath sounds: Decreased breath sounds and rhonchi present. Comments: Wearing supplemental oxygen via nasal cannula Musculoskeletal: Right lower leg: No edema. Left lower leg: No edema. Skin: General: Skin is warm and dry. [...] total) daily, Disp: , Rfl: Lisa Nathan [facility] spacer, as directed, Disp: , Rfl: [...] AT 5PM, Disp: 90 tablet, Rfl: 1 furosemide (LASIX) 20 mg tablet, Take 1 tablet (20 mg total) by mouth daily, Disp: 90 tablet, Rfl: 3 metoprolol XL (TOPROL-XL) 50 mg extended release tablet, Take 2 tablets (100 mg total) by mouth daily, Disp: 180 tablet, Rfl: 3 Lab Results Component Value [...] and all orders for this visit: Chronic diastolic congestive heart failure (CMS/HCC) (HCC) (Primary) - furosemide (LASIX) 20 mg tablet; Take 1 tablet (20 mg total) by mouth daily Persistent atrial fibrillation (HCC) - metoprolol XL (TOPROL-XL) 50 mg extended release tablet; Take 2 tablets (100 mg total) by mouth daily Essential hypertension Hospital discharge follow-up Plan/Recommendations: During recent hospitalization for AFib with RVR he was also treated for diastolic heart failure. Continue furosemide 20 mg daily. He was previously in persistent atrial fibrillation despite sotalol so it was discontinued last month because his AFib is symptomatic. He was changed to metoprolol succinate for rate control. Howeverhe was hospitalized for AFib with RVR and metoprolol succinate was up titrated to 100 mg daily. Because of concern for aspiration his prescription at discharge was changed to metoprolol tartrate 25 mg every 6 hours so it could be crushed. The patient's states that the patient is no longer having trouble swallowing pills so I advised her to resume metoprolol succinate 100 mg daily. The patient can resume using the metoprolol succinate 50 mg tablets and take 2 tablets daily. He has recently been taken off of nifedipine and lisinopril for low blood pressure. Today his bloodpressure is normotensive. Continue metoprolol and furosemide only. Return to the office for follow-up with me or Dr. Reyes in 2 months. These medication instructions were reviewed with the patient and his . The patient's verbalized understanding becauseshe manages the patient's medication due to the patient's memory loss. 10/27/2022 STEPHAN Shoemaker- Nurse Practitioner with [facility] [place] This note is dictated and transcribed using [employer] Software. Medical Librarian variancesmay occur. Despite proofreading, typographical errors may occur. documented in this encounter Plan of Treatment Not on file documented as of this encounter Visit Diagnoses Diagnosis Chronic diastolic congestive heart failure (CMS/HCC) (HCC)- Primary Persistent atrial fibrillation (HCC) Atrial fibrillation Essential hypertension Unspecified essential hypertension Hospital discharge follow-up Other follow-up examination documented in this encounter Discontinued Medications Medication Sig Discontinue Reason Start Date End Da te furosemide (LASIX) 20 mg tablet Take 1 tablet (20 mg total) by mouth daily Reorder 10/19/2022 10/27/2022 metoprolol tartrate (LOPRESSOR) 25 mg immediate release tablet Take 1 tablet (25 mg total) by mouth 2 (two) times a day Alternate therapy 10/19/2022 10/27/2022 metoprolol XL (TOPROL-XL) 50 mg extended release tabletIndications:Persist ent atrial fibrillation (HCC) Take 1 tablet (50 mg total) by mouth daily Reorder 09/29/2022 10/27/2022 documented as of this encounter Historical Medications * This list may reflect changes made after this encounter. furosemide (LASIX) 20 mg tablet Take 1 tablet (20 mg total) by mouth daily 10/19/2022 10/27/2022 metoprolol tartrate (LOPRESSOR) 25 mg immediate release tablet Take 1 tablet (25 mg total) by mouth 2 (two) times a day 10/19/2022 10/27/2022 added in this encounter Care Teams Twister Hand Relationship Specialty Start Date End Date John Tafoya MD [address] [place] [address] PCP - General 01/25/14 documented as of this encounter
--- OUTSIDE RECORDS SUMMARY | 2024-04-04 03:29 | XMS_ITS | Encounter Summary ---
Author Organization [facility] Address [address] [place] [address] Care Team Providers Care Signal Repairer Name Role Phone John Tafoya MD Primary Care Prov ider Encounter Details Date Type Department Care Team (Late st Contact Info) Description 04/20/2019 [place] Only [facility] [facility] [address] [place] [address] Scanning, Provider Social History Tobacco Use Types Packs/Day Years Used Date Smoking Tobacco: Former Cigarettes Q uit: 04/05/2004 Alcohol Use Standard Drinks/Week Comments Yes 0 (1 standard drink = 0.6 oz pur e alcohol) Sex and Gender Information Value Date Recorded Sex Assigned at Not on file 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 Gender Identity Not on file Sexual Orientation Not on file documented as of this encounter Plan of Treatment Not on file documented as of this encounter Procedures Procedure Name Priority Date/Time Associated Diagnosis Comments CARDIOLOGY DOCUMENT SCAN 04/20/2019 documented in this encounter Results * SCAN - CARDIOLOGY (04/20/2019) Anatomical Region Laterality Modality Other us Provider Scanning CV CARDIAC SERVICES PROCEDURES Edited Result - Final documented in this encounter Visit Diagnoses Not on filedocumented in this encounter Care Teams Signal Repairer Relationship Specialty Start Date End Date John Tafoya MD [address] [facility] [address] PCP - General 01/25/14 documented as of this encounter
--- OUTSIDE RECORDS SUMMARY | 2024-04-04 03:29 | XMS_ITS | Encounter Summary ---
Author Organization [facility] Address [address] [place] [address] Care Team Providers Care Puncher And Fastener Name Role Phone John Tafoya MD Primary Care Prov ider Encounter Details Date Type Department Care Team (Late st Contact Info) Description 04/23/2019 Orders Only [facility] Cardiology [address] 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 Gender Identity Not on file Sexual Orientation Not on file documented as of this encounter Plan of Treatment Not on file documented as of this encounter Procedures Procedure Name Priority Date/Time Associated Diagnosis Comments CARDIOLOGY DOCUMENT SCAN Routine 04/23/2019 documented in this encounter Results * SCAN - CARDIOLOGY (04/23/2019) Anatomical Region Laterality Modality Other Briana Freeman MD CV CARDIAC SERVICES PROCEDU RES Final Result documented in this encounter Visit Diagnoses Not on filedocumented in this encounter Care Teams Puncher And Fastener Relationship Specialty Start Date End Date John Tafoya MD [address] [place] [address] PCP - General 01/25/14 documented as of this encounter
--- OUTSIDE RECORDS SUMMARY | 2024-04-04 03:29 | XMS_ITS | Encounter Summary ---
Author Organization [facility] Address [address] [facility] [address] [place] [address] Care Team Providers Care Hand Sprayer Name Role Phone John Tafoya MD Primary Care Prov ider Reason for Visit * Reason Comments Follow-up 1 yr fu on presence of heart valve Encounter Details Date Type Department Care Team (Late st Contact Info) Description 05/24/2018 9:30 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 ENGINEERING 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 Office Visit [facility] [address] [address] Adolfo Reyes MD [address] [facility] [address] [id number] Presence of prosthetic heart valve (Primary Dx) Social History Tobacco Use Types Packs/Day Years Used Date Smoking Tobacco: Former Cigarettes Q uit: 04/05/2004 Alcohol Use Standard Drinks/Week Comments Yes 0 (1 standard drink = 0.6 oz pur e alcohol) Sex and Gender Information Value Date Recorded Sex Assigned at Not on file Legal Sex Male 2:11 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 Gender Identity Not on file Sexual Orientation Not on file documented as of this encounter Last Filed Vital Signs Vital Sign Reading Time Taken Comments Blood Pressure 138/70 05/24/2018 9:47 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 ENGINEERING 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 Pulse 89 05/24/2018 9:47 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 ENGINEERING 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 Temperature - - Respiratory Rate - - Oxygen Saturation 94% 05/24/2018 9:47 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 ENGINEERING 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 Inhaled Oxygen Concentration - - Weight 58.5 kg (129 lb) 05/24/2018 9:47 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 ENGINEERING 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 Height 157.5 cm (5' 2 ) 05/24/2018 9:47 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 ENGINEERING 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 Body Mass Index 23.59 05/24/2018 9:47 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 ENGINEERING 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 documented in this encounter Progress Notes * Adolfo Reyes MD - 05/24/2018 9:30 AM CST [facility] FOLLOW UP 05/24/2018 Ryan Dos Santos is a 77 y.o. male who presents for follow up of previous aortic valve replacement. This is a patient who had a bicuspid aortic valve who was referred for surgical treatment in November at [facility]. He received a magna pericardial valve and has done very well since then. He does not have coronary artery disease. The patient does have significant COPD which does resultin chronic MCCLURE even after his aortic valve replacement. He returns today for scheduled follow-up. He has no cardiovascular complaints or concerns. The patient feels well is fully active. He does have chronic MCCLURE as I mentioned above which is due to his emphysema this has not accelerated in any way REVIEW OF SYSTEMS General ROS: negative for [...] pruritus and rash HOME MEDICATIONS Current Outpatient Prescriptions: ??? albuterol HFA (PROAIR HFA) 90 mcg/actuation inhaler, inhale 2 puff by inhalation route every 4 - 6 hours as needed, Disp: 0 Inhaler, Rfl: 0 ??? aspirin 81 mg tablet, Take 81 mg by mouth daily., Disp: , Rfl: ??? atorvastatin (LIPITOR) 10 mg tablet, take 1 tablet by oral route every day, Disp: 0, Rfl: 0 ??? fluticasone-vilanterol (BREO ELLIPTA) 100-25 mcg/dose blister with device, inhale 1 puff by inhalation route every day at the same time each day, Disp: 0, Rfl: 0 ??? lisinopril-hydroCHLOROthiazide (PRINZIDE,ZESTORETIC) 20-12.5 mg per tablet, take 1 Tablet by oral route every day, Disp: 0, Rfl: 0 ??? meloxicam (MOBIC) 15 mg tablet, Take 15 mg by mouth daily., Disp: , Rfl: ??? metoprolol (LOPRESSOR) 50 mg tablet, take 1 Tablet by oral route 2 times every day with meals, Disp: 0, Rfl: 0 ??? multivitamin tablet tablet, take 1 by Oral route once, Disp: 0, Rfl: 0 ??? omeprazole (PriLOSEC) 20 mg capsule, 1 capsule daily., Disp: , Rfl: ??? predniSONE (DELTASONE) 10 mg tablet, Take 10 mg by mouth daily., Disp: , Rfl: LABS AND OTHER DIAGNOSTIC [...] this visit: Presence of prosthetic heart valve PLAN/RECOMMENDATIONS No change in regimen and continue annual follow-up. His aortic valve bioprosthesis is functioning well by exam Adolfo Reyes MD ONICS ENGINEERING 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 documented in this encounter Plan of Treatment Not on file documented as of this encounter Visit Diagnoses Diagnosis Presence of prosthetic heart valve- Primary documented in this encounter Discontinued Medications Medication Sig Discontinue Reason Start Date End Da te aspirin 325 mg tablet Take 325 mg by mouth daily. Discontinued by another clinician 05/24/2018 documented as of this encounter Historical Medications * This list may reflect changes made after this encounter. predniSONE (DELTASONE) 10 mg tablet Take 1 tablet (10 mg) by mouth daily Prn with breathing omeprazole (PriLOSEC) 20 mg capsule 1 capsule (20 mg total) daily 11/15/2015 aspirin 81 mg tablet Take 81 mg by mouth daily. 0 added in this encounter Care Teams Hand Sprayer Relationship Specialty Start Date End Date John Tafoya MD [address] [place] [address] PCP - General 01/25/14 documented as of this encounter
--- OUTSIDE RECORDS SUMMARY | 2024-04-04 03:29 | XMS_ITS | Encounter Summary ---
Author Organization [facility] Address [address] [facility] [address] [place] [address] Care Team Providers Care Clockmaker Apprentice Name Role Phone John Tafoya MD Primary Care Prov ider Reason for Referral * Diagnostic Imaging (Routine) - Closed Specialty Diagnoses / Procedures Referred By Contac t Referred To Contact Diagnoses Other emphysema (HCC) Procedures XR Chest PA Lateral 2 Views Adolfo Reeys MD [address] [address] Phone: tel: fax: [facility] [address] [place] [phone] Phone: tel: Referral ID Status Reason Start Date Expiration Date Visits Re quested Visits Authorized [id number] Closed 05/23/2019 12/01/2020 1 1 ESS SUPERVISOR Reason for Visit * Reason Comments Follow-up fu cv * Consultation (Routine) - Canceled Specialty Diagnoses / Procedures Referred By Contac t Referred To Contact Cardiology Diagnoses 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 John Tafoya MD [address] [place] [address] Phone: tel: fax: [facility] Cardiology [address] [address] Phone: tel: fax: Referral ID Status Reason Start Date Expiration Date Visits Requested Visits Authorized [id number] Canceled Specialty Services Required 05/16/2019 08/15/2019 3 3 Encounter Details Date Type Department Care Team (Late st Contact Info) Description 05/23/2019 8:30 AM FITNESS SUPERVISOR Office Visit [facility] Cardiology [address] [place] [address] Adolfo Reyes MD [address] [place] [phone] Chronic coronary artery disease (Primary Dx); Presence of prosthetic heart valve; Other emphysema (CMS/HCC) Social History Tobacco Use Types Packs/Day Years Used Date Smoking Tobacco: Former Smokeless Tobacco: Never Alcohol Use Standard Drinks/Week Comments Yes 0 (1 standard drink = 0.6 oz pur e alcohol) Sex and Gender Information Value Date Recorded Sex Assigned at Not on file Legal Sex Male 2:11 AM FITNESS SUPERVISOR Gender Identity Not on file Sexual Orientation Not on file documented as of this encounter Last Filed Vital Signs Vital Sign Reading Time Taken Comments Blood Pressure 162/78 05/23/2019 8:34 AM FITNESS SUPERVISOR Pulse 56 05/23/2019 8:34 AM FITNESS SUPERVISOR Temperature - - Respiratory Rate - - Oxygen Saturation 94% 05/23/2019 8:34 AM FITNESS SUPERVISOR Inhaled Oxygen Concentration - - Weight - - Height - - Body Mass Index - - documented in this encounter Progress Notes * Adolfo Reyes MD - 05/23/2019 8:30 AM CST [facility] FOLLOW UP 05/23/2019 Ryan Dos Santos is a 78 y.o. male who presents for follow up of previous aortic valve replacement. This is a patient who had a bicuspid aortic valve who was referred for surgical treatment in November at [facility]. He received a magna pericardial valve and has done very well since then. He does not have coronary artery disease. The patient does have significant COPD which does resultin chronic MCCLURE even after his aortic valve replacement. The patient presented to the hospital at [place] in April of 2019 with some shortness of breath and was found to be in atrial fibrillation. It looks like he was placed on sotalol, anticoagulated and electrically cardioverted to sinus rhythm. He returns today for scheduled follow-up. It looks like today's appointment was already on the schedule an annually which was good timing since he was just cardioverted last month as described above.His EKG demonstrates sinus rhythm with a heart rate of 56. His QT interval is fine. Since his hospital discharge he has more exertional shortness of breath and he has had before. The patient saw his PCP recently who concluded that he requires home oxygen he now has an oxygen concentrator. With minimal activity he is dyspneic. He is not reporting any orthopnea PND or accumulating edema. I do not believe there has been a chest x-ray done since his hospital discharge as described above. REVIEW OF SYSTEMS General ROS: negative for [...] each day, Disp: 0, Rfl: 0 ??? lisinopril (PRINIVIL,ZESTRIL) 10 mg tablet, 1 tablet daily, Disp: , Rfl: ??? multivitamin tablet tablet, take 1 by Oral route once, Disp: 0, Rfl: 0 ??? omeprazole (PriLOSEC) 20 mg capsule, 1 capsule daily., Disp: , Rfl: ??? predniSONE (DELTASONE) 10 mg tablet, Take 10 mg by mouth daily., Disp: , Rfl: ??? sotalol (BETAPACE) 80 mg tablet, 1 tablet 2 (two) times a day, Disp: , Rfl: ??? Xarelto 20 mg tablet, 1 tablet daily, Disp: , Rfl: LABS AND OTHER DIAGNOSTIC [...] for this visit: Chronic coronary artery disease Presence of prosthetic heart valve PLAN/RECOMMENDATIONS Continue current regimen for the time being he is maintaining sinus rhythm following cardioversion last month Obtain follow-up chest x-ray Follow-up with me 3 months or p.r.n. Adolfo Reyes MD ESS SUPERVISOR documented in this encounter Plan of Treatment Scheduled Orders Name Type Priority Associated Diagnoses Orde r Schedule XR Chest PA Lateral 2 Views Imaging Schedule Routine, Read Routine (OP Routine) Other emphysema (CMS/HCC) Expected: 05/23/2019, Expires: 05/23/2020 documented as of this encounter Visit Diagnoses Diagnosis Chronic coronary artery disease- Primary Coronary atherosclerosis of unspecified type of vessel, pokagon or graft Presence of prosthetic heart valve Other emphysema (HCC) Other emphysema documented in this encounter Discontinued Medications Medication Sig Discontinue Reason Start Date End Da te aspirin 81 mg tablet Take 81 mg by mouth daily. Therapy completed 05/23/2019 lisinopril-hydroCHLOROth iazide (PRINZIDE,ZESTORETIC) 20-12.5 mg per tablet take 1 Tablet by oral route every day Formulary change 05/07/2016 05/23/2019 metoprolol (LOPRESSOR) 50 mg tablet take 1 Tablet by oral route 2 times every day with meals Therapy completed 10/20/2012 05/23/2019 meloxicam (MOBIC) 15 mg tablet Take 15 mg by mouth daily. Therapy completed 05/23/2019 documented as of this encounter Historical Medications * This list may reflect changes made after this encounter. donepezil (ARICEPT) 10 mg tablet Take 1 tablet (10 mg total) by mouth daily 05/13/2019 lisinopril (PRINIVIL,ZESTRIL ) 10 mg tablet 1 tablet daily 04/25/2019 07/18/2019 Xarelto 20 mg tablet 1 tablet daily 04/25/2019 07/18/2019 sotalol (BETAPACE) 80 mg tablet 1 tablet 2 (two) times a day 04/25/2019 07/18/2019 added in this encounter Care Teams Clockmaker Apprentice Relationship Specialty Start Date End Date John Tafoya MD [address] [place] [address] PCP - General 01/25/14 documented as of this encounter
--- OUTSIDE RECORDS SUMMARY | 2024-04-04 03:29 | XMS_ITS | Encounter Summary ---
Author Organization [facility] Address [address] [facility] [address] [place] [address] Care Team Providers Care Marketing Communication Manager Name Role Phone John Tafoya MD Primary Care Prov ider Encounter Details Date Type Department Care Team (Late st Contact Info) Description 04/24/[address] 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 Gender Identity Not on file Sexual Orientation Not on file documented as of this encounter Plan of Treatment Not on file documented as of this encounter Procedures Procedure Name Priority Date/Time Associated Diagnosis Comments CARDIOLOGY DOCUMENT SCAN Routine 04/24/2019 documented in this encounter Results * SCAN - CARDIOLOGY (04/24/2019) Anatomical Region Laterality Modality Other us Adolfo Reyes MD [facility] PROC EDURES Final Result documented in this encounter Visit Diagnoses Not on filedocumented in this encounter Care Teams Marketing Communication Manager Relationship Specialty Start Date End Date John Tafoya MD [address] [place] [address] PCP - General 01/25/14 documented as of this encounter
--- OUTSIDE RECORDS SUMMARY | 2024-04-04 03:29 | XMS_ITS | Encounter Summary ---
Author Organization [facility] Address [address] [facility] [address] [place] [address] Care Team Providers Care Plant Tech Name Role Phone John Tafoya MD Primary Care Prov ider Reason for Visit * Reason Comments Follow-up Encounter Details Date Type Department Care Team (Late st Contact Info) Description 11/05/2016 9:30 AM CDT Office Visit [facility] [address] [place] [phone] Adolfo Reyes MD [address] [facility] 162 [facility] [address] [place] [address] Presence of prosthetic heart valve (Primary Dx) Social History Tobacco Use Types Packs/Day Years Used Date Smoking Tobacco: Former Cigarettes Q uit: 04/05/2004 Alcohol Use Standard Drinks/Week Comments Yes 0 (1 standard drink = 0.6 oz pur e alcohol) Sex and Gender Information Value Date Recorded Sex Assigned at Not on file 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 Gender Identity Not on file Sexual Orientation Not on file documented as of this encounter Last Filed Vital Signs Vital Sign Reading Time Taken Comments Blood Pressure 90/50 11/05/2016 9:40 AM CDT Pulse 68 11/05/2016 9:40 AM CDT Temperature - - Respiratory Rate 12 11/05/2016 9:40 AM CDT Oxygen Saturation - - Inhaled Oxygen Concentration - - Weight 65.3 kg (144 lb) 11/05/2016 9:40 AM CDT Height - - Body Mass Index 26.34 05/07/2016 2:56 PM VOTING MACHINE REPAIRER documented in this encounter Progress Notes * Adolfo Reyes MD - 11/05/2016 9:30 AM CDT [facility] FOLLOW UP 11/05/2016 Ryan Dos Santos is a 75 y.o. 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 He was referred for and underwent aortic valve replacement in November 2015 at [facility]. He received a magna pericardial valve and following that has done well. He does not have coronary artery disease. He is doing well in office follow up today. He is off Amiodarone and has had no documented AF sinceHis AVR. He is anticoagulated with Eliquis which is not approved for him with his AVR >> I have recommended to DC this . Will reanticoagulate with Coumadin if AF recurs REVIEW OF SYSTEMS General ROS: negative for [...] skin, eczema, pruritus and rash HOME MEDICATIONS (Not in a hospital admission) LABS AND OTHER DIAGNOSTIC TESTS WEIGHER PRODUCTION: Cath (Normal coronary arteries, aortic valve stenosis valve area 1.0 hyperdynamic left ventricular systolic function) - 10/14/2015 CV SURGERY: CV Surgery (Aortic valve replacement, magna pericardial valve) - 11/2015 ECHO/MUGA: Echo (Concentric LVH with normal function, probable bicuspid aortic valve with mild stenosis) - 09/27/2008 Echo (Left ventricular hypertrophy with hyperdynamic contractility aortic stenosis with valve area 0.96 CM squared) - 05/2012 Echo (Left ventricular hypertrophy with normal systolic function aortic valve stenosis valve area 1.1 cm2) - 01/18/2014 STRESS TESTS: MPI (Normal EF, normal left ventricular perfusion) - 06/11/2004 PHYSICAL EXAM Vitals: 11/05/16 0940 BP: 90/50 Pulse: 68 Resp: 12 Physical Examination: General appearance - alert, well [...] normal rate, regular rhythm, normal S1, S2, no murmurs, rubs, clicks or gallops, no JVD Abdomen [...] visit: Presence of prosthetic heart valve PLAN/RECOMMENDATIONS DC Eliquis Appt in 6 months Adolfo Reyes MD documented in this encounter Plan of Treatment Not on file documented as of this encounter Visit Diagnoses Diagnosis Presence of prosthetic heart valve- Primary documented in this encounter Discontinued Medications Medication Sig Discontinue Reason Start Date End Da te aspirin (ASPIR-81) 81 mg tablet take 1 Tablet by oral route every day Alternate therapy 12/24/2015 11/05/2016 dabigatran (PRADAXA) 150 mg capsule take 1 capsule by oral route 2 times every day Alternate therapy 10/20/2012 11/05/2016 furosemide (LASIX) 20 mg tablet take 1 tablet by oral route every day ONLY for Extra Edema Alternate therapy 12/24/2015 11/05/2016 documented as of this encounter Historical Medications * This list may reflect changes made after this encounter. apixaban (ELIQUIS) 5 mg tablet 5 mg. 05/26/2017 aspirin 325 mg tablet Take 325 mg by mouth daily. 05/24/2018 added in this encounter Care Teams Plant Tech Relationship Specialty Start Date End Date John Tafoya MD [address] [place] [address] PCP - General 01/25/14 documented as of this encounter
--- OUTSIDE RECORDS SUMMARY | 2024-04-04 03:29 | XMS_ITS | Encounter Summary ---
Author Organization [facility] Address [address] [facility] [address] [place] [address] Care Team Providers Care Recovery Unit Operator Name Role Phone John Tafoya MD Primary Care Prov ider Encounter Details Date Type Department Care Team (Late st Contact Info) Description 04/20/2019 Orders Only [facility] Cardiology [address] [facility] [address] [place] [address] Lalo Espinoza MD [address] [place], [place] [id number] Social History Tobacco Use Types Packs/Day Years Used Date Smoking Tobacco: Former Cigarettes Q uit: 04/05/2004 Alcohol Use Standard Drinks/Week Comments Yes 0 (1 standard drink = 0.6 oz pur e alcohol) Sex and Gender Information Value Date Recorded Sex Assigned at Not on file 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 Gender Identity Not on file Sexual Orientation Not on file documented as of this encounter Plan of Treatment Not on file documented as of this encounter Procedures Procedure Name Priority Date/Time Associated Diagnosis Comments CARDIOLOGY DOCUMENT SCAN Routine 04/20/2019 documented in this encounter Results * SCAN - CARDIOLOGY (04/20/2019) Anatomical Region Laterality Modality Other Lalo Espinoza MD [facility] JESSICA VELASQUEZ Final Result documented in this encounter Visit Diagnoses Not on filedocumented in this encounter Care Teams Recovery Unit Operator Relationship Specialty Start Date End Date John Tafoya MD [address] [place] [address] PCP - General 01/25/14 documented as of this encounter
--- OUTSIDE RECORDS SUMMARY | 2024-04-04 03:29 | XMS_ITS | Encounter Summary ---
Author Organization [facility] Address [address] [facility] [address] [place] [address] Care Team Providers Care Manager Web Name Role Phone John Tafoya MD Primary Care Prov ider Encounter Details Date Type Department Care Team (Late st Contact Info) Description 04/22/2019 Orders Only [facility] Cardiology [address] [place] [phone] Briana [place] MD [address] [place], [place] [id number] Social History Tobacco Use Types Packs/Day Years Used Date Smoking Tobacco: Former Cigarettes Q uit: 04/05/2004 Alcohol Use Standard Drinks/Week Comments Yes 0 (1 standard drink = 0.6 oz pur e alcohol) Sex and Gender Information Value Date Recorded Sex Assigned at Not on file 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 Gender Identity Not on file Sexual Orientation Not on file documented as of this encounter Plan of Treatment Not on file documented as of this encounter Procedures Procedure Name Priority Date/Time Associated Diagnosis Comments CARDIOLOGY DOCUMENT SCAN Routine 04/22/2019 documented in this encounter Results * SCAN - CARDIOLOGY (04/22/2019) Anatomical Region Laterality Modality Other Briana [place] MD [facility] PROCEDU RES Final Result documented in this encounter Visit Diagnoses Not on filedocumented in this encounter Care Teams Manager Web Relationship Specialty Start Date End Date John Tafoya MD [address] [place] [address] PCP - General 01/25/14 documented as of this encounter
--- OUTSIDE RECORDS SUMMARY | 2024-04-04 03:29 | XMS_ITS | Encounter Summary ---
Author Organization [facility] Address [address] [place] [address] Care Team Providers Care Tree Surgeon Helper Name Role Phone John Tafoya MD Primary Care Prov ider Reason for Visit * Reason Comments Follow-up 6 MO FU * Cardiology (Routine) - Closed Specialty Diagnoses / Procedures Referred By Contac t Referred To Contact Cardiology Diagnoses Paroxysmal atrial fibrillation John Tafoya MD Phone: tel: fax: [facility] [address] [place] [phone] Phone: tel: fax: Referral ID Status Reason Start Date Expiration Date Visits Re quested Visits Authorized [id number] Closed 11/05/2016 10/02/2017 1 Encounter Details Date Type Department Care Team (Late st Contact Info) Description 05/26/2017 9:45 AM DECISION UNIT RN Office Visit [facility] [address] [place] [phone] Adolfo Reyes MD [address] [place] [id number] Presence of prosthetic heart valve (Primary Dx) Social History Tobacco Use Types Packs/Day Years Used Date Smoking Tobacco: Former Cigarettes Q uit: 04/05/2004 Alcohol Use Standard Drinks/Week Comments Yes 0 (1 standard drink = 0.6 oz pur e alcohol) Sex and Gender Information Value Date Recorded Sex Assigned at Not on file Legal Sex Male 2:11 AM DECISION UNIT RN Gender Identity Not on file Sexual Orientation Not on file documented as of this encounter Last Filed Vital Signs Vital Sign Reading Time Taken Comments Blood Pressure 122/66 05/26/2017 9:51 AM DECISION UNIT RN Pulse 69 05/26/2017 9:51 AM DECISION UNIT RN Temperature - - Respiratory Rate - - Oxygen Saturation 92% 05/26/2017 9:51 AM DECISION UNIT RN Inhaled Oxygen Concentration - - Weight 61.2 kg (135 lb) 05/26/2017 9:51 AM DECISION UNIT RN Height 157.5 cm (5' 2 ) 05/26/2017 9:51 AM DECISION UNIT RN Body Mass Index 24.69 05/26/2017 9:51 AM DECISION UNIT RN documented in this encounter Progress Notes * Adolfo Reyes MD - 05/26/2017 9:45 AM CST [facility] FOLLOW UP 05/26/2017 Ryan Dos Santos is a 76 y.o. male who presents for follow up of previous aortic valve replacement. This is a patient who had a bicuspid aortic valve who was referred for surgical treatment in November at [facility]. He received a magna pericardial valve and has done very well since then. He does not have coronary artery disease. He returns to the office feeling well and does not describe any cardiovascular symptoms. He is limited with MCCLURE because of chronic COPD which has been stable and not worsening. REVIEW OF SYSTEMS General ROS: negative for [...] Disp: 0 Inhaler, Rfl: 0 ??? aspirin 325 mg tablet, Take 325 mg by mouth daily., Disp: , Rfl: [...] Oral route once, Disp: 0, Rfl: 0 LABS AND OTHER DIAGNOSTIC TESTS No results found for: CHOL No results found for: HDL No results found for: LDLCALC No results found for: TRIG No results found for: CHOLHDL Lab Results Component Value Date HGB 10.9 (L) 11/20/2015 HCT 34.7 (L) 11/20/2015 MCV 85.0 11/20/2015 No lab exists for component: LABALBU PHYSICAL EXAM Vitals: 05/26/17 0951 BP: 122/66 Pulse: 69 SpO2: 92% Physical Examination: General appearance - alert, well [...] visit: Presence of prosthetic heart valve PLAN/RECOMMENDATIONS Continue conservative follow-up patient's aortic valve is doing well and sounds unremarkable by physical exam. Adolfo Reyes MD SION UNIT RN documented in this encounter Plan of Treatment Not on file documented as of this encounter Visit Diagnoses Diagnosis Presence of prosthetic heart valve- Primary documented in this encounter Discontinued Medications Medication Sig Discontinue Reason Start Date End Da te apixaban (ELIQUIS) 5 mg tablet 5 mg. Discontinued by another clinician 05/26/2017 amiodarone (PACERONE) 200 mg tablet take 1 tablet by oral route every day Discontinued by another clinician 12/24/2015 05/26/2017 documented as of this encounter Historical Medications * This list may reflect changes made after this encounter. meloxicam (MOBIC) 15 mg tablet Take 15 mg by mouth daily. 05/23/2019 added in this encounter Care Teams Tree Surgeon Helper Relationship Specialty Start Date End Date John Tafoya MD [address] [place] [address] PCP - General 01/25/14 documented as of this encounter
--- OUTSIDE RECORDS SUMMARY | 2024-04-04 03:29 | XMS_ITS | Encounter Summary ---
Author Organization [facility] Address [address] [place] [address] Care Team Providers Care Pneumatic Tube Operator Name Role Phone John Tafoya MD Primary Care Prov ider Encounter Details Date Type Department Care Team (Late st Contact Info) Description 04/20/2019 Orders Only [facility] Cardiology [address] [place] [address] Lalo Espinoza MD [address] [place], [place] [id number] Social History Tobacco Use Types Packs/Day Years Used Date Smoking Tobacco: Former Cigarettes Q uit: 04/05/2004 Alcohol Use Standard Drinks/Week Comments Yes 0 (1 standard drink = 0.6 oz pur e alcohol) Sex and Gender Information Value Date Recorded Sex Assigned at Not on file 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
--- OUTSIDE RECORDS SUMMARY | 2024-04-04 03:29 | XMS_ITS | Encounter Summary ---
Author Organization [facility] Facility Care Team Providers Care Manager Roofing Name Role Phone John Tafoya MD Primary Care Prov ider Encounter Details Date Type Department Care Team (Latest Contact Info) Description 11/20/2015 3:16 PM CDT - 11/20/2015 11:59 PM CDT Hospital Encounter [facility] [place] [address] [address] Nonrheumatic aortic valve disorder Social History Tobacco Use Types Packs/Day Years Used Date Smoking Tobacco: Former Cigarettes Q uit: 04/05/2004 Alcohol Use Standard Drinks/Week Comments Yes 0 (1 standard drink = 0.6 oz pur e alcohol) Sex and Gender Information Value Date Recorded Sex Assigned at Not on file Legal Sex Male 2:11 AM QA INTERNSHIP Gender Identity Not on file Sexual Orientation Not on file documented as of this encounter Medications at Time of Discharge atorvastatin (LIPITOR) 10 mg tablet take 1 tablet by oral route every day 0 0 10/20/2012 multivitamin tablet tablet take 1 by Oral route once 0 0 10/20/2012 omeprazole (PriLOSEC) 20 mg capsule 1 capsule (20 mg total) daily 11/15/2015 dabigatran (PRADAXA) 150 mg capsule take 1 capsule by oral route 2 times every day 0 0 10/20/2012 11/05/2016 metoprolol (LOPRESSOR) 50 mg tablet take 1 Tablet by oral route 2 times every day with meals 0 0 10/20/2012 05/23/2019 documented as of this encounter Plan of Treatment Not on file documented as of this encounter Procedures Procedure Name Priority Date/Time Associated Diagnosis Comments SERUM GLUCOSE Routine 11/20/2015 11:10 AM CDT PLASMA COMPREHENSIVE METABOLIC PANEL Routine 11/20/2015 11:10 AM CDT BLOOD CELL COUNT (CBC), MORPHOLOGIC EXAM Routine 11/20/2015 11:10 AM CDT DISCHARGE LABORATORY CUMULATIVE REPORT 11/20/2015 documented in this encounter Results * (ABNORMAL) Blood cell count (CBC), morphologic exam (11/20/2015 11:10 AM CDT) WBC 11.4(H) 3.8 - 9.9 K/cumm CDR HISTORICAL RESULTS RBC 4.08(L) 4.30 - 5.80 M/cumm CDR HISTORICAL RESULTS Hgb 10.9(L) 13.0 - 17.5 g/dl CDR HISTORICAL RESULTS Hct 34.7(L) 38.9 - 50.3 % CDR HISTORICAL RESULTS MCV 85.0 81.3 - 96.4 fl CDR HISTORICAL RESULTS MCH 26.7(L) 27.1 - 33.3 pg CDR HISTORICAL RESULTS MCHC 31.4(L) 32.3 - 35.7 g/dl CDR HISTORICAL RESULTS RDW 46.6 35.7 - 48.2 fl CDR HISTORICAL RESULTS Rdw 15.2(H) 11.1 - 14.1 % CDR HISTORICAL RESULTS Platelets 566(H) 150 - 400 K/cumm CDR HISTORICAL RESULTS MPV 9.7 9.1 - 12.3 fl CDR HISTORICAL RESULTS Neutrophils 77.4 44.0 - 80.0 % CDR HISTORICAL RESULTS Lymphocytes 11.4(L) 13.0 - 44.0 % CDR HISTORICAL RESULTS Monos 9.5 2.0 - 11.0 % CDR HISTORICAL RESULTS Eosinophils 0.5 0.0 - 6.0 % CDR HISTORICAL RESULTS Basophils 0.3 0.0 - 3.0 % CDR HISTORICAL RESULTS Immature granulocytes 0.9 0.0 - 1.0 % CDR HISTORICAL RESULTS NRBC 0.0 0.0 - 0.2 % CDR HISTORICAL RESULTS Neutrophils, abs 8.8(H) 1.7 - 6.5 K/cumm CDR HISTORICAL RESULTS Lymphocytes, abs 1.3 0.8 - 3.3 K/cumm CDR HISTORICAL RESULTS Monocytes, absolute 1.1(H) 0.2 - 0.8 K/cumm CDR HISTORICAL RESULTS Eosinophils, abs 0.1 0.0 - 0.5 K/cumm CDR HISTORICAL RESULTS Basophils, abs 0.0 0.0 - 0.1 K/cumm CDR HISTORICAL RESULTS Immature granulocyte, abs 0.1 0.0 - 0.1 K/cumm CDR HISTORICAL RESULTS NRBC, abs 0.00 0.00 - 0.01 K/cumm CDR HISTORICAL RESULTS Blood specimen (specimen) 11/20/2015 11:10 AM CDT Historical Provider LAB BLOOD ORDERABLES Darya felix Result Performing Organization Address [facility] Co de Phone Number CDR HISTORICAL RESULTS * Serum glucose (11/20/2015 11:10 AM CDT) Glucose 98 70 - 140 mg/dl CDR HISTORICAL RESULTS Comment: Glucose is assumed to be non-fasting. ?? Fasting Glucose normal ranges are: 0 days - 2 months: ? 40 mg/dL - 100 mg/dL 2 months - 999 years: ?70 mg/dL - 99 mg/dL Serum 11/20/2015 11:1 0 AM CDT Historical Provider LAB BLOOD ORDERABLES Darya felix Result Performing Organization Address [facility] Co de Phone Number CDR HISTORICAL RESULTS * (ABNORMAL) Plasma comprehensive metabolic panel (11/20/2015 11:10 AM CDT) Sodium 130(L) 136 - 146 mmol/L CDR HISTORICAL RESULTS K, pl 3.9 3.3 - 4.9 mmol/L CDR HISTORICAL RESULTS Chloride 97(L) 98 - 108 mmol/L CDR HISTORICAL RESULTS CO2 20(L) 22 - 33 mmol/L CDR HISTORICAL RESULTS BUN 27(H) 7 - 18 mg/dl CDR HISTORICAL RESULTS Creatinine 2.26(H) 0.50 - 1.50 mg/dl CDR HISTORICAL RESULTS eGFR 28 ml/min/1.7 3 m2 CDR HISTORICAL RESULTS Comment: GFR Reference Range: = > 60 mL/min/1.73 m2 This result has been calculated assuming the patient is Non-. ??If the patient is , please multiply this result by 1.21. The GFR value is not recommended for medication dose adjustment for renal function, creatinine clearance values should be used. Calcium 9.3 8.5 - 10.5 mg/dl CDR HISTORICAL RESULTS Bilirubin 0.7 0.1 - 1.2 mg/dl CDR HISTORICAL RESULTS Protein, pl 7.0 6.0 - 8.5 g/dl CDR HISTORICAL RESULTS Alb 3.0(L) 3.4 - 5.0 g/dl CDR HISTORICAL RESULTS Alk phos 53 38 - 126 IUnits/L CDR HISTORICAL RESULTS ALT 31 17 - 63 IUnits/L CDR HISTORICAL RESULTS AST 27 15 - 41 IUnits/L CDR HISTORICAL RESULTS Plasma 11/20/2015 11:1 0 AM CDT Historical Provider LAB BLOOD ORDERABLES Darya l Result CDR HISTORICAL RESULTS * DISCHARGE LABORATORY CUMULATIVE REPORT (11/20/2015) Narrative 11/20/2015 Ordered by an unspecified provider. Historical Provider LAB BLOOD ORDERABLES Darya l Result documented in this encounter Visit Diagnoses Diagnosis Nonrheumatic aortic valve disorder documented in this encounter Care Teams Manager Roofing Relationship Specialty Start Date End Date John Tafoya MD [address] [place] [address] PCP - General 01/25/14 documented as of this encounter
--- OUTSIDE RECORDS SUMMARY | 2024-04-04 03:29 | XMS_ITS | Encounter Summary ---
Author Organization [facility] Address [address] [place] [address] Care Team Providers Care Senior Investment Manager Name Role Phone John Tafoya MD Primary Care Prov ider Encounter Details Date Type Department Care Team (Late st Contact Info) Description 04/25/[address] [facility] Cardiology [address] [facility] [address] [place] [address] Adolfo Reyes MD [address] [facility] [address] [place] [address] Social History Tobacco Use Types Packs/Day Years Used Date Smoking Tobacco: Former Cigarettes Q uit: 04/05/2004 Alcohol Use Standard Drinks/Week Comments Yes 0 (1 standard drink = 0.6 oz pur e alcohol) Sex and Gender Information Value Date Recorded Sex Assigned at Not on file Legal Sex Male 2:11 AM INFECTION PREVENTIONIST Gender Identity Not on file Sexual Orientation Not on file documented as of this encounter Miscellaneous Notes * Telephone Encounter - Shelly Tellez RN - 04/25/2019 3:16 PM CST Pt on aricept also. Ok per Tiarra Al INTERACTIVE PRODUCER. Pharmacy aware. CTION PREVENTIONIST * Telephone Encounter - Cindy Boothe - 04/25/2019 3:07 PM CST Pharm called to discuss new prescription of the sotalol 80 mg tabs Gladis Al NP prescribed for pt. cb [phone] CTION PREVENTIONIST documented in this encounter Plan of Treatment Not on file documented as of this encounter Visit Diagnoses Not on filedocumented in this encounter Care Teams Senior Investment Manager Relationship Specialty Start Date End Date John Tafoya MD [address] [place] [address] PCP - General 01/25/14 documented as of this encounter
--- OUTSIDE RECORDS SUMMARY | 2024-04-04 03:29 | XMS_ITS | Encounter Summary ---
Author Organization [facility] Address [address] [place] [address] Care Team Providers Care Shoulder Joiner Name Role Phone John Tafoya MD Primary Care Prov ider Encounter Details Date Type Department Care Team (Late st Contact Info) Description 04/21/2019 Orders Only [facility] Cardiology [address] [facility] [address] [facility] [address] [place] [address] Adolfo Reyes MD [address] [facility] [address] [place] [address] Social History Tobacco Use Types Packs/Day Years Used Date Smoking Tobacco: Former Cigarettes Q uit: 04/05/2004 Alcohol Use Standard Drinks/Week Comments Yes 0 (1 standard drink = 0.6 oz pur e alcohol) Sex and Gender Information Value Date Recorded Sex Assigned at Not on file Legal Sex Male 2:11 AM DIRECTOR OF ANALYTICAL DEVELOPMENT Gender Identity Not on file Sexual Orientation Not on file documented as of this encounter Plan of Treatment Not on file documented as of this encounter Procedures Procedure Name Priority Date/Time Associated Diagnosis Comments CARDIOLOGY DOCUMENT SCAN Routine 04/21/2019 documented in this encounter Results * SCAN - CARDIOLOGY (04/21/2019) Anatomical Region Laterality Modality Other us Adolfo Reyes MD CV CARDIAC SERVICES PROC EDURES Final Result documented in this encounter Visit Diagnoses Not on filedocumented in this encounter Care Teams Shoulder Joiner Relationship Specialty Start Date End Date John Tafoya MD [address] [place] [address] PCP - General 01/25/14 documented as of this encounter
--- OUTSIDE RECORDS SUMMARY | 2024-04-04 03:29 | XMS_ITS | Encounter Summary ---
Author Organization [facility] Facility Care Team Providers Care Library Clerk Name Role Phone John Tafoya MD Primary Care Prov ider Encounter Details Date Type Department Care Team (Latest Contact Info) Description 05/23/2019 Travel Social History Tobacco Use Types Packs/Day Years Used Date Smoking Tobacco: Former Smokeless Tobacco: Never Alcohol Use Standard Drinks/Week Comments Yes 0 (1 standard drink = 0.6 oz pur e alcohol) Sex and Gender Information Value Date Recorded Sex Assigned at Not on file Legal Sex Male 2:11 AM MORTGAGE BROKER Gender Identity Not on file Sexual Orientation Not on file documented as of this encounter Plan of Treatment Not on file documented as of this encounter Visit Diagnoses Not on filedocumented in this encounter Care Teams Library Clerk Relationship Specialty Start Date End Date John Tafoya MD [address] [place] [address] PCP - General 01/25/14 documented as of this encounter
--- OUTSIDE RECORDS SUMMARY | 2024-04-04 03:29 | XMS_ITS | Encounter Summary ---
Author Organization [facility] Address [address] [place] [address] Care Team Providers Care Cook Railroad Name Role Phone John Tafoya MD Primary Care Prov ider Encounter Details Date Type Department Care Team (Late st Contact Info) Description 04/24/2019 Orders Only [facility] Information Management [address] [place] [address] Scanning, Provider Social History Tobacco Use Types Packs/Day Years Used Date Smoking Tobacco: Former Cigarettes Q uit: 04/05/2004 Alcohol Use Standard Drinks/Week Comments Yes 0 (1 standard drink = 0.6 oz pur e alcohol) Sex and Gender Information Value Date Recorded Sex Assigned at Not on file 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 Gender Identity Not on file Sexual Orientation Not on file documented as of this encounter Plan of Treatment Not on file documented as of this encounter Procedures Procedure Name Priority Date/Time Associated Diagnosis Comments SCAN - RADIOLOGY/IMAGING 04/24/2019 documented in this encounter Results * SCAN - RADIOLOGY/IMAGING (04/24/2019) Anatomical Region Laterality Modality Other us Provider Scanning Final Result documented in this encounter Visit Diagnoses Not on filedocumented in this encounter Care Teams Cook [employer] Relationship Specialty Start Date End Date John Tafoya MD [address] [place] [address] PCP - General 01/25/14 documented as of this encounter
--- OUTSIDE RECORDS SUMMARY | 2024-04-04 03:30 | XMS_ITS | Encounter Summary ---
Author Organization [facility] Healthcare Address [address] [place] [address] Care Team Providers Care Operator Vacuum Name Role Phone John Tafoya MD Primary Care Prov ider Encounter Details Date Type Department Care Team (Latest Contact Info) Description 11/07/2015 5:50 AM CDT - 11/13/2015 4:41 PM CDT [place] [id number] [facility] [address] [address] Nonrheumatic aortic valve stenosis; Congenital insufficiency of aortic valve; Chronic atrial fibrillation (CMS/HCC); Acute posthemorrhagic anemia; Atherosclerosis of aorta (CMS/HCC); Essential (primary) hypertension; Hyperlipidemia; Anesthesia of skin; Gastro-esophageal reflux disease without esophagitis; Personal history of malignant neoplasm of prostate; Personal history of nicotine dependence Social History Tobacco Use Types Packs/Day Years Used Date Smoking Tobacco: Former Cigarettes Q uit: 04/05/2004 Alcohol Use Standard Drinks/Week Comments Yes 0 (1 standard drink = 0.6 oz pur e alcohol) Sex and Gender Information Value Date Recorded Sex Assigned at Not on file Legal Sex 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 Gender Identity Not on file Sexual Orientation Not on file documented as of this encounter Last Filed Vital Signs Vital Sign Reading Time Taken Comments Blood Pressure 162/80 11/13/2015 11:08 AM CDT Pulse 71 11/13/2015 11:08 AM CDT Temperature - - Respiratory Rate - - Oxygen Saturation - - Inhaled Oxygen Concentration - - Weight 63.3 kg (139 lb 8.8 oz) 11/13/2015 6:51 A M CDT Height 157.5 cm (5' 2.01 ) 11/11/2015 3:10 PM CD T Body Mass Index 25.52 11/11/2015 3:10 PM CDT documented in this encounter Medications at Time of Discharge atorvastatin (LIPITOR) 10 mg tablet take 1 tablet by oral route every day 0 0 10/20/2012 multivitamin tablet tablet take 1 by Oral route once 0 0 10/20/2012 dabigatran (PRADAXA) 150 mg capsule take 1 capsule by oral route 2 times every day 0 0 10/20/2012 11/05/2016 metoprolol (LOPRESSOR) 50 mg tablet take 1 Tablet by oral route 2 times every day with meals 0 0 10/20/2012 05/23/2019 documented as of this encounter Consult Notes * Provider, MD Carole - 11/11/2015 12:00 AM CDT CONSULTATION REPORT Patient: CANDIDO RODRIGUEZ Service Date: 11/11/2015 Account: [id number] Room No: [id number] : 1940 Patient Type: IP Attend.: Nato Blue M.D. Admit Date: 11/07/2015 Consult.: Sariah Coombs D.O., Elio, F.A.S.E Disch. Date: CARDIOLOGY CONSULTATION CONSULTING PHYSICIAN Sariah Coombs D.O., Elio, F.A.S.E. REASON FOR CONSULTATION Post AVR. HISTORY OF PRESENT ILLNESS Mr. Rodriguez is a 74-year-old male who is followed in our office by Dr. Reyes. He had bicuspid aortic valve with aortic stenosis, chronic AFib, GERD, history of TIA, history of prostate cancer, status post prostatectomy. He was admitted to the hospital and underwent aortic valve replacement with pericardial tissue valve by Dr. Blue. He is postop and doing well. He was transferred from the ICU up to [address] [place] [address]. We were then notified of the patient's hospitalization. He is on beta lacey for rate control, and was also started on amiodarone. He is on Pradaxa for anticoagulation. When I see him, he is sitting comfortably in his bedside chair. He states he is hoping to go home today or tomorrow. He states he is breathing well. He denies any chest discomfort, other than appropriate postop pain. No edema. PAST MEDICAL HISTORY Chronic AFib, history of aortic stenosis secondary to bicuspid aortic valve, GERD, history of TIA, prostate cancer, status post prostatectomy. FAMILY HISTORY No family history of premature coronary artery disease. SOCIAL HISTORY No tobacco, alcohol, or illicit drug use. ALLERGIES See list. MEDICATIONS See list. REVIEW OF SYSTEMS General: No fevers or chills. Skin: No rashes. HEENT: No headache or visual changes. Cardiac: See HPI. Pulmonary: No shortness of breath, cough, or sputum production. GI: No abdominal pain, nausea, or vomiting. Urinary: No dysuria or hematuria. Vascular: No history of thrombosis or emboli. Musculoskeletal: Positive for osteoarthritis. No gout. Neurologic: No history of blackouts or seizures. Hematologic: No bleeding problems. Endocrine: No thyroid problems or diabetes. PHYSICAL EXAM Vitals: Temp 97.4, pulse 85, respirations 18, blood pressure 138/70, oxygen 98% on 1 liter. Skin: No rashes. HEENT: Head is normocephalic. Neck: No JVD. No carotid bruits. Heart: Regular rate and rhythm, S1, S2, with a 2/6 systolic murmur. Lungs: Clear to auscultation. Abdomen: Soft, nontender. Extremities: No edema or cyanosis. Vascular: Pulses +2 bilaterally. No carotid bruits. Musculoskeletal: Grossly intact. No gait abnormalities. LABS Sodium 136, potassium 3.7, chloride 102, CO2 26, BUN 15, creatinine 0.4. ASSESSMENT 1. Aortic stenosis, status post pericardial tissue aortic valve replacement. 2. Chronic atrial fibrillation. 3. Hypertension. 4. Dyslipidemia. 5. Postop anemia. PLAN Patient is postop aortic valve replacement, doing well. Heart rate and blood pressure are well controlled. I will continue current cardiac medications. Continue PT/OT. Anticipate discharge in the next 24-48 hours. Thanks for allowing us to participate in the care of this patient. Electronically Authenticated by: Sariah Coombs D.O. On 11/12/2015 11:12 AM CDT Sariah Coombs D.O., FOctavio., F.A.S.E MEENA/drew TD: 11/11/2015 11:52 documented in this encounter Miscellaneous Notes * Op Note - Provider, MD Carole - 11/07/2015 12:00 AM CDT OPERATIVE REPORT Patient: CANDIDO RODRIGUEZ Service Date: 11/07/2015 Account: [id number] Room No: 2CVU-03 : 1940 Patient Type: IP Attend.: Nato Blue M.D. Admit Date: 11/07/2015 Surgeon: Nato Blue M.D. Disch. Date: SURGEON Nato Blue M.D. PREOP DIAGNOSIS Severe aortic stenosis. POSTOP DIAGNOSIS Severe aortic stenosis. PROCEDURE PERFORMED Aortic valve replacement using a #21 Magna pericardial valve. DRINK BOX MECHANIC Dr. Parada. ANESTHESIA General. INDICATIONS This is a 75-year-old gentleman who presented with chest pain and shortness of breath, who was found to have severe aortic stenosis with valve area 0.6 cm2. Cardiac cath revealed a dominant left main coronary with no obstructive disease. Patient was brought in for elective valve replacement. He is otherwise healthy with some hypertension and hypercholesterolemia. OPERATIVE FINDINGS The ascending aorta had some calcified plaques posteriorly almost throughout the aorta, but particularly around the left cusp of the aorta. There was another calcified plaque anteriorly in the aorta. The valve was a bicuspid valve, which had some fusion and calcifications. The valve was replaced with a 21 Magna pericardial valve and the postop CHASE revealed good bioprosthetic valve function. CROSS-CLAMP TIME 93 minutes. BYPASS TIME 124 minutes. OPERATIVE REPORT After induction of anesthesia and endotracheal intubation, patient's neck, chest, abdomen and legs were prepped and draped in sterile fashion. Median sternotomy incision was performed. The thymus divided in the midline. Pericardium opened up and the edges suspended with silk sutures. There was a calcified plaque at the base of the innominate artery, but the ascending aorta just proximal to this was fine so we placed pursestrings of 2-0 Prolene there was well as 2-0 Prolene in the right atrial appendage. The patient was cannulated routinely and placed on bypass once we obtained adequate ACTs. Antegrade and retrograde cardioplegia catheters were placed. Aorta and pulmonary arteries were in the midline. An LV vent was placed via the right superior pulmonary vein. The aorta was clamped and we delivered 1 L of cardioplegia antegrade. Subsequent doses were given retrograde every 20 minutes or so. The heart arrested nicely. An aortotomy was made in a transverse fashion midway on the ascending aorta. It had to be somewhat high as the more proximal aorta was calcified. The valve was examined, it was excised. The anulus was debrided of calcium. The ventricle was copiously irrigated to drive out any tiny flecks of calcium. The valve was sized and accepted a 21 sizer best and therefore we washed the 21 Magna valve. Serous interrupted 2-0 Ethibond sutures with pledgets were placed circumferentially around the anulus of the aortic valve with the pledgets on the ventricular side. We used a total of 17 sutures. The sutures were then placed in the sewing ring of the valve. The valve was advanced in position and all the sutures were tied with combination of hand knots and cord knots. The valve appeared to be well seated. The aortotomy was then closed in 2 layers of running 4-0 Prolene and a thin layer of BioGlue was applied as the patient was being rewarmed. The patient's ventricle was flushed to help de-air it through the LV vent. At the same time, we gave warm blood cardioplegia to help flush out any air out of the coronary bed. We then released the cross- clamp. The patient regained his own ventricular rhythm. We used atrial and ventricular epicardial pacing wires placed to AV pace the patient. The sutured line on the aorta was inspected and was hemostatic. Patient was allowed to reperfuse for about 15 minutes or so. He was then ventilated and allowed to eject. We went through de-airing maneuvers after which the LV vent and the aortic root vents were removed and their sites reinforced with 5-0 Prolene. The patient was then weaned from bypass and tolerated this well. Protamine was given to reverse the heparin and the cannulas were removed. Chest was dried out. The chest was then drained with 2 tubes angled through the pericardial sac straight to anterior mediastinum. The pericardium was left open. Thymus was approximated in midline over the aorta. Chest was then closed with multiple interrupted heavy gauge wire sutures followed by absorbable sutures in the fascia, subcutaneous tissue and skin. Patient followed procedure well and was taken to ICU in stable, but critical condition. I was present from shortly after incision was made and stayed until closure was begun. I was immediately available at all other times. Patient received a dose of IV antibiotics within an hour of incision and orders were given to continue it for 24 hours postoperatively. Preop subcu heparin was not given. This patient was systemically heparinized during the case. In fact, the patient was on beta blockade and received a dose within 24 hours of surgery. Electronically Authenticated by: Nato Blue MD On 11/08/2015 04:31 PM CDT Tray Minaya/drew TD: 11/07/2015 14:15 documented in this encounter Plan of Treatment Not on file documented as of this encounter Procedures Procedure Name Priority Date/Time Associated Diagnosis Comments BLOOD GLUCOSE, POC Routine 11/13/2015 8: 19 AM CDT PLASMA MAGNESIUM Routine 11/13/2015 4:45 AM CDT PLASMA BASIC METABOLIC PANEL Routine 11/13/2015 4:45 AM CDT DISCHARGE LABORATORY CUMULATIVE REPORT 11/13/2015 BLOOD GLUCOSE, POC Routine 11/12/2015 8: 12 PM CDT BLOOD GLUCOSE, POC Routine 11/12/2015 5: 55 PM CDT BLOOD GLUCOSE, POC Routine 11/12/2015 1: 26 PM CDT BLOOD GLUCOSE, POC Routine 11/12/2015 8: 18 AM CDT XR CHEST 1 VIEW Routine 11/12/2015 6:39 AM CDT PLASMA BASIC METABOLIC PANEL Routine 11/12/2015 4:53 AM CDT BLOOD CELL COUNT (CBC), MORPHOLOGIC EXAM Routine 11/12/2015 4:50 AM CDT BLOOD GLUCOSE, POC Routine 11/11/2015 7: 58 PM CDT BLOOD GLUCOSE, POC Routine 11/11/2015 5: 33 PM CDT BLOOD GLUCOSE, POC Routine 11/11/2015 12 :38 PM CDT BLOOD GLUCOSE, POC Routine 11/11/2015 7: 34 AM CDT PLASMA BASIC METABOLIC PANEL Routine 11/11/2015 6:15 AM CDT BLOOD CELL COUNT (CBC), MORPHOLOGIC EXAM Routine 11/11/2015 6:15 AM CDT CHEST RADIOGRAPHY, FRONTAL (AP), LATERAL Routine 11/11/2015 5:45 AM CDT BLOOD GLUCOSE, POC Routine 11/11/2015 3: 31 AM CDT BLOOD GLUCOSE, POC Routine 11/10/2015 7: 52 PM CDT BLOOD GLUCOSE, POC Routine 11/10/2015 12 :25 PM CDT BLOOD GLUCOSE, POC Routine 11/10/2015 7: 41 AM CDT XR CHEST 1 VIEW Routine 11/10/2015 7:41 AM CDT PLASMA BASIC METABOLIC PANEL Routine 11/10/2015 5:44 AM CDT BLOOD CELL COUNT (CBC), MORPHOLOGIC EXAM Routine 11/10/2015 5:44 AM CDT BLOOD GLUCOSE, POC Routine 11/10/2015 3: 30 AM CDT ELECTROCARDIOGRAPHY (ECG) 11/10/2015 BLOOD GLUCOSE, POC Routine 11/09/2015 8: 10 PM CDT PRE-PRELIMINARY DIAGNOSTIC REPORT Routine 11/09/2015 4:02 PM CDT XR CHEST 1 VIEW Routine 11/09/2015 4:02 PM CDT BLOOD GLUCOSE, POC Routine 11/09/2015 12 :46 PM CDT BLOOD GLUCOSE, POC Routine 11/09/2015 7: 39 AM CDT XR CHEST 1 VIEW Routine 11/09/2015 6:58 AM CDT PLASMA BASIC METABOLIC PANEL Routine 11/09/2015 5:40 AM CDT BLOOD CELL COUNT (CBC), MORPHOLOGIC EXAM Routine 11/09/2015 5:40 AM CDT BLOOD GLUCOSE, POC Routine 11/09/2015 3: 01 AM CDT BLOOD GLUCOSE, POC Routine 11/08/2015 9: 39 PM CDT BLOOD GLUCOSE, POC Routine 11/08/2015 5: 51 PM CDT PLASMA POTASSIUM Routine 11/08/2015 5:43 PM CDT PLASMA MAGNESIUM Routine 11/08/2015 5:43 PM CDT BLOOD GLUCOSE, POC Routine 11/08/2015 4: 15 PM CDT BLOOD GLUCOSE, POC Routine 11/08/2015 3: 08 PM CDT BLOOD GLUCOSE, POC Routine 11/08/2015 2: 02 PM CDT BLOOD GLUCOSE, POC Routine 11/08/2015 12 :51 PM CDT PLASMA MAGNESIUM Routine 11/08/2015 11:5 0 AM CDT PLASMA BASIC METABOLIC PANEL Routine 11/08/2015 11:50 AM CDT BLOOD CELL COUNT (CBC) Routine 6 11:50 AM CDT BLOOD GLUCOSE, POC Routine 11/08/2015 11 :39 AM CDT BLOOD GLUCOSE, POC Routine 11/08/2015 10 :57 AM CDT BLOOD GLUCOSE, POC Routine 11/08/2015 9: 52 AM CDT BLOOD GLUCOSE, POC Routine 11/08/2015 8: 46 AM CDT BLOOD GLUCOSE, POC Routine 11/08/2015 8: 44 AM CDT BLOOD GLUCOSE, POC Routine 11/08/2015 7: 36 AM CDT BLOOD GLUCOSE, POC Routine 11/08/2015 6: 03 AM CDT XR CHEST 1 VIEW Routine 11/08/2015 5:34 AM CDT BLOOD GLUCOSE, POC Routine 11/08/2015 4: 57 AM CDT PLASMA PROTHROMBIN TIME (PT) Routine 11/08/2015 4:00 AM CDT PLASMA MAGNESIUM Routine 11/08/2015 4:00 AM CDT PLASMA BASIC METABOLIC PANEL Routine 11/08/2015 4:00 AM CDT BLOOD CELL COUNT (CBC), MORPHOLOGIC EXAM Routine 11/08/2015 4:00 AM CDT BLOOD GLUCOSE, POC Routine 11/08/2015 3: 53 AM CDT BLOOD GLUCOSE, POC Routine 11/08/2015 3: 06 AM CDT BLOOD GLUCOSE, POC Routine 11/08/2015 2: 03 AM CDT BLOOD GLUCOSE, POC Routine 11/08/2015 12 :54 AM CDT BLOOD GLUCOSE, POC Routine 11/07/2015 11 :55 PM CDT BLOOD GLUCOSE, POC Routine 11/07/2015 10 :52 PM CDT BLOOD GLUCOSE, POC Routine 11/07/2015 9: 48 PM CDT BLOOD GLUCOSE, POC Routine 11/07/2015 8: 50 PM CDT BLOOD GLUCOSE, POC Routine 11/07/2015 7: 47 PM CDT BLOOD GLUCOSE, POC Routine 11/07/2015 6: 56 PM CDT BLOOD GLUCOSE, POC Routine 11/07/2015 5: 57 PM CDT BLOOD GAS, ARTERIAL Routine 11/07/2015 5 :22 PM CDT BLOOD GLUCOSE, POC Routine 11/07/2015 5: 00 PM CDT PLASMA POTASSIUM Routine 11/07/2015 4:13 PM CDT BLOOD HEMOGLOBIN Routine 11/07/2015 4:13 PM CDT BLOOD HEMATOCRIT Routine 11/07/2015 4:13 PM CDT BLOOD GAS, ARTERIAL Routine 11/07/2015 4 :13 PM CDT BLOOD GLUCOSE, POC Routine 11/07/2015 4: 12 PM CDT BLOOD GLUCOSE, POC Routine 11/07/2015 2: 49 PM CDT BLOOD GLUCOSE, POC Routine 11/07/2015 1: 56 PM CDT BLOOD GLUCOSE, POC Routine 11/07/2015 1: 19 PM CDT PRE-PRELIMINARY DIAGNOSTIC REPORT Routine 11/07/2015 1:07 PM CDT XR CHEST 1 VIEW Routine 11/07/2015 1:07 PM CDT PLASMA PROTHROMBIN TIME (PT) Routine 11/07/2015 12:55 PM CDT PLASMA PARTIAL THROMBOPLASTIN TIME (PTT) Routine 11/07/2015 12:55 PM CDT PLASMA BASIC METABOLIC PANEL Routine 11/07/2015 12:55 PM CDT BLOOD CELL COUNT (CBC), MORPHOLOGIC EXAM Routine 11/07/2015 12:55 PM CDT BLOOD CALCIUM, IONIZED Routine 6 12:55 PM CDT BLOOD GAS, ARTERIAL Routine 11/07/2015 1 2:55 PM CDT BLOOD GLUCOSE, POC Routine 11/07/2015 12 :36 PM CDT BLOOD GLUCOSE, POC Routine 11/07/2015 11 :58 AM CDT BLOOD GLUCOSE, POC Routine 11/07/2015 11 :20 AM CDT BLOOD PLATELET COUNT Routine 11/07/2015 10:55 AM CDT BLOOD GLUCOSE, POC Routine 11/07/2015 10 :34 AM CDT BLOOD GLUCOSE, POC Routine 11/07/2015 9: 49 AM CDT BLOOD GLUCOSE, POC Routine 11/07/2015 8: 41 AM CDT PLASMA MAGNESIUM Routine 11/07/2015 7:55 AM CDT SURGICAL PATHOLOGY 11/07/2015 documented in this encounter Results * Blood glucose, POC (11/13/2015 8:19 AM CDT) Glucose, POC, bld 140 70 - 199 mg/dl CDR HISTORICAL RESULTS Blood specimen (specimen) 11/13/2015 8:19 AM CDT Nato Blue MD LAB BLOOD ORDERABLES Final R esult Performing Organization Address [facility] de Phone Number CDR HISTORICAL RESULTS * (ABNORMAL) Plasma basic metabolic panel (11/13/2015 4:45 AM CDT) Pathologist [facility] BUN 20 8 - 24 mg/dl CDR HISTORICAL RESULTS Glucose 112 70 - 199 mg/dl CDR HISTORICAL RESULTS Sodium 132(L) 135 - 145 mmol/L CDR HISTORICAL RESULTS K, pl 4.1 3.5 - 5.1 mmol/L CDR HISTORICAL RESULTS Chloride 98(L) 100 - 114 mmol/L CDR HISTORICAL RESULTS CO2 24 22 - 32 mmol/L CDR HISTORICAL RESULTS Creatinine 1.03 0.70 - 1.40 mg/dl CDR HISTORICAL RESULTS Calcium 8.8 8.4 - 10.5 mg/dl CDR HISTORICAL RESULTS A. gap 14 8 - 16 mmol/L CDR HISTORICAL RESULTS eGFR 70 90 - 200 ml/min/1.7 3 m2 CDR HISTORICAL RESULTS Comment: If this individual is -[place], multiply result by 1.21 Repeated results of less than 60 is indicative of chronic kidney disease. MDRD formula has not been validated on individuals greater than 70 years old. Plasma 11/13/2015 4:45 AM CDT Historical Provider LAB BLOOD ORDERABLES Dayra l Result Performing Organization Address City/[facility] Co de Phone Number CDR HISTORICAL RESULTS * Plasma magnesium (11/13/2015 4:45 AM CDT) Magnesium 2.0 1.8 - 2.6 mg/dl CDR HISTORICAL RESULTS Plasma 11/13/2015 4:45 AM CDT Result [facility] Nohelia Santiago NP LAB BLOOD ORDERABLES F inal Result Performing Organization Address City/[facility] Co de Phone Number CDR HISTORICAL RESULTS * DISCHARGE LABORATORY CUMULATIVE REPORT (11/13/2015) Narrative 11/13/2015 Ordered by an unspecified provider. Historical Provider LAB BLOOD ORDERABLES Darya l Result * Blood glucose, POC (11/12/2015 8:12 PM CDT) Glucose, POC, bld 141 70 - 199 mg/dl CDR HISTORICAL RESULTS Blood specimen (specimen) 11/12/2015 8:12 PM CDT Result [facility] Nato Blue MD LAB BLOOD ORDERABLES Final R esult Performing Organization Address [facility] Co de Phone Number CDR HISTORICAL RESULTS * Blood glucose, POC (11/12/2015 5:55 PM CDT) Glucose, POC, bld 131 70 - 199 mg/dl CDR HISTORICAL RESULTS Blood specimen (specimen) 11/12/2015 5:55 PM CDT Result [facility] Nato Blue MD LAB BLOOD ORDERABLES Final R esult Performing Organization Address City/State/[facility] Co de Phone Number CDR HISTORICAL RESULTS * Blood glucose, POC (11/12/2015 1:26 PM CDT) Glucose, POC, bld 119 70 - 199 mg/dl CDR HISTORICAL RESULTS Blood specimen (specimen) 11/12/2015 1:26 PM CDT Nato Blue MD LAB BLOOD ORDERABLES Final R esult CDR HISTORICAL RESULTS * Blood glucose, POC (11/12/2015 8:18 AM CDT) Glucose, POC, bld 105 70 - 199 mg/dl CDR HISTORICAL RESULTS Blood specimen (specimen) 11/12/2015 8:18 AM CDT Nato Blue MD LAB BLOOD ORDERABLES Final R esult CDR HISTORICAL RESULTS * XR Chest 1 View (11/12/2015 6:39 AM CDT) Anatomical Region Laterality Modality Body, Chest N/A Radiographic Brigid ging 11/12/2015 6:39 AM CDT Narrative 11/12/2015 10:36 AM CDT DATE OF EXAM: ??Aug ??2015 ??6:39AM Acc#: ??[id number] ??EDX 0031 - XR Chest Portable ?? DIAGNOSIS: ??REPLACEMENT VALVE AORTIC/AORTIC STENOSIS CLINICAL HISTORY: ?? Assess Lungs Post Cardiac Surgery RESULT: PORTABLE CHEST: COMPARISON: 11/11/2015. Bibasilar pleural thickening and subsegmental atelectasis with small bilateral pleural effusions are once again demonstrated. Postsurgical mediastinal changes are present with calcific aortic change. IMPRESSION: ? NO INTERVAL CHANGE FROM THE PREVIOUS STUDY ON 11/11/2015. TECHNICIAN AUTOMATED EQUIPMENT: ??LB3 TRANSCRIBE DATE/TIME: ??Nov ??2015 10:30A RADIOLOGIST: ??GLADIS MARTEL M.D. ??READ ON: ??Nov ??2015 ??8:42A ORDERING DR: PUJA PARADA M.D. THIS DOCUMENT HAS BEEN ELECTRONICALLY SIGNED BY: ??GLADIS MARTEL M.D. ??ON: ??Nov ??2015 10:36A Attending: ??ALIA, ??NATO Requesting: ??CHRISTIE, ??PUJA Requesting Fax: ??[phone] Attending Fax: ??[phone] Attending ID: ??[id number] Requesting ID: ??[id number] Report To 1 ID: ??[id number] Report To 1 Name: ??ALIA, ??NATO Report To 1 FAX: ??[phone] Report To 2 ID: ?? Report To 2 Name: ??, ?? Report To 2 FAX: ??-- NextGen Order #: ?? Procedure Note Provider, Carole, - 07/31/2016 DATE OF EXAM: Nov 12 2015 6:39AM Acc#: [id number] EDX 0031 - XR Chest Portable DIAGNOSIS: REPLACEMENT VALVE AORTIC/AORTIC STENOSIS CLINICAL HISTORY: Assess Lungs Post Cardiac Surgery RESULT: PORTABLE CHEST: COMPARISON: 11/11/2015. Bibasilar pleural thickening and subsegmental atelectasis with small bilateral pleural effusions are once again demonstrated. Postsurgical mediastinal changes are present with calcific aortic change. IMPRESSION: NO INTERVAL CHANGE FROM THE PREVIOUS STUDY ON 11/11/2015. TECHNICIAN AUTOMATED EQUIPMENT: ALTAF3 TRANSCRIBE DATE/TIME: Nov 12 2015 10:30A RADIOLOGIST: GLADIS MARTEL M.D. READ ON: Nov 12 2015 8:42A ORDERING DR: PUJA PARADA M.D. THIS DOCUMENT HAS BEEN ELECTRONICALLY SIGNED BY: GLADIS MARTEL M.D. ON: Nov 12 2015 10:36A Attending: NATO BLUE Requesting: PUJA PARADA Requesting Attending Attending ID: [id number] Requesting ID: [id number] Report To 1 ID: [id number] Report To 1 Name: NATO BLUE Report To 1 FAX: [phone] Report To 2 ID: Report To 2 Name: , Report To 2 FAX: -- NextGen Order #: us Historical Provider IMG XR PROCEDURES Final R esult * (ABNORMAL) Plasma basic metabolic panel (11/12/2015 4:53 AM CDT) BUN 15 8 - 24 mg/dl CDR HISTORICAL RESULTS Glucose 112 70 - 199 mg/dl CDR HISTORICAL RESULTS Sodium 132(L) 135 - 145 mmol/L CDR HISTORICAL RESULTS K, pl 3.4(L) 3.5 - 5.1 mmol/L CDR HISTORICAL RESULTS Chloride 97(L) 100 - 114 mmol/L CDR HISTORICAL RESULTS CO2 28 22 - 32 mmol/L CDR HISTORICAL RESULTS Creatinine 0.91 0.70 - 1.40 mg/dl CDR HISTORICAL RESULTS Calcium 8.6 8.4 - 10.5 mg/dl CDR HISTORICAL RESULTS A. gap 10 8 - 16 mmol/L CDR HISTORICAL RESULTS Plasma 11/12/2015 4:53 AM CDT Nato Blue MD LAB BLOOD ORDERABLES Final R esult CDR HISTORICAL RESULTS * (ABNORMAL) Blood cell count (CBC), morphologic exam (11/12/2015 4:50 AM CDT) WBC 7.2 3.8 - 9.8 K/cumm CDR HISTORICAL RESULTS RBC 2.69(L) 4.50 - 6.00 M/cumm CDR HISTORICAL RESULTS Hgb 6.9(VL) 14.0 - 18.0 g/dl CDR HISTORICAL RESULTS Comment: This result has been called to Leann Ruano by Silvia Medley on 11-12-15 at 05:21, and has been read back (). Hct 22.3(L) 40.0 - 54.0 % CDR HISTORICAL RESULTS MCV 82.9 82.0 - 96.0 fl CDR HISTORICAL RESULTS MCH 25.7(L) 27.0 - 32.0 pg CDR HISTORICAL RESULTS MCHC 30.9 29.0 - 35.0 g/dl CDR HISTORICAL RESULTS Platelets 213 150 - 450 K/cumm CDR HISTORICAL RESULTS RDW 46.3(H) 35.1 - 43.9 fl CDR HISTORICAL RESULTS Rdw 15.3(H) 11.5 - 14.5 % CDR HISTORICAL RESULTS MPV 9.9 8.6 - 12.6 fl CDR HISTORICAL RESULTS Neutrophils 67.5 42.0 - 85.0 % CDR HISTORICAL RESULTS Neutrophils, abs 4.8 2.1 - 8.5 K/cumm CDR HISTORICAL RESULTS Lymphocytes 17.2 16.0 - 52.0 % CDR HISTORICAL RESULTS Lymphocytes, abs 1.2 0.8 - 5.2 K/cumm CDR HISTORICAL RESULTS Monos 13.8(H) 1.0 - 13.0 % CDR HISTORICAL RESULTS Monocytes, absolute 1.0 0.0 - 1.3 K/cumm CDR HISTORICAL RESULTS Eosinophils 0.8 0.0 - 7.0 % CDR HISTORICAL RESULTS Eosinophils, abs 0.1 0.0 - 0.7 K/cumm CDR HISTORICAL RESULTS Basophils 0.3 0.0 - 4.0 % CDR HISTORICAL RESULTS Basophils, abs 0.0 0.0 - 0.4 K/cumm CDR HISTORICAL RESULTS Young granulocytes, % 0.4 0.0 - 1.0 % CDR HISTORICAL RESULTS Young granulocyte 0.03 0.00 - 0.10 K/cumm CDR HISTORICAL RESULTS NRBC 0.0 0.0 - 0.2 #/100 WBC CDR HISTORICAL RESULTS NRBC, abs 0.00 0.00 - 0.01 K/cumm CDR HISTORICAL RESULTS Blood specimen (specimen) 11/12/2015 4:50 AM CDT Nato Blue MD LAB BLOOD ORDERABLES Final R esult Performing Organization Address [facility] de Phone Number CDR HISTORICAL RESULTS * Blood glucose, POC (11/11/2015 7:58 PM CDT) Glucose, POC, bld 152 70 - 199 mg/dl CDR HISTORICAL RESULTS Blood specimen (specimen) 11/11/2015 7:58 PM CDT Result [facility] Nato Blue MD LAB BLOOD ORDERABLES Final R esult Performing Organization Address City/[facility] Co de Phone Number CDR HISTORICAL RESULTS * Blood glucose, POC (11/11/2015 5:33 PM CDT) Glucose, POC, bld 132 70 - 199 mg/dl CDR HISTORICAL RESULTS Blood specimen (specimen) 11/11/2015 5:33 PM CDT Nato Blue MD LAB BLOOD ORDERABLES Final R esult Performing Organization Address City/[facility] Co de Phone Number CDR HISTORICAL RESULTS * Blood glucose, POC (11/11/2015 12:38 PM CDT) Glucose, POC, bld 123 70 - 199 mg/dl CDR HISTORICAL RESULTS Blood specimen (specimen) 11/11/2015 12:38 PM CDT Nato Blue MD LAB BLOOD ORDERABLES Final R esult Performing Organization Address City/State/[facility] Co de Phone Number CDR HISTORICAL RESULTS * Blood glucose, POC (11/11/2015 7:34 AM CDT) Glucose, POC, bld 134 70 - 199 mg/dl CDR HISTORICAL RESULTS Blood specimen (specimen) 11/11/2015 7:34 AM CDT Nato Blue MD LAB BLOOD ORDERABLES Final R esult Performing Organization Address [facility] Co de Phone Number CDR HISTORICAL RESULTS * (ABNORMAL) Blood cell count (CBC), morphologic exam (11/11/2015 6:15 AM CDT) Pathologist [facility] WBC 9.7 3.8 - 9.8 K/cumm CDR HISTORICAL RESULTS RBC 2.65(L) 4.50 - 6.00 M/cumm CDR HISTORICAL RESULTS Hgb 6.8(VL) 14.0 - 18.0 g/dl CDR HISTORICAL RESULTS Comment: This result has been called to Lisbeth Davis by Danae Freed on 11-11-15 at 06:45, and has been read back (). Hct 22.2(L) 40.0 - 54.0 % CDR HISTORICAL RESULTS MCV 83.8 82.0 - 96.0 fl CDR HISTORICAL RESULTS MCH 25.7(L) 27.0 - 32.0 pg CDR HISTORICAL RESULTS MCHC 30.6 29.0 - 35.0 g/dl CDR HISTORICAL RESULTS Platelets 208 150 - 450 K/cumm CDR HISTORICAL RESULTS RDW 47.2(H) 35.1 - 43.9 fl CDR HISTORICAL RESULTS Rdw 15.3(H) 11.5 - 14.5 % CDR HISTORICAL RESULTS MPV 10.3 8.6 - 12.6 fl CDR HISTORICAL RESULTS Neutrophils 80.2 42.0 - 85.0 % CDR HISTORICAL RESULTS Neutrophils, abs 7.8 2.1 - 8.5 K/cumm CDR HISTORICAL RESULTS Lymphocytes 9.4(L) 16.0 - 52.0 % CDR HISTORICAL RESULTS Lymphocytes, abs 0.9 0.8 - 5.2 K/cumm CDR HISTORICAL RESULTS Monos 9.8 1.0 - 13.0 % CDR HISTORICAL RESULTS Monocytes, absolute 1.0 0.0 - 1.3 K/cumm CDR HISTORICAL RESULTS Eosinophils 0.1 0.0 - 7.0 % CDR HISTORICAL RESULTS Eosinophils, abs 0.0 0.0 - 0.7 K/cumm CDR HISTORICAL RESULTS Basophils 0.2 0.0 - 4.0 % CDR HISTORICAL RESULTS Basophils, abs 0.0 0.0 - 0.4 K/cumm CDR HISTORICAL RESULTS Young granulocytes, % 0.3 0.0 - 1.0 % CDR HISTORICAL RESULTS Young granulocyte 0.03 0.00 - 0.10 K/cumm CDR HISTORICAL RESULTS NRBC 0.0 0.0 - 0.2 #/100 WBC CDR HISTORICAL RESULTS NRBC, abs 0.00 0.00 - 0.01 K/cumm CDR HISTORICAL RESULTS Blood specimen (specimen) 11/11/2015 6:15 AM CDT us Nato Blue MD LAB BLOOD ORDERABLES Final R esult CDR HISTORICAL RESULTS * Plasma basic metabolic panel (11/11/2015 6:15 AM CDT) BUN 16 8 - 24 mg/dl CDR HISTORICAL RESULTS Glucose 150 70 - 199 mg/dl CDR HISTORICAL RESULTS Sodium 136 135 - 145 mmol/L CDR HISTORICAL RESULTS K, pl 3.7 3.5 - 5.1 mmol/L CDR HISTORICAL RESULTS Chloride 102 100 - 114 mmol/L CDR HISTORICAL RESULTS CO2 27 22 - 32 mmol/L CDR HISTORICAL RESULTS Creatinine 1.04 0.70 - 1.40 mg/dl CDR HISTORICAL RESULTS Calcium 8.9 8.4 - 10.5 mg/dl CDR HISTORICAL RESULTS A. gap 11 8 - 16 mmol/L CDR HISTORICAL RESULTS eGFR 70 90 - 200 ml/min/1.7 3 m2 CDR HISTORICAL RESULTS Comment: If this individual is -[place], multiply result by 1.21 Repeated results of less than 60 is indicative of chronic kidney disease. MDRD formula has not been validated on individuals greater than 70 years old. Plasma 11/11/2015 6:15 AM CDT us Nato Blue MD LAB BLOOD ORDERABLES Final R esult CDR HISTORICAL RESULTS * CHEST RADIOGRAPHY, FRONTAL (AP), LATERAL (11/11/2015 5:45 AM CDT) Anatomical Region Laterality Modality N/A Radiographic Brigid ging 11/11/2015 5:45 AM CDT Narrative 11/11/2015 2:04 PM CDT DATE OF EXAM: ??Nov ??2015 ??5:45AM Acc#: ??[id number] ??EDX 0167 - XR Chest 2 Views ?? DIAGNOSIS: ??REPLACEMENT VALVE AORTIC/AORTIC STENOSIS CLINICAL HISTORY: ?? s/p chest tube removal RESULT: CHEST, TWO VIEWS: COMPARISON: 11/10/2015. There are sternotomy changes. The bibasilar pleural thickening and probable small areas of subsegmental atelectasis and small pleural effusions are once again noted. IMPRESSION: ? NO SIGNIFICANT CHANGE FROM PREVIOUS STUDY. NO SIGN OF PNEUMOTHORAX. TECHNICIAN AUTOMATED EQUIPMENT: ??LB3 TRANSCRIBE DATE/TIME: ??Nov ??2015 10:49A RADIOLOGIST: ??GLADIS MARTEL M.D. ??READ ON: ??Nov ??2015 ??8:48A ORDERING DR: NATO BLUE M.D. THIS DOCUMENT HAS BEEN ELECTRONICALLY SIGNED BY: ??GLADIS MARTEL M.D. ??ON: ??Nov ??2015 ??2:04P Attending: ??ALIA, ??NATO Requesting: ??ALIA, ??NATO Requesting Fax: ??[phone] Attending Fax: ??[phone] Attending ID: ??[id number] Requesting ID: ??[id number] Report To 1 ID: ??[id number] Report To 1 Name: ??ALIA, ??NATO Report To 1 FAX: ??[phone] Report To 2 ID: ?? Report To 2 Name: ??, ?? Report To 2 FAX: ??-- NextGen Order #: ?? Procedure Note Provider, Carole, - 07/31/2016 DATE OF EXAM: Nov 11 2015 5:45AM Acc#: [id number] EDX 0167 - XR Chest 2 Views DIAGNOSIS: REPLACEMENT VALVE AORTIC/AORTIC STENOSIS CLINICAL HISTORY: s/p chest tube removal RESULT: CHEST, TWO VIEWS: COMPARISON: 11/10/2015. There are sternotomy changes. The bibasilar pleural thickening and probable small areas of subsegmental atelectasis and small pleural effusions are once again noted. IMPRESSION: NO SIGNIFICANT CHANGE FROM PREVIOUS STUDY. NO SIGN OF PNEUMOTHORAX. TECHNICIAN AUTOMATED EQUIPMENT: ALTAF3 TRANSCRIBE DATE/TIME: Nov 11 2015 10:49A RADIOLOGIST: GLADIS MARTEL M.D. READ ON: Nov 11 2015 8:48A ORDERING DR: NATO BLUE M.D. THIS DOCUMENT HAS BEEN ELECTRONICALLY SIGNED BY: GLADIS MARTEL M.D. ON: Nov 11 2015 2:04P Attending: NATO BLUE Requesting: NATO BLUE Requesting Attending Attending ID: [id number] Requesting ID: [id number] Report To 1 ID: [id number] Report To 1 Name: NATO BLUE Report To 1 FAX: [phone] Report To 2 ID: Report To 2 Name: , Report To 2 FAX: -- NextGen Order #: us Historical Provider IMG XR PROCEDURES Final R esult * Blood glucose, POC (11/11/2015 3:31 AM CDT) Glucose, POC, bld 138 70 - 199 mg/dl CDR HISTORICAL RESULTS Blood specimen (specimen) 11/11/2015 3:31 AM CDT Nato Blue MD LAB BLOOD ORDERABLES Final R esult CDR HISTORICAL RESULTS * Blood glucose, POC (11/10/2015 7:52 PM CDT) Glucose, POC, bld 162 70 - 199 mg/dl CDR HISTORICAL RESULTS Blood specimen (specimen) 11/10/2015 7:52 PM CDT Nato Blue MD LAB BLOOD ORDERABLES Final R esult Performing Organization Address [facility] de Phone Number CDR HISTORICAL RESULTS * Blood glucose, POC (11/10/2015 12:25 PM CDT) Glucose, POC, bld 115 70 - 199 mg/dl CDR HISTORICAL RESULTS Blood specimen (specimen) 11/10/2015 12:25 PM CDT Nato Blue MD LAB BLOOD ORDERABLES Final R esult Performing Organization Address [facility] de Phone Number CDR HISTORICAL RESULTS * Blood glucose, POC (11/10/2015 7:41 AM CDT) Glucose, POC, bld 128 70 - 199 mg/dl CDR HISTORICAL RESULTS Blood specimen (specimen) 11/10/2015 7:41 AM CDT Nato Blue MD LAB BLOOD ORDERABLES Final R esult Performing Organization Address [facility] de Phone Number CDR HISTORICAL RESULTS * XR Chest 1 View (11/10/2015 7:41 AM CDT) Anatomical Region Laterality Modality Body, Chest N/A Radiographic Brigid ging 11/10/2015 7:41 AM CDT Narrative 11/12/2015 8:03 AM CDT DATE OF EXAM: ??Nov ??2015 ??7:41AM Acc#: ??[id number] ??EDX 0031 - XR Chest Portable ?? DIAGNOSIS: ??REPLACEMENT VALVE AORTIC/AORTIC STENOSIS CLINICAL HISTORY: ?? Assess Lungs Post Cardiac Surgery RESULT: PORTABLE CHEST X-RAY: HISTORY: ??Postcardiac surgery. Portable frontal view of the chest was obtained. ??Comparison is made to 11/09/2015 portable chest x-ray exam. ??Sternotomy wires are present. ?? Epicardial leads are noted. ??Heart size is normal. ??Right costophrenic angle blunting is noted. ??Left lateral basilar pleural thickening is noted with interstitial thickening. ??There is no pneumothorax. IMPRESSION: ? NO SIGNIFICANT CHANGE IN PULMONARY AERATION. ?? TECHNICIAN AUTOMATED EQUIPMENT: ??TR6 TRANSCRIBE DATE/TIME: ??Nov ??2015 ??1:50P RADIOLOGIST: ??BERNARDA KRISHNAN M.D. ??READ ON: ??Nov ??2015 ??9:40A ORDERING DR: PUJA PARADA M.D. THIS DOCUMENT HAS BEEN ELECTRONICALLY SIGNED BY: ??EULOGIO Feliz, BERNARDA ??ON: ??Nov ??2015 ??8:03A Attending: ??ALIA, ??NATO Requesting: ??CHRISTIE, ??PUJA Requesting Fax: ??[phone] Attending Fax: ??[phone] Attending ID: ??[id number] Requesting ID: ??[id number] Report To 1 ID: ??[id number] Report To 1 Name: ??ALIA, ??NATO Report To 1 FAX: ??[phone] Report To 2 ID: ?? Report To 2 Name: ??, ?? Report To 2 FAX: ??-- NextGen Order #: ?? Procedure Note Provider, MD Carole - 07/31/2016 DATE OF EXAM: Nov 10 2015 7:41AM Acc#: [id number] EDX 0031 - XR Chest Portable DIAGNOSIS: REPLACEMENT VALVE AORTIC/AORTIC STENOSIS CLINICAL HISTORY: Assess Lungs Post Cardiac Surgery RESULT: PORTABLE CHEST X-RAY: HISTORY: Postcardiac surgery. Portable frontal view of the chest was obtained. Comparison is made to 11/09/2015 portable chest x-ray exam. Sternotomy wires are present. Epicardial leads are noted. Heart size is normal. Right costophrenic angle blunting is noted. Left lateral basilar pleural thickening is noted with interstitial thickening. There is no pneumothorax. IMPRESSION: NO SIGNIFICANT CHANGE IN PULMONARY AERATION. TECHNICIAN AUTOMATED EQUIPMENT: TR6 TRANSCRIBE DATE/TIME: Nov 10 2015 1:50P RADIOLOGIST: BERNARDA KRISHNAN M.D. READ ON: Nov 10 2015 9:40A ORDERING DR: PUJA PARADA M.D. THIS DOCUMENT HAS BEEN ELECTRONICALLY SIGNED BY: BERNARDA KRISHNAN M.D. ON: Nov 12 2015 8:03A Attending: NATO BLUE Requesting: PUJA PARADA Requesting Attending Attending ID: [id number] Requesting ID: [id number] Report To 1 ID: [id number] Report To 1 Name: NATO BLUE Report To 1 FAX: [phone] Report To 2 ID: Report To 2 Name: , Report To 2 FAX: -- NextGen Order #: us Historical Provider MD COOK XR PROCEDURES Final R esult * (ABNORMAL) Blood cell count (CBC), morphologic exam (11/10/2015 5:44 AM CDT) WBC 9.6 3.8 - 9.8 K/cumm CDR HISTORICAL RESULTS RBC 2.76(L) 4.50 - 6.00 M/cumm CDR HISTORICAL RESULTS Hgb 7.2(L) 14.0 - 18.0 g/dl CDR HISTORICAL RESULTS Hct 23.0(L) 40.0 - 54.0 % CDR HISTORICAL RESULTS MCV 83.3 82.0 - 96.0 fl CDR HISTORICAL RESULTS MCH 26.1(L) 27.0 - 32.0 pg CDR HISTORICAL RESULTS MCHC 31.3 29.0 - 35.0 g/dl CDR HISTORICAL RESULTS Platelets 165 150 - 450 K/cumm CDR HISTORICAL RESULTS RDW 47.1(H) 35.1 - 43.9 fl CDR HISTORICAL RESULTS Rdw 15.5(H) 11.5 - 14.5 % CDR HISTORICAL RESULTS MPV 10.3 8.6 - 12.6 fl CDR HISTORICAL RESULTS Neutrophils 80.1 42.0 - 85.0 % CDR HISTORICAL RESULTS Neutrophils, abs 7.6 2.1 - 8.5 K/cumm CDR HISTORICAL RESULTS Lymphocytes 9.4(L) 16.0 - 52.0 % CDR HISTORICAL RESULTS Lymphocytes, abs 0.9 0.8 - 5.2 K/cumm CDR HISTORICAL RESULTS Monos 10.1 1.0 - 13.0 % CDR HISTORICAL RESULTS Monocytes, absolute 1.0 0.0 - 1.3 K/cumm CDR HISTORICAL RESULTS Eosinophils 0.1 0.0 - 7.0 % CDR HISTORICAL RESULTS Eosinophils, abs 0.0 0.0 - 0.7 K/cumm CDR HISTORICAL RESULTS Basophils 0.1 0.0 - 4.0 % CDR HISTORICAL RESULTS Basophils, abs 0.0 0.0 - 0.4 K/cumm CDR HISTORICAL RESULTS Young granulocytes, % 0.2 0.0 - 1.0 % CDR HISTORICAL RESULTS Young granulocyte 0.02 0.00 - 0.10 K/cumm CDR HISTORICAL RESULTS NRBC 0.0 0.0 - 0.2 #/100 WBC CDR HISTORICAL RESULTS NRBC, abs 0.00 0.00 - 0.01 K/cumm CDR HISTORICAL RESULTS Blood specimen (specimen) 11/10/2015 5:44 AM CDT Nato Blue MD LAB BLOOD ORDERABLES Final R esult CDR HISTORICAL RESULTS * Plasma basic metabolic panel (11/10/2015 5:44 AM CDT) BUN 15 8 - 24 mg/dl CDR HISTORICAL RESULTS Glucose 132 70 - 199 mg/dl CDR HISTORICAL RESULTS Sodium 136 135 - 145 mmol/L CDR HISTORICAL RESULTS K, pl 3.6 3.5 - 5.1 mmol/L CDR HISTORICAL RESULTS Chloride 104 100 - 114 mmol/L CDR HISTORICAL RESULTS CO2 27 22 - 32 mmol/L CDR HISTORICAL RESULTS Creatinine 0.91 0.70 - 1.40 mg/dl CDR HISTORICAL RESULTS Calcium 8.7 8.4 - 10.5 mg/dl CDR HISTORICAL RESULTS A. gap 9 8 - 16 mmol/L CDR HISTORICAL RESULTS eGFR 81 90 - 200 ml/min/1.7 3 m2 CDR HISTORICAL RESULTS Comment: If this individual is -[place], multiply result by 1.21 Repeated results of less than 60 is indicative of chronic kidney disease. MDRD formula has not been validated on individuals greater than 70 years old. Plasma 11/10/2015 5:44 AM CDT Nato Blue MD LAB BLOOD ORDERABLES Final R esult Performing Organization Address City/[facility] Co de Phone Number CDR HISTORICAL RESULTS * Blood glucose, POC (11/10/2015 3:30 AM CDT) Glucose, POC, bld 132 70 - 199 mg/dl CDR HISTORICAL RESULTS Blood specimen (specimen) 11/10/2015 3:30 AM CDT Nato Blue MD LAB BLOOD ORDERABLES Final R esult Performing Organization Address [facility] Co de Phone Number CDR HISTORICAL RESULTS * ELECTROCARDIOGRAPHY (ECG) (11/10/2015) Narrative 11/10/2015 Ordered by an unspecified provider. Result [facility] Historical Provider ECG ORDERABLES Final Res ult * Blood glucose, POC (11/09/2015 8:10 PM CDT) Glucose, POC, bld 194 70 - 199 mg/dl CDR HISTORICAL RESULTS Blood specimen (specimen) 11/09/2015 8:10 PM CDT Nato Blue MD LAB BLOOD ORDERABLES Final R esult Performing Organization Address [facility] Co de Phone Number CDR HISTORICAL RESULTS * PRE-PRELIMINARY DIAGNOSTIC REPORT (11/09/2015 4:02 PM CDT) Anatomical Region Laterality Modality N/A Radiographic Brigid ging 11/09/2015 4:02 PM CDT Narrative 11/09/2015 4:07 PM CDT CALL RESULTS: CANDIDO ??JENNIFER STAT CRITICAL RESULT Result called to: ?? [phone] [facility] PATIENT: ?? CANDIDO ??JENNIFER MR#: ?? [id number] : 1940 AGE / SEX: ?? 74Y / M Procedure: EDX 0031 - XR Chest Portable Exam Date: ?? Nov ??2015 ??4:02PM ?Loc: [id number] Acc#: ?? [id number] Pt_Class at Time of Procedure: I Current Pt Class and Location: ?? I ?9W ?[id number] Requesting Location: [facility] Priority: ??STAT Phone: [phone] ??Fax: [phone] Reason: ?? For new complaint of shortness of breath For new complaint of shortness of breath Order Comments: Ord Dr: ?? SHRUTHI ??SCHEJUJU ??M.DMary Preliminary Reading Doctor: ??AARON WARE M.D., RADIOLOGOIST Completed on: ??Nov ??2015 ??4:07PM Call Results Info: Patient Waiting: No Call Report to: 9th floor Phone: [phone] Fax: [phone] Comments: ----- Please be advised this is a preliminary report. ??A final report is forthcoming. READ ANY COMMENTS BELOW CRITICAL RESULT Result called to: ?? [phone] Findings: ?Normal Comments Line 1: ? no pneumothorax; ??no change since previous examination with regards to the lungs. Comments Line 2: Comments Line 3: Comments Line 4: Comments Line 5: Procedure Note Provider, MD Carole - 07/31/2016 CALL RESULTS: CANDIDO RODRIGUEZ STAT CRITICAL RESULT Result called to: [id number] [facility] PATIENT: CANDIDO RODRIGUEZ MR#: [id number] : 1940 AGE / SEX: 74Y / M Procedure:EDX 0031 - XR Chest Portable Exam Date: Nov 09 2015 4:02PM Loc:[id number] Acc#: [id number] Pt_Class at Time of Procedure: I Current Pt Class and Location: I 9W [id number] Requesting Location: [facility] Priority: STAT Phone: [phone] Fax: [phone] Reason: For new complaint of shortness of breath For new complaint ofshortness of breath Order Comments: Ord Dr: SHRUTHI SMITH M.D. Preliminary Reading Doctor: AARON WARE M.D., RADIOLOGOIST Completed on: Nov 09 2015 4:07PM Call Results Info: Patient Waiting: No Call Report to: 9th floor Phone: [phone] Fax: [phone] Comments: ----- Please be advised this is a preliminary report. A final report isforthcoming. READ ANY COMMENTS BELOW CRITICAL RESULT Result called to: [phone] Findings: Normal Comments Line 1: no pneumothorax; no change since previousexamination with regards to the lungs. Comments Line 2: Comments Line 3: Comments Line 4: Comments Line 5: us Historical Provider MD COOK XR PROCEDURES Final R esult * XR Chest 1 View (11/09/2015 4:02 PM CDT) Anatomical Region Laterality Modality Body, Chest N/A Radiographic Brigid ging 11/09/2015 4:02 PM CDT Narrative 11/10/2015 11:53 AM CDT DATE OF EXAM: ??Nov ??2015 ??4:02PM Acc#: ??[id number] ??EDX 0031 - XR Chest Portable ?? DIAGNOSIS: ??REPLACEMENT VALVE AORTIC/AORTIC STENOSIS CLINICAL HISTORY: ?? For new complaint of shortness of breath RESULT: \ EXAM: ??CHEST, SINGLE VIEW HISTORY: ??74-year-old male with shortness of breath. TECHNIQUE: ??Portable, upright AP view of the chest was obtained on 11/09/2015 at 1552 hours. Comparison is made to chest x-ray of 11/09/2015 performed at 0654 hours. FINDINGS: ??Provided for differences in technique, there is no significant change in the aeration of the lungs. There is redemonstration of a small left and minimal right pleural effusion. Bibasilar segmental atelectasis is suggested. No pneumothorax is identified. Borderline cardiomegaly is redemonstrated. Atherosclerotic calcifications of the aortic knob are noted. Median sternotomy wires are evident. The previously demonstrated mediastinal tube is no longer visualized. IMPRESSION: ?\ 1. ??NO SIGNIFICANT CHANGE IN THE AERATION OF THE LUNGS. 2. ??SMALL LEFT AND MINIMAL RIGHT PLEURAL EFFUSIONS WITH BIBASILAR SUBSEGMENTAL ATELECTASIS. 3. ??NO PNEUMOTHORAX IS IDENTIFIED. TECHNICIAN AUTOMATED EQUIPMENT: ??DM2 TRANSCRIBE DATE/TIME: ??Nov ??2015 ??7:23P RADIOLOGIST: ??AARON WARE M.D. ??READ ON: ??Nov ??2015 ??4:07P ORDERING DR: SHRUTHI SMITH M.D. THIS DOCUMENT HAS BEEN ELECTRONICALLY SIGNED BY: ??AARON WARE M.D. ??ON: ??Nov ??2015 11:52A Attending: ??ALIA, ??NATO Requesting: ??SARAH, ??SHRUTHI Requesting Fax: ??[phone] Attending Fax: ??[phone] Attending ID: ??[id number] Requesting ID: ??[id number] Report To 1 ID: ??[id number] Report To 1 Name: ??ALIA, ??NATO Report To 1 FAX: ??[phone] Report To 2 ID: ?? Report To 2 Name: ??, ?? Report To 2 FAX: ??-- NextGen Order #: ?? Procedure Note Provider, MD Carole - 07/31/2016 DATE OF EXAM: Nov 09 2015 4:02PM Acc#: [id number] EDX 0031 - XR Chest Portable DIAGNOSIS: REPLACEMENT VALVE AORTIC/AORTIC STENOSIS CLINICAL HISTORY: For new complaint of shortness of breath RESULT: \ EXAM: CHEST, SINGLE VIEW HISTORY: 74-year-old male with shortness of breath. TECHNIQUE: Portable, upright AP view of the chest was obtained on 11/09/2015 at 1552 hours. Comparison is made to chest x-ray of 11/09/2015 performed at 0654 hours. FINDINGS: Provided for differences in technique, there is no significant change in the aeration of the lungs. There is redemonstration of a small left and minimal right pleural effusion. Bibasilar segmental atelectasis is suggested. No pneumothorax is identified. Borderline cardiomegaly is redemonstrated. Atherosclerotic calcifications of the aortic knob are noted. Median sternotomy wires are evident. The previously demonstrated mediastinal tube is no longer visualized. IMPRESSION: \ 1. NO SIGNIFICANT CHANGE IN THE AERATION OF THE LUNGS. 2. SMALL LEFT AND MINIMAL RIGHT PLEURAL EFFUSIONS WITH BIBASILAR SUBSEGMENTAL ATELECTASIS. 3. NO PNEUMOTHORAX IS IDENTIFIED. TECHNICIAN AUTOMATED EQUIPMENT: DM2 TRANSCRIBE DATE/TIME: Nov 09 2015 7:23P RADIOLOGIST: AARON WARE M.D. READ ON: Nov 09 2015 4:07P ORDERING DR: SHRUTHI SMITH M.D. THIS DOCUMENT HAS BEEN ELECTRONICALLY SIGNED BY: AARON WARE M.D. ON: Nov 10 2015 11:52A Attending: NATO BLUE Requesting: SHRUTHI SMITH Requesting Attending Attending ID: [id number] Requesting ID: [id number] Report To 1 ID: [id number] Report To 1 Name: NATO BLUE Report To 1 FAX: [phone] Report To 2 ID: Report To 2 Name: , Report To 2 FAX: -- NextGen Order #: us Historical Provider MD COOK XR PROCEDURES Final R esult * Blood glucose, POC (11/09/2015 12:46 PM CDT) Glucose, POC, bld 138 70 - 199 mg/dl CDR HISTORICAL RESULTS Blood specimen (specimen) 11/09/2015 12:46 PM CDT Nato Blue MD LAB BLOOD ORDERABLES Final R esult Performing Organization Address City/[facility]/ZIP Co de Phone Number CDR HISTORICAL RESULTS * Blood glucose, POC (11/09/2015 7:39 AM CDT) Glucose, POC, bld 146 70 - 199 mg/dl CDR HISTORICAL RESULTS Blood specimen (specimen) 11/09/2015 7:39 AM CDT Nato Blue MD LAB BLOOD ORDERABLES Final R esult Performing Organization Address [facility] Co de Phone Number CDR HISTORICAL RESULTS * XR Chest 1 View (11/09/2015 6:58 AM CDT) Anatomical Region Laterality Modality Body, Chest N/A Radiographic Brigid ging 11/09/2015 6:58 AM CDT Narrative 11/10/2015 11:53 AM CDT DATE OF EXAM: ??Nov ??2015 ??6:58AM Acc#: ??[id number] ??EDX 0031 - XR Chest Portable ?? DIAGNOSIS: ??REPLACEMENT VALVE AORTIC/AORTIC STENOSIS CLINICAL HISTORY: ?? Assess Lungs Post Cardiac Surgery RESULT: \ EXAM: ??CHEST, SINGLE VIEW HISTORY: 74-year-old male with history of aortic valve replacement. TECHNIQUE: ??Portable, semi-upright view of the chest was obtained on 11/09/2015. Comparison is made to chest x-ray of 11/08/2015. FINDINGS: ??The overall aeration of the lungs is not significantly changed. Small left and minimal right pleural effusions are unchanged. Minimal bibasilar subsegmental atelectasis persists. Borderline cardiac enlargement is noted. There is no pulmonary vascular congestion. Atherosclerotic calcifications of the aortic knob are noted. Median sternotomy wires are unchanged. The epicardial leads and mediastinal tube remain unchanged in position. The Saint Joseph-Braxton catheter has been removed. No pneumothorax is identified. The osseous structures are stable. IMPRESSION: ?\ 1. ??REMOVAL OF THE SWAN-BRAXTON CATHETER. 2. ??NO SIGNIFICANT CHANGE IN THE AERATION OF THE LUNGS WITH PERSISTENT BIBASILAR SUBSEGMENTAL ATELECTASIS. 3. ??SMALL LEFT AND MINIMAL RIGHT PLEURAL EFFUSIONS WHICH ARE UNCHANGED. TECHNICIAN AUTOMATED EQUIPMENT: ??DM2 TRANSCRIBE DATE/TIME: ??Nov ??2015 ??4:31P RADIOLOGIST: ??AARON WARE M.D. ??READ ON: ??Nov ??2015 ??2:02P ORDERING DR: PUJA PARADA M.D. THIS DOCUMENT HAS BEEN ELECTRONICALLY SIGNED BY: ??JEANIE Feliz, AARON ??ON: ??Nov ??2015 11:52A Attending: ??ALIA, ??NATO Requesting: ??CHRISTIE, ??PUJA Requesting Fax: ??[phone] Attending Fax: ??[phone] Attending ID: [id number] Requesting ID: [id number] Report To 1 ID: ??[id number] Report To 1 Name: ??ALIA, ??NATO Report To 1 FAX: ??[phone] Report To 2 ID: ?? Report To 2 Name: ??, ?? Report To 2 FAX: ??-- NextGen Order #: ?? Procedure Note Provider, MD Carole - 07/31/2016 DATE OF EXAM: Nov 09 2015 6:58AM Acc#: [id number] EDX 0031 - XR Chest Portable DIAGNOSIS: REPLACEMENT VALVE AORTIC/AORTIC STENOSIS CLINICAL HISTORY: Assess Lungs Post Cardiac Surgery RESULT: \ EXAM: CHEST, SINGLE VIEW HISTORY: 74-year-old male with history of aortic valve replacement. TECHNIQUE: Portable, semi-upright view of the chest was obtained on 11/09/2015. Comparison is made to chest x-ray of 11/08/2015. FINDINGS: The overall aeration of the lungs is not significantly changed. Small left and minimal right pleural effusions are unchanged. Minimal bibasilar subsegmental atelectasis persists. Borderline cardiac enlargement is noted. There is no pulmonary vascular congestion. Atherosclerotic calcifications of the aortic knob are noted. Median sternotomy wires are unchanged. The epicardial leads and mediastinal tube remain unchanged in position. The Saint Joseph-Braxton catheter has been removed. No pneumothorax is identified. The osseous structures are stable. IMPRESSION: \ 1. REMOVAL OF THE SWAN-BRAXTON CATHETER. 2. NO SIGNIFICANT CHANGE IN THE AERATION OF THE LUNGS WITH PERSISTENT BIBASILAR SUBSEGMENTAL ATELECTASIS. 3. SMALL LEFT AND MINIMAL RIGHT PLEURAL EFFUSIONS WHICH ARE UNCHANGED. TECHNICIAN AUTOMATED EQUIPMENT: DANNA TRANSCRIBE DATE/TIME: Nov 09 2015 4:31P RADIOLOGIST: AARON WARE M.D. READ ON: Nov 09 2015 2:02P ORDERING DR: PUJA PARADA M.D. THIS DOCUMENT HAS BEEN ELECTRONICALLY SIGNED BY: AARON WARE M.D. ON: Nov 10 2015 11:52A Attending: NATO BLUE Requesting: PUJA PARADA Requesting Attending Attending ID: [id number] Requesting ID: [id number] Report To 1 ID: [id number] Report To 1 Name: NATO BLUE Report To 1 FAX: [phone] Report To 2 ID: Report To 2 Name: , Report To 2 FAX: -- NextGen Order #: us Historical Provider MD COOK XR PROCEDURES Final R esult * (ABNORMAL) Blood cell count (CBC), morphologic exam (11/09/2015 5:40 AM CDT) WBC 10.9(H) 3.8 - 9.8 K/cumm CDR HISTORICAL RESULTS RBC 3.09(L) 4.50 - 6.00 M/cumm CDR HISTORICAL RESULTS Hgb 8.1(L) 14.0 - 18.0 g/dl CDR HISTORICAL RESULTS Hct 25.9(L) 40.0 - 54.0 % CDR HISTORICAL RESULTS MCV 83.8 82.0 - 96.0 fl CDR HISTORICAL RESULTS MCH 26.2(L) 27.0 - 32.0 pg CDR HISTORICAL RESULTS MCHC 31.3 29.0 - 35.0 g/dl CDR HISTORICAL RESULTS Platelets 157 150 - 450 K/cumm CDR HISTORICAL RESULTS RDW 47.5(H) 35.1 - 43.9 fl CDR HISTORICAL RESULTS Rdw 15.5(H) 11.5 - 14.5 % CDR HISTORICAL RESULTS MPV 10.4 8.6 - 12.6 fl CDR HISTORICAL RESULTS Neutrophils 77.3 42.0 - 85.0 % CDR HISTORICAL RESULTS Neutrophils, abs 8.4 2.1 - 8.5 K/cumm CDR HISTORICAL RESULTS Lymphocytes 9.3(L) 16.0 - 52.0 % CDR HISTORICAL RESULTS Lymphocytes, abs 1.0 0.8 - 5.2 K/cumm CDR HISTORICAL RESULTS Monos 13.0 1.0 - 13.0 % CDR HISTORICAL RESULTS Monocytes, absolute 1.4(H) 0.0 - 1.3 K/cumm CDR HISTORICAL RESULTS Eosinophils 0.0 0.0 - 7.0 % CDR HISTORICAL RESULTS Eosinophils, abs 0.0 0.0 - 0.7 K/cumm CDR HISTORICAL RESULTS Basophils 0.1 0.0 - 4.0 % CDR HISTORICAL RESULTS Basophils, abs 0.0 0.0 - 0.4 K/cumm CDR HISTORICAL RESULTS Young granulocytes, % 0.3 0.0 - 1.0 % CDR HISTORICAL RESULTS Young granulocyte 0.03 0.00 - 0.10 K/cumm CDR HISTORICAL RESULTS NRBC 0.0 0.0 - 0.2 #/100 WBC CDR HISTORICAL RESULTS NRBC, abs 0.00 0.00 - 0.01 K/cumm CDR HISTORICAL RESULTS Blood specimen (specimen) 11/09/2015 5:40 AM CDT Pjua Parada MD LAB BLOOD ORDERABLE S Final Result CDR HISTORICAL RESULTS * (ABNORMAL) Plasma basic metabolic panel (11/09/2015 5:40 AM CDT) BUN 15 8 - 24 mg/dl CDR HISTORICAL RESULTS Glucose 146 70 - 199 mg/dl CDR HISTORICAL RESULTS Sodium 137 135 - 145 mmol/L CDR HISTORICAL RESULTS K, pl 3.4(L) 3.5 - 5.1 mmol/L CDR HISTORICAL RESULTS Chloride 104 100 - 114 mmol/L CDR HISTORICAL RESULTS CO2 25 22 - 32 mmol/L CDR HISTORICAL RESULTS Creatinine 0.94 0.70 - 1.40 mg/dl CDR HISTORICAL RESULTS Calcium 8.8 8.4 - 10.5 mg/dl CDR HISTORICAL RESULTS A. gap 11 8 - 16 mmol/L CDR HISTORICAL RESULTS Plasma 11/09/2015 5:40 AM CDT Puja Parada MD LAB BLOOD ORDERABLE S Final Result Performing Organization Address [facility] de Phone Number CDR HISTORICAL RESULTS * Blood glucose, POC (11/09/2015 3:01 AM CDT) Glucose, POC, bld 135 70 - 199 mg/dl CDR HISTORICAL RESULTS Blood specimen (specimen) 11/09/2015 3:01 AM CDT Nato Blue MD LAB BLOOD ORDERABLES Final R esult Performing Organization Address [facility] de Phone Number CDR HISTORICAL RESULTS * Blood glucose, POC (11/08/2015 9:39 PM CDT) Glucose, POC, bld 173 70 - 199 mg/dl CDR HISTORICAL RESULTS Blood specimen (specimen) 11/08/2015 9:39 PM CDT Nato Blue MD LAB BLOOD ORDERABLES Final R esult Performing Organization Address [facility] de Phone Number CDR HISTORICAL RESULTS * Blood glucose, POC (11/08/2015 5:51 PM CDT) Glucose, POC, bld 128 70 - 199 mg/dl CDR HISTORICAL RESULTS Blood specimen (specimen) 11/08/2015 5:51 PM CDT Nato Blue MD LAB BLOOD ORDERABLES Final R esult Performing Organization Address [facility] Co de Phone Number CDR HISTORICAL RESULTS * Plasma potassium (11/08/2015 5:43 PM CDT) K, pl 3.8 3.5 - 5.1 mmol/L CDR HISTORICAL RESULTS Plasma 11/08/2015 5:43 PM CDT Result [facility] Nato Blue MD LAB BLOOD ORDERABLES Final R esult Performing Organization Address [facility] Co de Phone Number CDR HISTORICAL RESULTS * Plasma magnesium (11/08/2015 5:43 PM CDT) Magnesium 2.1 1.8 - 2.6 mg/dl CDR HISTORICAL RESULTS Plasma 11/08/2015 5:43 PM CDT Nato Blue MD LAB BLOOD ORDERABLES Final R esult Performing Organization Address [facility] de Phone Number CDR HISTORICAL RESULTS * Blood glucose, POC (11/08/2015 4:15 PM CDT) Glucose, POC, bld 119 70 - 199 mg/dl CDR HISTORICAL RESULTS Blood specimen (specimen) 11/08/2015 4:15 PM CDT Result [facility] Nato Blue MD LAB BLOOD ORDERABLES Final R esult Performing Organization Address [facility] de Phone Number CDR HISTORICAL RESULTS * Blood glucose, POC (11/08/2015 3:08 PM CDT) Glucose, POC, bld 127 70 - 199 mg/dl CDR HISTORICAL RESULTS Blood specimen (specimen) 11/08/2015 3:08 PM CDT Result [facility] Nato Blue MD LAB BLOOD ORDERABLES Final R esult Performing Organization Address [facility] Co de Phone Number CDR HISTORICAL RESULTS * Blood glucose, POC (11/08/2015 2:02 PM CDT) Glucose, POC, bld 117 70 - 199 mg/dl CDR HISTORICAL RESULTS Blood specimen (specimen) 11/08/2015 2:02 PM CDT us Nato Blue MD LAB BLOOD ORDERABLES Final R esult Performing Organization Address [facility] de Phone Number CDR HISTORICAL RESULTS * Blood glucose, POC (11/08/2015 12:51 PM CDT) Pathologist [facility] Glucose, POC, bld 95 70 - 199 mg/dl CDR HISTORICAL RESULTS Blood specimen (specimen) 11/08/2015 12:51 PM CDT Nato Blue MD LAB BLOOD ORDERABLES Final R [facility] Performing Organization Address [facility] de Phone Number CDR HISTORICAL RESULTS * (ABNORMAL) Blood cell count (CBC) (11/08/2015 11:50 AM CDT) Pathologist [facility] WBC 8.6 3.8 - 9.8 K/cumm CDR HISTORICAL RESULTS RBC 2.88(L) 4.50 - 6.00 M/cumm CDR HISTORICAL RESULTS Hgb 7.4(L) 14.0 - 18.0 g/dl CDR HISTORICAL RESULTS Hct 23.9(L) 40.0 - 54.0 % CDR HISTORICAL RESULTS MCV 83.0 82.0 - 96.0 fl CDR HISTORICAL RESULTS MCH 25.7(L) 27.0 - 32.0 pg CDR HISTORICAL RESULTS MCHC 31.0 29.0 - 35.0 g/dl CDR HISTORICAL RESULTS Platelets 155 150 - 450 K/cumm CDR HISTORICAL RESULTS RDW 47.7(H) 35.1 - 43.9 fl CDR HISTORICAL RESULTS Rdw 15.5(H) 11.5 - 14.5 % CDR HISTORICAL RESULTS MPV 10.3 8.6 - 12.6 fl CDR HISTORICAL RESULTS Blood specimen (specimen) 11/08/2015 11:50 AM CDT Nato Blue MD LAB BLOOD ORDERABLES Final R [facility] Performing Organization Address [facility] de Phone Number CDR HISTORICAL RESULTS * (ABNORMAL) Plasma basic metabolic panel (11/08/2015 11:50 AM CDT) Pathologist [facility] BUN 13 8 - 24 mg/dl CDR HISTORICAL RESULTS Glucose 142 70 - 199 mg/dl CDR HISTORICAL RESULTS Sodium 137 135 - 145 mmol/L CDR HISTORICAL RESULTS K, pl 3.1(L) 3.5 - 5.1 mmol/L CDR HISTORICAL RESULTS Chloride 108 100 - 114 mmol/L CDR HISTORICAL RESULTS CO2 21(L) 22 - 32 mmol/L CDR HISTORICAL RESULTS Creatinine 0.99 0.70 - 1.40 mg/dl CDR HISTORICAL RESULTS Calcium 8.6 8.4 - 10.5 mg/dl CDR HISTORICAL RESULTS A. gap 11 8 - 16 mmol/L CDR HISTORICAL RESULTS Plasma 11/08/2015 11:5 0 AM CDT Nato Blue MD LAB BLOOD ORDERABLES Final R esult Performing Organization Address [facility] Co de Phone Number CDR HISTORICAL RESULTS * Plasma magnesium (11/08/2015 11:50 AM CDT) Magnesium 2.2 1.8 - 2.6 mg/dl CDR HISTORICAL RESULTS Plasma 11/08/2015 11:5 0 AM CDT Nato Blue MD LAB BLOOD ORDERABLES Final R esult Performing Organization Address [facility] Co de Phone Number CDR HISTORICAL RESULTS * Blood glucose, POC (11/08/2015 11:39 AM CDT) Glucose, POC, bld 142 70 - 199 mg/dl CDR HISTORICAL RESULTS Blood specimen (specimen) 11/08/2015 11:39 AM CDT Nato Blue MD LAB BLOOD ORDERABLES Final R esult Performing Organization Address [facility] Co de Phone Number CDR HISTORICAL RESULTS * Blood glucose, POC (11/08/2015 10:57 AM CDT) Glucose, POC, bld 154 70 - 199 mg/dl CDR HISTORICAL RESULTS Blood specimen (specimen) 11/08/2015 10:57 AM CDT Nato Blue MD LAB BLOOD ORDERABLES Final R esult Performing Organization Address [facility] Co de Phone Number CDR HISTORICAL RESULTS * (ABNORMAL) Blood glucose, POC (11/08/2015 9:52 AM CDT) Glucose, POC, bld 208(H) 70 - 199 mg/dl CDR HISTORICAL RESULTS Blood specimen (specimen) 11/08/2015 9:52 AM CDT Nato Blue MD LAB BLOOD ORDERABLES Final R esult Performing Organization Address [facility] Co de Phone Number CDR HISTORICAL RESULTS * (ABNORMAL) Blood glucose, POC (11/08/2015 8:46 AM CDT) Glucose, POC, bld 245(H) 70 - 199 mg/dl [facility] Blood specimen (specimen) 11/08/2015 8:46 AM CDT Nato Blue MD LAB BLOOD ORDERABLES Final R esult Performing Organization Address [facility] Co de Phone Number [facility] * (ABNORMAL) Blood glucose, POC (11/08/2015 8:44 AM CDT) Glucose, POC, bld 258(H) 70 - 199 mg/dl [facility] Blood specimen (specimen) 11/08/2015 8:44 AM CDT Nato Blue MD LAB BLOOD ORDERABLES Final R esult Performing Organization Address [facility]/ZIP Co de Phone Number [facility] * Blood glucose, POC (11/08/2015 7:36 AM CDT) Glucose, POC, bld 137 70 - 199 mg/dl [facility] Blood specimen (specimen) 11/08/2015 7:36 AM CDT Nato Blue MD LAB BLOOD ORDERABLES Final R esult [facility] * Blood glucose, POC (11/08/2015 6:03 AM CDT) Glucose, POC, bld 135 70 - 199 mg/dl [facility] Blood specimen (specimen) 11/08/2015 6:03 AM CDT us Nato Blue MD LAB BLOOD ORDERABLES Final R esult [facility] * XR Chest 1 View (11/08/2015 5:34 AM CDT) Anatomical Region Laterality Modality Body, Chest N/A Radiographic Brigid ging 11/08/2015 5:34 AM CDT Narrative 11/08/2015 11:57 AM CDT DATE OF EXAM: ??Nov ??2015 ??5:34AM Acc#: ??[id number] ??EDX [id number] - XR Chest Portable ?? DIAGNOSIS: ??REPLACEMENT VALVE AORTIC/AORTIC STENOSIS CLINICAL HISTORY: ?? Post Op Heart Surgery, Check Line Placement RESULT: EXAM: ??CHEST, SINGLE VIEW HISTORY: ??74-year-old male with open heart surgery. TECHNIQUE: ??Semiupright AP view of the chest was obtained on 11/08/2015 at 0531 hours. Comparison is made to chest x-ray of 11/07/2015 at 1247 hours. FINDINGS: ??The bilateral pleural effusions have slightly decreased since previous examination. A small left and minimal right residual pleural effusions are evident. Left basilar subsegmental atelectasis is evident. There are some minimal amounts of right linear basilar subsegmental atelectasis. The heart is borderline enlarged. Atherosclerotic calcifications are present in the aortic knob. The patient has been extubated. Nasogastric tube has been removed. The mediastinal drain is unchanged. A [facility] Joseph-Braxton catheter is redemonstrated with the tip in the right main pulmonary artery unchanged from previous examination. No pneumothorax is identified. The osseous structures are stable. IMPRESSION: ? 1. INTERVAL EXTUBATION AND REMOVAL OF THE NASOGASTRIC TUBE. OTHERWISE, STABLE MEDIASTINAL TUBE AND SWAN-BRAXTON CATHETER. 2. SLIGHT DECREASE IN THE BILATERAL PLEURAL EFFUSIONS WITH A RESIDUAL SMALL LEFT AND MINIMAL RIGHT PLEURAL EFFUSIONS. 3. BIBASILAR SUBSEGMENTAL ATELECTASIS, LEFT GREATER THAN RIGHT. TECHNICIAN AUTOMATED EQUIPMENT: ??KG2 TRANSCRIBE DATE/TIME: ??Nov ??2015 ??9:57A RADIOLOGIST: ??AARON WARE M.D. ??READ ON: ??Nov ??2015 ??9:11A ORDERING DR: NATO BLUE M.D. THIS DOCUMENT HAS BEEN ELECTRONICALLY SIGNED BY: ??JEANIE Feliz, AARON ??ON: ??Nov ??2015 11:57A Attending: ??ALIA, ??NATO Requesting: ??ALIA, ??NATO Requesting Fax: ??[phone] Attending Fax: ??[phone] Attending ID: ??[id number] Requesting ID: ??[id number] Report To 1 ID: ??[id number] Report To 1 Name: ??ALIA, ??NATO Report To 1 FAX: ??[phone] Report To 2 ID: ?? Report To 2 Name: ??, ?? Report To 2 FAX: ??-- NextGen Order #: ?? Procedure Note Provider, MD Carole - 07/31/2016 DATE OF EXAM: Nov 08 2015 5:34AM Acc#: [id number] EDX [id number] - XR Chest Portable DIAGNOSIS: REPLACEMENT VALVE AORTIC/AORTIC STENOSIS CLINICAL HISTORY: Post Op Heart Surgery, Check Line Placement RESULT: EXAM: CHEST, SINGLE VIEW HISTORY: 74-year-old male with open heart surgery. TECHNIQUE: Semiupright AP view of the chest was obtained on 11/08/2015 at 0531 hours. Comparison is made to chest x-ray of 11/07/2015 at 1247 hours. FINDINGS: The bilateral pleural effusions have slightly decreased since previous examination. A small left and minimal right residual pleural effusions are evident. Left basilar subsegmental atelectasis is evident. There are some minimal amounts of right linear basilar subsegmental atelectasis. The heart is borderline enlarged. Atherosclerotic calcifications are present in the aortic knob. The patient has been extubated. Nasogastric tube has been removed. The mediastinal drain is unchanged. A Saint Joseph-Braxton catheter is redemonstrated with the tip in the right main pulmonary artery unchanged from previous examination. No pneumothorax is identified. The osseous structures are stable. IMPRESSION: 1. INTERVAL EXTUBATION AND REMOVAL OF THE NASOGASTRIC TUBE. OTHERWISE, STABLE MEDIASTINAL TUBE AND SWAN-BRAXTON CATHETER. 2. SLIGHT DECREASE IN THE BILATERAL PLEURAL EFFUSIONS WITH A RESIDUAL SMALL LEFT AND MINIMAL RIGHT PLEURAL EFFUSIONS. 3. BIBASILAR SUBSEGMENTAL ATELECTASIS, LEFT GREATER THAN RIGHT. TECHNICIAN AUTOMATED EQUIPMENT: KGYola TRANSCRIBE DATE/TIME: Nov 08 2015 9:57A RADIOLOGIST: AARON WARE M.D. READ ON: Nov 08 2015 9:11A ORDERING DR: NATO BLUE M.D. THIS DOCUMENT HAS BEEN ELECTRONICALLY SIGNED BY: AARON WARE M.D. ON: Nov 08 2015 11:57A Attending: NATO BLUE Requesting: NATO BLUE Requesting Attending Attending ID: [id number] Requesting ID: [id number] Report To 1 ID: [id number] Report To 1 Name: NATO BLUE Report To 1 FAX: [phone] Report To 2 ID: Report To 2 Name: , Report To 2 FAX: -- NextGen Order #: Historical Provider IMG XR PROCEDURES Final R esult * Blood glucose, POC (11/08/2015 4:57 AM CDT) Pathologist [facility] Glucose, POC, bld 133 70 - 199 mg/dl [facility] Blood specimen (specimen) 11/08/2015 4:57 AM CDT Nato Blue MD LAB BLOOD ORDERABLES Final R esult [facility] * (ABNORMAL) Blood cell count (CBC), morphologic exam (11/08/2015 4:00 AM CDT) Pathologist [facility] WBC 8.4 3.8 - 9.8 K/cumm [facility] RBC 3.02(L) 4.50 - 6.00 M/cumm [facility] Hgb 7.9(L) 14.0 - 18.0 g/dl [facility] Hct 25.0(L) 40.0 - 54.0 % [facility] MCV 82.8 82.0 - 96.0 fl [facility] MCH 26.2(L) 27.0 - 32.0 pg [facility] MCHC 31.6 29.0 - 35.0 g/dl [facility] Platelets 172 150 - 450 K/cumm [facility] RDW 46.8(H) 35.1 - 43.9 fl [facility] Rdw 15.3(H) 11.5 - 14.5 % [facility] MPV 10.2 8.6 - 12.6 fl [facility] Neutrophils 78.7 42.0 - 85.0 % [facility] Neutrophils, abs 6.6 2.1 - 8.5 K/cumm [facility] Lymphocytes 8.7(L) 16.0 - 52.0 % [facility] Lymphocytes, abs 0.7(L) 0.8 - 5.2 K/cumm [facility] Monos 12.0 1.0 - 13.0 % [facility] Monocytes, absolute 1.0 0.0 - 1.3 K/cumm [facility] Eosinophils 0.0 0.0 - 7.0 % [facility] Eosinophils, abs 0.0 0.0 - 0.7 K/cumm [facility] Basophils 0.2 0.0 - 4.0 % [facility] Basophils, abs 0.0 0.0 - 0.4 K/cumm [facility] Young granulocytes, % 0.4 0.0 - 1.0 % [facility] Young granulocyte 0.03 0.00 - 0.10 K/cumm [facility] NRBC 0.0 0.0 - 0.2 #/100 WBC [facility] NRBC, abs 0.00 0.00 - 0.01 K/cumm [facility] Blood specimen (specimen) 11/08/2015 4:00 AM CDT us Nato Blue MD LAB BLOOD ORDERABLES Final R esult [facility] * (ABNORMAL) Plasma prothrombin time (PT) (11/08/2015 4:00 AM CDT) Prothrombin time (PT) 13.9(H) 9.5 - 13.0 seconds [facility] INR 1.28(H) 0.90 - 1.20 [facility] Plasma 11/08/2015 4:00 AM CDT Nato Blue MD LAB BLOOD ORDERABLES Final R esult Performing Organization Address [facility] Phone Number [facility] * Plasma basic metabolic panel (11/08/2015 4:00 AM CDT) BUN 12 8 - 24 mg/dl [facility] Glucose 124 70 - 199 mg/dl [facility] Sodium 141 135 - 145 mmol/L [facility] K, pl 3.5 3.5 - 5.1 mmol/L [facility] Chloride 110 100 - 114 mmol/L [facility] CO2 24 22 - 32 mmol/L [facility] Creatinine 1.06 0.70 - 1.40 mg/dl [facility] Calcium 8.5 8.4 - 10.5 mg/dl [facility] A. gap 10 8 - 16 mmol/L [facility] Plasma 11/08/2015 4:00 AM CDT Nato Blue MD LAB BLOOD ORDERABLES Final R esult Performing Organization Address [facility] Phone Number [facility] * Plasma magnesium (11/08/2015 4:00 AM CDT) Magnesium 2.1 1.8 - 2.6 mg/dl [facility] Plasma 11/08/2015 4:00 AM CDT us Nato Blue MD LAB BLOOD ORDERABLES Final R esult Performing Organization Address [facility] Phone Number [facility] * Blood glucose, POC (11/08/2015 3:53 AM CDT) Glucose, POC, bld 114 70 - 199 mg/dl [facility] Blood specimen (specimen) 11/08/2015 3:53 AM CDT us Nato Blue MD LAB BLOOD ORDERABLES Final R esult Performing Organization Address [facility] Phone Number [facility] * Blood glucose, POC (11/08/2015 3:06 AM CDT) Glucose, POC, bld 122 70 - 199 mg/dl [facility] Blood specimen (specimen) 11/08/2015 3:06 AM CDT us Nato Blue MD LAB BLOOD ORDERABLES Final R esult Performing Organization Address [facility] Phone Number [facility] * Blood glucose, POC (11/08/2015 2:03 AM CDT) Glucose, POC, bld 139 70 - 199 mg/dl [facility] Blood specimen (specimen) 11/08/2015 2:03 AM CDT us Nato Blue MD LAB BLOOD ORDERABLES Final R esult Performing Organization Address [facility] Phone Number [facility] * Blood glucose, POC (11/08/2015 12:54 AM CDT) Glucose, POC, bld 136 70 - 199 mg/dl [facility] Blood specimen (specimen) 11/08/2015 12:54 AM CDT us Nato Blue MD LAB BLOOD ORDERABLES Final R esult Performing Organization Address [facility] [place] Phone Number [facility] * Blood glucose, POC (11/07/2015 11:55 PM CDT) Glucose, POC, bld 110 70 - 199 mg/dl [facility] Blood specimen (specimen) 11/07/2015 11:55 PM CDT Nato Blue MD LAB BLOOD ORDERABLES Final R esult Performing Organization Address [facility] Phone Number [facility] * Blood glucose, POC (11/07/2015 10:52 PM CDT) Glucose, POC, bld 128 70 - 199 mg/dl [facility] Blood specimen (specimen) 11/07/2015 10:52 PM CDT Nato Blue MD LAB BLOOD ORDERABLES Final R esult Performing Organization Address [facility] Phone Number [facility] * Blood glucose, POC (11/07/2015 9:48 PM CDT) Glucose, POC, bld 135 70 - 199 mg/dl [facility] Blood specimen (specimen) 11/07/2015 9:48 PM CDT Nato Blue MD LAB BLOOD ORDERABLES Final R esult Performing Organization Address [facility] Phone Number [facility] * Blood glucose, POC (11/07/2015 8:50 PM CDT) Glucose, POC, bld 131 70 - 199 mg/dl [facility] Blood specimen (specimen) 11/07/2015 8:50 PM CDT Nato Blue MD LAB BLOOD ORDERABLES Final R esult Performing Organization Address [facility] Co de Phone Number [facility] * Blood glucose, POC (11/07/2015 7:47 PM CDT) Glucose, POC, bld 121 70 - 199 mg/dl [facility] Blood specimen (specimen) 11/07/2015 7:47 PM CDT us Nato Blue MD LAB BLOOD ORDERABLES Final R esult Performing Organization Address [facility] de Phone Number [facility] * Blood glucose, POC (11/07/2015 6:56 PM CDT) Glucose, POC, bld 121 70 - 199 mg/dl [facility] Blood specimen (specimen) 11/07/2015 6:56 PM CDT Nato Blue MD LAB BLOOD ORDERABLES Final R esult Performing Organization Address [facility] de Phone Number [facility] * Blood glucose, POC (11/07/2015 5:57 PM CDT) Glucose, POC, bld 136 70 - 199 mg/dl [facility] Blood specimen (specimen) 11/07/2015 5:57 PM CDT Nato Blue MD LAB BLOOD ORDERABLES Final R esult Performing Organization Address [facility] de Phone Number [facility] * (ABNORMAL) Blood gas, arterial (11/07/2015 5:22 PM CDT) Patient temperature 100.4 degrees [facility] pH 7.40 7.35 - 7.45 [facility] PCO2 41 32 - 48 mm Hg [facility] PO2 126(H) 83 - 108 mm Hg [facility] HCO3 25 24 - 32 mmol/L [facility] CO2, bld 25 21 - 27 mmol/L [facility] BE 0.2 -2.5 - 3.1 mmol/L [facility] Hgb estimated, bld 7.8(L) 14.0 - 18.0 g/dl [facility] O2 sat 99 92 - 100 % [facility] Oxygen (O2), inspired fraction (FiO2) 40% [facility] Arterial blood 11/07/2015 5: 22 PM CDT Nato Blue MD LAB BLOOD ORDERABLES Final R esult Performing Organization Address [facility]/ZIP Co de Phone Number [facility] * Blood glucose, POC (11/07/2015 5:00 PM CDT) Glucose, POC, bld 165 70 - 199 mg/dl [facility] Blood specimen (specimen) 11/07/2015 5:00 PM CDT Nato Blue MD LAB BLOOD ORDERABLES Final R esult Performing Organization Address [facility] Phone Number [facility] * (ABNORMAL) Blood hematocrit (11/07/2015 4:13 PM CDT) Hct 24.8(L) 40.0 - 54.0 % [facility] Blood specimen (specimen) 11/07/2015 4:13 PM CDT Nato Blue MD LAB BLOOD ORDERABLES Final R esult Performing Organization Address [facility] Phone Number [facility] * (ABNORMAL) Blood hemoglobin (11/07/2015 4:13 PM CDT) Hemoglobin, fld 7.8(L) 14.0 - 18.0 g/dl [facility] Blood specimen (specimen) 11/07/2015 4:13 PM CDT Nato Blue MD LAB BLOOD ORDERABLES Final R esult Performing Organization Address [facility] Phone Number [facility] * Plasma potassium (11/07/2015 4:13 PM CDT) K, pl 3.9 3.5 - 5.1 mmol/L [facility] Plasma 11/07/2015 4:13 PM CDT us Nato Blue MD LAB BLOOD ORDERABLES Final R esult Performing Organization Address [facility] Phone Number [facility] * (ABNORMAL) Blood gas, arterial (11/07/2015 4:13 PM CDT) Patient temperature 100.0 degrees [facility] pH 7.30(L) 7.35 - 7.45 [facility] PCO2 43 32 - 48 mm Hg [facility] PO2 124(H) 83 - 108 mm Hg [facility] HCO3 20(L) 24 - 32 mmol/L [facility] CO2, bld 22 21 - 27 mmol/L [facility] BE -4.8(L) -2.5 - 3.1 mmol/L [facility] Hgb estimated, bld 7.8(L) 14.0 - 18.0 g/dl [facility] O2 sat 99 92 - 100 % [facility] Oxygen (O2), inspired fraction (FiO2) 40% [facility] Arterial blood 11/07/2015 4: 13 PM CDT Nato Blue MD LAB BLOOD ORDERABLES Final R esult Performing Organization Address [facility] de Phone Number [facility] * Blood glucose, POC (11/07/2015 4:12 PM CDT) Glucose, POC, bld 174 70 - 199 mg/dl [facility] Blood specimen (specimen) 11/07/2015 4:12 PM CDT Nato Blue MD LAB BLOOD ORDERABLES Final R esult Performing Organization Address City/[facility] Co de Phone Number [facility] * Blood glucose, POC (11/07/2015 2:49 PM CDT) Glucose, POC, bld 124 70 - 199 mg/dl [facility] Blood specimen (specimen) 11/07/2015 2:49 PM CDT us Nato Blue MD LAB BLOOD ORDERABLES Final R esult Performing Organization Address City/[facility] Co de Phone Number [facility] * Blood glucose, POC (11/07/2015 1:56 PM CDT) Glucose, POC, bld 120 70 - 199 mg/dl [facility] Blood specimen (specimen) 11/07/2015 1:56 PM CDT Result [facility] Nato Blue MD LAB BLOOD ORDERABLES Final R esult [facility] * Blood glucose, POC (11/07/2015 1:19 PM CDT) Glucose, POC, bld 109 70 - 199 mg/dl [facility] Blood specimen (specimen) 11/07/2015 1:19 PM CDT Result [facility] Naot Blue MD LAB BLOOD ORDERABLES Final R esult Performing Organization Address City/[facility]/ZIP Co de Phone Number [facility] * PRE-PRELIMINARY DIAGNOSTIC REPORT (11/07/2015 1:07 PM CDT) Anatomical Region Laterality Modality N/A Radiographic Brigid ging 11/07/2015 1:07 PM CDT Narrative 11/07/2015 1:10 PM CDT CALL RESULTS: CANDIDO ??JENNIFER IP STAT IMAGING PRELIMINARY RESULT [facility] PATIENT: ?? CANDIDO ??JENNIFER MR#: ?? [id number] : 1940 AGE / SEX: ?? 74Y / M Procedure: EDX 0031 - XR Chest Portable Exam Date: ?? Nov ??2015 ??1:07PM ?Loc: [id number] Acc#: ?? [id number] Pt_Class at Time of Procedure: I Current Pt Class and Location: ?? I ?CVU ? [id number] [facility] ??STAT Phone: [phone] ??Fax: [phone] Reason: ?? Post Op Heart Surgery, Check Line Placement Post Op Heart Surgery, Check Line Placem ent Order Comments: Lorna Rust: ?? NATO ??MUNFAANTONIA Rojas Preliminary Reading Doctor: ??BERNARDA KRISHNAN M.D., RADIOLOGIST Completed on: ??Nov ??2015 ??1:10PM Call Results Info: Patient Waiting: No Call Report to: U Phone: [phone] Fax: [phone] Comments: ----- Please be advised this is a preliminary report. ??A final report is forthcoming. READ ANY COMMENTS BELOW Findings: ? Abnormal Comments Line 1: ?L BASILAR ATELECTASIS Comments Line 2: ?NO PTX Comments Line 3: ?SMALL PLEURAL EFFUSIONS Comments Line 4: Comments Line 5: Procedure Note Provider, MD Carole - 07/31/2016 CALL RESULTS: CANDIDO RODRIGUEZ IP STAT IMAGING PRELIMINARY RESULT [facility] PATIENT: CANDIDO RODRIGUEZ MR#: [id number] : 1940 AGE / SEX: 74Y / M Procedure:EDX 0031 - XR Chest Portable Exam Date: Nov 07 2015 1:07PM Loc:[id number] Acc#: [id number] Pt_Class at Time of Procedure: I Current Pt Class and Location: I CVU [id number] Requesting Location: [facility] Priority: STAT Phone: [phone] Fax: [phone] Reason: Post Op Heart Surgery, Check Line Placement Post Op HeartSurgery, Check Line Placem ent Order Comments: Ord Dr: NATO BLUE M.D. Preliminary Reading Doctor: BERNARDA KRISHNAN M.D., RADIOLOGIST Completed on: Nov 07 2015 1:10PM Call Results Info: Patient Waiting: No Call Report to: CVU Phone: [phone] Fax: [phone] Comments: ----- Please be advised this is a preliminary report. A final report isforthcoming. READ ANY COMMENTS BELOW Findings: Abnormal Comments Line 1: L BASILAR ATELECTASIS Comments Line 2: NO PTX Comments Line 3: SMALL PLEURAL EFFUSIONS Comments Line 4: Comments Line 5: us Historical Provider MD COOK XR PROCEDURES Final R esult * XR Chest 1 View (11/07/2015 1:07 PM CDT) Anatomical Region Laterality Modality Body, Chest N/A Radiographic Brigid ging 11/07/2015 1:07 PM CDT Narrative 11/07/2015 2:37 PM CDT DATE OF EXAM: ??Nov ??2015 ??1:07PM Acc#: ??[id number] ??EDX 0031 - XR Chest Portable ?? DIAGNOSIS: ??REPLACEMENT VALVE AORTIC/AORTIC STENOSIS CLINICAL HISTORY: ?? Post Op Heart Surgery, Check Line Placement RESULT: PORTABLE CHEST X-RAY: HISTORY: Post open heart surgery. Portable frontal view of the chest was obtained. Endotracheal tube terminates 2.7 cm from the ronnie. Nasogastric tube is in place. Mediastinal tube is noted. Right internal jugular ??[facility] Joseph-Braxton catheter terminates overlying the right pulmonary artery. Epicardial leads are noted. Mediastinal drain is noted. There is no pneumothorax. Left basilar atelectasis is present. Small left pleural effusion is present. Small right pleural effusion is also noted. Minimal right basilar discoid atelectasis is suggested. IMPRESSION: ? 1. LEFT BASILAR ATELECTASIS AND PLEURAL EFFUSION. SMALL RIGHT PLEURAL EFFUSION. 2. NO PNEUMOTHORAX. TECHNICIAN AUTOMATED EQUIPMENT: ??LB3 TRANSCRIBE DATE/TIME: ??Nov ??2015 ??2:09P RADIOLOGIST: ??BERNARDA KRISHNAN M.D. ??READ ON: ??Nov ??2015 ??1:10P ORDERING DR: NATO BLUE M.D. THIS DOCUMENT HAS BEEN ELECTRONICALLY SIGNED BY: ??EULOGIO Feliz, BERNARDA ??ON: ??Nov ??2015 ??2:37P Attending: ??ALIA, ??NATO Requesting: ??ALIA, ??NATO Requesting Fax: ??[phone] Attending Fax: ??[phone] Attending ID: ??[id number] Requesting ID: ??[id number] Report To 1 ID: ??[id number] Report To 1 Name: ??ALIA, ??NATO Report To 1 FAX: ??[phone] Report To 2 ID: ?? Report To 2 Name: ??, ?? Report To 2 FAX: ??-- NextGen Order #: ?? Procedure Note Provider, MD Carole - 07/31/2016 DATE OF EXAM: Nov 07 2015 1:07PM Acc#: [id number] EDX 0031 - XR Chest Portable DIAGNOSIS: REPLACEMENT VALVE AORTIC/AORTIC STENOSIS CLINICAL HISTORY: Post Op Heart Surgery, Check Line Placement RESULT: PORTABLE CHEST X-RAY: HISTORY: Post open heart surgery. Portable frontal view of the chest was obtained. Endotracheal tube terminates 2.7 cm from the ronnie. Nasogastric tube is in place. Mediastinal tube is noted. Right internal jugular Saint Joseph-Braxton catheter terminates overlying the right pulmonary artery. Epicardial leads are noted. Mediastinal drain is noted. There is no pneumothorax. Left basilar atelectasis is present. Small left pleural effusion is present. Small right pleural effusion is also noted. Minimal right basilar discoid atelectasis is suggested. IMPRESSION: 1. LEFT BASILAR ATELECTASIS AND PLEURAL EFFUSION. SMALL RIGHT PLEURAL EFFUSION. 2. NO PNEUMOTHORAX. TECHNICIAN AUTOMATED EQUIPMENT: LB3 TRANSCRIBE DATE/TIME: Nov 07 2015 2:09P RADIOLOGIST: BERNARDA KRISHNAN M.D. READ ON: Nov 07 2015 1:10P ORDERING DR: NATO BLUE M.D. THIS DOCUMENT HAS BEEN ELECTRONICALLY SIGNED BY: BERNARDA KRISHNAN M.D. ON: Nov 07 2015 2:37P Attending: NATO BLUE Requesting: NATO BLEU Requesting Attending Attending ID: [id number] Requesting ID: [id number] Report To 1 ID: [id number] Report To 1 Name: NATO BLUE Report To 1 FAX: [phone] Report To 2 ID: Report To 2 Name: , Report To 2 FAX: -- NextGen Order #: Historical Provider MD COOK XR PROCEDURES Final R esult * (ABNORMAL) Blood cell count (CBC), morphologic exam (11/07/2015 12:55 PM CDT) WBC 10.4(H) 3.8 - 9.8 K/cumm [facility] RBC 3.48(L) 4.50 - 6.00 M/cumm [facility] Hgb 8.9(L) 14.0 - 18.0 g/dl [facility] Hct 28.6(L) 40.0 - 54.0 % [facility] MCV 82.2 82.0 - 96.0 fl [facility] MCH 25.6(L) 27.0 - 32.0 pg [facility] MCHC 31.1 29.0 - 35.0 g/dl [facility] Platelets 210 150 - 450 K/cumm [facility] RDW 45.1(H) 35.1 - 43.9 fl [facility] Rdw 15.1(H) 11.5 - 14.5 % [facility] MPV 10.0 8.6 - 12.6 fl [facility] Neutrophils 74.3 42.0 - 85.0 % [facility] Neutrophils, abs 7.7 2.1 - 8.5 K/cumm [facility] Lymphocytes 15.4(L) 16.0 - 52.0 % [facility] Lymphocytes, abs 1.6 0.8 - 5.2 K/cumm [facility] Monos 7.4 1.0 - 13.0 % [facility] Monocytes, absolute 0.8 0.0 - 1.3 K/cumm [facility] Eosinophils 2.2 0.0 - 7.0 % [facility] Eosinophils, abs 0.2 0.0 - 0.7 K/cumm [facility] Basophils 0.2 0.0 - 4.0 % [facility] Basophils, abs 0.0 0.0 - 0.4 K/cumm [facility] Young granulocytes, % 0.5 0.0 - 1.0 % [facility] Young granulocyte 0.05 0.00 - 0.10 K/cumm [facility] NRBC 0.0 0.0 - 0.2 #/100 WBC [facility] NRBC, abs 0.00 0.00 - 0.01 K/cumm [facility] Blood specimen (specimen) 11/07/2015 12:55 PM CDT Nato Blue MD LAB BLOOD ORDERABLES Final R esult [facility] * (ABNORMAL) Plasma prothrombin time (PT) (11/07/2015 12:55 PM CDT) Prothrombin time (PT) 15.6(H) 9.5 - 13.0 seconds [facility] INR 1.43(H) 0.90 - 1.20 [facility] Plasma 11/07/2015 12:5 5 PM CDT Result [facility] Nato Blue MD LAB BLOOD ORDERABLES Final R esult [facility] * Plasma partial thromboplastin time (PTT) (11/07/2015 12:55 PM CDT) APTT 31.8 25.0 - 37.0 seconds [facility] Plasma 11/07/2015 12:5 5 PM CDT Nato Blue MD LAB BLOOD ORDERABLES Final R esult Performing Organization Address [facility] de Phone Number [facility] * (ABNORMAL) Blood gas, arterial (11/07/2015 12:55 PM CDT) Patient temperature 98.6 degrees [facility] pH 7.40 7.35 - 7.45 [facility] PCO2 36 32 - 48 mm Hg [facility] PO2 453(H) 83 - 108 mm Hg [facility] HCO3 23(L) 24 - 32 mmol/L [facility] CO2, bld 23 21 - 27 mmol/L [facility] BE -2.3 -2.5 - 3.1 mmol/L [facility] Hgb estimated, bld 9.1(L) 14.0 - 18.0 g/dl [facility] O2 sat 100 92 - 100 % [facility] Oxygen (O2), inspired fraction (FiO2) 100% [facility] Arterial blood 11/07/2015 12 :55 PM CDT Nato Blue MD LAB BLOOD ORDERABLES Final R esult Performing Organization Address [facility] de Phone Number [facility] * (ABNORMAL) Blood calcium, ionized (11/07/2015 12:55 PM CDT) Pathologist [facility] Ca, ionized, bld, calc, bld 5.21(H) 4.60 - 5.20 mg/dl [facility] Blood specimen (specimen) 11/07/2015 12:55 PM CDT Nato Blue MD LAB BLOOD ORDERABLES Final R esult Performing Organization Address [facility] de Phone Number [facility] * Plasma basic metabolic panel (11/07/2015 12:55 PM CDT) Pathologist [facility] BUN 12 8 - 24 mg/dl [facility] Glucose 131 70 - 199 mg/dl [facility] Sodium 135 135 - 145 mmol/L [facility] K, pl 4.1 3.5 - 5.1 mmol/L [facility] Chloride 108 100 - 114 mmol/L [facility] CO2 22 22 - 32 mmol/L [facility] Creatinine 0.92 0.70 - 1.40 mg/dl [facility] Calcium 9.2 8.4 - 10.5 mg/dl [facility] A. gap 9 8 - 16 mmol/L [facility] eGFR 80 90 - 200 ml/min/1.7 3 m2 [facility] Comment: If this individual is -[place], multiply result by 1.21 Repeated results of less than 60 is indicative of chronic kidney disease. MDRD formula has not been validated on individuals greater than 70 years old. Plasma 11/07/2015 12:5 5 PM CDT Nato Blue MD LAB BLOOD ORDERABLES Final R esult Performing Organization Address [facility] Co de Phone Number [facility] * Blood glucose, POC (11/07/2015 12:36 PM CDT) Glucose, POC, bld 125 70 - 199 mg/dl [facility] Blood specimen (specimen) 11/07/2015 12:36 PM CDT Nato Blue MD LAB BLOOD ORDERABLES Final R esult Performing Organization Address [facility] Co de Phone Number [facility] * Blood glucose, POC (11/07/2015 11:58 AM CDT) Glucose, POC, bld 148 70 - 199 mg/dl [facility] Blood specimen (specimen) 11/07/2015 11:58 AM CDT us Nato Blue MD LAB BLOOD ORDERABLES Final R esult Performing Organization Address City/State/[facility] Co de Phone Number [facility] * Blood glucose, POC (11/07/2015 11:20 AM CDT) Glucose, POC, bld 180 70 - 199 mg/dl [facility] Blood specimen (specimen) 11/07/2015 11:20 AM CDT us aNto Blue MD LAB BLOOD ORDERABLES Final R esult Performing Organization Address [facility] Phone Number [facility] * Blood platelet count (11/07/2015 10:55 AM CDT) Platelets 217 150 - 450 K/cumm [facility] Blood specimen (specimen) 11/07/2015 10:55 AM CDT Nato Blue MD LAB BLOOD ORDERABLES Final R esult Performing Organization Address [facility] Phone Number [facility] * Blood glucose, POC (11/07/2015 10:34 AM CDT) Glucose, POC, bld 185 70 - 199 mg/dl [facility] Blood specimen (specimen) 11/07/2015 10:34 AM CDT Nato Blue MD LAB BLOOD ORDERABLES Final R esult Performing Organization Address [facility] Phone Number [facility] * Blood glucose, POC (11/07/2015 9:49 AM CDT) Glucose, POC, bld 164 70 - 199 mg/dl [facility] Blood specimen (specimen) 11/07/2015 9:49 AM CDT Nato Blue MD LAB BLOOD ORDERABLES Final R esult Performing Organization Address [facility] Phone Number [facility] * Blood glucose, POC (11/07/2015 8:41 AM CDT) Glucose, POC, bld 136 70 - 199 mg/dl [facility] Blood specimen (specimen) 11/07/2015 8:41 AM CDT us Nato Blue MD LAB BLOOD ORDERABLES Final R esult Performing Organization Address [facility] de Phone Number [facility] * Plasma magnesium (11/07/2015 7:55 AM CDT) Magnesium 2.4 1.8 - 2.6 mg/dl [facility] Plasma 11/07/2015 7:55 AM CDT Narrative [facility] - 11/07/2015 8:27 AM CDT Repeat magnesium level 1 hour after infusion. us Nato Blue MD LAB BLOOD ORDERABLES Final R esult [facility] * Surgical pathology (11/07/2015) Narrative 11/07/2015 Ordered by an unspecified provider. 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 Chronic atrial fibrillation (HCC) Atrial fibrillation Acute posthemorrhagic anemia Atherosclerosis of aorta (HCC) Atherosclerosis of aorta Essential (primary) hypertension Unspecified essential hypertension Hyperlipidemia Other and unspecified hyperlipidemia Anesthesia of skin Disturbance of skin sensation Gastro-esophageal reflux disease without esophagitis Personal history of malignant neoplasm of prostate Personal history of nicotine dependence documented in this encounter Care Teams Operator Vacuum Relationship Specialty Start Date End Date John Tafoya MD [address] [place] [address] PCP - General 01/25/14 documented as of this encounter
--- OUTSIDE RECORDS SUMMARY | 2024-04-04 03:30 | XMS_ITS | Encounter Summary ---
Author Organization [facility] Healthcare Address [address] [place] [address] Care Team Providers Care Counseling Program Leader Name Role Phone John Tafoya MD Primary Care Prov ider Encounter Details Date Type Department Care Team (Latest Contact Info) Description 11/01/2015 1:31 PM CDT - 11/01/2015 11:59 PM CDT Hospital [place] [address] [facility] [address] [facility] [address] [place] [address] Encounter for other preprocedural examination Social History Tobacco Use Types Packs/Day Years Used Date Smoking Tobacco: Former Cigarettes Q uit: 04/05/2004 Alcohol Use Standard Drinks/Week Comments Yes 0 (1 standard drink = 0.6 oz pur e alcohol) Sex and Gender Information Value Date Recorded Sex Assigned at Not on file 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 Gender Identity Not on file Sexual Orientation [...] Procedure Name Priority Date/Time Associated Diagnosis Comments PLASMA PROTHROMBIN TIME (PT) Routine 11/01/2015 1:50 PM CDT PLASMA PARTIAL THROMBOPLASTIN TIME (PTT) Routine 11/01/2015 1:50 PM CDT PLASMA COMPREHENSIVE METABOLIC PANEL Routine 11/01/2015 1:50 PM CDT BLOOD CELL COUNT (CBC) Routine 6 1:50 PM CDT BLOOD ABO, RH, INDIRECT AB SCREEN Routine 11/01/2015 1:50 PM CDT URINALYSIS Routine 11/01/2015 8:55 AM CDT DISCHARGE LABORATORY CUMULATIVE REPORT 11/01/2015 documented in this encounter Results * (ABNORMAL) Blood cell count (CBC) (11/01/2015 1:50 PM CDT) WBC 6.2 3.8 - 9.8 K/cumm CDR HISTORICAL RESULTS RBC 4.10(L) 4.50 - 6.00 M/cumm CDR HISTORICAL RESULTS Hgb 10.8(L) 14.0 - 18.0 g/dl CDR HISTORICAL RESULTS Hct 34.0(L) 40.0 - 54.0 % CDR HISTORICAL RESULTS MCV 82.9 82.0 - 96.0 fl CDR HISTORICAL RESULTS MCH 26.3(L) 27.0 - 32.0 pg CDR HISTORICAL RESULTS MCHC 31.8 29.0 - 35.0 g/dl CDR HISTORICAL RESULTS Platelets 340 150 - 450 K/cumm CDR HISTORICAL RESULTS RDW 44.7(H) 35.1 - 43.9 fl CDR HISTORICAL RESULTS Rdw 14.8(H) 11.5 - 14.5 % CDR HISTORICAL RESULTS MPV 9.9 8.6 - 12.6 fl CDR HISTORICAL RESULTS Blood specimen (specimen) 11/01/2015 1:50 PM CDT Nato Blue MD LAB BLOOD ORDERABLES Final R esult CDR HISTORICAL RESULTS * Plasma prothrombin time (PT) (11/01/2015 1:50 PM CDT) Prothrombin time (PT) 11.7 9.5 - 13.0 seconds CDR HISTORICAL RESULTS INR 1.08 0.90 - 1.20 CDR HIST ORICAL RESULTS Plasma 11/01/2015 1:50 PM CDT Nato Blue MD LAB BLOOD ORDERABLES Final R esult Performing Organization Address [facility] Co de Phone Number CDR HISTORICAL RESULTS * (ABNORMAL) Plasma partial thromboplastin time (PTT) (11/01/2015 1:50 PM CDT) APTT 38.7(H) 25.0 - 37.0 seconds CDR HISTORICAL RESULTS Plasma 11/01/2015 1:50 PM CDT Nato Blue MD LAB BLOOD ORDERABLES Final R esult Performing Organization Address [facility] Co de Phone Number CDR HISTORICAL RESULTS * (ABNORMAL) Plasma comprehensive metabolic panel (11/01/2015 1:50 PM CDT) BUN 13 8 - 24 mg/dl CDR HISTORICAL RESULTS Glucose 98 70 - 199 mg/dl CDR HISTORICAL RESULTS Sodium 132(L) 135 - 145 mmol/L CDR HISTORICAL RESULTS K, pl 3.5 3.5 - 5.1 mmol/L CDR HISTORICAL RESULTS Chloride 96(L) 100 - 114 mmol/L CDR HISTORICAL RESULTS CO2 26 22 - 32 mmol/L CDR HISTORICAL RESULTS Creatinine 1.08 0.70 - 1.40 mg/dl CDR HISTORICAL RESULTS AST 22 7 - 40 Units/L CDR HISTORICAL RESULTS ALT 17 5 - 50 Units/L CDR HISTORICAL RESULTS Alk phos 63 30 - 110 Units/L CDR HISTORICAL RESULTS Calcium 9.6 8.4 - 10.5 mg/dl CDR HISTORICAL RESULTS Bilirubin 0.30 0.10 - 1.30 mg/dl CDR HISTORICAL RESULTS Protein, pl 6.6 6.0 - 8.3 g/dl CDR HISTORICAL RESULTS Alb 3.7 3.2 - 4.8 g/dl CDR HISTORICAL RESULTS Globulin 2.9 2.0 - 4.3 g/dl CDR HISTORICAL RESULTS A. gap 14 8 - 16 mmol/L CDR HISTORICAL RESULTS eGFR 67 90 - 200 ml/min/1.7 3 m2 CDR HISTORICAL RESULTS Comment: If this individual is -Citizen Of [place], multiply result by 1.21 Repeated results of less than 60 is indicative of chronic kidney disease. MDRD formula has not been validated on individuals greater than 70 years old. Plasma 11/01/2015 1:50 PM CDT Nato Blue MD LAB BLOOD ORDERABLES Final R Wetradetogetherult Performing Organization Address City/[facility] Co de Phone Number CDR HISTORICAL RESULTS * Blood ABO, Rh, indirect ab screen (11/01/2015 1:50 PM CDT) ABO, Rho(D) A CDR HIST ORICAL RESULTS Rho(D) typing Positive CDR HI STORICAL RESULTS [place], indirect Negative CDR HISTORICAL RESULTS Blood specimen (specimen) 11/01/2015 1:50 PM CDT Nato Blue MD LAB BLOOD ORDERABLES Final R [facility] Performing Organization Address [facility] de Phone Number CDR HISTORICAL RESULTS * Urinalysis (11/01/2015 8:55 AM CDT) Color, ur Straw CDR HISTOR ICAL RESULTS Clarity, ur Clear Clear CDR HIST ORICAL RESULTS pH, ur 6.0 5 - 7 CDR HISTOR ICAL RESULTS Specific gravity, ur 1.008 1.001 - 1.033 CDR HISTORICAL RESULTS Protein, ur Negative Negative CDR HIST ORICAL RESULTS Glucose, ur Negative Negative CDR HIST ORICAL RESULTS Ketones, ur Negative Negative CDR HIST ORICAL RESULTS Bilirubin, ur Negative Negative CDR HI STORICAL RESULTS U Blood Negative Negative CDR HISTOR ICAL RESULTS Urobilinogen, quant, ur Normal 0.2 - 1.0 mg/dl CDR HISTORICAL RESULTS Nitrites, ur Negative Negative CDR HIS TORICAL RESULTS Leukocyte esterase, ur Negative Negative CDR HISTORICAL RESULTS RBC, ur 0 - 5 0 - 5 /hpf CDR HISTO RICAL RESULTS Epithelial cells, ur 0 - 2 /hpf CDR HISTORICAL RESULTS Urine 11/01/2015 8:55 AM CDT Narrative CDR HISTORICAL RESULTS - 11/01/2015 9:24 AM CDT Result negative for significant evidence of urinary tract infection. Urine Culture not indicated. ? Screening for urinary tract infection by urinalysis has an estimated false negative rate of 5%. ??This should be taken into account in patient management. ? Nato Blue MD LAB BLOOD ORDERABLES Final R esult CDR HISTORICAL RESULTS * DISCHARGE LABORATORY CUMULATIVE REPORT (11/01/2015) Narrative 11/01/2015 Ordered by an unspecified provider. Historical Provider LAB BLOOD ORDERABLES Darya l Result documented in this encounter Visit Diagnoses Diagnosis Encounter for other preprocedural examination documented in this encounter Care Teams Counseling Program Leader Relationship Specialty Start Date End Date John Tafoya MD [address] [place] [address] PCP - General 01/25/14 documented as of this encounter
== END 2024-03-28 14:30 | disposition hospice, inpatient (51) ==
LOC: ANHED 06:39 → ANHIMU 09:51
PROVIDERS: Admitting Provider Internal Medicine; Emergency Provider Emergency Medicine; PCP Family Medicine Adolescent Medicine; Visit Provider Nurse Practitioner Acute Care
DX: J96.21 Acute and chronic respiratory failure with hypoxia (principal); J44.0 Chronic obstructive pulmonary disease with (acute) lower respiratory infection; J18.9 Pneumonia, unspecified organism; J44.1 Chronic obstructive pulmonary disease with (acute) exacerbation; J43.1 Panlobular emphysema; I27.20 Pulmonary hypertension, unspecified; I48.0 Paroxysmal atrial fibrillation; I11.0 Hypertensive heart disease with heart failure; I50.32 Chronic diastolic (congestive) heart failure; I71.40 Abdominal aortic aneurysm, without rupture, unspecified; I87.2 Venous insufficiency (chronic) (peripheral); F03.90 Unspecified dementia, unspecified severity, without behavioral disturbance, psychotic disturbance, mood disturbance, and anxiety; K21.9 Gastro-esophageal reflux disease without esophagitis; E78.5 Hyperlipidemia, unspecified; Z66 Do not resuscitate; Z20.822 Contact with and (suspected) exposure to COVID-19; Z79.01 Long term (current) use of anticoagulants; Z99.81 Dependence on supplemental oxygen; Z79.51 Long term (current) use of inhaled steroids; Z79.899 Other long term (current) drug therapy; Z85.46 Personal history of malignant neoplasm of prostate; Z90.79 Acquired absence of other genital organ(s); Z92.3 Personal history of irradiation; Z95.4 Presence of other heart-valve replacement
CPT/HCPCS: 36415; 71045; 80053; 83605; 83735; 85025; 87040; 87637; 93005; 94640; 96361; 96365; 96368; 96375; 99285; G0378; J0692; J2919; J7030

== ENCOUNTER 2024-03-28 14:31 | HOS | payer OTHER, SELFPAY ==
--- NOTE | 2024-03-28 14:44 | P.SS_ITS ---
Same Day Admit/Disch: HPI History of Present Illness Chief complaint: Respiratory Failure Narrative: This is an 83-year-old male with a significant past medical history of Paroxysmal atrial fibrillation hyperlipidemia, chronic venous insufficiency bilateral lower extremity, dementia, aortic stenosis status post TAVR, congestive heart failure, chronic respiratory failure with hypoxia, pulmonary hypertension, GERD, prostate cancer, tobacco abuse. presented to the hospital with increasing shortness of breath. Patient was recently discharged from our facility 3 days ago with pneumonia and COPD exacerbation. EMS was called as patient started having difficulty breathing with respiratory rate in the high 26. He was found to be satting 99 91% on 4 L nasal cannula when EMS arrived. EMS gave a DuoNeb in route to the hospital which slightly improved his symptoms. Workup in the hospital included chest x-ray which shown airspace opacities in the mid and lower lung zones, small pleural effusion, emphysema. Initial labs showed a normal white blood count of 8.6, hemoglobin 9.2, otherwise unremarkable. Respiratory panel was negative. Blood cultures were obtained and are pending. Patient was given be lysed breathing treatments, Solu-Medrol, 1 L of normal saline, started on cefepime and azithromycin, given 20 mg IV push Cardizem and started on a Cardizem infusion while in the ED. I was called by nursing staff this morning stating that the patient took out his IV and took himself off the monitor stated he did not want to continue with treatment at this time. Family and patient would prefer discuss hospice instead. Spoke with as patient is confused in the room. She states that she just wants to make him comfortable however she can not take him home as she is unable to care for him there. She would rather keep uncomfortable with hospice at a facility if this can be arranged. He is currently a DNR DNI. He appears to be in acute respiratory distress with use of accessory muscles to breathe. Heart rate on the monitor showing AFib with RVR. This is reasonable considering patient has dementia of severe aortic stenosis, congestive heart, acute on chronic respiratory failure. I spoke with Case coordination to set up hospice either at a facility or inpatient as I feel he can use still qualify for inpatient. comfort orders placed. [facility] Past Medical History Medical History Paroxysmal atrial fibrillation Presbycusis of both ears Kidney stones Hyperlipidemia Stenosis of right carotid artery Essential hypertension Chronic venous insufficiency of lower extremity Dementia Severe aortic stenosis by prior echocardiogram 2016 Diastolic heart failure Grade 2 diastolic heart failure known echocardiogram 2016 with indeterminate diastolic function noted on echocardiogram 2019 Vasomotor rhinitis Chronic respiratory failure with hypoxia Chronic home O2 Abdominal aortic aneurysm, without rupture Pulmonary hypertension due to lung diseases and hypoxia Severe with last echo 2019 Gastro-esophageal reflux disease without esophagitis History of prostate cancer 2005 Panlobular emphysema Lung nodule Tobacco abuse Quit 2004. 49 pack years 1ppd. Surgical History Surgical History History of colonoscopy with polypectomy History of tonsillectomy and adenoidectomy History of right inguinal hernia repair (~2005) History of aortic valve replacement with tissue graft (~2015) Due to severely stenosed bicuspid aortic valve with a Magna tissue valve replacement History of radical prostatectomy (~2004) With adjunctive radiation therapy Family History Family History Father Acute myocardial infarction Heart disease Mother Acute myocardial infarction Heart disease Sibling Malignant neoplasm of prostate Alzheimer's dementia Heart disease Son Type 1 diabetes Other Alzheimer disease Social History Social History Social History: Code status: DNR/DNI Surrogate decision maker: Smoking packs per day: 1 Smoking cigarettes per day: 20.0 Years smoked: 46 Smoking pack-years: 46.00 Smoking status: Former smoker Alcohol intake: never Substance use: never Substance use type: does not use Lack of Transportation: No Lack of Food: Never True Current Housing: I Have Housing Concerned About Future Housing: No Difficulty Paying Gas/Electric Bills: No Difficulty Paying for Meds: No Currently Unemployed: No Education: Trade/Vocational Certificate Difficulty w/ Childcare or Family Care: No Living arrangements: with family Additional living arrangements comments: He lives with his and his son lives in the basement and is separate living quarters. 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 Gender identity (if verbalized by the patient): Male Sexual Orientation (if Verbalized by the Patient): Straight or Heterosexual Spiritual care concerns: No Agree to blood products: Yes Same Day Admit/Disch: Med Pre-admit Medications Home Medications ?Medication ?Instructions ?Recorded ?Confirmed ?Type rivaroxaban 20 mg tablet (Xarelto) 20 mg PO DAILY@1700 #30 tabs 04/24/19 03/28/24 Rx omeprazole 20 mg capsule,delayed 20 mg PO DAILY 01/23/22 03/28/24 History release budesonide-formoterol HFA 160 2 puff inhalation Q12H #10.2 grams 08/10/22 03/28/24 Rx mcg-4.5 mcg/actuation aerosol inhaler furosemide 20 mg tablet 20 mg PO DAILY 30 days #30 tabs 10/19/22 03/28/24 Rx albuterol sulfate 90 mcg/actuation 1 inh inhalation Q4-6H PRN 02/01/23 03/28/24 Rx aerosol inhaler shortness of breath or wheezing #8.5 grams donepezil 10 mg tablet 10 mg PO HS #90 tabs 09/10/23 03/28/24 Rx memantine 10 mg tablet See Rx Instructions .Route 02/10/24 03/28/24 Rx .COMPLEX #180 tabs metoprolol succinate 50 mg 50 mg PO DAILY 03/15/24 03/28/24 History tablet,extended release 24 hr amoxicillin 875 mg-potassium 1 tablet PO Q12H #6 tabs 03/25/24 03/28/24 Rx clavulanate 125 mg tablet atorvastatin 10 mg tablet See Rx Instructions .Route 03/25/24 03/28/24 Rx .COMPLEX #90 tabs doxycycline hyclate 100 mg tablet 100 mg PO Q12HR #3 tabs 03/25/24 03/28/24 Rx ferrous sulfate 325 mg (65 mg 325 mg PO DAILY #30 tabs 03/25/24 03/28/24 Rx iron) tablet,delayed release Review of Systems Review of Systems All systems reviewed & are unremarkable except as noted in HPI and below Constitutional Constitutional: Reports as per HPI and Reports no additional constitutional complaints Eyes Eyes: Reports as per HPI and Reports no additional eye complaints ENT Reports system reviewed and no additional complaints, except as documented and Reports as per HPI Cardiovascular Cardiovascular: Reports as per HPI and Reports no additional cardiovascular complaints Respiratory Respiratory: Reports as per HPI and Reports no additional respiratory complaints Gastrointestinal Gastrointestinal: Reports as per HPI and Reports no additional gastrointestinal complaints Genitourinary Genitourinary: Reports no additional male genitourinary complaints and Reports as per HPI Musculoskeletal Musculoskeletal: Reports no additional musculoskeletal complaints and Reports as per HPI Integumentary/Breasts Skin/Breast: Reports system reviewed and no additional complaints, except as docu and Reports as per HPI Neurologic Reports system reviewed and no additional complaints, except as documented and Reports as per HPI Psychiatric Psychiatric: Reports no additional psychiatric complaints and Reports as per HPI Endocrine Endocrine: Reports no additional endocrine complaints and Reports as per HPI Hematologic/Lymphatic Hematologic/Lymphatic: Reports no additional hematologic/lymphatic complaints and Reports as per HPI Allergic/Immunologic Allergic/Immunologic: Reports no additional allergic/immunologic complaints and Reports as per HPI Exam Narrative: General: In acute respiratory distress, malnourished Head: atraumatic, no encephalopathy Eyes: PERRLA, sclera clear ENT: moist mucous membranes, nasal passages clear Neck: supple, no JVD, no adenopathy, trachea midline Cardiac: Normal S1 and S2. Irregular rate and rhythm, Atrial fibrillation RVR on monitor. No murmur, gallops or friction rubs, peripheral pulses intact. Respiratory: Lungs coarse throughout with audible wheezing, no other adventitious lung sounds, currently on 3 L nasal cannula, acute respiratory distress with use of accessory muscles. Congested cough, non-productive Gastrointestinal: soft, non-distended, non-tender, normoactive bowel sounds. : voiding without difficulty. Extremities: moves all extremities well, no edema Skin: clean, dry, intact. No wounds or lesions. Neuro: Alert and confused, cranial nerves intact, no neuro deficits. Psych: normal mood, normal affect, interactive DS: Data Data Completed and Pending Completed studies during hospitalization: Chest x-ray Labs on day of discharge: Blood cultures Procedures/Treatments: None Imaging Radiologist's impression: EXAMINATION: XR chest 1V portable DATE: 03/28/2024 05:28 INDICATION: Shortness of breath. TECHNIQUE: A single frontal view of the chest was obtained. COMPARISON: Chest CT 03/21/2024, chest single view 10/12/2022 FINDINGS: There are lucencies in the lungs, consistent with emphysema. There are small pleural effusions. There are peripheral airspace opacities in the mid and lower lung zones. No pneumothorax. The heart size is normal. There are changes of aortic valve replacement. IMPRESSION: 1. Peripheral airspace opacities in the mid and lower lung zones, likely rounded atelectasis without or with superimposed pneumonia. 2. Small pleural effusions. 3. Emphysema. Reviewed, dictated and finalized at location A. [facility] DS: Summary Hospital Course Reason for hospitalization: Acute respiratory failure with hypoxia Pneumonia Hospital Course: This is an 83-year-old male with a significant past medical history of Paroxysmal atrial fibrillation hyperlipidemia, chronic venous insufficiency bilateral lower extremity, dementia, aortic stenosis status post TAVR, congestive heart failure, chronic respiratory failure with hypoxia, pulmonary hypertension, GERD, prostate cancer, tobacco abuse. presented to the hospital with increasing shortness of breath. Patient was recently discharged from our facility 3 days ago with pneumonia and COPD exacerbation. EMS was called as patient started having difficulty breathing with respiratory rate in the high 26. He was found to be satting 99 91% on 4 L nasal cannula when EMS arrived. EMS gave a DuoNeb in route to the hospital which slightly improved his symptoms. Workup in the hospital included chest x-ray which shown airspace opacities in the mid and lower lung zones, small pleural effusion, emphysema. Initial labs showed a normal white blood count of 8.6, hemoglobin 9.2, otherwise unremarkable. Respiratory panel was negative. Blood cultures were obtained and are pending. Patient was given be lysed breathing treatments, Solu-Medrol, 1 L of normal saline, started on cefepime and azithromycin, given 20 mg IV push Cardizem and started on a Cardizem infusion while in the ED. I was called by nursing staff this morning stating that the patient took out his IV and took himself off the monitor stated he did not want to continue with treatment at this time. Family and patient would prefer discuss hospice instead. Spoke with as patient is confused in the room. She states that she just wants to make him comfortable however she can not take him home as she is unable to care for him there. She would rather keep uncomfortable with hospice at a facility if this can be arranged. He is currently a DNR DNI. He appears to be in acute respiratory distress with use of accessory muscles to breathe. Heart rate on the monitor showing AFib with RVR. This is reasonable considering patient has dementia of severe aortic stenosis, congestive heart, acute on chronic respiratory failure. I spoke with Case coordination to set up hospice either at a facility or inpatient as I feel he can use still qualify for inpatient. comfort orders placed. Patient discharged to [facility]. Final diagnosis: Acute respiratory failure with hypoxia, pneumonia Status at Discharge Cognitive/behavioral status at discharge: Alert and confused Functional status at discharge: bed bound Overall status at discharge: patient is not back to baseline Time Spent with Patient Time attestation: Total time spent providing and/or coordinating discharge services: Time spent: Greater than 30 minutes DS: Admitting Diagnosis Discharge Date 03/28/24 Admitting Diagnosis Acute respiratory failure with hypoxia Pneumonia DS: Discharge Diagnosis Discharge Diagnosis Plan Inpatient hospice with [facility]. Discharge Plan Discharge Attending physician on discharge: Tessie Wyatt Discharging Clinician: Rose Barraza Anticipated Discharge Date/Time: 03/28/24 14:49 Patient Disposition: Hospice - Medical Facility Activity: as tolerated Diet: as tolerated and regular Discharge Instructions: Discharged to inpatient hospice with [facility] Patient Language: Amharic Stand Alone Forms: General Discharge Information Discharge Medications: Discontinued omeprazole 20 mg capsule,delayed release(DR/EC) 20 mg PO DAILY metoprolol succinate 50 mg tablet extended release 24 hr 50 mg PO DAILY budesonide-formoterol 160-4.5 mcg/actuation HFA aerosol inhaler 2 puff inhalation Q12H Qty: 10.2 5RF Xarelto 20 mg Tablet 20 mg PO DAILY@1700 Qty: 30 3RF furosemide 20 mg Tablet 20 mg PO DAILY 30 Days Qty: 30 0RF ferrous sulfate 325 mg (65 mg iron) Tablet,Delayed Release (Dr/Ec) 325 mg PO DAILY Qty: 30 0RF doxycycline hyclate 100 mg Tablet 100 mg PO Q12HR Qty: 3 0RF amoxicillin-pot clavulanate 875-125 mg tablet 1 tablet PO Q12H Qty: 6 0RF albuterol sulfate 90 mcg/actuation HFA aerosol inhaler 1 inh inhalation Q4-6H PRN (Reason: shortness of breath or wheezing) Qty: 8.5 5RF donepezil 10 mg tablet 10 mg PO HS Qty: 90 2RF memantine 10 mg tablet See Rx Instructions .ROUTE .COMPLEX Qty: 180 2RF Dose Instruction: TAKE 1 TABLET BY MOUTH TWICE A DAY Rx Instructions: TAKE 1 TABLET BY MOUTH TWICE A DAY atorvastatin 10 mg tablet See Rx Instructions .ROUTE .COMPLEX Qty: 90 1RF Dose Instruction: TAKE 1 TABLET BY MOUTH EVERY DAY Rx Instructions: TAKE 1 TABLET BY MOUTH EVERY DAY Date of admission: 03/28/24 14:31 Primary Care Provider: John Tafoya Admitting Provider: Tom Brown Attending physician on admission: Tom Brown Condition: Terminal Hospitalist [facility] Advance Care Plan I have confirmed that the patient's Advanced Care Plan is present, code status is documented, or surrogate decision maker is listed in patient medical record.: Yes Medication Reconciliation I have utilized all available resources to obtain, update and review the patients current medications (includes all prescriptions, OTC, herbals, cannabis, and nutritional supplements).: Yes Heart Failure (Exclusion) Patient has history of Heart Transplant or Left Ventricular Assistive Device?: No IF YES, STOP HERE Heart Failure (Qualifier) Patient has current or prior documentation of LVEF less than or equal to 40%, or mod/servere depressed LVSF?: No IF NO, STOP HERE
--- NOTE | 2024-03-28 15:14 | PC.NURSE ---
discharged to inpatient hospice.
[2024-03-28 15:39] VITALS: PULSE 125; RESP 32
[2024-03-28] MEDS: MORPHINE 50 MG/NS 100ML (*CRX) 50 MG/100 ML BAG IV CONT (15:39)
[2024-03-28 16:00] VITALS: PULSE 116; RESP 28; O2SAT 96
--- NOTE | 2024-03-28 16:20 | PC.NURSE ---
Transfer received per hospital bed.
[2024-03-28] MEDS: MORPHINE SULFATE (*CRX) 2 MG/ML INJ IV PUSH ×2 (16:28→20:29)
[2024-03-28] MEDS: GLYCOPYRROLATE INJ (*SP) 0.2 MG/ML VIAL 0.1 MG IV PUSH (16:30)
[2024-03-28] MEDS: LORazepam INJ (*CRX) 2 MG/ML VIAL 1 MG IV PUSH (16:31)
[2024-03-28 20:00] VITALS: O2SAT 96
[2024-03-28 21:28] VITALS: BP 121/62; PULSE 127; RESP 14; TEMP 36.9; O2SAT 95
[2024-03-29] MEDS: MORPHINE SULFATE (*CRX) 2 MG/ML INJ IV PUSH ×2 (00:12→12:45)
[2024-03-29] MEDS: LORazepam INJ (*CRX) 2 MG/ML VIAL 1 MG IV PUSH ×2 (00:13→12:43)
--- NOTE | 2024-03-29 09:58 | P.HP_ITS ---
H&P: HPI History of Present Illness Date/Time: 03/29/24 09:58 Chief Complaint: Uncontrolled dyspnea Narrative: Mr. Mcclure was admitted [facility] in March 28 after being is a history of aortic stenosis status post TAVR, atrial fibrillation, diastolic congestive heart failure, and COPD. He also has dementia. It was brought to the hospital March 28 2 increasing dyspnea respiratory distress with oxygen saturation in the low 90s 4 L. Received nebulizer treatment on weight you chest x-ray showed bilateral lower lobe infiltrates. Is admitted treated with broad-spectrum antibiotics. But the following morning deep in state out wish any more treatment. Hospitalist staff discussed with his at bedside and she agreed that inpatient hospice service would be best for him. Since starting the drip at 1 milligram/hour his remained comfortable overnight. Review of Systems Review of Systems: ROS unobtainable: Yes unobtainable due to mental status PMFSH Past Medical History Medical History Paroxysmal atrial fibrillation Presbycusis of both ears Kidney stones Hyperlipidemia Stenosis of right carotid artery Essential hypertension Chronic venous insufficiency of lower extremity Dementia Severe aortic stenosis by prior echocardiogram 2015 Diastolic heart failure Grade 2 diastolic heart failure known echocardiogram 2015 with indeterminate diastolic function noted on echocardiogram 2019 Vasomotor rhinitis Chronic respiratory failure with hypoxia Chronic home O2 Abdominal aortic aneurysm, without rupture Pulmonary hypertension due to lung diseases and hypoxia Severe with last echo 2019 Gastro-esophageal reflux disease without esophagitis History of prostate cancer 2004 Panlobular emphysema Lung nodule Tobacco abuse Quit 2004. 49 pack years 1ppd. Surgical History Surgical History History of colonoscopy with polypectomy History of tonsillectomy and adenoidectomy History of right inguinal hernia repair (~2005) History of aortic valve replacement with tissue graft (~2015) Due to severely stenosed bicuspid aortic valve with a Magna tissue valve replacement History of radical prostatectomy (~2004) With adjunctive radiation therapy Family History Family History Father Acute myocardial infarction Heart disease Mother Acute myocardial infarction Heart disease Sibling Malignant neoplasm of prostate Alzheimer's dementia Heart disease Son Type 1 diabetes Other Alzheimer disease Social History Social History Social History: Code status: DNR/DNI Surrogate decision maker: Smoking packs per day: 1 Smoking cigarettes per day: 20.0 Years smoked: 46 Smoking pack-years: 46.00 Smoking status: Former smoker Alcohol intake: never Substance use: never Substance use type: does not use Lack of Transportation: No Lack of Food: Never True Current Housing: I Have Housing Concerned About Future Housing: No Difficulty Paying Gas/Electric Bills: No Difficulty Paying for Meds: No Currently Unemployed: No Education: Trade/Vocational Certificate Difficulty w/ Childcare or Family Care: No Living arrangements: with family Additional living arrangements comments: He lives with his and his son lives in the basement and is separate living quarters. 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 Gender identity (if verbalized by the patient): Male Sexual Orientation (if Verbalized by the Patient): Straight or Heterosexual Spiritual care concerns: No Agree to blood products: Yes Meds Home Medications and Allergies Home Medications ?Medication ?Instructions ?Recorded ?Confirmed ?Type rivaroxaban 20 mg tablet (Xarelto) 20 mg PO DAILY@1700 #30 tabs 04/24/19 03/28/24 Rx omeprazole 20 mg capsule,delayed 20 mg PO DAILY 01/23/22 03/28/24 History release budesonide-formoterol HFA 160 2 puff inhalation Q12H #10.2 grams 08/10/22 03/28/24 Rx mcg-4.5 mcg/actuation aerosol inhaler furosemide 20 mg tablet 20 mg PO DAILY 30 days #30 tabs 10/19/22 03/28/24 Rx albuterol sulfate 90 mcg/actuation 1 inh inhalation Q4-6H PRN 02/01/23 03/28/24 Rx aerosol inhaler shortness of breath or wheezing #8.5 grams donepezil 10 mg tablet 10 mg PO HS #90 tabs 09/10/23 03/28/24 Rx memantine 10 mg tablet See Rx Instructions .Route 02/10/24 03/28/24 Rx .COMPLEX #180 tabs metoprolol succinate 50 mg 50 mg PO DAILY 03/15/24 03/28/24 History tablet,extended release 24 hr amoxicillin 875 mg-potassium 1 tablet PO Q12H #6 tabs 03/25/24 03/28/24 Rx clavulanate 125 mg tablet atorvastatin 10 mg tablet See Rx Instructions .Route 03/25/24 03/28/24 Rx .COMPLEX #90 tabs doxycycline hyclate 100 mg tablet 100 mg PO Q12HR #3 tabs 03/25/24 03/28/24 Rx ferrous sulfate 325 mg (65 mg 325 mg PO DAILY #30 tabs 03/25/24 03/28/24 Rx iron) tablet,delayed release Allergies Allergy/AdvReac Type Severity Reaction Status Date / Time No Known Allergies Allergy Verified 03/15/24 10:58 Vital Signs Vital Signs - 24 hr 03/28/24 15:39 03/28/24 16:00 03/28/24 20:00 Temperature Pulse Rate 125 H 116 H Respiratory Rate 32 H 28 H Blood Pressure Pulse Oximetry 96 96 Oxygen Delivery Nasal Cannula Nasal Cannula Oxygen Flow Rate 3 3 03/28/24 21:28 Temperature 98.4 F Pulse Rate 127 H Respiratory Rate 14 Blood Pressure 121/62 Pulse Oximetry 95 Oxygen Delivery Oxygen Flow Rate Exam Narrative: Elderly gentleman lying in hospital onset to tactile stimuli and verbal stimuli. Oral closer dry. Neck no obvious JVD. Chest mild tachypnea with diffuse crackles throughout both lungs. Audible gurgling with respirations. Heart normal S1 and S2 with tachycardia and irregularly irregular rate. No murmur noted. Extremities no edema. Abdomen hypoactive bowel sounds soft nontender. Musculoskeletal no gross deformity to his inspection. Neurologic cranial nerves symmetric to visually inspection. Course rest tremor right upper extremity. Assessment and Plan Assessment and plan (1) Hospice care: Code(s): Z51.5 - Encounter for palliative care Status: Acute Assessment and Plan: * Meet inpatient hospice criteria due to acquiring continuous IV morphine for control of dyspnea and restlessness. * P.r.n. palliative regimen ordered. * 03/29/2020 for care prognosis with spouse at bedside. (2) Acute on chronic respiratory failure with hypoxia and hypercapnia: Code(s): J96.21 - Acute and chronic respiratory failure with hypoxia; J96.22 - Acute and chronic respiratory failure with hypercapnia Status: Acute (3) Atrial fibrillation with RVR: Code(s): I48.91 - Unspecified atrial fibrillation Status: Acute (4) Bilateral pneumonia: Code(s): J18.9 - Pneumonia, unspecified organism Status: Acute (5) Acute exacerbation of chronic obstructive pulmonary disease: Code(s): J44.1 - Chronic obstructive pulmonary disease with (acute) exacerbation Status: Acute (6) CHF (congestive heart failure): Qualifiers: Heart failure chronicity: acute on chronic Heart failure type: unspecified Qualified Code(s): I50.9 - Heart failure, unspecified Code(s): I50.9 - Heart failure, unspecified Status: Acute (7) Panlobular emphysema: Code(s): J43.1 - Panlobular emphysema Status: Acute (8) Dependence on supplemental oxygen: Code(s): Z99.81 - Dependence on supplemental oxygen Status: Acute (9) 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
[2024-03-29 10:20] VITALS: O2SAT 95
[2024-03-29] MEDS: GLYCOPYRROLATE INJ (*SP) 0.2 MG/ML VIAL 0.1 MG IV PUSH (12:48)
[2024-03-29 16:00] VITALS: BP 138/78; PULSE 134; RESP 16; TEMP 38; O2SAT 82
[2024-03-29 17:03] VITALS: PULSE 120; RESP 15
[2024-03-29] MEDS: MORPHINE 50 MG/NS 100ML (*CRX) 50 MG/100 ML BAG IV CONT (17:03)
[2024-03-29 17:23] VITALS: TEMP 38.5
[2024-03-29] MEDS: ACETAMINOPHEN 650 MG SUPPOSITORY RECTAL (17:23)
[2024-03-29 18:23] VITALS: TEMP 38.3
--- NOTE | 2024-04-05 19:28 | PM.DDS ---
Discharge Summary Date and Time Date of : 03/30/24 Time of : 00:45 Provider Pronounced By: 2 RNs Name of First RN That Pronounced: Krista Warren Name of Second RN That Pronounced: Krystal Price Probable Cause of Probable Cause of : Acute on chronic respiratory failure with hypoxia due to COPD with pneumonia Summary Hospital Course: Mr. Dos Santos was admitted to inpatient hospice service for control of dyspnea. Medications were titrated to comfort. He peacefully. Additional Data Confirmation of as documented by pronouncing clinician: Palpable Pulses, Response to Stimuli, Heart Tones and Breath Sounds Name of Provider Notified: Christine Time Provider Notified: 00:50 Provider Requests Autopsy: No Family Requests Autopsy: No Manufacturing Manager Notified: Yes Date [facility] Notified of : 03/30/24 Time [facility] Notified of : 01:30
== END 2024-03-30 02:51 | disposition hospice, inpatient (51) | DRG 951 ==
LOC: ANHIMU 15:17 → ANH3MEDSUR 16:08
PROVIDERS: Admitting Provider Internal Medicine; PCP Family Medicine Adolescent Medicine; Visit Provider Internal Medicine
DX: Z51.5 Encounter for palliative care (principal); J96.21 Acute and chronic respiratory failure with hypoxia; J18.9 Pneumonia, unspecified organism; J44.0 Chronic obstructive pulmonary disease with (acute) lower respiratory infection; I50.32 Chronic diastolic (congestive) heart failure; J96.11 Chronic respiratory failure with hypoxia; I48.0 Paroxysmal atrial fibrillation; E78.5 Hyperlipidemia, unspecified; I65.21 Occlusion and stenosis of right carotid artery; I87.2 Venous insufficiency (chronic) (peripheral); F03.90 Unspecified dementia, unspecified severity, without behavioral disturbance, psychotic disturbance, mood disturbance, and anxiety; I71.40 Abdominal aortic aneurysm, without rupture, unspecified; K21.9 Gastro-esophageal reflux disease without esophagitis; Z99.81 Dependence on supplemental oxygen; Z85.46 Personal history of malignant neoplasm of prostate; Z87.891 Personal history of nicotine dependence; Z95.2 Presence of prosthetic heart valve
CPT/HCPCS: A9270; J1596; J2060; J2270